=== PATIENT | female | born 1930 | race Caucasian/White ===

== ENCOUNTER 2016-08-10 10:20 | Observation (INO) ==
--- NOTE | 2016-08-10 10:27 | Emergency Department Note ---
Disposition Clinical Impression: Headache, Atrial fibrillation with RVR, Frail elderly, CHF (congestive heart failure), Leukocytosis, Post-operative state Disposition: Admitted As Inpatient Referrals: NO,PCP [Non-Partnered Physician] - Forms: ED Satisfaction Letter General Adult HPI - General Chief complaint: ED Fever Stated complaint: Fever/Headache Time Seen by Provider: 08/10/16 10:26 Source: patient, family Limitations: no limitations - History of Present Illness HPI Narrative: 86-year-old female reports to the emergency department from home, she comes in with her son. There are concerns for a fever up to 101 degrees. The patient is status post cholecystectomy yesterday. She was sent home after surgery. The patient has a known history of atrial fibrillation discontinued her anticoagulation medication for surgery but re-initiated last night. There is no history of head trauma or neck stiffness but the patient reports she did have head and neck pain. There has been no difficulty moving the arms or legs and apparently no seizure-like activity noted unilateral arm or leg weakness or numbness no slurred speech or ifrah confusion. The patient denies any significant abdominal pain there is no history of vomiting diarrhea chest pain or shortness of breath. The patient's son reports the patient's heart is beating rapidly. There is no history of rash or urinary symptoms. No cough coughing up blood or syncope. The patient's complaints include headache fever and fast heart rate. Pain Scale: 5 - Related Data Home Medications Medication Instructions Recorded Confirmed Antiox#10/Om3/Dha/Epa/Lut/Zeax 1 cap PO QAM 04/29/16 08/10/16 [I-Caps with Lutein-[place] 3 Sfg] Digoxin [Lanoxin] 0.125 mg PO DAILY 04/29/16 08/10/16 Docusate [Colace] 200 mg PO BID 04/29/16 08/10/16 Lutein 6 mg PO HS 04/29/16 08/10/16 Metoprolol XL (24 HR) Succ [Toprol 50 mg PO DAILY 04/29/16 08/10/16 Xl] Rivaroxaban [Xarelto] 15 mg PO DAILY 04/29/16 08/10/16 Acetaminophen [Tylenol] 500 mg PO Q6HR PRN 08/09/16 08/10/16 Betamethasone/Propylene Glyc 1 appl TP DAILY PRN 08/09/16 08/10/16 [Betamethasone Dp Aug 0.05% Lot] Cholecalciferol (D-3) [Vitamin D] 1,000 unit PO DAILY 08/09/16 08/10/16 HYDROcodone/Acet 5/325 mg [[place]onas 1 tab PO BID PRN 08/10/16 08/10/16 5-325 mg] Previous Rx's Medication Instructions Recorded OxyCODONE/APAP 10/325 [Percocet 1 each PO Q6HR PRN #36 tablet 08/09/16 10/325 MG] Allergies Allergy/AdvReac Type Severity Reaction Status Date / Time dexamethasone Allergy See Verified 08/10/16 13:43 Comments Procaine Allergy See Verified 08/10/16 13:43 Comments All systems ED: reviewed and negative except as stated. 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 Absent: tenderness, meningismus - Chest Chest inspection: Present: symmetric chest wall rise. Absent: tenderness - Respiratory Respiratory exam: Present: normal lung sounds bilaterally. Absent: respiratory distress - Cardiovascular Cardiovascular exam: Present: tachycardia, irregular rhythm - Abdominal Exam Abdominal exam: Present: soft, Non-Tender, normal bowel sounds. Absent: tenderness, distention, guarding, rebound, rigidity - Extremities Exam Extremities exam: Present: normal inspection, full ROM, normal capillary refill. Absent: tenderness, pedal edema, joint swelling, calf tenderness - Expanded Lower Extremity Exam Lower leg exam: Absent: Homans' sign Neurovascular/Tendon exam: Present: normal capillary refill. Absent: motor deficit, sensory deficit, tendon deficit, extremity cold to touch, pallor - Back Exam Back exam: Present: normal inspection, full ROM. Absent: tenderness, CVA tenderness (R), CVA tenderness (L), vertebral tenderness - Neurological Exam Neurological exam: Present: alert, oriented X3, CN II-XII intact. Absent: motor sensory deficit - Psychiatric Psychiatric exam: Present: normal affect, normal mood - Skin Skin exam: Present: warm, dry, intact, normal color. Absent: rash, cyanosis, diaphoresis, erythema, pallor, mottled Course Vital Signs Temperature 99.0 F 08/10/16 10:21 Pulse Rate 131 08/10/16 10:21 Respiratory Rate 18 08/10/16 10:21 Blood Pressure 127/73 08/10/16 10:21 O2 Sat by Pulse Oximetry 95 08/10/16 10:21 Temperature 99.0 F 08/10/16 10:21 Pulse Rate 95 08/10/16 14:20 Respiratory Rate 18 08/10/16 14:20 Blood Pressure 127/75 08/10/16 14:20 O2 Sat by Pulse Oximetry 95 08/10/16 14:20 Oxygen Delivery Oxygen Delivery Nasal Cannula Medical Decision Making - [facility] Narrative Medical decision making narrative: The patient does not have a significant temperature elevation here, she reports her head pain has resolved. I do not feel the patient requires an emergent lumbar puncture. She displays no neurologic change and is completely alert, there is no evidence of intracranial hemorrhage, I do not suspect meningismus. She does not describe a thunderclap headache and subarachnoid hemorrhage seems less likely. The patient does take anticoagulant medications. The patient may simply have a postop noninfectious fever. Chest x-ray negative. White count slightly elevated, lactate negative. Normal saline given in the ED. The patient seems to have a persistently elevated heart rate. Atrial fibrillation with RVR noted. I discussed the case with the hospitalist on-call who has accepted the patient to their care. Further evaluation and management per the admitting team and specialists if deemed necessary. I reviewed with the hospitalist did not recommended antibacterial therapy at this time, the patient's heart rate has come down to 95 after 1 L of fluid. - Lab Data Lab results reviewed: Yes I reviewed the patient's lab results. Result diagrams: 08/10/16 10:40 08/10/16 10:40 Lab Results 08/10/16 08/10/16 08/10/16 Range/Units 10:40 10:40 10:40 WBC 14.2 H (4.3-11.1) K/mcL RBC 3.94 (3.82-4.97) M/mcL Hgb 11.7 (11.5-15.4) g/dL Hct 34.8 L (35.3-44.9) % MCV 88.3 (83.0-100.0) fL MCH 29.7 (28.0-33.3) pg MCHC 33.6 (31.6-35.5) g/dL RDW 19.3 H (11.5-14.5) % Plt Count 168 (140-400) K/mcL MPV TNP Seg Neutrophils % 56.0 % Lymphocytes % 4.0 % Monocytes % 40.0 % Neutrophils # 8.0 (1.6-8.9) K/mcL Lymphocytes # 0.6 (0.6-4.6) K/mcL Monocytes # 5.7 H (0.0-1.3) K/mcL Platelet Estimate Normal (Normal) Large Platelets Present A (Not Present) Poikilocytosis 1+ A (Not Present) Ovalocytes 2+ A (Not Present) Sodium 134 L (136-145) mEq/L Potassium 4.1 (3.5-4.5) mEq/L Chloride 102 (98-109) mEq/L Carbon Dioxide 25 (19-29) mEq/L BUN 12 (7-20) mg/dL Creatinine 0.77 (0.57-1.11) mg/dL Est GFR ( Amer) > 60 (> 60) Est GFR (Non-Af Amer) > 60 (> 60) BUN/Creatinine Ratio 16 (6-26) Glucose 114 H (70-99) mg/dL Calculated Osmolality 279 L (280-300) Lactic Acid 1.3 (0.5-2.2) mmol/L Calcium 8.8 (8.6-10.8) mg/dL Troponin I (0-0.03) ng/mL C-Reactive Protein 32 H (Less than 5) mg/L B-Natriuretic Peptide (0-100) pg/mL Urine Color (Yellow) Urine Clarity (Clear) Urine pH (5.0-8.0) pH Units Ur Specific [place] (1.010-1.025) Urine Protein (Neg-Trace) mg/dL Urine Glucose (UA) (Normal) mg/dL Urine Ketones (Negative) mg/dL Urine Blood (Negative) Urine Nitrite (Negative) Urine Bilirubin (Negative) Urine Urobilinogen (Normal) mg/dL Ur Leukocyte Esterase (Negative) Ur Culture Indicated? (NO) 08/10/16 08/10/16 08/10/16 Range/Units 10:40 10:40 13:15 WBC (4.3-11.1) K/mcL RBC (3.82-4.97) M/mcL Hgb (11.5-15.4) g/dL Hct (35.3-44.9) % MCV (83.0-100.0) fL MCH (28.0-33.3) pg MCHC (31.6-35.5) g/dL RDW (11.5-14.5) % Plt Count (140-400) K/mcL MPV Seg Neutrophils % % Lymphocytes % % Monocytes % % Neutrophils # (1.6-8.9) K/mcL Lymphocytes # (0.6-4.6) K/mcL Monocytes # (0.0-1.3) K/mcL Platelet Estimate (Normal) Large Platelets (Not Present) Poikilocytosis (Not Present) Ovalocytes (Not Present) Sodium (136-145) mEq/L Potassium (3.5-4.5) mEq/L Chloride (98-109) mEq/L Carbon Dioxide (19-29) mEq/L BUN (7-20) mg/dL Creatinine (0.57-1.11) mg/dL Est GFR ( Amer) (> 60) Est GFR (Non-Af Amer) (> 60) BUN/Creatinine Ratio (6-26) Glucose (70-99) mg/dL Calculated Osmolality (280-300) Lactic Acid (0.5-2.2) mmol/L Calcium (8.6-10.8) mg/dL Troponin I 0.01 (0-0.03) ng/mL C-Reactive Protein (Less than 5) mg/L B-Natriuretic Peptide 434 H (0-100) pg/mL Urine Color Yellow (Yellow) Urine Clarity Clear (Clear) Urine pH 6.5 (5.0-8.0) pH Units Ur Specific [place] 1.009 L (1.010-1.025) Urine Protein Negative (Neg-Trace) mg/dL Urine Glucose (UA) Normal (Normal) mg/dL Urine Ketones Negative (Negative) mg/dL Urine Blood Negative (Negative) Urine Nitrite Negative (Negative) Urine Bilirubin Negative (Negative) Urine Urobilinogen Normal (Normal) mg/dL Ur Leukocyte Esterase Negative (Negative) Ur Culture Indicated? NO (NO) - Radiology Data Radiology results reviewed: Yes I reviewed the patient's radiology results.
[2016-08-10 10:52] LABS: Hematocrit 34.8 % (35.3-44.9); Hemoglobin 11.7 g/dL (11.5-15.4); Mean Corpuscular HGB Conc 33.6 g/dL (31.6-35.5); Mean Corpuscular Hemoglobin 29.7 pg (28.0-33.3); Mean Corpuscular Volume 88.3 fL (83.0-100.0); Platelet Count 168 K/mcL (140-400); Red Blood Count 3.94 M/mcL (3.82-4.97); Red Cell Distribution Width 19.3 % (11.5-14.5)
[2016-08-10 11:04] LABS: BUN/Creatinine Ratio 16 (6-26); Blood Urea Nitrogen 12 mg/dL (7-20); C-Reactive Protein 32 mg/L (Less than 5); Calcium 8.8 mg/dL (8.6-10.8); Carbon Dioxide 25 mEq/L (19-29); Chloride 102 mEq/L (98-109); Glucose 114 mg/dL (70-99); Osmolality,Calculated 279 (280-300); Potassium 4.1 mEq/L (3.5-4.5); Sodium 134 mEq/L (136-145); eGFR For African Americans > 60 (> 60); eGFR For Non-African Americans > 60 (> 60)
[2016-08-10] MEDS ORDERED: 0.9 % Sodium Chloride 1,000 ML IVC ONE (11:04)
[2016-08-10 11:14] LABS: Lymphocytes # 0.6 K/mcL (0.6-4.6); Monocytes # 5.7 K/mcL (0.0-1.3); Ovalocytes 2+ (Not Present); Platelet Estimate Normal (Normal)
[2016-08-10 11:15] LABS: Large Platelets Present (Not Present)
[2016-08-10 11:16] LABS: Poikilocytosis 1+ (Not Present)
[2016-08-10 13:29] LABS: Bilirubin,Urine Negative (Negative); Blood,Urine Negative (Negative); Clarity,Urine Clear (Clear); Color,Urine Yellow (Yellow); Glucose,Urine (UA) Normal (Normal); Ketones,Urine Negative (Negative); Leukocyte Esterase,Urine Negative (Negative); Nitrite,Urine Negative (Negative); PH,Urine 6.5 pH Units (5.0-8.0); Protein,Urine Negative (Neg-Trace); Specific Gravity,Urine 1.009 (1.010-1.025); Urobilinogen,Urine Normal (Normal)
[2016-08-10] MEDS ORDERED: *HR* OxyCODONE/APAP 10/325 TABLET PO PRN (15:36)
[2016-08-10] MEDS ORDERED: FluocinoNIDE 0.05% CRM 15 GM TUBE TP PRN (15:36)
[2016-08-10] MEDS ORDERED: 0.9 % Sodium Chloride 500 ML IVC SCH (15:45)
--- NOTE | 2016-08-10 15:58 | Internal Med History&Physical ---
Date of Encounter: 08/10/16 Time of Encounter: 15:55 Assessment and Plan (1) Postoperative fever Current visit: Yes Status: Acute Fever on day one after laparoscopic cholecystectomy. Atelectasis versus pneumonia. There is no evidence of bronchial breathing on exam nor consolidation on x-ray. she has fever leukocytosis. I will get a contrasted CT scan of the chest to avoid delay of antibiotics in this frail patient. If There is evidence of pneumonia on CT antibiotics will be started. Incentive spirometry. Urinalysis shows no evidence of infection. Abdomen is benign on exam. (2) Atrial fibrillation with rapid ventricular response Current visit: No Status: Resolved Continue the top-level and digoxin. Gentle hydration. Patient does not want any CPR. However with regards to intubation for respiratory purposes she wanted more time to think about it. This has to be entertained later Internal Medicine - H&P: HPI Chief complaint: fever History of present illness: Ms. Jensen is a 86 year old female who had the laparoscopic cholecystectomy yesterday presents to the emergency room today with a main component of fever. Today patient had a temperature of 101 prompting her to present emergency room for further evaluation according to her physician advice. She mentioned that she has been having scant nonproductive cough. She has appropriate abdominal at the sites of laparoscopy but has been eating and tolerating fold well. No nausea or vomiting. She has not had a bowel movement. She has not been using incentive spirometer. She has also been complaining of frontal headache. Unrelated emergency room she was found to be in in atrial fibrillation with rapid ventricular response. she is a chronic AFib. There is no confusion. Past Med Surg Social Fam HX - Past Medical History Medical history: atrial fibrillation, cancer, cardiomyopathy, CHF, hyperlipidemia, valvular heart disease, other Psychiatric history: anxiety - Past Surgical History Surgical History: breast surgery, cataract, hysterectomy - Social History Smoking Status: Former smoker Smokeless Tobacco Status: No Alcohol use: none Drug use: none - Family History Father Hx Family Cardiac Disorders: Yes ([place]) Mother Living Status: Internal Medicine - H&P: Meds Antiox#10/Om3/Dha/Epa/Lut/Zeax [I-Caps with Lutein-[place] 3 Sfg] 1 cap PO QAM [History] Digoxin [Lanoxin] 0.125 mg PO DAILY 04/29/16 [History] Docusate [Colace] 200 mg PO BID 04/29/16 [History] Lutein 6 mg PO HS 04/29/16 [History] Metoprolol XL (24 HR) Succ [Toprol Xl] 50 mg PO DAILY 04/29/16 [History] Rivaroxaban [Xarelto] 15 mg PO DAILY 04/29/16 [History] Acetaminophen [Tylenol] 500 mg PO Q6HR PRN 08/09/16 [History] Betamethasone/Propylene Glyc [Betamethasone Dp Aug 0.05% Lot] 1 appl TP DAILY PRN 08/09/16 [History] Cholecalciferol (D-3) [Vitamin D] 1,000 unit PO DAILY 08/09/16 [History] OxyCODONE/APAP 10/325 [Percocet 10/325 MG] 1 each PO Q6HR PRN #36 tablet [Rx] HYDROcodone/Acet 5/325 mg [[place] 5-325 mg] 1 tab PO BID PRN 08/10/16 [History] Allergies dexamethasone Allergy (Verified 08/10/16 13:43) See Comments unknown Procaine Allergy (Verified 08/10/16 13:43) See Comments All Systems PM: A 10-system review of systems was performed and is negative for pertinent findings except as documented above in the HPI. Review of systems: 10 point SIDDIQUI is negative except for HPI - Constitutional Vitals: Temp Pulse Resp BP Pulse Ox 99.0 F 95 18 132/105 95 08/10/16 10:21 08/10/16 14:20 08/10/16 15:18 08/10/16 15:18 08/10/16 14:20 Exam: Gen.: patient as alerts oriented times 3 NOT IN distress. Cardiac: normal S1 S2 no additional sounds chest: few crackles in the bases however there is no bronchial breathing lower extremity: lax calf muscles Zac[place]:no focal deficit Internal Med - H&P Results - Labs CBC & Chem 7: 08/10/16 10:40 08/10/16 10:40
[2016-08-10] MEDS ORDERED: *HR* Rivaroxaban 15 MG TABLET PO SCH (17:00)
--- NOTE | 2016-08-10 18:19 | Electrocardiograph Report ---
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
[2016-08-11 05:03] LABS: Basophils % 0.1 %; Hemoglobin 10.8 g/dL (11.5-15.4); Immature Granulocytes % 0.9 % (0-4); Red Cell Distribution Width 18.9 % (11.5-14.5)
[2016-08-11 05:05] LABS: Eosinophils # 0.1 K/mcL (0.0-0.6); Eosinophils % 0.8 %; Immature Platelets 13.9 % (1.1-6.1); Lymphocytes # 1.3 K/mcL (0.6-4.6); Lymphocytes % 8.8 %; Mean Corpuscular HGB Conc 32.7 g/dL (31.6-35.5); Mean Corpuscular Hemoglobin 28.9 pg (28.0-33.3); Mean Corpuscular Volume 88.2 fL (83.0-100.0); Monocytes # 6.4 K/mcL (0.0-1.3); Monocytes % 42.9 %; Platelet Count 113 K/mcL (140-400); Red Blood Count 3.74 M/mcL (3.82-4.97); Segmented Neutrophils % 46.5 %
[2016-08-11 05:16] LABS: BUN/Creatinine Ratio 14 (6-26); Blood Urea Nitrogen 9 mg/dL (7-20); C-Reactive Protein 119 mg/L (Less than 5); Calcium 8.5 mg/dL (8.6-10.8); Carbon Dioxide 26 mEq/L (19-29); Chloride 105 mEq/L (98-109); Glucose 115 mg/dL (70-99); Magnesium 1.9 mg/dL (1.6-2.6); Osmolality,Calculated 282 (280-300); Potassium 3.8 mEq/L (3.5-4.5); Sodium 136 mEq/L (136-145); eGFR For African Americans > 60 (> 60); eGFR For Non-African Americans > 60 (> 60)
[2016-08-11 06:10] LABS: Anisocytosis 1+ (Not Present); Ovalocytes 2+ (Not Present); Platelet Estimate Normal (Normal)
[2016-08-11] MEDS ORDERED: Metoprolol XL (24 HR) Succ 50 MG TAB.ER.24H PO SCH (09:00)
[2016-08-11] MEDS ORDERED: *HR* Digoxin 0.125 MG TABLET PO SCH (09:00)
--- NOTE | 2016-08-11 11:48 | Discharge Summary ---
Date of Encounter: 08/11/16 Time of Encounter: 10:15 - Discharge Diagnosis (1) Postoperative fever Priority: Primary Status: Resolved (2) Atrial fibrillation with rapid ventricular response Priority: Secondary Status: Resolved - Discharge Medications Home Medications: Antiox#10/Om3/Dha/Epa/Lut/Zeax [I-Caps with Lutein-[place] 3 Sfg] 1 cap PO QAM [History] Digoxin [Lanoxin] 0.125 mg PO DAILY 04/29/16 [History] Docusate [Colace] 200 mg PO BID 04/29/16 [History] Lutein 6 mg PO HS 04/29/16 [History] Metoprolol XL (24 HR) Succ [Toprol Xl] 50 mg PO DAILY 04/29/16 [History] Rivaroxaban [Xarelto] 15 mg PO DAILY 04/29/16 [History] Acetaminophen [Tylenol] 500 mg PO Q6HR PRN 08/09/16 [History] Betamethasone/Propylene Glyc [Betamethasone Dp Aug 0.05% Lot] 1 appl TP DAILY PRN 08/09/16 [History] Cholecalciferol (D-3) [Vitamin D] 1,000 unit PO DAILY 08/09/16 [History] OxyCODONE/APAP 10/325 [Percocet 10/325 MG] 1 each PO Q6HR PRN #36 tablet [Rx] HYDROcodone/Acet 5/325 mg [[place] 5-325 mg] 1 tab PO BID PRN 08/10/16 [History] Allergies/Adverse Reactions: Allergies dexamethasone Allergy (Verified 08/10/16 13:43) See Comments unknown Procaine Allergy (Verified 08/10/16 13:43) See Comments Procedures/tests Complete & Pending: Procedures Performed prior 72 hours Category Date Time Status CT chest w/o contrast [CT chest wo con] [CT] Routine Cat Scan 08/10/16 15:33 Completed Date of admission: 08/10/16 14:52 Primary care physician: Geri Torres CNP Consults: 08/10/16 15:34 Consult to Occupational Therapy [CONS] Routine Comment: Evaluate, develop and implement POC Consult to Physical Therapy [CONS] Routine Comment: Evaluate, develop and implement POC Discharging clinician: Trudy Epstein Anticipated date of discharge: 08/11/16 - Patient Status Disposition: Home Health Service Condition: Good Functional capacity at discharge: uses cane/walker Overall status at discharge: patient is progressing back to baseline - Discharge Instructions Instructions: Atrial Fibrillation (DC) Follow Up With: Geri Torres CNP [Primary Care Provider] - 08/21/16 9:05 am - Diet and Activity Activity: as per physical therapy Diet: advance to your usual diet Hospital course: Ms. Jensen is a 86 year old female with a history of atrial fibrillation, cardiomyopathy, hyperlipidemia and heart disease was observed in the hospital after she presented with fever following recent laparoscopic cholecystectomy. She had leukocytosis on presentation. However workup for any sources of infection so far been negative. Her urine appears to be clean, her chest x-ray and CT scan of the chest did not show any pneumonia. She is no longer having fever and feels much better and will be discharged home today. She can follow up with her primary care provider for further management. She still has leukocytosis which could be reactive related to her surgery. Patient was also having A. fib with rapid ventricular response but this has since improved and patient is back on her usual rate controlling medications. - Time Spent with Patient Total time spent providing and/or coordinating discharge services: Less than 30 minutes (25 min) - Constitutional Vitals: Temp Pulse Resp BP Pulse Ox 99.2 F 99 18 121/71 98 08/11/16 07:15 08/11/16 07:15 08/11/16 07:15 08/11/16 07:15 08/11/16 07:40 General appearance: Present: cooperative, A&O X 3, no acute distress, answers questions appropriately - Respiratory Respiratory exam: Present: CTAB. Absent: accessory muscle use, rales, rhonchi, wheezes - Cardiovascular Cardiovascular exam: Present: irregular rhythm, +S1, +S2. Absent: diastolic murmur, gallop, rubs, systolic murmur - GI/Abdominal GI/Abdominal exam: Present: normal bowel sounds, soft, no peritoneal signs. Absent: distended, tenderness - Attending Attestation This document has been at least partially created by [employer] recognition technology by Dr. Epstein. Errors in grammar, wording or other phrases may exist. If errors are found after the documentation is signed, they will be addressed individually in the addendum section of this document when appropriate.
[2016-08-11 12:00] VITALS: BP 127/64
--- NOTE | 2016-08-11 12:16 | Physician Discharge Referral ---
Home Health/Hosp Referral Info Transfer to: Home Health Provider in Charge Post Discharge: PCP - Diagnosis (1) Postoperative fever Priority: Primary Status: Resolved (2) Atrial fibrillation with rapid ventricular response Priority: Secondary Status: Resolved - Respiratory Orders Smoking Cessation: Smoking cessation has been advised. For more information, call the [place] Tobacco Quit Line at 5-907-UBAY-NOW. - Diet/Nutrition Diet/Nutrition Orders: Cardiac - Activity Activity Orders: Walker - Services Needed Following services are medically necessary services: Physical Therapy, Occupational Therapy - Transfer Medications Home Medications: Antiox#10/Om3/Dha/Epa/Lut/Zeax [I-Caps with Lutein-[place] 3 Sfg] 1 cap PO QAM [History] Digoxin [Lanoxin] 0.125 mg PO DAILY 04/29/16 [History] Docusate [Colace] 200 mg PO BID 04/29/16 [History] Lutein 6 mg PO HS 04/29/16 [History] Metoprolol XL (24 HR) Succ [Toprol Xl] 50 mg PO DAILY 04/29/16 [History] Rivaroxaban [Xarelto] 15 mg PO DAILY 04/29/16 [History] Acetaminophen [Tylenol] 500 mg PO Q6HR PRN 08/09/16 [History] Betamethasone/Propylene Glyc [Betamethasone Dp Aug 0.05% Lot] 1 appl TP DAILY PRN 08/09/16 [History] Cholecalciferol (D-3) [Vitamin D] 1,000 unit PO DAILY 08/09/16 [History] OxyCODONE/APAP 10/325 [Percocet 10/325 MG] 1 each PO Q6HR PRN #36 tablet [Rx] HYDROcodone/Acet 5/325 mg [[place] 5-325 mg] 1 tab PO BID PRN 08/10/16 [History] Allergies/Adverse Reactions: Allergies dexamethasone Allergy (Verified 08/10/16 13:43) See Comments unknown Procaine Allergy (Verified 08/10/16 13:43) See Comments Certification: Further, I certify that my clinical findings support that this patient is homebound (i.e. absences from home require considerable and taxing effort and are for medical reasons or yarsanism services or infrequently or short duration when for other reasons) because: Homebound Reason: Patient requires assistance of a person or device to safely leave home Attestation: My signature below is to certify that this patient is under my care and that I, or nurse practitioner, or a physician's environmental engineering assistant working with me, has a face-to -face encounter with this patient.
[2016-08-13 07:45] LABS: CK Total (Ck Isoenzymes) 14 U/L (20-180)
[2016-08-13 07:45] LABS: CK Total (Ck Isoenzymes) 16 U/L (20-180)
== END 2016-08-11 13:34 | disposition home health service (06) ==
LOC: 3ANU 10:20 → EMEROO 10:20 → 3ANU 15:25
PROVIDERS: ADMIT Hospitalist; ATTEND Internal Medicine

== ENCOUNTER 2016-12-14 22:33 | Inpatient (IN) ==
[2016-12-14] MEDS ORDERED: 0.9 % Sodium Chloride 500 ML IVC ONE (23:08)
--- NOTE | 2016-12-14 23:19 | Emergency Department Note ---
Disposition Clinical Impression: Atrial fibrillation with RVR Disposition: Admitted As Inpatient Condition: Fair Weakness HPI - General Chief complaint: ED General Medical Stated complaint: "sick" Time Seen by Provider: 12/14/16 22:45 Source: patient Limitations: no limitations Nursing Notes Reviewed: No Vital Signs Reviewed: Yes (tachycardic) - History of Present Illness HPI Narrative: Tara is [id number] female past medical history of A. fib currently on anticoagulants , valvular disease, CHF, and HLP presented to the ER today with diffuse weakness, non-bloody vomiting x 3, and SOB. Patient was out in the yard earlier today then ate dinner around 4:00pm and started vomiting and had chills around 8:00pm. Weakness has been unable to be localized to a region. Patient thinks maybe she ate a bad tomato but significant other also ate same food and is well. Denies fever, dizziness, chest pain, changes in vision. Pain Scale: 5 - Related Data Home Medications Medication Instructions Recorded Confirmed Antiox#10/Om3/Dha/Epa/Lut/Zeax 1 cap PO QAM 04/29/16 08/10/16 [I-Caps with Lutein-[place] 3 Sfg] Digoxin [Lanoxin] 0.125 mg PO DAILY 04/29/16 08/10/16 Docusate [Colace] 200 mg PO BID 04/29/16 08/10/16 Lutein 6 mg PO HS 04/29/16 08/10/16 Metoprolol XL (24 HR) Succ [Toprol 50 mg PO DAILY 04/29/16 08/10/16 Xl] Rivaroxaban [Xarelto] 15 mg PO DAILY 04/29/16 08/10/16 Acetaminophen [Tylenol] 500 mg PO Q6HR PRN 08/09/16 08/10/16 Betamethasone/Propylene Glyc 1 appl TP DAILY PRN 08/09/16 08/10/16 [Betamethasone Dp Aug 0.05% Lot] Cholecalciferol (D-3) [Vitamin D] 1,000 unit PO DAILY 08/09/16 08/10/16 HYDROcodone/Acet 5/325 mg [[place] 1 tab PO BID PRN 08/10/16 08/10/16 5-325 mg] Previous Rx's Medication Instructions Recorded OxyCODONE/APAP 10/325 [Percocet 1 each PO Q6HR PRN #36 tablet 08/09/16 10/325 MG] Allergies Allergy/AdvReac Type Severity Reaction Status Date / Time dexamethasone Allergy See Verified 08/10/16 13:43 Comments Procaine Allergy See Verified 08/10/16 13:43 Comments All systems ED: reviewed and negative except as stated. Review of Systems: As Per HPI Constitutional: Reports: weakness. Denies: fever Cardiovascular: Denies: chest pain Respiratory: Denies: dyspnea Gastrointestinal: Reports: vomiting. Denies: abdominal pain Neurological: Reports: headache, weakness Past Medical History - Past Medical History Medical history: Reports: atrial fibrillation, cancer, cardiomyopathy, CHF, hyperlipidemia, valvular heart disease, other Surgical history: Reports: breast surgery, cataract, hysterectomy Psychiatric history: Reports: anxiety ESCORT BLIND history: Reports: no ESCORT BLIND history - Social History Smoking Status: Former smoker Smokeless Tobacco Status: No Alcohol use: Reports: none Drug use: Reports: none Physical Exam Constitutional: Alert, in no acute distress, well nourished Head: Normocephalic, atraumatic, normal contour and symmetric, no masses, lesions or scars EENT: eyes PERRL, EOMI, mouth dry mucous membranes Heart: irregularly irregular, tachycardia, no murmurs Lungs: Clear to auscultation, no wheezes, rales, or rhonchi Abdomen: Soft, nondistended, nontender, and no masses palpable, bowel sounds present and normal, no guarding or rigidity. Extremities: No clubbing, cyanosis, or edema, Skin: Skin warm and dry, no lesions, no rashes, no jaundice Neurologic: Cranial nerves II through XII intact, no focal deficits, strength within normal limits and equal bilaterally in all extremities Psych: Cooperative with exam, cognitive function intact for age, thought process logical - General Limitations: no limitations General appearance: alert, in no apparent distress Course Course Narrative: Tara is [id number] female past medical history of A. fib currently on anticoagulants , valvular disease, CHF, and HLP presented to the ER today with a couple of hours of diffuse weakness, non-bloody vomiting x 3, and SOB found to be in afib with RVR and a fever of 100.5F with possible pneumonia. CBC, CMP, Troponin, an CXR obtained. Abnormal labs: WBC 15.4, seg Neutrophils 70%, Tbili 2.2. CXR showed "Findings suggest early interstitial edema. Correlate with any clinical evidence of superimposed pneumonia." UA negative. EKG showed afib with RVR rate around 145bpm. NS 500ml bolus given. Lopressor 5mg IV given x2 without significant decrease in rate. 10mg Cardizem bolus given with rate decreased to 110bpm. Cardizem 5mg/hr drip initiated. Vital Signs Temperature 98 F 12/14/16 22:33 Pulse Rate 129 12/14/16 22:33 Respiratory Rate 16 12/14/16 22:33 Blood Pressure 133/81 12/14/16 22:33 O2 Sat by Pulse Oximetry 93 12/14/16 22:33 Temperature 98.2 F 12/15/16 04:17 Pulse Rate 93 12/15/16 04:17 Respiratory Rate 19 12/15/16 04:17 Blood Pressure 118/82 12/15/16 04:17 O2 Sat by Pulse Oximetry 97 12/15/16 04:17 Oxygen Delivery Oxygen Delivery Room Air Weakness - MDM Narrative Medical decision making narrative: Tara is brmek-[id number] female past medical history of A. fib currently on anticoagulants , valvular disease, CHF, and HLP presented to the ER today with a couple of hours of diffuse weakness, non-bloody vomiting x 3, and SOB found to be in afib with RVR and a fever of 100.5F with possible pneumonia. Afib with RVR possibly due to dehydration along with infectious etiology. Infection could be pneumonia or gastroenteritis. Patient on physical exam did have dry mucous membranes and was complaining about her mouth being too dry to talk along with admitting to spending time doing yard work today. Patient has an elevated WBC and a fever suggesting infectious etiology. UA was negative. CXR was unclear if pneumonia was present but could not r/o. Patient also presented vomiting x3 which could suggest gastroenteritis. Pancreatitis was r/o due to normal lipase. - Medical Records Medical records reviewed: Yes I reviewed the patient's medical records. - Lab Data Lab results reviewed: Yes I reviewed the patient's lab results. Result diagrams: 12/14/16 23:03 12/15/16 04:30 Lab Results 12/14/16 12/14/16 12/14/16 Range/Units 23:03 23:03 23:03 WBC 15.4 H (4.3-11.1) K/mcL RBC 4.30 (3.82-4.97) M/mcL Hgb 12.4 (11.5-15.4) g/dL Hct 37.3 (35.3-44.9) % MCV 86.7 (83.0-100.0) fL MCH 28.8 (28.0-33.3) pg MCHC 33.2 (31.6-35.5) g/dL RDW 19.6 H (11.5-14.5) % Plt Count 138 L (140-400) K/mcL MPV TNP Immature Gran % Test Not Performed Seg Neutrophils % 70.0 % Lymphocytes % 4.0 % Monocytes % 24.0 % Eosinophils % 2.0 % Basophils % Test Not Performed Neutrophils # 10.8 H (1.6-8.9) K/mcL Lymphocytes # 0.6 (0.6-4.6) K/mcL Monocytes # 3.7 H (0.0-1.3) K/mcL Eosinophils # 0.3 (0.0-0.6) K/mcL Basophils # Test Not Performed Platelet Estimate Normal (Normal) Large Platelets Present A (Not Present) Poikilocytosis 1+ A (Not Present) Anisocytosis 1+ A (Not Present) Microcytosis Present A (Not Present) Ovalocytes 2+ A (Not Present) Sodium 139 (136-145) mEq/L Potassium 4.3 (3.5-4.5) mEq/L Chloride 106 (98-109) mEq/L Carbon Dioxide 23 (19-29) mEq/L BUN 20 (7-20) mg/dL Creatinine 0.75 (0.57-1.11) mg/dL Est GFR ( Amer) > 60 (> 60) Est GFR (Non-Af Amer) > 60 (> 60) BUN/Creatinine Ratio 27 H (6-26) Glucose 126 H (70-99) mg/dL Calculated Osmolality 292 (280-300) Lactic Acid (0.5-2.2) mmol/L Calcium 9.5 (8.6-10.8) mg/dL Total Bilirubin 2.2 H (0.2-1.2) mg/dL AST 34 (5-34) Units/L ALT 24 (0-55) Units/L Alkaline Phosphatase 74 (38-126) Units/L Troponin I 0.03 (0-0.03) ng/mL Serum Total Protein 7.2 (6.0-8.3) g/dL Albumin 4.4 (3.5-5.0) g/dL Globulin 2.8 (2.4-3.5) g/dL Albumin/Globulin Ratio 1.6 (1.1-2.2) Lipase 11 (8-78) Units/L Urine Color (Yellow) Urine Clarity (Clear) Urine pH (5.0-8.0) pH Units Ur Specific [place] (1.010-1.025) Urine Protein (Neg-Trace) mg/dL Urine Glucose (UA) (Normal) mg/dL Urine Ketones (Negative) mg/dL Urine Blood (Negative) Urine Nitrite (Negative) Urine Bilirubin (Negative) Urine Urobilinogen (Normal) mg/dL Ur Leukocyte Esterase (Negative) Urine Microscopic RBC (0-3) per hpf Urine Microscopic WBC (0-3) per hpf Ur Squamous Epith Cells (None-Few) per lpf Urine Bacteria (None-Few) per hpf Hyaline Casts (None-Few) per lpf Ur Culture Indicated? (NO) Digoxin 0.5 L (0.8-2.0) ng/mL 12/15/16 12/15/16 Range/Units 01:09 02:00 WBC (4.3-11.1) K/mcL RBC (3.82-4.97) M/mcL Hgb (11.5-15.4) g/dL Hct (35.3-44.9) % MCV (83.0-100.0) fL MCH (28.0-33.3) pg MCHC (31.6-35.5) g/dL RDW (11.5-14.5) % Plt Count (140-400) K/mcL MPV Immature Gran % Seg Neutrophils % % Lymphocytes % % Monocytes % % Eosinophils % % Basophils % Neutrophils # (1.6-8.9) K/mcL Lymphocytes # (0.6-4.6) K/mcL Monocytes # (0.0-1.3) K/mcL Eosinophils # (0.0-0.6) K/mcL Basophils # Platelet Estimate (Normal) Large Platelets (Not Present) Poikilocytosis (Not Present) Anisocytosis (Not Present) Microcytosis (Not Present) Ovalocytes (Not Present) Sodium (136-145) mEq/L Potassium (3.5-4.5) mEq/L Chloride (98-109) mEq/L Carbon Dioxide (19-29) mEq/L BUN (7-20) mg/dL Creatinine (0.57-1.11) mg/dL Est GFR ( Amer) (> 60) Est GFR (Non-Af Amer) (> 60) BUN/Creatinine Ratio (6-26) Glucose (70-99) mg/dL Calculated Osmolality (280-300) Lactic Acid 1.4 (0.5-2.2) mmol/L Calcium (8.6-10.8) mg/dL Total Bilirubin (0.2-1.2) mg/dL AST (5-34) Units/L ALT (0-55) Units/L Alkaline Phosphatase (38-126) Units/L Troponin I (0-0.03) ng/mL Serum Total Protein (6.0-8.3) g/dL Albumin (3.5-5.0) g/dL Globulin (2.4-3.5) g/dL Albumin/Globulin Ratio (1.1-2.2) Lipase (8-78) Units/L Urine Color Yellow (Yellow) Urine Clarity Clear (Clear) Urine pH 7.0 (5.0-8.0) pH Units Ur Specific [place] 1.023 (1.010-1.025) Urine Protein Negative (Neg-Trace) mg/dL Urine Glucose (UA) Normal (Normal) mg/dL Urine Ketones Negative (Negative) mg/dL Urine Blood Negative (Negative) Urine Nitrite Negative (Negative) Urine Bilirubin Negative (Negative) Urine Urobilinogen Normal (Normal) mg/dL Ur Leukocyte Esterase Small H (Negative) Urine Microscopic RBC 0-3 (0-3) per hpf Urine Microscopic WBC 3-5 H (0-3) per hpf Ur Squamous Epith Cells Many H (None-Few) per lpf Urine Bacteria None Seen (None-Few) per hpf Hyaline Casts None Seen (None-Few) per lpf Ur Culture Indicated? YES A (NO) Digoxin (0.8-2.0) ng/mL - Radiology Data Radiology results reviewed: Yes I reviewed the patient's radiology results. Chest X-Ray 12/14/16 23:18 IMPRESSION: 1. Findings suggest early interstitial edema. Correlate with any clinical evidence of superimposed pneumonia. D/ / Micah Li MD / Micah Li MD Interpreting Provider: Micah Li MD - EKG Data EKG attestation: Yes I reviewed and interpreted this EKG. EKG results narrative: Atrial fibrillation with RVR. Rate: tachycardia Rhythm: A.Fib Critical Care Time Critical Care Time: Yes Total Critical Care Time: 45 Attestation: Critical care performed: Time is exclusive of separately billable procedures. Time includes: direct patient care, patient reassessment, coordination of patient care, interpretation of data (laboratory data, radiology data, and respiratory data), review of patient's medical records, medical consultation and documentation of patient care. Procedures included in critical care time: Procedures excluded from critical care time: Attestation Statement - Attestation Attestation: I, Fransico Buck MD, personally evaluated this patient and discussed their management with the resident physician. I reviewed the resident's note and agree with the documented findings, medical decision making, and plan of care. 86-year-old female presents to the emergency department with a complaint of acute onset this afternoon of chills and felt like she was freezing. She then became nauseated and vomited a few times. She has not noticed any definite fever. She denies any chest pain or increased shortness of breath. No cough. She denies palpitations. She has a history of atrial fibrillation. On arrival here the patient was found to be in atrial fibrillation with RVR. She also however felt warm and on repeat temperature was noted to have a temp of 100.5. No UTI symptoms. On examination patient is a well-developed thin elderly female in no acute distress. She has alert and oriented 3. There is no cyanosis or diaphoresis. Breath sounds are decreased but equal bilaterally. Heart is irregularly irregular and tachycardic. Abdomen is soft and nontender with normal bowel sounds. EKG shows atrial fibrillation with RVR. Chest x-ray: Findings suggest early interstitial edema. Correlate with any clinical evidence of superimposed pneumonia. Labs reviewed. Patient received IV Lopressor with no improvement in her tachycardia. She then received IV Cardizem and was placed on a Cardizem infusion. The hospitalist, Dr. Oneal, was consulted and accepted admission of the patient.
[2016-12-14 23:30] LABS: Hematocrit 37.3 % (35.3-44.9); Hemoglobin 12.4 g/dL (11.5-15.4); Mean Corpuscular HGB Conc 33.2 g/dL (31.6-35.5); Mean Corpuscular Hemoglobin 28.8 pg (28.0-33.3); Mean Corpuscular Volume 86.7 fL (83.0-100.0); Platelet Count 138 K/mcL (140-400); Red Cell Distribution Width 19.6 % (11.5-14.5)
[2016-12-14 23:35] LABS: Alanine Aminotransferase 24 Units/L (0-55); Albumin 4.4 g/dL (3.5-5.0); Albumin/Globulin Ratio 1.6 (1.1-2.2); Alkaline Phosphatase 74 Units/L (38-126); Aspartate Amino Transferase 34 Units/L (5-34); BUN/Creatinine Ratio 27 (6-26); Bilirubin,Total 2.2 mg/dL (0.2-1.2); Blood Urea Nitrogen 20 mg/dL (7-20); Calcium 9.5 mg/dL (8.6-10.8); Carbon Dioxide 23 mEq/L (19-29); Chloride 106 mEq/L (98-109); Globulin 2.8 g/dL (2.4-3.5); Glucose 126 mg/dL (70-99); Osmolality,Calculated 292 (280-300); Potassium 4.3 mEq/L (3.5-4.5); Sodium 139 mEq/L (136-145); Total Protein 7.2 g/dL (6.0-8.3); eGFR For African Americans > 60 (> 60); eGFR For Non-African Americans > 60 (> 60)
[2016-12-14] MEDS ORDERED: *HR* Metoprolol 5 MG/5 ML VIAL IVP ONE (23:38)
[2016-12-14 23:58] LABS: Lipase 11 Units/L (8-78)
[2016-12-15 00:07] LABS: Digoxin 0.5 ng/mL (0.8-2.0)
[2016-12-15 00:10] LABS: Neutrophils # 10.8 K/mcL (1.6-8.9)
[2016-12-15 00:11] LABS: Eosinophils # 0.3 K/mcL (0.0-0.6); Lymphocytes # 0.6 K/mcL (0.6-4.6); Monocytes # 3.7 K/mcL (0.0-1.3); Platelet Estimate Normal (Normal)
[2016-12-15 00:12] LABS: Anisocytosis 1+ (Not Present); Microcytosis Present (Not Present)
[2016-12-15 00:13] LABS: Large Platelets Present (Not Present); Poikilocytosis 1+ (Not Present)
[2016-12-15 00:14] LABS: Ovalocytes 2+ (Not Present)
[2016-12-15] MEDS ORDERED: *HR* Metoprolol 5 MG/5 ML VIAL IVP ONE (00:30)
[2016-12-15 02:11] LABS: Bilirubin,Urine Negative (Negative); Blood,Urine Negative (Negative); Clarity,Urine Clear (Clear); Color,Urine Yellow (Yellow); Glucose,Urine (UA) Normal (Normal); Ketones,Urine Negative (Negative); Leukocyte Esterase,Urine Small (Negative); Nitrite,Urine Negative (Negative); Protein,Urine Negative (Neg-Trace); Specific Gravity,Urine 1.023 (1.010-1.025); Urobilinogen,Urine Normal (Normal)
[2016-12-15 02:12] LABS: Bacteria,Urine None Seen per hpf (None-Few); Hyaline Casts,Urine None Seen per lpf (None-Few); RBC,Urine 0-3 per hpf (0-3); Squamous Epithelial Cell,Urine Many per lpf (None-Few)
[2016-12-15] MEDS ORDERED: Ondansetron 4 MG/2 ML VIAL IVP PRN (03:34)
[2016-12-15] MEDS ORDERED: Naloxone 0.4 MG/ML INJ IVP PRN (03:34)
--- NOTE | 2016-12-15 03:44 | Internal Med History&Physical ---
Date of Encounter: 12/15/16 Time of Encounter: 03:42 Assessment and Plan (1) Sepsis Current visit: Yes Status: Acute 86-year-old female chief complaint "sick" Reports eating garrido tomato sandwich The first 3 positive nauseous and vomiting plus loose stools Presents tachycardic, irregularly irregular rhythm, leukocytosis, febrile Abdomen soft, nontender, positive bowel sounds CXR: possible pneumonia, however patient does not have clinical signs of pneumonia including hypoxia, productive sputum and lung sounds are clear. Other source of infection: Enteritis, urinary tract infection (urinalysis dirty shows white cell count and leukocyte esterace), she does not have open wounds In July patient had a cholecystectomy. Plan: No surgical abdomen CT abdomen and pelvis with IV oral contrast Flagyl 500 mg every 8 H IV fluids Zofran to control nausea Clear liquid diet Stool studies Qualifiers: Sepsis type: sepsis due to unspecified organism Qualified Code(s): A41.9 - Sepsis, unspecified organism (2) N&V (nausea and vomiting) Current visit: Yes Status: Acute Reports 3 bouts of nausea vomiting Reports loose stools Elevated bilirubin 2.12 July 2016 underwent cholecystectomy Other abdominal surgeries include hysterectomy at age 28. Plan: unclear etiology: possible food poisioning, enteritis most likely infectious source as patient exhibits several sirs criteria Obtain CT abdomen and pelvis Qualifiers: Vomiting type: unspecified Vomiting Intractability: non-intractable Qualified Code(s): R11.2 - Nausea with vomiting, unspecified (3) Afib Current visit: Yes Status: Acute Patient has history of A. fib. She is on metoprolol, digoxin and Xeralto. In the ER patient was found to be in A. fib RVR with a rate of 130s. Initially she was given IV Cardizem 10 mg which included brought her rate down to 110 and thereafter she was started on a Cardizem drip. We will resume her home medications and discontinue Cardizem drip. Patient is likely in A. fib or secondary to sepsis. Blood pressure stable. Qualifiers: Atrial fibrillation type: chronic Qualified Code(s): I48.2 - Chronic atrial fibrillation (4) DVT prophylaxis Current visit: Yes Status: Acute Patient is on several different A. fib. Internal Medicine - H&P: HPI Chief complaint: sick Admitted From: Home Plans for Post Hospital Care: Home History of present illness: Ms. Jensen is a 86 year old female with chief complaint of being "sick". Patient states yesterday afternoon she ate a garrido and tomato sandwich. As the afternoon progressed she began developing chills. Thereafter at around 8 PM yesterday she started having nausea vomiting. She had 3 bouts of vomiting and states she vomited up her previous meal. She also had one bout of loose stools and reports dry mouth. She denies melena, hematochezia, hematemesis. Patient denies headache, change in vision, dizziness or passing out episode, abdominal pain, chest pain, shortness of breath, cough, productive sputum, dysuria, hematuria, palpitations, weight loss, weight gain. Past Med Surg Social Fam HX - Past Medical History Medical history: atrial fibrillation, cancer, cardiomyopathy, CHF, hyperlipidemia, valvular heart disease, other Psychiatric history: anxiety - Past Surgical History Surgical History: breast surgery, cataract, hysterectomy - Social History Smoking Status: Former smoker Smokeless Tobacco Status: No Alcohol use: none Drug use: none - Family History Father Hx Family Cardiac Disorders: Yes (DC) Mother Living Status: Internal Medicine - H&P: Meds Antiox#10/Om3/Dha/Epa/Lut/Zeax [I-Caps with Lutein-[place] 3 Sfg] 1 cap PO QAM [History] Digoxin [Lanoxin] 0.125 mg PO DAILY 04/29/16 [History] Docusate [Colace] 200 mg PO BID 04/29/16 [History] Lutein 6 mg PO HS 04/29/16 [History] Metoprolol XL (24 HR) Succ [Toprol Xl] 50 mg PO DAILY 04/29/16 [History] Rivaroxaban [Xarelto] 15 mg PO DAILY 04/29/16 [History] Acetaminophen [Tylenol] 500 mg PO Q6HR PRN 08/09/16 [History] Betamethasone/Propylene Glyc [Betamethasone Dp Aug 0.05% Lot] 1 appl TP DAILY PRN 08/09/16 [History] Cholecalciferol (D-3) [Vitamin D] 1,000 unit PO DAILY 08/09/16 [History] OxyCODONE/APAP 10/325 [Percocet 10/325 MG] 1 each PO Q6HR PRN #36 tablet [Rx] HYDROcodone/Acet 5/325 mg [[place] 5-325 mg] 1 tab PO BID PRN 08/10/16 [History] Allergies dexamethasone Allergy (Verified 08/10/16 13:43) See Comments unknown Procaine Allergy (Verified 08/10/16 13:43) See Comments All Systems PM: A 10-system review of systems was performed and is negative for pertinent findings except as documented above in the HPI. Review of systems: Constitutional: Denies fever reports chills HEENT: Denies headache, vision changes, neck pain, sore throat,. Reports rhinorrhea Heart: Denies chest pain palpitations Lungs: Denies shortness of breath cough Abdomen: Denies abdominal pain . Reports nausea, vomiting, loose stools Back: Denies back pain Kidney: Denies dysuria, hematuria Extremities: Denies swelling, pain Neuro: Denies numbness, and tingling - Constitutional Vitals: Temp Pulse Resp BP Pulse Ox 100.5 F H 111 16 114/75 92 12/15/16 00:16 12/15/16 01:10 12/15/16 03:29 12/15/16 03:29 12/15/16 01:10 - Other Additional findings: General: Alert and oriented to place time and situation. Without distress HEENT: Head atraumatic, normocephalic, EOMI, PERRLA, absent Lymphadenopathy, dry mucous membranes Heart: Irregularly irregular rhythm with no murmur, tachycardic Lungs: Clear to auscultation bilaterally Abdomen: Soft nontender, nondistended positive bowel sounds Extremities: 1+ pedal edema Neuro: Cranial nerves II through XII intact, sensation equal bilaterally, strength upper and lower extremity 5/5, alert oriented 3 Vascular: Pedal and radialpulses 2 out of 4 Internal Med - H&P Results - Labs CBC & Chem 7: 12/14/16 23:03 12/14/16 23:03
[2016-12-15] MEDS ORDERED: 0.9 % Sodium Chloride 1,000 ML IVC SCH (03:45)
--- NOTE | 2016-12-15 03:48 | Event Note ---
Date of Encounter: 12/15/16 Time of Encounter: 03:44 Patient seen and examined at bedside. Presents with weakness, fever, chills, vomiting, diarrhea. Suspect enteritis. Will get a contrasted CT scan of the abdomen and pelvis to look for other intrabdominal infectons (e.g diverticulitis. She had subtle lower abdominal tenderness on deep palpation). Will start her on Flagyl IV and hydrate. Decide on antibiotics after CT scan of abdomen and pelvis. AFib with RVR from fever and possible sepsis. Inpatient admission.
[2016-12-15 05:16] LABS: Mean Corpuscular Volume 89.1 fL (83.0-100.0)
[2016-12-15 05:17] LABS: BUN/Creatinine Ratio 22 (6-26); Blood Urea Nitrogen 17 mg/dL (7-20); Calcium 8.9 mg/dL (8.6-10.8); Carbon Dioxide 26 mEq/L (19-29); Chloride 105 mEq/L (98-109); Glucose 125 mg/dL (70-99); Magnesium 1.9 mg/dL (1.6-2.6); Osmolality,Calculated 289 (280-300); Potassium 4.3 mEq/L (3.5-4.5); Sodium 138 mEq/L (136-145); eGFR For African Americans > 60 (> 60); eGFR For Non-African Americans > 60 (> 60)
[2016-12-15 05:18] LABS: Hematocrit 35.8 % (35.3-44.9); Hemoglobin 11.3 g/dL (11.5-15.4); Immature Platelets 14.6 % (1.1-6.1); Lymphocytes # 1.5 K/mcL (0.6-4.6); Mean Corpuscular HGB Conc 31.6 g/dL (31.6-35.5); Mean Corpuscular Hemoglobin 28.1 pg (28.0-33.3); Platelet Count 111 K/mcL (140-400); Red Blood Count 4.02 M/mcL (3.82-4.97); Red Cell Distribution Width 19.5 % (11.5-14.5)
[2016-12-15] MEDS: Metoprolol XL (24 HR) Succ 50 MG TAB.ER.24H PO SCH (08:12)
[2016-12-15] MEDS: *HR* Rivaroxaban 15 MG TABLET PO SCH (08:12)
[2016-12-15] MEDS: MetroNIDAZOLE 500 MG/100 ML 500 MG/100 ML BAG IVPB SCH ×3 (08:13→23:25)
[2016-12-15 08:55] LABS: Monocytes # 2.6 K/mcL (0.0-1.3); Neutrophils # 14.3 K/mcL (1.6-8.9)
[2016-12-15 08:56] LABS: Anisocytosis 1+ (Not Present); Large Platelets Present (Not Present); Ovalocytes 1+ (Not Present); Platelet Estimate Slight Decrease (Normal)
[2016-12-15 08:57] LABS: Polychromasia 1+ (Not Present)
[2016-12-15 08:58] LABS: Poikilocytosis 1+ (Not Present)
[2016-12-15] MEDS ORDERED: Levofloxacin 750 MG/150 ML 750 MG/150 ML BAG IVPB SCH (09:00)
[2016-12-15] MEDS ORDERED: *HR* Digoxin 0.125 MG TABLET PO SCH (09:00)
--- NOTE | 2016-12-15 11:15 | Internal Med Progress Note ---
Date of Encounter: 12/16/16 Time of Encounter: 11:12 - Assessment and plan (1) Sepsis Current Visit: Yes Status: Acute Assessment and plan: Patient presented with chills and leukocytosis positive chest x-ray for pneumonia and positive leukocyte esterase. She is on IV Levaquin and Flagyl. Daily CBC. Qualifiers: Sepsis type: sepsis due to unspecified organism Qualified Code(s): A41.9 - Sepsis, unspecified organism (2) PNA (pneumonia) Current Visit: Yes Status: Acute Qualifiers: Qualified Code(s): J18.9 - Pneumonia, unspecified organism (3) UTI (urinary tract infection) Current Visit: Yes Status: Acute Qualifiers: Qualified Code(s): N39.0 - Urinary tract infection, site not specified (4) Atrial fibrillation with rapid ventricular response Current Visit: No Status: Resolved Assessment and plan: Presented with A. fib RVR, started on IV Cardizem in the ER, on telemetry and will be monitored daily. On anticoagulation (5) Mitral regurgitation Current Visit: No Status: Chronic Qualifiers: Qualified Code(s): I34.0 - Nonrheumatic mitral (valve) insufficiency (6) Total bilirubin, elevated Current Visit: No Status: Acute Assessment and plan: Patient had cholecystectomy in the past. Bilirubin is 2 and I suspect if it is chronically high. Rest of the liver function tests are normal. 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 (7) DVT prophylaxis Current Visit: No Status: Acute Assessment and plan: On Xarelto - Subjective Interval history: Ms. Tara Jensen is an 86-year-old female presented with chills nausea and vomiting and diarrhea. She has elevated white count but no fever. Chest x-ray showed atelectasis and infiltrates consistent with pneumonia and UA also showed some leukocytes. Cultures are pending. Admitting team felt she might have antritis however abdominal CT is quite unremarkable. Patient antibiotic coverage will be broadened with IV Levaquin and Cipro. She has A. fib with RVR and was started on IV Cardizem in the ER. She is on long-term anticoagulation with Xarelto. Daily CBC CMP ordered. She will be hydrated cautiously as she might develop CHF. - Constitutional Vitals: Temp Pulse Resp BP Pulse Ox 98.2 F 111 18 125/71 97 12/15/16 08:15 12/15/16 08:15 08/05/17 08:15 12/15/16 08:15 12/15/16 08:15 - Head Head exam: Present: atraumatic, normocephalic - Eye Eye exam: Present: PERRL, conjuntiva pink, sclera anicteric Pupils: Present: PERRL - Neck Neck exam general surgery: Present: supple, trachea midline. Absent: lymphadenopathy - Respiratory Respiratory exam: Present: CTAB. Absent: accessory muscle use, rales, rhonchi, wheezes - Cardiovascular Cardiovascular exam: Present: RRR, +S1, +S2. Absent: diastolic murmur, gallop, rubs, systolic murmur - GI/Abdominal GI/Abdominal exam: Present: normal bowel sounds, soft, no peritoneal signs. Absent: distended, tenderness - Extremities Exam Extremities exam: Present: warm, radial pulses palpable and symetrical. Absent : calf tenderness, cyanotic, pedal edema - Neurological Exam Neurological exam: Present: CN II-XII intact, oriented X3, no focal deficits. Absent: pronater drift, facial droop, speech deficit - Skin Skin exam: Present: dry, intact Internal Medicine: Result - Labs CBC & Chem 7: 12/16/16 04:49 12/16/16 04:49 Labs: Short CBC 12/15/16 Range/Units 04:30 WBC 18.3 H (4.3-11.1) K/mcL Hgb 11.3 L (11.5-15.4) g/dL Hct 35.8 (35.3-44.9) % Plt Count 111 L (140-400) K/mcL Neutrophils # 14.3 H (1.6-8.9) K/mcL BMP 12/15/16 04:30 Sodium 138 Potassium 4.3 Chloride 105 Carbon Dioxide 26 BUN 17 Creatinine 0.77 Glucose 125 H Calcium 8.9 - Impressions Impressions Abdomen/Pelvis CT 12/15/16 09:15 IMPRESSION: No acute intra-abdominal abnormality. Small hiatal hernia. D/ / Vinay Kaminski MD / Vinay Kaminski MD Interpreting Provider: Vinay Kaminski MD Consult Discharge Plan - Plan Referrals: Geri Torres CNP [Primary Care Provider] -
[2016-12-15] MEDS ORDERED: *HR* Digoxin 0.5 MG/2 ML AMPUL IVP STA (11:20)
[2016-12-15] MEDS: *HR* Digoxin 0.25 MG TABLET PO SCH ×2 (11:55→11:58)
[2016-12-15] MEDS ORDERED: Levofloxacin 500 MG/100 ML 500 MG/100 ML BAG IVPB SCH (12:00)
[2016-12-16 05:51] LABS: Basophils % 0.2 %; Monocytes % 37.3 %; Red Blood Count 3.91 M/mcL (3.82-4.97)
[2016-12-16 05:53] LABS: Eosinophils # 0.2 K/mcL (0.0-0.6); Eosinophils % 1.5 %; Hematocrit 34.9 % (35.3-44.9); Hemoglobin 10.9 g/dL (11.5-15.4); Immature Granulocytes % 0.6 % (0-4); Immature Platelets 16.3 % (1.1-6.1); Lymphocytes % 15.7 %; Mean Corpuscular HGB Conc 31.2 g/dL (31.6-35.5); Mean Corpuscular Hemoglobin 27.9 pg (28.0-33.3); Mean Corpuscular Volume 89.3 fL (83.0-100.0); Monocytes # 4.6 K/mcL (0.0-1.3); Neutrophils # 5.5 K/mcL (1.6-8.9); Platelet Count 100 K/mcL (140-400); Red Cell Distribution Width 19.4 % (11.5-14.5); Segmented Neutrophils % 44.7 %
[2016-12-16 06:10] LABS: Alanine Aminotransferase 17 Units/L (0-55); Albumin/Globulin Ratio 1.3 (1.1-2.2); Alkaline Phosphatase 63 Units/L (38-126); Aspartate Amino Transferase 23 Units/L (5-34); BUN/Creatinine Ratio 19 (6-26); Blood Urea Nitrogen 14 mg/dL (7-20); Calcium 8.6 mg/dL (8.6-10.8); Carbon Dioxide 26 mEq/L (19-29); Chloride 107 mEq/L (98-109); Globulin 2.6 g/dL (2.4-3.5); Glucose 97 mg/dL (70-99); Osmolality,Calculated 292 (280-300); Potassium 3.9 mEq/L (3.5-4.5); Sodium 141 mEq/L (136-145); Total Protein 6.1 g/dL (6.0-8.3); eGFR For African Americans > 60 (> 60); eGFR For Non-African Americans > 60 (> 60)
[2016-12-16 06:11] LABS: Albumin 3.5 g/dL (3.5-5.0)
[2016-12-16 06:13] LABS: Ovalocytes 1+ (Not Present); Platelet Estimate Decreased (Normal)
[2016-12-16 06:14] LABS: Anisocytosis 1+ (Not Present); Poikilocytosis 2+ (Not Present); Polychromasia 1+ (Not Present)
[2016-12-16] MEDS: MetroNIDAZOLE 500 MG/100 ML 500 MG/100 ML BAG IVPB SCH ×2 (08:26→16:55)
[2016-12-16] MEDS: *HR* Digoxin 0.25 MG TABLET PO SCH (08:26)
[2016-12-16] MEDS: *HR* Rivaroxaban 15 MG TABLET PO SCH (08:26)
[2016-12-16] MEDS: Metoprolol XL (24 HR) Succ 50 MG TAB.ER.24H PO SCH (08:26)
--- NOTE | 2016-12-16 17:04 | Internal Med Progress Note ---
Date of Encounter: 12/16/16 Time of Encounter: 17:03 - Assessment and plan (1) Sepsis Current Visit: Yes Status: Acute Qualifiers: Sepsis type: sepsis due to unspecified organism Qualified Code(s): A41.9 - Sepsis, unspecified organism (2) PNA (pneumonia) Current Visit: Yes Status: Acute Qualifiers: Qualified Code(s): J18.9 - Pneumonia, unspecified organism (3) UTI (urinary tract infection) Current Visit: Yes Status: Acute Qualifiers: Qualified Code(s): N39.0 - Urinary tract infection, site not specified; R31.9 - Hematuria, unspecified (4) Atrial fibrillation with rapid ventricular response Current Visit: Yes Status: Resolved (5) Mitral regurgitation Current Visit: No Status: Chronic Qualifiers: Qualified Code(s): I34.0 - Nonrheumatic mitral (valve) insufficiency (6) Total bilirubin, elevated Current Visit: Yes Status: Acute (7) DVT prophylaxis Current Visit: No Status: Acute - Subjective Interval history: Ms. Tara Jensen is an 86-year-old female presented with chills nausea and vomiting and diarrhea. She has elevated white count but no fever. Chest x-ray showed atelectasis and infiltrates consistent with pneumonia and UA also showed some leukocytes. Cultures are pending. Admitting team felt she might have antritis however abdominal CT is quite unremarkable. Patient antibiotic coverage will be broadened with IV Levaquin and Cipro. She has A. fib with RVR and was started on IV Cardizem in the ER. She is on long-term anticoagulation with Xarelto. Daily CBC CMP ordered. She will be hydrated cautiously as she might develop CHF. Today looks much better while awake and alert no complaints of shortness of breath. We will continue antibiotics and DC IV fluid. Her white count is coming down continue monitoring. - Constitutional Vitals: Temp Pulse Resp BP Pulse Ox 97.7 F 80 18 132/60 97 12/16/16 15:03 12/16/16 15:03 12/16/16 15:03 12/16/16 15:03 12/16/16 15:03 - Head Head exam: Present: atraumatic, normocephalic - Eye Eye exam: Present: PERRL, conjuntiva pink, sclera anicteric Pupils: Present: PERRL - Neck Neck exam general surgery: Present: supple, trachea midline. Absent: lymphadenopathy - Respiratory Respiratory exam: Present: CTAB. Absent: accessory muscle use, rales, rhonchi, wheezes - Cardiovascular Cardiovascular exam: Present: RRR, +S1, +S2. Absent: diastolic murmur, gallop, rubs, systolic murmur - GI/Abdominal GI/Abdominal exam: Present: normal bowel sounds, soft, no peritoneal signs. Absent: distended, tenderness - Extremities Exam Extremities exam: Present: warm, radial pulses palpable and symetrical. Absent : calf tenderness, cyanotic, pedal edema - Neurological Exam Neurological exam: Present: CN II-XII intact, oriented X3, no focal deficits. Absent: pronater drift, facial droop, speech deficit - Skin Skin exam: Present: dry, intact Internal Medicine: Result - Labs CBC & Chem 7: 12/16/16 04:49 12/16/16 04:49 Labs: Short CBC 12/16/16 Range/Units 04:49 WBC 12.4 H (4.3-11.1) K/mcL Hgb 10.9 L (11.5-15.4) g/dL Hct 34.9 L (35.3-44.9) % Plt Count 100 L (140-400) K/mcL Neutrophils # 5.5 (1.6-8.9) K/mcL BMP 12/16/16 04:49 Sodium 141 Potassium 3.9 Chloride 107 Carbon Dioxide 26 BUN 14 Creatinine 0.74 Glucose 97 Calcium 8.6 Liver Function 12/16/16 Range/Units 04:49 Total Bilirubin 2.0 H (0.2-1.2) mg/dL AST 23 (5-34) Units/L ALT 17 (0-55) Units/L Alkaline Phosphatase 63 (38-126) Units/L Albumin 3.5 D (3.5-5.0) g/dL Consult Discharge Plan - Plan Referrals: Geri Torres CNP [Primary Care Provider] -
[2016-12-17] MEDS ORDERED: levoFLOXacin 750 MG TABLET PO SCH ×2 (00:15→09:00)
[2016-12-17] MEDS: metroNIDAZOLE 500 MG TABLET PO SCH ×2 (00:39→11:19)
[2016-12-17 04:02] LABS: Basophils % 0.2 %; Hemoglobin 10.9 g/dL (11.5-15.4); Immature Granulocytes % 0.7 % (0-4); Red Cell Distribution Width 19.6 % (11.5-14.5)
[2016-12-17 04:04] LABS: Eosinophils # 0.2 K/mcL (0.0-0.6); Eosinophils % 1.6 %; Hematocrit 33.5 % (35.3-44.9); Immature Platelets 14.8 % (1.1-6.1); Lymphocytes # 2.2 K/mcL (0.6-4.6); Lymphocytes % 17.9 %; Mean Corpuscular HGB Conc 32.5 g/dL (31.6-35.5); Mean Corpuscular Hemoglobin 28.8 pg (28.0-33.3); Mean Corpuscular Volume 88.6 fL (83.0-100.0); Monocytes # 4.6 K/mcL (0.0-1.3); Monocytes % 37.6 %; Neutrophils # 5.1 K/mcL (1.6-8.9); Platelet Count 100 K/mcL (140-400); Red Blood Count 3.78 M/mcL (3.82-4.97)
[2016-12-17 04:21] LABS: Alanine Aminotransferase 15 Units/L (0-55); Albumin 3.5 g/dL (3.5-5.0); Albumin/Globulin Ratio 1.4 (1.1-2.2); Alkaline Phosphatase 58 Units/L (38-126); Aspartate Amino Transferase 21 Units/L (5-34); BUN/Creatinine Ratio 20 (6-26); Blood Urea Nitrogen 13 mg/dL (7-20); Calcium 8.5 mg/dL (8.6-10.8); Carbon Dioxide 25 mEq/L (19-29); Chloride 106 mEq/L (98-109); Globulin 2.5 g/dL (2.4-3.5); Glucose 98 mg/dL (70-99); Osmolality,Calculated 288 (280-300); Sodium 139 mEq/L (136-145); eGFR For African Americans > 60 (> 60); eGFR For Non-African Americans > 60 (> 60)
[2016-12-17 05:04] LABS: Platelet Estimate Slight Decrease (Normal)
[2016-12-17 05:05] LABS: Ovalocytes 1+ (Not Present); Poikilocytosis 1+ (Not Present)
[2016-12-17 07:04] VITALS: BP 128/73
--- NOTE | 2016-12-17 09:54 | Discharge Summary ---
Date of Encounter: 12/17/16 Time of Encounter: 09:52 - Discharge Diagnosis (1) Sepsis Priority: Primary Status: Acute Qualifiers: Sepsis type: sepsis due to unspecified organism Qualified Code(s): A41.9 - Sepsis, unspecified organism (2) PNA (pneumonia) Priority: Primary Status: Acute Qualifiers: Qualified Code(s): J18.9 - Pneumonia, unspecified organism (3) UTI (urinary tract infection) Priority: Primary Status: Acute Qualifiers: Qualified Code(s): N39.0 - Urinary tract infection, site not specified; R31.9 - Hematuria, unspecified (4) Atrial fibrillation with rapid ventricular response Priority: Primary Status: Resolved (5) Mitral regurgitation Priority: Secondary Status: Chronic Qualifiers: Qualified Code(s): I34.0 - Nonrheumatic mitral (valve) insufficiency (6) Total bilirubin, elevated Priority: Secondary Status: Acute (7) DVT prophylaxis Priority: Secondary Status: Acute - Discharge Medications Prescriptions: Digoxin [Lanoxin] 0.25 mg PO DAILY #30 tab levoFLOXacin [Levaquin] 750 mg PO Q48H #6 tab metroNIDAZOLE [Flagyl] 500 mg PO Q8H #30 tab Home Medications: Antiox#10/Om3/Dha/Epa/Lut/Zeax [I-Caps with Lutein-[place] 3 Sfg] 1 cap PO QAM [History] Docusate [Colace] 200 mg PO BID 04/29/16 [History] Lutein 6 mg PO HS 04/29/16 [History] Metoprolol XL (24 HR) Succ [Toprol Xl] 100 mg PO DAILY 04/29/16 [History] Rivaroxaban [Xarelto] 15 mg PO DAILY 04/29/16 [History] Acetaminophen [Tylenol] 500 mg PO Q6HR PRN 08/09/16 [History] Cholecalciferol (D-3) [Vitamin D] 1,000 unit PO DAILY 08/09/16 [History] Digoxin [Lanoxin] 0.25 mg PO DAILY #30 tab 12/17/16 [Rx] levoFLOXacin [Levaquin] 750 mg PO Q48H #6 tab 12/17/16 [Rx] metroNIDAZOLE [Flagyl] 500 mg PO Q8H #30 tab 12/17/16 [Rx] Allergies/Adverse Reactions: Allergies dexamethasone Allergy (Verified 08/10/16 13:43) See Comments unknown Procaine Allergy (Verified 08/10/16 13:43) See Comments Procedures/tests Complete & Pending: Procedures Performed prior 72 hours Category Date Time Status CT abd pelvis w iv and oral [CT] Routine Cat Scan 12/15/16 09:15 Completed ECG 12 lead ECG [ECG] Routine Y 12/14/16 23:02 Completed Date of admission: 12/15/16 03:19 Primary care physician: Geri Torres CNP Discharging clinician: Jono Smith Anticipated date of discharge: 12/17/16 - Patient Status Disposition: Home, Self-Care Condition: Fair Overall status at discharge: patient is progressing back to baseline - Discharge Instructions Follow Up With: Geri Torres CNP [Primary Care Provider] - - Diet and Activity Activity: resume usual activities as tolerated Diet: advance to your usual diet Hospital course: Ms. Tara Jensen is an 86-year-old female presented with chills nausea and vomiting and diarrhea. She has elevated white count but no fever. Chest x-ray showed atelectasis and infiltrates consistent with pneumonia and UA also showed some leukocytes. Urine culture shows Proteus Cultures are pending. Admitting team felt she might have antritis however abdominal CT is quite unremarkable. Patient antibiotic coverage includes Levaquin and Flagyl. She has A. fib with RVR and was started on IV Cardizem in the ER but not rate controlled with metoprolol and her digoxin She is on long-term anticoagulation with Xarelto. Today looks much better while awake and alert no complaints of shortness of breath. We will continue antibiotics and DC HOME. - Time Spent with Patient Total time spent providing and/or coordinating discharge services: Greater than 30 minutes - Constitutional Vitals: Temp Pulse Resp BP Pulse Ox 98.5 F 93 16 128/73 96 12/17/16 07:02 12/17/16 07:02 12/17/16 07:02 12/17/16 07:02 12/17/16 07:02 - Head Head exam: Present: atraumatic, normocephalic - Eye Eye exam: Present: PERRL, conjuntiva pink, sclera anicteric Pupils: Present: PERRL - Neck Neck exam general surgery: Present: supple, trachea midline. Absent: lymphadenopathy - Respiratory Respiratory exam: Present: CTAB. Absent: accessory muscle use, rales, rhonchi, wheezes - Cardiovascular Cardiovascular exam: Present: RRR, +S1, +S2. Absent: diastolic murmur, gallop, rubs, systolic murmur - GI/Abdominal GI/Abdominal exam: Present: normal bowel sounds, soft, no peritoneal signs. Absent: distended, tenderness - Extremities Exam Extremities exam: Present: warm, radial pulses palpable and symetrical. Absent : calf tenderness, cyanotic, pedal edema - Neurological Exam Neurological exam: Present: CN II-XII intact, oriented X3, no focal deficits. Absent: pronater drift, facial droop, speech deficit - Skin Skin exam: Present: dry, intact
[2016-12-17] MEDS: *HR* Rivaroxaban 15 MG TABLET PO SCH (11:19)
[2016-12-17] MEDS: *HR* Digoxin 0.25 MG TABLET PO SCH (11:19)
[2016-12-17] MEDS: Metoprolol XL (24 HR) Succ 50 MG TAB.ER.24H PO SCH (11:19)
--- NOTE | 2016-12-17 16:10 | Electrocardiograph Report ---
[place] [facility] Test Date: 2016-12-14 Pat Name: Tara Jensen Department: 104 Room: 2NE17 Gender: F Nephrologist: : [id number] Requested By: Jono Smith Order Number: [id number] Reading MD: Pio Pisano MD Measurements Intervals [place] Rate: 127 P: MI: 0 QRS: 83 QRSD: 94 T: 91 QT: 301 QTc: 376 Interpretive Statements ATRIAL FIBRILLATION WITH RAPID VENTRICULAR RESPONSE MINIMAL VOLTAGE CRITERIA FOR LVH, CONSIDER NORMAL VARIANT ST DEPRESSION, CONSIDER SUBENDOCARDIAL INJURY Electronically Signed On 12-17-2016 16:08:18 EDT by Pio Pisano MD
== END 2016-12-17 12:24 | disposition home or self-care (01) | DRG 871 ==
LOC: 2NENU 22:33 → EMEROO 22:33 → OBSVTOIN 12-15 03:19 → 2NENU 12-15 04:07
PROVIDERS: ADMIT Internal Medicine; ATTEND Internal Medicine

== ENCOUNTER 2018-07-13 09:24 | Inpatient (IN) ==
[2018-07-13] MEDS ORDERED: *HR* FentaNYL (PF) 100 MCG/2 ML VIAL IVP ONE (09:30)
[2018-07-13] MEDS ORDERED: 0.9 % Sodium Chloride 500 ML IVC ONE (09:30)
--- NOTE | 2018-07-13 09:40 | Emergency Department Note ---
Disposition Clinical Impression: Hip fracture, intertrochanteric Qualifiers: Encounter type: initial encounter Fracture type: closed Fracture alignment: displaced Laterality: left Qualified Code(s): S72.142A - Displaced intertrochanteric fracture of left femur, initial encounter for closed fracture Disposition: Still a Patient General Adult HPI - General Chief complaint: ED Fall Stated complaint: fall, L hip pain Time Seen by Provider: 07/13/18 09:28 Nursing Notes Reviewed: Yes Vital Signs Reviewed: Yes - History of Present Illness HPI Narrative: Attestation note I examined this patient and my medical decision-making was reviewed with the Resident Physician/RADIOLOGIC TECHNICIAN/PA. I agree with the documented findings, disposition and treatment plan as described except to the extent set forth below Patient seen with emergency medicine resident Dr. Giovany Quesada, please see copy of his note for details of this patient encounter Briefly 87-year-old female mechanical fall out of bathtub this morning onto her left hip with pain and unable to weight-bear. She is not on blood thinners to that strike her head or neck. She has deformity and shortening of her left lower extremity with 2+ pulses. Patient getting IV fentanyl for pain control screening labs patient getting a left hip film. Strong clinical suspicion of fracture. Disposition pending with admission anticipated Pain Scale: 8 - Related Data Home Medications Medication Instructions Recorded Confirmed Antiox#10/Om3/Dha/Epa/Lut/Zeax 1 cap PO QAM 04/29/16 12/15/16 [I-Caps with Lutein-[place] 3 Sfg] Docusate [Colace] 200 mg PO BID 04/29/16 12/15/16 Lutein 6 mg PO HS 04/29/16 12/15/16 Metoprolol XL (24 HR) Succ [Toprol 100 mg PO DAILY 04/29/16 12/15/16 Xl] Rivaroxaban [Xarelto] 15 mg PO DAILY 04/29/16 12/15/16 Acetaminophen [Tylenol] 500 mg PO Q6HR PRN 08/09/16 12/15/16 Cholecalciferol (D-3) [Vitamin D] 1,000 unit PO DAILY 08/09/16 12/15/16 Previous Rx's Medication Instructions Recorded Digoxin [Lanoxin] 0.25 mg PO DAILY #30 tab 12/17/16 levoFLOXacin [Levaquin] 750 mg PO Q48H #6 tab 12/17/16 metroNIDAZOLE [Flagyl] 500 mg PO Q8H #30 tab 12/17/16 Allergies Allergy/AdvReac Type Severity Reaction Status Date / Time dexamethasone Allergy See Verified 08/10/16 13:43 Comments Procaine Allergy See Verified 08/10/16 13:43 Comments Past Medical History - Past Medical History Medical history: Reports: atrial fibrillation, cancer, cardiomyopathy, CHF, hyperlipidemia, valvular heart disease, other Surgical history: Reports: breast surgery, cataract, hysterectomy Psychiatric history: Reports: anxiety BED TEACHER history: Reports: no BED TEACHER history - Social History Smoking Status: Former smoker Smokeless Tobacco Status: No Alcohol use: Reports: none Drug use: Reports: none Physical Exam - General General appearance: alert Course Vital Signs Temperature 98 F 07/13/18 09:26 Pulse Rate 56 07/13/18 09:26 Respiratory Rate 18 07/13/18 09:26 Blood Pressure 142/95 07/13/18 09:26 O2 Sat by Pulse Oximetry 98 07/13/18 09:26 Temperature 98 F 07/13/18 09:26 Pulse Rate 56 07/13/18 09:26 Respiratory Rate 18 07/13/18 09:26 Blood Pressure 142/95 07/13/18 09:26 O2 Sat by Pulse Oximetry 98 07/13/18 09:26 Oxygen Delivery Oxygen Delivery Room Air
[2018-07-13 09:53] LABS: Eosinophils # 0.2 K/mcL (0.0-0.6); Hematocrit 34.6 % (35.3-44.9); Hemoglobin 11.2 g/dL (11.5-15.4); Immature Platelets 14.7 % (1.1-6.1); Mean Corpuscular HGB Conc 32.4 g/dL (31.6-35.5); Mean Corpuscular Hemoglobin 27.7 pg (28.0-33.3); Mean Corpuscular Volume 85.6 fL (83.0-100.0); Platelet Count 113 K/mcL (140-400); Red Blood Count 4.04 M/mcL (3.82-4.97); Red Cell Distribution Width 22.2 % (11.5-14.5)
[2018-07-13 10:00] LABS: INR 1.4; Prothrombin Time 15.3 Seconds (9.4-12.1)
--- NOTE | 2018-07-13 10:02 | Emergency Department Note ---
Disposition Clinical Impression: Femoral neck fracture Qualifiers: Encounter type: initial encounter Fracture type: closed Laterality: left Qualified Code(s): S72.002A - Fracture of unspecified part of neck of left femur, initial encounter for closed fracture Disposition: Admitted As Inpatient Condition: Good Referrals: NONE,PCP [Primary Care Provider] - Forms: ED Satisfaction Letter Time of Disposition: 11:28 General Adult HPI - General Chief complaint: ED Fall Stated complaint: fall, L hip pain Time Seen by Provider: 07/13/18 09:28 Source: patient, EMS Mode of arrival: EMS Limitations: no limitations Nursing Notes Reviewed: Yes Vital Signs Reviewed: Yes - History of Present Illness HPI Narrative: 87-year-old female presents to the emergency department after mechanical fall. Says she was getting up off the toilet went to twist and fell onto the ground did not hit her head did not lose consciousness complaining of left hip pain. Said she is worried she had dislocated or broke her hip. Otherwise patient has no other complaints at this time. Patient says that she is having 9 out of 10 hip pain all located in the left hip. Rating down her leg. She does have chronic left knee and ankle pain that currently has unknown etiology. Patient otherwise has no other complaints at this time including no fevers, chills, nausea, vomiting, headache, chest pain, shortness of breath, abdominal pain, changes in bowel movement, pain with urination, pain or tingling going down the arms or legs or generalized weakness. Pain Scale: 8 - Related Data Home Medications Medication Instructions Recorded Confirmed Antiox#10/Om3/Dha/Epa/Lut/Zeax 1 cap PO QAM 04/29/16 12/15/16 [I-Caps with Lutein-[place] 3 Sfg] Docusate [Colace] 200 mg PO BID 04/29/16 12/15/16 Lutein 6 mg PO HS 04/29/16 12/15/16 Metoprolol XL (24 HR) Succ [Toprol 100 mg PO DAILY 04/29/16 12/15/16 Xl] Rivaroxaban [Xarelto] 15 mg PO DAILY 04/29/16 12/15/16 Acetaminophen [Tylenol] 500 mg PO Q6HR PRN 08/09/16 12/15/16 Cholecalciferol (D-3) [Vitamin D] 1,000 unit PO DAILY 08/09/16 12/15/16 Previous Rx's Medication Instructions Recorded Digoxin [Lanoxin] 0.25 mg PO DAILY #30 tab 12/17/16 levoFLOXacin [Levaquin] 750 mg PO Q48H #6 tab 12/17/16 metroNIDAZOLE [Flagyl] 500 mg PO Q8H #30 tab 12/17/16 Allergies Allergy/AdvReac Type Severity Reaction Status Date / Time dexamethasone Allergy See Verified 08/10/16 13:43 Comments Procaine Allergy See Verified 08/10/16 13:43 Comments All systems ED: reviewed and negative except as stated. Review of Systems: As Per HPI Past Medical History - Past Medical History Attestation: Yes The following information was validated with the patient. Source: patient Medical history: Reports: atrial fibrillation, cancer, cardiomyopathy, CHF, hyperlipidemia, valvular heart disease, other Surgical history: Reports: breast surgery, cataract, hysterectomy Psychiatric history: Reports: anxiety UM SPECIALIST history: Reports: no UM SPECIALIST history - Social History Smoking Status: Former smoker Smokeless Tobacco Status: No Alcohol use: Reports: none Drug use: Reports: none Physical Exam - General Limitations: no limitations General appearance: alert - Head Head exam: atraumatic, normocephalic, normal inspection - Eye Eye exam: Present: normal appearance, PERRL, EOMI - ENT ENT exam: normal exam, normal oropharynx, mucous membranes moist - Neck Neck exam: Present: normal inspection, full ROM, trachea midline - Chest Chest inspection: Present: normal inspection, symmetric chest wall rise - Respiratory Respiratory exam: Present: normal lung sounds bilaterally - Cardiovascular Cardiovascular exam: Present: regular rate, normal rhythm, normal heart sounds - Abdominal Exam Abdominal exam: Present: soft, Non-Tender, normal bowel sounds. Absent: tenderness, distention, guarding, rebound, rigidity - Extremities Exam Extremities exam: Present: normal inspection, full ROM. Absent: tenderness, pedal edema - Expanded Lower Extremity Exam Hip/Pelvis exam: Present: normal inspection, full ROM, tenderness (Tenderness to the greater trochanter on palpation otherwise stable pelvis palpable pulses in the left pedal as well as left posterior tibial. Normal sensation in the left foot as well. No noticeable trauma or pain while evaluating the right lower limb. Due to patient laying it down is unknown if it is shortened or rotated at this time.) Upper leg exam: Present: normal inspection, full ROM Knee exam: Present: normal inspection, full ROM Lower leg exam: Present: normal inspection, full ROM Ankle exam: Present: normal inspection, full ROM Foot/toe exam: Present: normal inspection, full ROM Neurovascular/Tendon exam: Present: normal capillary refill. Absent: pulse deficit, motor deficit, sensory deficit, tendon deficit - Back Exam Back exam: Present: normal inspection, full ROM. Absent: tenderness, CVA tenderness (R), CVA tenderness (L) - Neurological Exam Neurological exam: Present: alert, oriented X3 - Skin Skin exam: Present: warm, dry, intact, normal color Course Course Narrative: We will get x-ray of the left hip as well as give patient fentanyl for pain control. We will also do preop labs including CBC, BMP, type and screen as well as a troponin. Well-seated EKG and chest x-ray for preop as well per patient most likely will be admitted for further intervention. Vital Signs Temperature 98 F 07/13/18 09:26 Pulse Rate 56 07/13/18 09:26 Respiratory Rate 18 07/13/18 09:26 Blood Pressure 142/95 07/13/18 09:26 O2 Sat by Pulse Oximetry 98 07/13/18 09:26 Temperature 98 F 07/13/18 09:26 Pulse Rate 92 07/13/18 10:40 Respiratory Rate 17 07/13/18 10:40 Blood Pressure 163/92 07/13/18 10:40 O2 Sat by Pulse Oximetry 98 07/13/18 10:40 Oxygen Delivery Oxygen Delivery Room Air Medical Decision Making - MDM Narrative Medical decision making narrative: Patient here with an acute left femoral fracture. Patient does have a left bundle-branch block is difficult to tell if it was in the old one the patient currently has no chest pain. Patient does not meet scarBarbosa criteria for acute [place]. I a spoke with the on-call orthopedist Dr. camp who agreed with admission and consult them for surgery tomorrow. Patient is stable at this ti me. Normal INR otherwise no other acute findings. She did not fall hit her head did not lose consciousness this was a mechanical fall no other no further workup or imaging is needed at this time. Spoke with the hospitalist Dr. Powell who agreed to admit the patient to their service. Patient is admitted in stable condition. Chest X-Ray 03/03/19 09:30 IMPRESSION: No acute process. Stable cardiomegaly D/ / Hu Donahue MD / Hu Donahue MD Interpreting Provider: Hu Donahue MD Hip X-Ray 07/13/18 09:31 IMPRESSION: Subcapital left femoral neck fracture with superior displacement. D/ / Hu Donahue MD / Hu Donahue MD Interpreting Provider: Hu Donahue MD - Medical Records Medical records reviewed: Yes I reviewed the patient's medical records. - Lab Data Lab results reviewed: Yes I reviewed the patient's lab results. Result diagrams: 07/13/18 09:41 07/13/18 09:41 Lab Results 07/13/18 07/13/18 07/13/18 Range/Units 09:41 09:41 09:41 WBC 8.9 (4.3-11.1) K/mcL RBC 4.04 (3.82-4.97) M/mcL Hgb 11.2 L (11.5-15.4) g/dL Hct 34.6 L (35.3-44.9) % MCV 85.6 (83.0-100.0) fL MCH 27.7 L (28.0-33.3) pg MCHC 32.4 (31.6-35.5) g/dL RDW 22.2 H (11.5-14.5) % Plt Count 113 L (140-400) K/mcL Seg Neutrophils % 40.0 % Lymphocytes % 22.0 % Monocytes % 36.0 % Eosinophils % 2.0 % Neutrophils # 3.6 (1.6-8.9) K/mcL Lymphocytes # 2.0 (0.6-4.6) K/mcL Monocytes # 3.2 H (0.0-1.3) K/mcL Eosinophils # 0.2 (0.0-0.6) K/mcL Platelet Estimate Slight Decrease L (Normal) Large Platelets Present A (Not Present) Immature Plt Fraction 14.7 H (1.1-6.1) % Polychromasia 1+ A (Not Present) Poikilocytosis 1+ A (Not Present) Anisocytosis 2+ A (Not Present) Tear Drop Cells 1+ A (Not Present) Ovalocytes 2+ A (Not Present) Acanthocytes (Spur) 1+ A (Not Present) Schistocytes 1+ A (Not Present) PT 15.3 H (9.4-12.1) Seconds INR 1.4 Sodium 140 (136-145) mEq/L Potassium 4.0 (3.5-5.1) mEq/L Chloride 107 (98-107) mEq/L Carbon Dioxide 30 H (23-29) mEq/L BUN 11 (8-23) mg/dL Creatinine 0.61 (0.60-1.20) mg/dL Est GFR ( Amer) > 60 (> 60) Est GFR (Non-Af Amer) > 60 (> 60) BUN/Creatinine Ratio 18 (6-26) Glucose 101 (70-105) mg/dL Calculated Osmolality 290 (280-300) Calcium 9.3 (8.6-10.3) mg/dL Troponin I < 0.03 (< 0.04) ng/mL Blood Type Antibody Screen 07/13/18 Range/Units 09:41 WBC (4.3-11.1) K/mcL RBC (3.82-4.97) M/mcL Hgb (11.5-15.4) g/dL Hct (35.3-44.9) % MCV (83.0-100.0) fL MCH (28.0-33.3) pg MCHC (31.6-35.5) g/dL RDW (11.5-14.5) % Plt Count (140-400) K/mcL Seg Neutrophils % % Lymphocytes % % Monocytes % % Eosinophils % % Neutrophils # (1.6-8.9) K/mcL Lymphocytes # (0.6-4.6) K/mcL Monocytes # (0.0-1.3) K/mcL Eosinophils # (0.0-0.6) K/mcL Platelet Estimate (Normal) Large Platelets (Not Present) Immature Plt Fraction (1.1-6.1) % Polychromasia (Not Present) Poikilocytosis (Not Present) Anisocytosis (Not Present) Tear Drop Cells (Not Present) Ovalocytes (Not Present) Acanthocytes (Spur) (Not Present) Schistocytes (Not Present) PT (9.4-12.1) Seconds INR Sodium (136-145) mEq/L Potassium (3.5-5.1) mEq/L Chloride (98-107) mEq/L Carbon Dioxide (23-29) mEq/L BUN (8-23) mg/dL Creatinine (0.60-1.20) mg/dL Est GFR ( Amer) (> 60) Est GFR (Non-Af Amer) (> 60) BUN/Creatinine Ratio (6-26) Glucose (70-105) mg/dL Calculated Osmolality (280-300) Calcium (8.6-10.3) mg/dL Troponin I (< 0.04) ng/mL Blood Type A POSITIVE Antibody Screen NEGATIVE - Radiology Data Radiology results reviewed: Yes I reviewed the patient's radiology results. - EKG Data EKG #1 EKG attestation: Yes I reviewed and interpreted this EKG. EKG results narrative: EKG shows atrial fibrillation a rate of 100, QRS 148, QTC 505. There is ST elevation in leads V3 through V4 with depression in V5 and V6. Otherwise no signs of ischemia. No signs of hypertrophy, heart strain, there is a left bundle-branch block. Patient does not meet [place] criteria. No WPW/progress/HOCM. Changes in the ST elevations but no changes and ST depressions based on old EKG as well showing atrial fibrillation that was done 12/14/16
[2018-07-13 10:11] LABS: BUN/Creatinine Ratio 18 (6-26); Blood Urea Nitrogen 11 mg/dL (8-23); Calcium 9.3 mg/dL (8.6-10.3); Carbon Dioxide 30 mEq/L (23-29); Chloride 107 mEq/L (98-107); Glucose 101 mg/dL (70-105); Osmolality,Calculated 290 (280-300); Sodium 140 mEq/L (136-145); eGFR For Non-African Americans > 60 (> 60)
[2018-07-13 10:19] LABS: Troponin I < 0.03 ng/mL (< 0.04)
[2018-07-13 10:33] LABS: Schistocytes 1+ (Not Present)
[2018-07-13 10:34] LABS: Anisocytosis 2+ (Not Present); Ovalocytes 2+ (Not Present); Poikilocytosis 1+ (Not Present)
[2018-07-13 10:35] LABS: Large Platelets Present (Not Present); Platelet Estimate Slight Decrease (Normal)
[2018-07-13 10:37] LABS: Monocytes # 3.2 K/mcL (0.0-1.3); Neutrophils # 3.6 K/mcL (1.6-8.9)
[2018-07-13 10:38] LABS: Tear Drop Cells 1+ (Not Present)
[2018-07-13 10:40] LABS: Polychromasia 1+ (Not Present)
--- NOTE | 2018-07-13 10:55 | Orthopedic Consult Note ---
Date of Encounter: 07/13/18 Time of Encounter: 10:55 Assessment and Plan (1) Left displaced femoral neck fracture Current Visit: Yes Status: Acute The diagnosis and treatment options were discussed with patient and her son. She has a displaced fracture of the left femoral neck. To allow for pain control and early ambulation surgical treatment with a left hip acromioplasty was recommended. The risks and benefits of the procedure were fully explained in detail, including but not limited to the risk of infection, neurovascular injury, continued pain or stiffness, failure of surgery, reinjury, or need for additional surgery, DVT, PE, general risks of anesthesia and loss of limb or life. No guarantees were given or implied and all questions were answered. The patient and son understands all the risks and does wish to proceed with written consent. Nothing by mouth at midnight for surgery tomorrow. History of Present Illness HPI: Ms. Jensen is a 87 year old female with PMHx atrial fibrillation, cancer, cardiomyopathy, CHF, hyperlipidemia, valvular heart disease who presented the emergency department with a mechanical fall onto her left hip. She fell while going to the bathroom last night and did not have her walker with her which she typically uses. She had left hip pain and a deformity of the left hip with inability to ambulate and was brought to the emergency department. Denies any other orthopedic complaints. Denies prodromal symptoms prior to the fall, no chest pain or shortness of breath no head injury. Diagnosed with a left hip fracture and orthopedics was in consult. Past Med Surg Social Fam HX - Past Medical History Medical history: atrial fibrillation, cancer, cardiomyopathy, CHF, hyperlipidemia, valvular heart disease, other Additional medical history: decrease vision, only sees peripheral Psychiatric history: anxiety - Past Surgical History Surgical History: breast surgery, cataract, hysterectomy Additional surgical history: eye surgery - Social History Smoking Status: Former smoker Smokeless Tobacco Status: No Alcohol use: none Drug use: none - Family History Father Hx Family Cardiac Disorders: Yes (SD) Mother Living Status: Medications and Allergies Antiox#10/Om3/Dha/Epa/Lut/Zeax [I-Caps with Lutein-[place] 3 Sfg] 1 cap PO QAM 04/29/16 [History] Docusate [Colace] 200 mg PO BID 04/29/16 [History] Lutein 6 mg PO HS 04/29/16 [History] Metoprolol XL (24 HR) Succ [Toprol Xl] 100 mg PO DAILY 04/29/16 [History] Rivaroxaban [Xarelto] 15 mg PO DAILY 04/29/16 [History] Acetaminophen [Tylenol] 500 mg PO Q6HR PRN 08/09/16 [History] Cholecalciferol (D-3) [Vitamin D] 1,000 unit PO DAILY 08/09/16 [History] Digoxin [Lanoxin] 0.25 mg PO DAILY #30 tab 12/17/16 [Rx] levoFLOXacin [Levaquin] 750 mg PO Q48H #6 tab 12/17/16 [Rx] metroNIDAZOLE [Flagyl] 500 mg PO Q8H #30 tab 12/17/16 [Rx] Allergy/AdvReac Type Severity Reaction Status Date / Time dexamethasone Allergy See Verified 08/10/16 13:43 Comments Procaine Allergy See Verified 08/10/16 13:43 Comments All Systems Reviewed: The remainder of the systems were reviewed and are negative except as noted in t he HPI Physical Exam - Constitutional Vitals: Temp Pulse Resp BP Pulse Ox 98 F 92 17 163/92 98 07/13/18 09:26 07/13/18 10:40 07/13/18 10:40 07/13/18 10:40 07/13/18 10:40 Exam: Consult Exam: Constitutional -Vitals reviewed -The patient is well developed and well nourished. -Mood is pleasant. -The patient is well groomed. Psychiatric -The patient is alert and oriented x 3. Respiratory: -Respiratory effort normal Abdomen: -Soft abdomen -Non tender -Non distended: Left upper extremity: -No deformities. The overlying skin is intact. No obvious signs of acute trauma. -No tenderness to palpation throughout. -No significant pain with passive motion of the shoulder, elbow, wrist, and fingers within the limits of the bed. -Able to make an "OK" sign, cross the index and long fingers, and extend the thumb. -Sensation grossly intact to light touch throughout the median, radial, and ulnar distributions. -Radial pulse is present; Fingers have good capillary refill. Right upper extremity: -No deformities. The overlying skin is intact. No obvious signs of acute trauma. -No tenderness to palpation throughout. -No significant pain with passive motion of the shoulder, elbow, wrist, and fingers within the limits of the bed. -Able to make an "OK" sign, cross the index and long fingers, and extend the thumb. -Sensation grossly intact to light touch throughout the median, radial, and ulnar distributions. -Radial pulse is present; Fingers have good capillary refill. Left lower extremity: -Short/ER. Did not range the hip due to known fracture. -No tenderness to palpation of knee, ankle, foot -Able to wiggle toes. -Sensation is grossly intact to light touch. -Toes have good capillary refill. Right lower extremity: -No deformities. The overlying skin is intact. No obvious signs of acute trauma. -No tenderness to palpation throughout. -No pain with passive motion of the hip, knee, ankle, and toes within the limits of the bed. -No pain with axial loading of the thigh. -Able to dorsiflex and plantarflex the ankle and toes. -Sensation is grossly intact to light touch throughout the sural, saphenous, superficial peroneal, and deep peroneal distributions. -Toes have good capillary refill. Results - Labs Result Diagrams: 07/13/18 09:41 07/13/18 09:41 Labs: Abnormal lab results Hgb 11.2 g/dL (11.5-15.4) L 07/13/18 09:41 Hct 34.6 % (35.3-44.9) L 07/13/18 09:41 MCH 27.7 pg (28.0-33.3) L 07/13/18:41 RDW 22.2 % (11.5-14.5) H 07/13/18 09:41 Plt Count 113 K/mcL (140-400) L 07/13/18 09:41 Monocytes # 3.2 K/mcL (0.0-1.3) H 07/13/18 09:41 Platelet Estimate Slight Decrease (Normal) L 07/13/18 09:41 Large Platelets Present (Not Present) A 07/13/18 09:41 Immature Plt Fraction 14.7 % (1.1-6.1) H 07/13/18 09:41 Polychromasia 1+ (Not Present) A 07/13/18:41 Poikilocytosis 1+ (Not Present) A 07/13/18 09:41 Anisocytosis 2+ (Not Present) A 07/13/18 09:41 Tear Drop Cells 1+ (Not Present) A 07/13/18 09:41 Ovalocytes 2+ (Not Present) A 07/13/18 09:41 Acanthocytes (Spur) 1+ (Not Present) A 07/13/18 09:41 Schistocytes 1+ (Not Present) A 07/13/18 09:41 PT 15.3 Seconds (9.4-12.1) H 07/13/18 09:41 Carbon Dioxide 30 mEq/L (23-29) H 07/13/18 09:41 H & H 07/13/18 Range/Units 09:41 Hgb 11.2 L (11.5-15.4) g/dL Hct 34.6 L (35.3-44.9) % All other labs normal. - Diagnostic results Hip x-ray: report reviewed, image reviewed (Displaced left femoral neck fracture ) Consult Discharge Plan - Plan Referrals: NONE,PCP [Primary Care Provider] -
[2018-07-13] MEDS ORDERED: Naloxone 0.4 MG/ML INJ IVP PRN (11:19)
[2018-07-13] MEDS ORDERED: Ondansetron 4 MG/2 ML VIAL IVP PRN (11:19)
--- NOTE | 2018-07-13 12:17 | Internal Med History&Physical ---
Date of Encounter: 07/13/18 Time of Encounter: 11:00 Internal Medicine - H&P: HPI Chief complaint: fall, L hip pain Admitted From: Home History of present illness: Ms. Jensen is a 87 year old female with history of atrial fibrillation, hypertension, congestive heart failure, who presented to the ED after mechanical fall. Patient states she was getting out of the bathtub, trying to turn, and fell onto the floor, hitting the left hip. No LOC/HI. Denies any prodromal symptoms including chest pain, palpitation, or change in vision. No loss of bowel/bladder control. She had immediate onset of L hip pain and was concerned for fracture hence came to the ED for evaluation. No GI/ symptoms. In the ED, she was afebrile and hemodynamically stable. Labwork was unremarkable with hemoglobin and platelet count at her baseline. INR 1.4. Troponin was negative and EKG showed atrial fibrillation with controlled ventricular rate, discordant ST changes, and prolonged QRS complex compared to the one on 12/2016. L hip XR showed subcapital left femoral neck fracture with superior displacement. X-ray was negative for acute cardiopulmonary process. Patient was given IV fentanyl and admitted for further management with orthopedic consultation. Past Med Surg Social Fam HX - Past Medical History Attestation: Yes The following information was validated with the patient. Medical history: atrial fibrillation, cancer, cardiomyopathy, CHF, hyperlipidem ia, valvular heart disease, other Additional medical history: decrease vision, only sees peripheral Psychiatric history: anxiety - Past Surgical History Surgical History: breast surgery, cataract, hysterectomy Additional surgical history: eye surgery - Social History Smoking Status: Former smoker Smokeless Tobacco Status: No Alcohol use: none Drug use: none - Family History Father Hx Family Cardiac Disorders: Yes (ID) Mother Living Status: Internal Medicine - H&P: Meds Docusate [Colace] 200 mg PO ONCE PRN 04/29/16 [History] Lutein 6 mg PO DAILY 04/29/16 [History] Metoprolol XL (24 HR) Succ [Toprol Xl] 50 mg PO DAILY 04/29/16 [History] Rivaroxaban [Xarelto] 15 mg PO DAILY 04/29/16 [History] Acetaminophen [Tylenol] 500 mg PO Q6HR PRN 08/09/16 [History] Cholecalciferol (D-3) [Vitamin D] 1,000 unit PO DAILY 08/09/16 [History] Digoxin [Lanoxin] 0.25 mg PO DAILY #30 tab 12/17/16 [Rx] Allergy/AdvReac Type Severity Reaction Status Date / Time dexamethasone Allergy See Verified 08/10/16 13:43 Comments Procaine Allergy See Verified 08/10/16 13:43 Comments All Systems PM: A 10-system review of systems was performed and is negative for pertinent find ings except as documented above in the HPI. - Constitutional Vitals: Temp Pulse Resp BP Pulse Ox 98 F 92 16 138/94 98 07/13/18 09:26 07/13/18 10:40 07/13/18 12:00 07/13/18 12:00 07/13/18 10:40 Exam: General: Alert and oriented, mild distress due to pain HEENT:EOM, pupils equal, round and reactive. Cardiovascular:Normal S1 & S2, No JVD. Pulse regular. Lungs: clear to auscultation, no wheezes/rales Abdomen:Soft, non-tender, no rigidity. Extremities: L LE shortened and externally rotated. Neurovascularly intact distally Neurological:Normal cognition and motor skills. Non-focal Skin:Normal color, no rash, no lesions. Pulses:Carotid and radial pulses normal +2. Rest of the physical exam is non contributory Internal Med - H&P Results - Labs CBC & Chem 7: 07/13/18 09:41 07/13/18 09:41 Labs: Short CBC 07/13/18 Range/Units 09:41 WBC 8.9 (4.3-11.1) K/mcL Hgb 11.2 L (11.5-15.4) g/dL Hct 34.6 L (35.3-44.9) % Plt Count 113 L (140-400) K/mcL Neutrophils # 3.6 (1.6-8.9) K/mcL BMP 07/13/18 09:41 Sodium 140 Potassium 4.0 Chloride 107 Carbon Dioxide 30 H BUN 11 Creatinine 0.61 Glucose 101 Calcium 9.3 Cardiac Enzymes 07/13/18 Range/Units 09:41 Troponin I < 0.03 (< 0.04) ng/mL - Impressions ITS Impressions Chest X-Ray 07/13/18 09:30 IMPRESSION: No acute process. Stable cardiomegaly D/ / Hu Donahue MD / Hu Donahue MD Interpreting Provider: Hu Donahue MD Hip X-Ray 07/13/18 09:31 IMPRESSION: Subcapital left femoral neck fracture with superior displacement. D/ / Hu Donahue MD / Hu Donahue MD Interpreting Provider: Hu Donahue MD - Assessment and Plan (1) Left displaced femoral neck fracture Current Visit: Yes Status: Acute Assessment and plan: Following a mechanical fall Pain management Orthopedic input appreciated, for op tomorrow. Nothing by mouth after midnight (2) Preoperative cardiovascular examination Current Visit: Yes Status: Acute Assessment and plan: History of A. fib, CHF, and mild valvulopathy EKG showed afib with controlled VR but new prolonged QRS of 148msec No anginal symptoms. Troponin negative Echocardiogram consult cardiology (3) Afib Current Visit: No Status: Chronic Assessment and plan: On metoprolol, digoxin, and Xarelto at home check Dig level, resume bb hold Xarelto for op tomorrow Qualifiers: Atrial fibrillation type: chronic Qualified Code(s): I48.2 - Chronic atrial fibrillation (4) CHF (congestive heart failure) Current Visit: No Status: Chronic Assessment and plan: Not in exacerbation resume bb Qualifiers: Heart failure type: systolic Heart failure chronicity: chronic Qualified Code(s): I50.22 - Chronic systolic (congestive) heart failure (5) DVT prophylaxis Current Visit: No Status: Acute Assessment and plan: SQ heparin for now while Xarelto on hold - Time Spent With Patient Total time spent is greater than 50% in coordination of care (as documented) at patient's floor/unit and/or counseling patient: 25 - 35 minutes
[2018-07-13] MEDS: Metoprolol XL (24 HR) Succ 50 MG TAB.ER.24H PO SCH (13:21)
[2018-07-13] MEDS: *HR* OxyCODONE Immed Rel 5 MG TABLET PO PRN ×2 (13:21→19:45)
[2018-07-13 13:38] LABS: Digoxin 1.1 ng/mL (0.8-2.0)
--- NOTE | 2018-07-13 13:53 | Cardiology Consult Note ---
<Kieran Gipson - Last Filed: 07/13/18 13:48> Date of Encounter: 07/13/18 Time of Encounter: 14:10 Assessment and Plan (1) Pre-operative cardiovascular examination Current Visit: Yes Status: Acute Cardiology consulted for preoperative cardiovascular examination prior to hip replacement. 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 Prior to her fall she was able to complete 4 minutes of activity without any significant cardiac symptoms. Her EKG was reviewed. She appears to have a new left bundle branch block compared to prior EKG in 2017. QTC not reliable with wide QRS (QTC 505). Records reviewed I do not see a history of this. She currently denies any chest pain and troponin is negative. TTE is pending. Further recommendation to follow. (2) LBBB (left bundle branch block) Current Visit: Yes Status: Acute (3) Afib Current Visit: No Status: Chronic H/o atrial fibrillation, appears to be chronic. Continue toprol and digoxin. On xarelto 15 mg daily at home. Qualifiers: Atrial fibrillation type: chronic Qualified Code(s): I48.2 - Chronic atrial fibrillation Discussion w patient/family: The assessment and plan as outlined above was discussed with the patient and/or family members who expressed understanding and agreement. All questions were answered. Thank you for involving us in the care of your patient. Please call with any questions. History of Present Illness Consult date: 07/13/18 Requesting physician: Rony Powell Consult reason: Cardiac clearance Chief complaint: fall History of present illness: Ms. 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 She denies dizziness or syncope. She describes a mechanical fall. Unfortunately fractured her left femur. Cardiology consulted for preoperative cardiovascular examination and abnormal EKG. She follows with [facility]. She does have a history of mild CAD on cardiac catheterization in 2014 with an EF of 35%. On last TTE EF was normal. She denies chest pain or shortness of breath. Denies orthopnea, PND, or edema. Son at bedside states they recently traveled to [place] and did a lot of walking. She denies having chest pain or shortness of breath when walking several 100 yards. She says her she can feel her HR increase with physical activity but resolves with rest. Denies increase in palpitations. Prior cardiac testing: TTE (limited) 04/30/2016: LVEF 50%. Normal RV size and function. Severe left atrial enlargement. Moderate right atrial enlargement. TTE 12/08/14: Afib with RVR, LVEF 30%, severe LAE, mild AR, mild TR, severe MR, RVSP 36. TTE 01/31/15: LVEF 50-55%, normal RV, severe biatrial enlargement, mild-moderate AR, mild MS, trace MR, mild-moderate TR, RVSP 36. LHC 11/02/14: Mild CAD, LVEF 30-35%. Past Med Surg Social Fam HX - Past Medical History Medical history: atrial fibrillation, cancer, cardiomyopathy, CHF, coronary artery disease, hyperlipidemia, valvular heart disease, other Additional medical history: macular degeneration Psychiatric history: anxiety - Past Surgical History Surgical History: breast surgery, cataract, hysterectomy Additional surgical history: eye surgery - Social History Smoking Status: Former smoker Smokeless Tobacco Status: No Alcohol use: none Drug use: none - Family History Father Hx Family Cardiac Disorders: Yes (ND) Mother Living Status: Medications and Allergies Docusate [Colace] 200 mg PO ONCE PRN 04/29/16 [History] Lutein 6 mg PO DAILY 04/29/16 [History] Metoprolol XL (24 HR) Succ [Toprol Xl] 50 mg PO DAILY 04/29/16 [History] Rivaroxaban [Xarelto] 15 mg PO DAILY 04/29/16 [History] Acetaminophen [Tylenol] 500 mg PO Q6HR PRN 08/09/16 [History] Cholecalciferol (D-3) [Vitamin D] 1,000 unit PO DAILY 08/09/16 [History] Digoxin [Lanoxin] 0.25 mg PO DAILY #30 tab 12/17/16 [Rx] Allergy/AdvReac Type Severity Reaction Status Date / Time dexamethasone Allergy See Verified 08/10/16 13:43 Comments Procaine Allergy See Verified 08/10/16 13:43 Comments All Systems Review: The remainder of the systems were reviewed and are negative Physical Examination Vital Signs, Last 4 Hours Temp Pulse Resp BP Pulse Ox 07/13/18 12:54 97.6 F 93 16 156/88 93 07/13/18 12:00 16 138/94 07/13/18 10:40 92 17 163/92 98 General: Conversant, Other (gaurding left hip, frail elderly female) HEENT: Atraumatic, Normocephaly, Mucus Membranes Moist Neck: No JVD, Normal carotid pulses Cardiac: Reg Rate and Rhythm, Normal S1 and S2, No Murmur Lungs: Normal Breath Sounds, No Wheeze, Rales, Rhonchi Neuro: Alert and responsive, No focal deficits noted Abdomen: Soft, Non-Tender Skin: No rashes noted on visualized skin Musculoskeletal: No Chest Wall Tenderness Extremities: No Clubbing, No Cyanosis, No Edema, Normal Pulses Results 07/13/18 09:41 07/13/18 09:41 Lab Results 07/13/18 07/13/18 07/13/18 09:41 09:41 09:41 WBC 8.9 Hgb 11.2 L Hct 34.6 L Plt Count 113 L INR 1.4 Sodium 140 Potassium 4.0 Chloride 107 Carbon Dioxide 30 H BUN 11 Creatinine 0.61 Glucose 101 Calcium 9.3 Troponin I < 0.03 - Imaging and Cardiology Echo: report reviewed - EKG Interpretation EKG results cardiology: personally reviewed Consult Discharge Plan - Plan Referrals: NONE,PCP [Primary Care Provider] - <Kevin Ledezma - Last Filed: 07/13/18 15:06> Date of Encounter: 07/13/18 - Attending Attestation I have personally performed a face to face evaluation on this patient. I have reviewed and agree with the documented findings and care plan as documented by the [employer]INTE[employer]CE INSTRUCTOR. History and Exam by me shows: 87-year-old female with history of nonobstructive CAD, A. fib on Xarelto admitted for hip fracture. Found to have presumably new left bundle branch block on EKG. AAOX3 in NAD at the bedside Hemodynamically stable Cardiopulmonary exam revealed S1, S2, no murmur; clear lungs Rhythm reviewed - atrial fibrillation, left bundle branch block Echo pending Impression/plan: 1)A. fib is rate controlled. Continue Toprol. Hold digoxin. Stop Xarelto and place on IV heparin for anticoagulation. 2)Abnormal EKG with presumably new Left bundle branch block. Troponin is negative 1. We will make further recommendations after echocardiogram is completed 3)Kevin Gee MD FAC Assessment and Plan Discussion w patient/family: The assessment and plan as outlined above was discussed with the patient and/or family members who expressed understanding and agreement. All questions were answered. Thank you for involving us in the care of your patient. Please call with any questions. History of Present Illness History of present illness: Ms. Jensen is a 87 year old female All Systems Review: The remainder of the systems were reviewed and are negative Physical Examination Vital Signs, Last 4 Hours Temp Pulse Resp BP Pulse Ox 07/13/18 12:54 97.6 F 93 16 156/88 93 07/13/18 12:00 16 138/94 Results 07/13/18 09:41 07/13/18 09:41 Lab Results 07/13/18 07/13/18 07/13/18 09:41 09:41 09:41 WBC 8.9 Hgb 11.2 L Hct 34.6 L Plt Count 113 L INR 1.4 Sodium 140 Potassium 4.0 Chloride 107 Carbon Dioxide 30 H BUN 11 Creatinine 0.61 Glucose 101 Calcium 9.3 Troponin I < 0.03
[2018-07-13] MEDS ORDERED: *HR* Heparin 5,000 UNIT/ML VIAL IVP ONE (15:07)
[2018-07-13] MEDS ORDERED: *HR* Heparin 5,000 UNIT/ML VIAL IVP PRN ×2 (15:07)
[2018-07-13] MEDS: traMADol 50 MG TABLET PO PRN ×2 (15:37→22:56)
[2018-07-13 16:14] LABS: Red Cell Distribution Width 22.3 % (11.5-14.5)
[2018-07-13 16:16] LABS: Hematocrit 35.8 % (35.3-44.9); Hemoglobin 11.6 g/dL (11.5-15.4); Immature Platelets 17.6 % (1.1-6.1); Mean Corpuscular HGB Conc 32.4 g/dL (31.6-35.5); Mean Corpuscular Hemoglobin 27.6 pg (28.0-33.3); Mean Corpuscular Volume 85.2 fL (83.0-100.0); Platelet Count 112 K/mcL (140-400)
[2018-07-13 16:22] LABS: Heparin anti-factor XA UFH 0.21 IU/mL (0.30-0.70); INR 1.3
[2018-07-13] MEDS: Acetaminophen 325 MG TABLET PO PRN (16:32)
[2018-07-13] MEDS: Heparin 25,000 UNIT/250 ML D5W 25,000 UNIT/250 ML IV.SOLN IVC SCH (16:35)
[2018-07-13] MEDS ORDERED: *HR* Heparin 5,000 UNIT/ML VIAL SQ SCH (18:00)
[2018-07-14] MEDS: *HR* OxyCODONE Immed Rel 5 MG TABLET PO PRN ×3 (02:03→15:42)
[2018-07-14] MEDS: Acetaminophen 325 MG TABLET PO PRN (05:49)
[2018-07-14 06:01] LABS: Hematocrit 35.5 % (35.3-44.9); Hemoglobin 11.5 g/dL (11.5-15.4); Immature Platelets 16.7 % (1.1-6.1); Mean Corpuscular HGB Conc 32.4 g/dL (31.6-35.5); Mean Corpuscular Hemoglobin 27.4 pg (28.0-33.3); Mean Corpuscular Volume 84.7 fL (83.0-100.0); Platelet Count 111 K/mcL (140-400); Red Blood Count 4.19 M/mcL (3.82-4.97); Red Cell Distribution Width 22.7 % (11.5-14.5)
[2018-07-14 06:20] LABS: BUN/Creatinine Ratio 24 (6-26); Blood Urea Nitrogen 12 mg/dL (8-23); Calcium 8.9 mg/dL (8.6-10.3); Carbon Dioxide 27 mEq/L (23-29); Chloride 105 mEq/L (98-107); Glucose 123 mg/dL (70-105); Magnesium 1.9 mg/dL (1.6-2.6); Osmolality,Calculated 279 (280-300); Potassium 4.2 mEq/L (3.5-5.1); Sodium 134 mEq/L (136-145); eGFR For Non-African Americans > 60 (> 60)
[2018-07-14 06:39] LABS: Anisocytosis 3+ (Not Present); Lymphocytes # 0.5 K/mcL (0.6-4.6); Microcytosis Present (Not Present); Monocytes # 9.7 K/mcL (0.0-1.3); Neutrophils # 14.1 K/mcL (1.6-8.9)
[2018-07-14 06:40] LABS: Platelet Estimate Decreased (Normal); Poikilocytosis 2+ (Not Present)
[2018-07-14] MEDS ORDERED: *HR* LORazepam 2 MG/ML VIAL IVP ONE (08:20)
[2018-07-14] MEDS ORDERED: *HR* Digoxin 0.25 MG TABLET PO SCH (09:00)
[2018-07-14] MEDS: Cholecalciferol (D-3) 1,000 UNIT TABLET PO SCH (09:12)
[2018-07-14] MEDS: Metoprolol XL (24 HR) Succ 50 MG TAB.ER.24H PO SCH (09:12)
--- NOTE | 2018-07-14 09:58 | Event Note ---
Date of Encounter: 07/14/18 Time of Encounter: 10:00 - Cardiology Event Note EF is similar to previous. Per note, 4 minutes of activity prior to injury without cardiac symptoms. Acceptable risk for orthopaedic surgery.
--- NOTE | 2018-07-14 10:19 | Internal Med Progress Note ---
<SylviaPhil - Last Filed: 07/14/18 15:10> Hospitalist Progress Note - Encounter Date of Encounter: 07/14/18 Time of Encounter: 08:45 - Subjective Interval History: Patient presented with a fracture of the left femur after a fall two days ago. Patient has a PMH of A. Fib, breast cancer, cardiomyopathy, CHF, HLD. She states that she was not dizzy or blacked out nor did she lose consciousness after the fall. She denies having a fever or chills. Admits to weight loss dispite trying to eat more. Patient denies numbness or tingling but admits to being tender below the left knee for "quite some time." Patient denies chest pain, palpitations or edema of the extremities. Patient denies cough, wheezing, or SOB. She states that she has to strain to urinate but denies burning or increase frequency. Patient states she has a decrease appetite, denies N/V, but admits to diarrhea and constipation. Today the patient complained of "Blisters" on her right heel, however on examination the skin was intact. - Exam Vitals: Temp Pulse Resp BP Pulse Ox 98.1 F 72 16 104/56 96 07/14/18 07:16 07/14/18 07:16 07/14/18 07:16 07/14/18 07:16 07/14/18 07:16 Exam: GEN: AA&O x3, Not well nourished Cardiac: Irregular Rhythm, normal rate, no murmurs no rubs, diminished left doralis pedis pulse Lungs: CTA b/l, no wheezes, no rhonchi, no rales. GI: Decreased BS, no pain on palpation MSK: Extremities warm and dry b/l , normal turgor, intact sensation b/ I & O 07/13/18 09:24 thru 07/14/18 13:11 Intake Total 1025 Output Total 875 Balance 150 Weight 51.7 kg Intake: IV Fluids 625 0.9 % Sodium Chloride 500 ML @ 500 999 mls/hr IVC .Q31M ONE Rx#: [id number] Heparin 25,000 UNIT/250 ML D5W 125 25,000 unit In 250 ml @ 14 UNIT /KG/HR 8.344 mls/hr IVC .Q24H KARO Rx#:[id number] Oral 400 Output: Urine 100 Estimated Blood Loss 100 Catheter 675 Other: Meal Breakfast Percent of Meal Consumed 0% Blood Glucose* 113 Chest X-ray: Stable cardiomegaly Echo: EF of 45-50%, LV concentric hypertrophy, dialated LA, MR, TR, Pulmonary HTN Hip X-ray: Superior displacement of the fractured femoral neck - Assessment and Plan (1) Left displaced femoral neck fracture Current Visit: Yes Status: Acute Assessment and Plan: Hip x-ray: Superior displacement of a Fractured femoral neck. Orthopedic OP today, NPO today Left femoral fracture secondary to a mechanical fall. (2) Atrial fibrillation with rapid ventricular response Current Visit: No Status: Chronic Assessment and Plan: EKG: A. Fib with BBB. Continue Metoprolol XL 50 mg PO Daily. Heprain p;aced on hold until after the surgery. (3) CHF (congestive heart failure) Current Visit: No Status: Chronic Assessment and Plan: Echocardiogram: EF of 45-50%, Left ventricular concentric hypertrophy, Dilated Left atrium, Mitral regurgitation, tricuspid regurgitation, Pulmonary HTN Does not meet criteria for exacerbation Continue metoprolol XL 50 mg PO Daily (4) Leukocytosis Current Visit: Yes Status: Acute Assessment and Plan: WBC: 24.3, Neutrophils: 14.1, Monocytes: 9.7. Temperature: 97.4 --> 99.8 --> 98.1 Continue to monitor, repeat BMP tomorrow. Source of Leukocytosis unclear. Chest x-ray is clear. Patients fracture site does not display erythema or cellulitis. Patient's urine was yellow and clear, absent of signs of infection. Patient denied fever or chills. She denies any SOB, wheezing, and cough. She denied any dysuria or increase in frequency. - Time Spent with Patient Total time spent is greater than 50% in coordination of care (as documented) at patient's floor/unit and/or counseling patient: Internal Medicine: Result - Labs CBC & Chem 7: 07/14/18 05:38 07/14/18 05:38 Labs: Short CBC 07/13/18 07/13/18 07/14/18 Range/Units 09:41 16:02 05:38 WBC 16.8 H D 24.3 H (4.3-11.1) K/mcL Hgb 11.6 11.5 (11.5-15.4) g/dL Hct 35.8 35.5 (35.3-44.9) % Plt Count 112 L 111 L (140-400) K/mcL Neutrophils # 3.6 14.1 H (1.6-8.9) K/mcL BMP 07/13/18 07/14/18 09:41 05:38 Sodium 140 134 L Potassium 4.0 4.2 Chloride 107 105 Carbon Dioxide 30 H 27 BUN 11 12 Creatinine 0.61 0.49 L Glucose 101 123 H Calcium 9.3 8.9 Cardiac Enzymes 07/13/18 Range/Units 09:41 Troponin I < 0.03 (< 0.04) ng/mL - ABG Interpretation ABG results: PT/INR, D-dimer PT 15.0 Seconds (9.4-12.1) H 07/13/18 16:02 - Impressions Impressions Echocardiogram 07/13/18 11:25 Impressions: LVEF 45-50%. Mild concentric left ventricular hypertrophy. Indeterminate diastolic function. Normal right ventricular structure and function. Severely dilated left atrium. Mild-moderate aortic regurgitation. Moderate mitral regurgitation. There is restricted motion of the posterior mitral valve leaflet. Moderate tricuspid regurgitation. Moderate pulmonary hypertension. Left Ventricular Wall Motion: Rest Echo Findings The apex, apical inferior, mid inferior, basal inferior, apical anterior, mid anterior, basal anterior, apical septal, mid inferior septal, basal inferior septal, apical lateral, mid anterior lateral, basal anterior lateral, mid anterior septal, mid inferior lateral, basal anterior septal and basal inferior lateral rose were hypokinetic. Findings: Study Quality * Technically adequate exam. ECG Findings * Atrial fibrillation with BBB. Left Ventricle * LVEF 45-50%. * Mild concentric left ventricular hypertrophy. * Indeterminate diastolic function. * Mild global left ventricular systolic dysfunction. * Atypical septal motion consistent with bundle branch block. Right Ventricle * Normal right ventricular structure and function. Left Atrium * Severely dilated left atrium. Right Atrium * Moderately dilated right atrium. Interatrial Septum * No evidence of PFO by color Doppler. Aortic Valve * Trileaflet aortic valve. * Mild-moderate aortic regurgitation. * No aortic stenosis. Mitral Valve * Severe mitral annular calcification * Moderate mitral regurgitation. Posterior mitral valve leaflet is a mobile * Mild to moderate mitral stenosis. Transmitral gradient was not well evaluated Tricuspid Valve * Moderate tricuspid regurgitation. * Moderate pulmonary hypertension. * Estimated RVSP is 48 mmHg. * Estimated RA pressure is 5 mmHg. * No tricuspid stenosis. * Normal tricuspid valve structure. Pulmonic Valve * Trace pulmonic regurgitation. Aorta * Normally sized aortic root. Pericardium * The pericardium appears normal. IVC * Normal IVC dimensions and inspiratory collapse. Pulmonary Artery * Normal visualized portions of the main pulmonary artery. Consult Discharge Plan - Plan Referrals: NONE,PCP [Primary Care Provider] - <Rajendra Roe - Last Filed: 07/14/18 19:13> Hospitalist Progress Note - Encounter Date of Encounter: 07/14/18 - Exam Vitals: Temp Pulse Resp BP Pulse Ox 97.5 F L 88 14 120/57 93 07/14/18 14:26 07/14/18 15:40 07/14/18 15:40 07/14/18 15:40 07/14/18 15:40 - Assessment and Plan (1) DVT prophylaxis Current Visit: No Status: Acute (2) Preoperative cardiovascular examination Current Visit: Yes Status: Acute (3) CHF (congestive heart failure) Current Visit: No Status: Chronic (4) Afib Current Visit: No Status: Chronic (5) Left displaced femoral neck fracture Current Visit: Yes Status: Acute - Time Spent with Patient Total time spent is greater than 50% in coordination of care (as documented) at patient's floor/unit and/or counseling patient: Internal Medicine: Result - Labs CBC & Chem 7: 07/14/18 05:38 07/14/18 05:38 Labs: Short CBC 07/14/18 Range/Units 05:38 WBC 24.3 H (4.3-11.1) K/mcL Hgb 11.5 (11.5-15.4) g/dL Hct 35.5 (35.3-44.9) % Plt Count 111 L (140-400) K/mcL Neutrophils # 14.1 H (1.6-8.9) K/mcL BMP 07/14/18 05:38 Sodium 134 L Potassium 4.2 Chloride 105 Carbon Dioxide 27 BUN 12 Creatinine 0.49 L Glucose 123 H Calcium 8.9 Urine 07/14/18 Range/Units 10:17 Urine Color Dark Yellow (Yellow) Urine Clarity Clear (Clear) Urine pH 6.0 (5.0-8.0) pH Units Ur Specific [place] 1.018 (1.010-1.025) Urine Protein 30 H (Neg-Trace) mg/dL Urine Glucose (UA) Normal (Normal) mg/dL - ABG Interpretation ABG results: PT/INR, D-dimer PT 15.0 Seconds (9.4-12.1) H 07/13/18 16:02 - Impressions Impressions Hip X-Ray 07/14/18 13:32 IMPRESSION: Postoperative change relating to left hip arthroplasty. No evidence for acute complication is seen. D/ / 07/14/2018 14:25:24 Jarrell Peng MD / earnold Interpreting Provider: Jarrell Peng MD - Attending Attestation I examined this patient and my medical decision-making was reviewed with the Resident Physician. I agree with the documented findings, disposition and treatment plan as described except to the extent set forth below. No acute issues. Pain controlled. Cardiology eval pending results of echocardiogram. Likely to have surgery today. <Phil Ward - Last Filed: 07/14/18 15:10> (3) CHF (congestive heart failure) Qualifiers: Heart failure type: systolic Heart failure chronicity: chronic Qualified Code(s): I50.22 - Chronic systolic (congestive) heart failure <Rajendra Roe - Last Filed: 07/14/18 19:13> (3) CHF (congestive heart failure) Qualifiers: Heart failure type: systolic Heart failure chronicity: chronic Qualified Code(s): I50.22 - Chronic systolic (congestive) heart failure (4) Afib Qualifiers: Atrial fibrillation type: chronic Qualified Code(s): I48.2 - Chronic atrial fibrillation
--- NOTE | 2018-07-14 10:34 | Anesthesia Evaluation PreOp ---
Date of Encounter: 07/14/18 Time of Encounter: 10:30 - Past History Planned Operation: L-HemiHip Cardiac History: CHF, Hyperlipidemia, Arrhythmia (AFib rate controlled on Di goxin, Metoprolol. 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) Other Medical History: Denies Any Significant HX Anesthesia History: No Prior Anesthetic Complications, Past Anesthesia (Breast surgery, Cataracts, Hysterectomy, Eye surgery, "Uche in Leg"), Problems ("Very Sensitive to Anesthestics - I don't wake up for days") Alcohol Use: none Drug use: none Medications and Allergies Docusate [Colace] 200 mg PO ONCE PRN 04/29/16 [History] Lutein 6 mg PO DAILY 04/29/16 [History] Metoprolol XL (24 HR) Succ [Toprol Xl] 50 mg PO DAILY 04/29/16 [History] Rivaroxaban [Xarelto] 15 mg PO DAILY 04/29/16 [History] Acetaminophen [Tylenol] 500 mg PO Q6HR PRN 08/09/16 [History] Cholecalciferol (D-3) [Vitamin D] 1,000 unit PO DAILY 08/09/16 [History] Digoxin [Lanoxin] 0.25 mg PO DAILY #30 tab 12/17/16 [Rx] Allergy/AdvReac Type Severity Reaction Status Date / Time dexamethasone Allergy See Verified 08/10/16 13:43 Comments Procaine Allergy See Verified 08/10/16 13:43 Comments - Meds/Allergy Pre-op Review Medications Reviewed: Yes Allergies Reviewed: Yes Beta Blockers on Current Med List: Yes (Metoprolol 07/14/2018 @ 0912) Anesthesia Results - Labs 07/14/18 05:38 07/14/18 05:38 Laboratory Results WBC 24.3 K/mcL (4.3-11.1) H 07/14/18 05:38 RBC 4.19 M/mcL (3.82-4.97) 07/14/18 05:38 Hgb 11.5 g/dL (11.5-15.4) 07/14/18 05:38 Hct 35.5 % (35.3-44.9) 07/14/18 05:38 MCV 84.7 fL (83.0-100.0) 07/14/18 05:38 MCH 27.4 pg (28.0-33.3) L 07/14/18 05:38 MCHC 32.4 g/dL (31.6-35.5) 07/14/18 05:38 RDW 22.7 % (11.5-14.5) H 07/14/18 05:38 Plt Count 111 K/mcL (140-400) L 07/14/18 05:38 MPV TNP 07/14/18 05:38 Seg Neutrophils % 58.0 % 07/14/18 05:38 Lymphocytes % 2.0 % 07/14/18 05:38 Monocytes % 40.0 % 07/14/18 05:38 Eosinophils % 2.0 % 07/13/18 09:41 Neutrophils # 14.1 K/mcL (1.6-8.9) H 07/14/18 05:38 Lymphocytes # 0.5 K/mcL (0.6-4.6) L 07/14/18 05:38 Monocytes # 9.7 K/mcL (0.0-1.3) H 07/14/18 05:38 Eosinophils # 0.2 K/mcL (0.0-0.6) 07/13/18 09:41 Platelet Estimate Decreased (Normal) L 07/14/18 05:38 Large Platelets Present (Not Present) A 07/13/18 09:41 Immature Plt Fraction 16.7 % (1.1-6.1) H 07/14/18 05:38 Polychromasia 1+ (Not Present) A 07/13/18 09:41 Poikilocytosis 2+ (Not Present) A 07/14/18 05:38 Anisocytosis 3+ (Not Present) A 07/14/18 05:38 Microcytosis Present (Not Present) A 07/14/18 05:38 Tear Drop Cells 1+ (Not Present) A 07/13/18 09:41 Ovalocytes 2+ (Not Present) A 07/13/18 09:41 Acanthocytes (Spur) 1+ (Not Present) A 07/13/18 09:41 Schistocytes 1+ (Not Present) A 07/13/18 09:41 PT 15.0 Seconds (9.4-12.1) H 07/13/18 16:02 INR 1.3 07/13/18 16:02 Heparin Anti-Xa, Unfract 0.54 IU/mL (0.30-0.70) 07/14/18 05:38 Sodium 134 mEq/L (136-145) L 07/14/18 05:38 Potassium 4.2 mEq/L (3.5-5.1) 07/14/18 05:38 Chloride 105 mEq/L (98-107) 07/14/18 05:38 Carbon Dioxide 27 mEq/L (23-29) 07/14/18 05:38 BUN 12 mg/dL (8-23) 07/14/18 05:38 Creatinine 0.49 mg/dL (0.60-1.20) L 07/14/18 05:38 Est GFR ( Amer) > 60 (> 60) 07/14/18 05:38 Est GFR (Non-Af Amer) > 60 (> 60) 07/14/18 05:38 BUN/Creatinine Ratio 24 (6-26) 07/14/18 05:38 Glucose 123 mg/dL (70-105) H 07/14/18 05:38 Calculated Osmolality 279 (280-300) L 07/14/18 05:38 Lactic Acid 0.9 mmol/L (0.5-2.2) 07/14/18 06:46 Calcium 8.9 mg/dL (8.6-10.3) 07/14/18 05:38 Magnesium 1.9 mg/dL (1.6-2.6) 07/14/18 05:38 Troponin I < 0.03 ng/mL (< 0.04) 07/13/18 09:41 Digoxin 1.1 ng/mL (0.8-2.0) 07/13/18 09:41 Blood Type A POSITIVE 07/13/18 09:41 Antibody Screen NEGATIVE 07/13/18 09:41 Impressions Chest X-Ray 07/13/18 09:30 IMPRESSION: No acute process. Stable cardiomegaly D/ / Hu Donahue MD / Hu Donahue MD Interpreting Provider: Hu Donahue MD Hip X-Ray 07/13/18 09:31 IMPRESSION: Subcapital left femoral neck fracture with superior displacement. D/ / Hu Donahue MD / Hu Donahue MD Interpreting Provider: Hu Donahue MD Echocardiogram 07/13/18 11:25 Impressions: LVEF 45-50%. Mild concentric left ventricular hypertrophy. Indeterminate diastolic function. Normal right ventricular structure and function. Severely dilated left atrium. Mild-moderate aortic regurgitation. Moderate mitral regurgitation. There is restricted motion of the posterior mitral valve leaflet. Moderate tricuspid regurgitation. Moderate pulmonary hypertension. Left Ventricular Wall Motion: Rest Echo Findings The apex, apical inferior, mid inferior, basal inferior, apical anterior, mid anterior, basal anterior, apical septal, mid inferior septal, basal inferior septal, apical lateral, mid anterior lateral, basal anterior lateral, mid anterior septal, mid inferior lateral, basal anterior septal and basal inferior lateral rose were hypokinetic. Findings: Study Quality * Technically adequate exam. ECG Findings * Atrial fibrillation with BBB. Left Ventricle * LVEF 45-50%. * Mild concentric left ventricular hypertrophy. * Indeterminate diastolic function. * Mild global left ventricular systolic dysfunction. * Atypical septal motion consistent with bundle branch block. Right Ventricle * Normal right ventricular structure and function. Left Atrium * Severely dilated left atrium. Right Atrium * Moderately dilated right atrium. Interatrial Septum * No evidence of PFO by color Doppler. Aortic Valve * Trileaflet aortic valve. * Mild-moderate aortic regurgitation. * No aortic stenosis. Mitral Valve * Severe mitral annular calcification * Moderate mitral regurgitation. Posterior mitral valve leaflet is a mobile * Mild to moderate mitral stenosis. Transmitral gradient was not well evaluated Tricuspid Valve * Moderate tricuspid regurgitation. * Moderate pulmonary hypertension. * Estimated RVSP is 48 mmHg. * Estimated RA pressure is 5 mmHg. * No tricuspid stenosis. * Normal tricuspid valve structure. Pulmonic Valve * Trace pulmonic regurgitation. Aorta * Normally sized aortic root. Pericardium * The pericardium appears normal. IVC * Normal IVC dimensions and inspiratory collapse. Pulmonary Artery * Normal visualized portions of the main pulmonary artery. - Imaging EKG: image reviewed Anesthesia Exam Vital Signs Temp Pulse Resp BP Pulse Ox 07/14/18 07:16 98.1 F 72 16 104/56 96 07/14/18 04:18 99.8 F H 93 18 146/77 93 07/13/18 23:18 97.4 F L 89 16 165/81 94 07/13/18 19:53 94 07/13/18 18:58 97.9 F 97 16 130/73 94 07/13/18 15:53 98.9 F 105 16 161/71 91 07/13/18 12:54 97.6 F 93 16 156/88 93 07/13/18 12:00 16 138/94 07/13/18 10:40 92 17 163/92 98 Intake and Output 07/13/18 07/14/18 07/14/18 23:59 07:59 15:59 Intake Total 455 / 455 Output Total 75 / 75 500 / 500 Balance 380 / 380 -449 / -449 Intake: IV Fluids / 55 Heparin 25,000 UNIT/250 ML D5W / 55 25,000 unit In 250 ml @ 14 UNIT /KG/HR 8.344 mls/hr IVC .Q24H K[facility]O Rx#:[id number] Oral 400 / 400 0 / 0 0 / 0 Output: Catheter 75 / 75 500 / 500 Other: Meal Breakfast Percent of Meal Consumed 0% Weight 51.7 kg Blood Glucose* 113 Patient Weight 07/14/18 23:59 Weight 51.7 kg Height: 5'2" Weight: 113# BMI = 21 NPO (# of Hours): MNoc - HEENT Pupil (Motor): Pupils equal, EOMI Mallampati: II Teeth: Normal, Missing (Front upper tooth missing) - RETAIL MANAGEMENT KEYHOLDER LOC: Oriented RETAIL MANAGEMENT KEYHOLDER Motor: Normal RUE, Normal LUE, Normal RLE, Normal LLE, Normal Face RETAIL MANAGEMENT KEYHOLDER Sensory: Normal: RUE, LUE, RLE, LLE, Face - Cardiac Rhythm: Irregular Murmur: None JVD: No - Pulmonary Breath Sounds: bilateral Clear Respiratory Effort: Symmetrical Anesthesia Assess/Plan ASA Score: 3 (AFib, Cardiomyopathy, Chol,) Level of consciousness: Cooperative, Oriented, Tranquil Anesthetic Plan: General, Spinal Monitoring Plan: Standard Monitors Recovery Plan: PACU Anes Supervising Prov Stmt: Pt seen/evaluated, R&B discussed, questions answered and consent obtained. - MD Eli
[2018-07-14 10:45] LABS: Bilirubin,Urine Negative (Negative); Blood,Urine Small (Negative); Clarity,Urine Clear (Clear); Color,Urine Dark Yellow (Yellow); Glucose,Urine (UA) Normal (Normal); Ketones,Urine Negative (Negative); Leukocyte Esterase,Urine Negative (Negative); Nitrite,Urine Negative (Negative); Protein,Urine 30 mg/dL (Neg-Trace); Specific Gravity,Urine 1.018 (1.010-1.025)
[2018-07-14 10:56] LABS: Squamous Epithelial Cell,Urine Few per lpf (None-Few)
[2018-07-14 10:58] LABS: WBC,Urine 0-3 per hpf (0-3)
[2018-07-14 11:00] LABS: Bacteria,Urine Few per hpf (None-Few)
[2018-07-14] MEDS ORDERED: Ethanol\\Acetic Acid\\Na Ace\\Ben 1,000 ML IRRIG.SOLN IR ONE (11:01)
[2018-07-14] MEDS ORDERED: *HR* FentaNYL (PF) 100 MCG/2 ML VIAL ONE (11:37)
[2018-07-14] MEDS ORDERED: *HR* Propofol 200 MG/20 ML VIAL IVP ONE (11:37)
[2018-07-14] MEDS ORDERED: Lidocaine -MPF 2% 2 ML VIAL ONE (11:38)
[2018-07-14] MEDS ORDERED: *HR* Rocuronium Bromide 50 MG/5 ML VIAL ONE (11:38)
[2018-07-14] MEDS ORDERED: *HR* Succinylcholine 200 MG/10 ML VIAL IVP ONE (11:42)
[2018-07-14] MEDS ORDERED: EPHEDrine 50 MG/ML VIAL ONE (11:57)
[2018-07-14] MEDS ORDERED: Ondansetron 4 MG/2 ML VIAL ONE (12:59)
[2018-07-14] MEDS ORDERED: Ketorolac 30 MG/ML VIAL ONE (13:04)
--- NOTE | 2018-07-14 13:48 | Orthopedic Operative Note ---
Date of procedure: 07/14/18 Procedure: Procedure: Left hip hemiarthroplasty Preoperative Diagnosis: Left displaced femoral neck fracture Postoperative Diagnosis: Same Surgeon: Elbert Christy MD Machine Cloth Examiner: None Anesthesia: General anesthetic EBL: 150 cc Complications: None Components used: Biomet Echo lateralized femoral stem, size 13, Endo II 48mm head, -6 neck INDICATIONS: This is a 88 yo F who had a mechanical fall and sustained a left displaced femoral neck fracture. After discussing the procedure at length, and to allow for early mobilization and pain control, the patient and family elected for operative management with a left hip hemiarthroplasty. The risks and benefits of the procedure were fully explained. Those risks include but are not limited to, infection, neurovascular injury, continued pain, stiffness, further injury, need for further surgery, DVT, PE, loss of limb, and loss of life. The patient and her family understood all of these risks and wished to proceed. Informed consent was obtained. No guarantees were stated or implied. OPERATIVE REPORT: The patient was identified in the holding area. The left lower extremity was marked, and the patient was taken to the operating room. The patients head, neck and airway were protected by anesthesia through the case. General anesthetic was administered. The patient was then transferred to the operating table and placed in the lateral position on a peg board. All bony prominences were well padded. The left lower extremity was then prepped and draped in the normal manner. Preoperative antibiotics were given prior to incision. The patient was steriley prepped and draped. A surgical time out protocol was then performed. A posterior approach was made. Incision was made just posterior to the greater trochanter. Sharp dissection was carried through subcutaneous tissue down to the fascia, coagulating any skin bleeders. Fascia meredith and gluteus maryann fascia were then incised. Maryann fibers were digitally dissected and a Charnley retractor was placed. The hip was extended and internally rotated. A Cobra retractor was then placed over the ilium to retract the abductors anteriorly. Electrocautery was then used to release the piriformis and then short external rotators and capsule from the posterior aspect of the hip joint and a full-thickness flap was created. This was tagged for later repair. The release was carried down distally to the level of the lesser trochanter. At this point the hip was dislocated and the femoral neck fracture was exposed. A saw was used to freshen up the femoral neck cut approximately 1 fingerbreadth above the lesser trochanter. The femoral head was removed with a corkscrew. The fractured neck fragments were removed with a ronguer. We then exposed the femur using a femoral elevator, and sequentially remained and broached the femur to appropriate size in accordance with the Biomet system. We seated a size 13 mm broach and did initial trial reductions with standard neck. The extremity was long and so the hip was dislocated and the standard neck was exchanged for a -6 neck and the hip was reduced. We had good soft tissue tensioning and stable range of motion, with good reproduction of leg lengths. The trials were removed and the femoral stem was press fit in place. Trial reductions were repeated with the -6 neck. Satisfied with the hip kinematics, we cleaned and dried the trunion and the final femoral head was impacted and the hip was reduced. We then did our final check of range of motion, stability and leg lengths. We then thoroughly irrigated the wound and closed the hip capsule with #1 ethibond. The piriformis tendon and external rotators were repaired through bone tunnels. Fascia meredith was closed with #1 ethibond and subcutaneous tissues with 2-0 stratafix. Skin was closed with 3-0 stratafix. We then placed sterile dressings the patient was awoken by anesthesia and transferred to PACU in stable condition. Patient tolerated the procedure well. Postop plan: The patient will be transferred back to the floor and will be weight-bearing as tolerated postop with posterior hip precautions. Was there an construction administrative assistant present: No Estimated blood loss (cc): 100
--- NOTE | 2018-07-14 14:11 | Anesthesia Evaluation Post Op ---
Date of Encounter: 07/14/18 Time of Encounter: 14:10 - Vital Signs Vital Signs: Vital Signs/O2 Sat, Most Current Temp Pulse Resp BP Pulse Ox 98.8 F 92 18 113/75 95 07/14/18 13:24 07/14/18 13:44 07/14/18 13:44 07/14/18 13:44 07/14/18 13:44 - Lungs Lungs: Clear Ascult./Percussion - Airway Airway: Non-obstructed - Cardiovascular Regular Rate - Mental Status Mental Status: Alert & Oriented, Answers Appropriately - Pain Pain Scale: 0 Pain Scale used: Numeric (1 - 10) - Nausea Vomiting Nausea Vomiting: Not Present - Hydration Hydration: Tolerates oral liquids - Discharge PostOp Status: Transfer Patient to floor
[2018-07-14] MEDS ORDERED: Ringers Solution, Lactated 1,000 ML IVC SCH (15:00)
[2018-07-14] MEDS ORDERED: *HR* Rivaroxaban 15 MG TABLET PO SCH (17:00)
[2018-07-14] MEDS ORDERED: diazePAM 10 MG/2 ML SYRINGE IVP ONE (20:03)
[2018-07-14 20:59] LABS: ABG Base Excess 0 mEq/L (-2 to 3); ABG HCO3 24 mEq/L (21-27); ABG Oxygen Saturation 100 % (95-98); ABG PCO2 32 mmHg (35-45); ABG PH 7.48 pH Units (7.32-7.45); ABG PO2 161 mmHg (85-104); ABG TCO2 25 mEq/L (20-26)
[2018-07-14 21:32] LABS: Basophils % 0.1 %; Eosinophils # 0.2 K/mcL (0.0-0.6); Eosinophils % 0.6 %; Hematocrit 29.3 % (35.3-44.9); Hemoglobin 9.3 g/dL (11.5-15.4); Immature Granulocytes % 1.1 % (0-4); Lymphocytes # 1.1 K/mcL (0.6-4.6); Lymphocytes % 2.9 %; Mean Corpuscular HGB Conc 31.7 g/dL (31.6-35.5); Mean Corpuscular Hemoglobin 28.5 pg (28.0-33.3); Mean Corpuscular Volume 89.9 fL (83.0-100.0); Monocytes # 17.4 K/mcL (0.0-1.3); Monocytes % 46.4 %; Neutrophils # 18.3 K/mcL (1.6-8.9); Nucleated Red Blood Cells 0.1 /100 WBC (0); Platelet Count 180 K/mcL (140-400); Red Blood Count 3.26 M/mcL (3.82-4.97); Red Cell Distribution Width 21.9 % (11.5-14.5); Segmented Neutrophils % 48.9 %
--- NOTE | 2018-07-14 21:40 | Event Note ---
Date of Encounter: 07/14/18 Time of Encounter: 21:37 Received page from nursing as patient was experiencing shaking and near syncopal symptoms. Reportedly patient takes Valium 10mg daily and had not been taking it for the past 2 days. Concern was for benzodiazepine withdrawal. Ordered valium and obtained vitals which were BP of 150/72, heart rate of 116, temperature 97.7, and saturating 94% on room air. Before patient received Valium her mental status changed and she reportedly became near unresponsive, a rapid response was called. Upon arriving to the bedside, patient was having active shaking like activity of both upper extremities. Her temperature increased to 100.7, she was still tachycardic. EKG showed A. fib with RVR. Concern for benzodiazepine withdrawal versus malignant hyperthermia versus seizure. Obtained stat labs, CT head, and transfered patient to ICU for closer monitoring. Patient received IV Ativan after which her symptoms decreased. She is currently more responsive and does follow simple commands, but mostly nonverbal. 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 Patient's labs revealed an increased leukocytosis to 37.4 with a left shift and a decreased hemoglobin to 9.3. She also had an elevated lactic acid level of 6.2 and a troponin elevation at 0.05. Her temperature remained elevated at 100.6. CT head was unremarkable for any acute pathology. Concern at this time for sepsis as well. Patient received bolus 1 L fluid, started IV vancomycin and Zosyn, obtained chest x-ray and blood cultures. Also on [facility] protocol for suspected benzodiazapine withdrawal. Family also had discussion regarding goals of care, they state that the patient's and family's wishes are that if the patient arrests to not attempt compressions, however short-term intubation will be allowed if medically necessary. Will reflect this in patient's chart and make her DNR-CCA.
[2018-07-14 21:48] LABS: BUN/Creatinine Ratio 25 (6-26); Blood Urea Nitrogen 16 mg/dL (8-23); Calcium 8.3 mg/dL (8.6-10.3); Carbon Dioxide 22 mEq/L (23-29); Chloride 103 mEq/L (98-107); Creatine Kinase 94 Units/L (30-223); Glucose 126 mg/dL (70-105); Osmolality,Calculated 291 (280-300); Potassium 4.4 mEq/L (3.5-5.1); Sodium 139 mEq/L (136-145); eGFR For Non-African Americans > 60 (> 60)
[2018-07-14 21:50] LABS: Troponin I 0.05 ng/mL (< 0.04)
[2018-07-14] MEDS ORDERED: Ringers Solution, Lactated 500 ML IVC ONE (21:52)
[2018-07-14] MEDS ORDERED: *HR* LORazepam 2 MG/ML VIAL IVP PRN ×3 (22:05)
[2018-07-14 22:29] LABS: Alanine Aminotransferase 12 Units/L (7-52); Albumin 3.6 g/dL (3.5-5.7); Albumin/Globulin Ratio 2.1 (1.1-2.2); Alkaline Phosphatase 44 Units/L (34-104); Aspartate Amino Transferase 26 Units/L (13-39); Bilirubin,Direct 0.5 mg/dL (0.0-0.2); Bilirubin,Indirect 2.1 mg/dL (0.0-1.2); Bilirubin,Total 2.6 mg/dL (0.3-1.0); Globulin 1.7 g/dL (2.4-3.5); Total Protein 5.3 g/dL (6.4-8.9)
[2018-07-14] MEDS ORDERED: 0.9 % Sodium Chloride 1,000 ML IVC SCH (22:30)
[2018-07-14] MEDS: Heparin 25,000 UNIT/250 ML D5W 25,000 UNIT/250 ML IV.SOLN IVC SCH (22:42)
[2018-07-14 22:46] LABS: Anisocytosis 2+ (Not Present); Ovalocytes 3+ (Not Present); Poikilocytosis 3+ (Not Present)
[2018-07-14 22:47] LABS: Platelet Estimate Normal (Normal)
[2018-07-14 23:17] LABS: Lipase < 3 Units/L (11-82)
[2018-07-15 00:37] LABS: Bilirubin,Urine Small (Negative); Blood,Urine Moderate (Negative); Clarity,Urine Clear (Clear); Color,Urine Orange (Yellow); Glucose,Urine (UA) Normal (Normal); Ketones,Urine Trace mg/dL (Negative); Leukocyte Esterase,Urine Small (Negative); Nitrite,Urine Negative (Negative); PH,Urine 5.5 pH Units (5.0-8.0); Protein,Urine 30 mg/dL (Neg-Trace); Specific Gravity,Urine 1.029 (1.010-1.025); Urobilinogen,Urine Normal (Normal)
[2018-07-15 00:39] LABS: Squamous Epithelial Cell,Urine Many per lpf (None-Few)
[2018-07-15 00:43] LABS: Basophils % 0.1 %; Eosinophils % 0.1 %
[2018-07-15 00:44] LABS: Hematocrit 24.3 % (35.3-44.9); Hemoglobin 7.9 g/dL (11.5-15.4); Immature Granulocytes % 2.9 % (0-4); Lymphocytes # 0.7 K/mcL (0.6-4.6); Lymphocytes % 1.6 %; Mean Corpuscular HGB Conc 32.5 g/dL (31.6-35.5); Mean Corpuscular Hemoglobin 28.4 pg (28.0-33.3); Mean Corpuscular Volume 87.4 fL (83.0-100.0); Monocytes # 15.7 K/mcL (0.0-1.3); Monocytes % 37.4 %; Neutrophils # 24.3 K/mcL (1.6-8.9); Platelet Count 165 K/mcL (140-400); Red Blood Count 2.78 M/mcL (3.82-4.97); Red Cell Distribution Width 21.9 % (11.5-14.5); Segmented Neutrophils % 57.9 %
[2018-07-15] MEDS ORDERED: Isovue-370 500 ML BOTTLE IVP ONE ×3 (00:53→09:31)
[2018-07-15 00:54] LABS: Hyaline Casts,Urine Many per lpf (None-Few); Mucus,Urine Few (Few); RBC,Urine 50-100 per hpf (0-3); Yeast,Urine Moderate per hpf (None Seen)
[2018-07-15 00:55] LABS: Bacteria,Urine Few per hpf (None-Few)
[2018-07-15 01:03] LABS: BUN/Creatinine Ratio 26 (6-26); Blood Urea Nitrogen 19 mg/dL (8-23); Calcium 7.8 mg/dL (8.6-10.3); Carbon Dioxide 26 mEq/L (23-29); Chloride 106 mEq/L (98-107); Glucose 165 mg/dL (70-105); Lipase < 3 Units/L (11-82); Osmolality,Calculated 292 (280-300); Sodium 138 mEq/L (136-145); eGFR For Non-African Americans > 60 (> 60)
[2018-07-15 01:08] LABS: Troponin I 0.07 ng/mL (< 0.04)
[2018-07-15 01:22] LABS: Anisocytosis 2+ (Not Present); Ovalocytes 2+ (Not Present); Platelet Estimate Decreased (Normal); Poikilocytosis 2+ (Not Present)
[2018-07-15] MEDS ORDERED: 0.9 % Sodium Chloride 250 ML ONE (01:56)
[2018-07-15 02:44] LABS: Hemoglobin 7.4 g/dL (11.5-15.4)
[2018-07-15 02:46] LABS: Hematocrit 23.4 % (35.3-44.9)
[2018-07-15] MEDS: *HR* OxyCODONE Immed Rel 5 MG TABLET PO PRN (03:50)
[2018-07-15] MEDS: Piperacillin/Tazobactam 3.375 GM in 0.9 % Sodium Chloride Mini Bag 100 ML IVPB SCH ×3 (05:09→21:06)
[2018-07-15] MEDS ORDERED: Bisacodyl 10 MG RECTAL SUPPOSITORY RC ONE (07:46)
[2018-07-15] MEDS: Metoprolol XL (24 HR) Succ 50 MG TAB.ER.24H PO SCH ×2 (08:09→09:23)
[2018-07-15] MEDS: Cholecalciferol (D-3) 1,000 UNIT TABLET PO SCH (08:09)
[2018-07-15 08:40] LABS: Basophils % 0.1 %; Hematocrit 23.8 % (35.3-44.9); Hemoglobin 7.5 g/dL (11.5-15.4); Immature Granulocytes % 1.9 % (0-4); Lymphocytes # 1.4 K/mcL (0.6-4.6); Lymphocytes % 3.2 %; Mean Corpuscular HGB Conc 31.5 g/dL (31.6-35.5); Mean Corpuscular Hemoglobin 28.4 pg (28.0-33.3); Mean Corpuscular Volume 90.2 fL (83.0-100.0); Monocytes # 15.4 K/mcL (0.0-1.3); Monocytes % 34.9 %; Red Blood Count 2.64 M/mcL (3.82-4.97); Red Cell Distribution Width 21.6 % (11.5-14.5); Segmented Neutrophils % 59.9 %
[2018-07-15 08:44] LABS: Neutrophils # 26.4 K/mcL (1.6-8.9)
--- NOTE | 2018-07-15 08:58 | Pulmonology Consult Note ---
<Ivan Jorgensen S - Last Filed: 07/15/18 10:31> Date of Encounter: 07/15/18 Time of Encounter: 09:13 Assessment and Plan (1) Sepsis Current Visit: Yes Status: Acute On admission pt met sepsis criteria for WBC of 16.8, HR >90 - currently meets 3/4 SIRS criteria for HR 120, RR 21, and WBC 48 - source of infxn is currently not known UA (+) for ketones, leuk esterase, 5-15 WBC; many epithelial cells likely a contaminated specimen CXR from admission negative for acute cardiopulmonary process; repeat XR chest negative on 07/[address] from 07/14/[address] abdomen/pelvis postsurgical changes seen w surrounding soft tissue swelling and gas 9 cm intramucular hematoma of gluteal/quad femoris mm --> ?active artieral bleed vs perioperative venous ooze soft tissue swelling into the pelvis/left retroperitoneum along piriformis CT chest small b/l pleural effusions, biatrial enlargement negative for PE biliary tree has mild intra/extrahepatic bile dilation, unchanged Plan: - plan to place CVC if pt requires pressors, keep MAP >65 - continue abx: vancomycin day 2 and zosyn day 1 - blood cx pending - heme onc consulted - infectious disease consulted - CT angiogram of the pelvis pending - legionella antigen pending, strep penumo anigen pending - PT/INR pending Qualifiers: Sepsis type: sepsis due to unspecified organism Qualified Code(s): A41.9 - Sepsis, unspecified organism (2) Benzodiazepine withdrawal Current Visit: Yes Status: Suspected Suspected. As per night resident notes, the pt experienced shaking like activity overnight. She takes BZ at home and was apperently not taking them here. BZ withdrawal vs post-operative malignant hyperthermia vs seizure. - symptoms decreased after ativan - overnight she was given vancomycin, zosyn, fluid bolus STAT head CT was negative CXR negative Plan: - blood cx pending - continue CIWA protocol - lorazepam as per protocol Qualifiers: Complication of substance-induced condition: with unspecified complication Qualified Code(s): F13.239 - Sedative, hypnotic or anxiolytic dependence with withdrawal, unspecified (3) Thrombocytopenia Current Visit: Yes Status: Acute Pt presented with plt level of 112 --> 180 ---> 70 - lab error, plt 148 on repeat Plan: - heme onc consulted - PF4 assay pending (4) Breast cancer Current Visit: Yes Status: Acute Pt has hx of breast cancer in the past - CT findings do show an increased left chest wall/breast mass Heme-onc is consulted. Qualifiers: Breast location: unspecified site of breast Estrogen receptor status: unspecified Patient sex: female Laterality: left Qualified Code(s): C50.912 - Malignant neoplasm of unspecified site of left female breast (5) Anemia Current Visit: Yes Status: Acute Pt presented with hemoglobin 11.6, around her baseline of 10-11 - dropped to 9.3 and continued to trend down to 7.9 ---> 7.4 --> 7.5 CT scan of abdomen/pelvis 07/15/18 showed a 9cm intramuscular hematoma involving the gluteal and quadratus femoris mm - active arterial extravascation vs perioperative venous ooze Plan: - continue to monitor for active bleeding - hold anticoagulants - continue to trend hemoglobin - pt to receive 1u PRBC now - CT angiogram of the pelvis pending Qualifiers: Anemia type: unspecified type Qualified Code(s): D64.9 - Anemia, unspecified (6) Elevated troponin Current Visit: Yes Status: Acute Troponin peaked at 0.08 - likely type 2 demand ischeia from sepsis (7) Lactic acidosis Current Visit: Yes Status: Acute Lactate 6.5 improved to 3.1 (8) Constipation Current Visit: No Status: Chronic On docusante. Qualifiers: Constipation type: unspecified constipation type Qualified Code(s): K59.00 - Constipation, unspecified (9) Anxiety Current Visit: No Status: Chronic Takes valium at home. (10) Femoral neck fracture Current Visit: Yes Status: Acute XR on admission showed subcapital left femoral neck fx with superior displacement - POD #1 s/p left hip hemiarthoplasty - tolerated procedure well - PTOT consulted Qualifiers: Encounter type: initial encounter Fracture type: closed Laterality: left Qualified Code(s): S72.002A - Fracture of unspecified part of neck of left femur, initial encounter for closed fracture (11) Leukocytosis Current Visit: Yes Status: Acute Leukotyosis of 48. Source of infxn unknown. See plan as above. Qualifiers: Leukocytosis type: unspecified Qualified Code(s): D72.829 - Elevated white blood cell count, unspecified (12) Afib Current Visit: No Status: Chronic Hx of a fib on toprol XL and xarelto at home. AC currently held due to anemia. Qualifiers: Atrial fibrillation type: chronic Qualified Code(s): I48.2 - Chronic atrial fibrillation (13) CHF (congestive heart failure) Current Visit: No Status: Chronic NOT in acute exacerbation. Pt has systolic heart failure. ECHO showed LVEF 40- 45%, LVH, dilated LA, MR/TR and pHTN Qualifiers: Heart failure type: systolic Heart failure chronicity: chronic Qualified Code(s): I50.22 - Chronic systolic (congestive) heart failure (14) DVT prophylaxis Current Visit: Yes Status: Acute AC currently held due to hemoglobin low. Plan to start SCD after post-op pain resolves. History of Present Illness Consult date: 07/15/18 Requesting physician: Rajendra Roe Reason for consult: other (septik shock) Chief complaint: my left hip hurts History of present illness: Mrs. Jensen is an 88yo female with CHF, A fib on rivaroxaban, breast cancer and anxiety on valium. She was consulted on 07/15/18 for septik shock. She was initially admitted for a mechanical fall and XR showed a left femoral subcapital neck fx with superior displacement. She is currently POD#1 s/p left hip arthroplasty with Dr. Conley. She tolerated the procedure well and returned to the floor. Overnight she became altered and had episodes of shaking vs seizure like activity. Dr Fernández (resident) evaluated her and discovered that she takes valium at home and hasn't gotten it in 3 days. He started her on CIWA protocol and got stat head CT/XR chest which were both negative. This morning the pt condition continued to worsen. Hospitalist team ordered imaging CT abd/pelvis and chest which was negative for acute PE. There was an increase of the left breast mass. A 9mm hematoma of the gluteal/quad femoris was seen. The pt at this time is AOx0. She is unable to tell me where she is or what has been going on. She states over and over that "she needs to poop." ROS unobtainable. Past Med Surg Social Fam HX - Past Medical History Medical history: atrial fibrillation, cancer, cardiomyopathy, CHF, coronary artery disease, hyperlipidemia, valvular heart disease, other Additional medical history: macular degeneration Psychiatric history: anxiety - Past Surgical History Surgical History: breast surgery, cataract, hysterectomy Additional surgical history: eye surgery - Social History Smoking Status: Former smoker Smokeless Tobacco Status: No Alcohol use: none Drug use: none - Family History Father Hx Family Cardiac Disorders: Yes ([place]) Mother Living Status: Medications and Allergies Docusate [Colace] 200 mg PO DAILY PRN 04/29/16 [History] Lutein 6 mg PO DAILY 04/29/16 [History] Metoprolol XL (24 HR) Succ [Toprol Xl] 50 mg PO DAILY 04/29/16 [History] Rivaroxaban [Xarelto] 15 mg PO DAILY 04/29/16 [History] Acetaminophen [Tylenol] 1,000 mg PO BID 08/09/16 [History] Cholecalciferol (D-3) [Vitamin D] 1,000 unit PO DAILY 08/09/16 [History] Digoxin [Lanoxin] 0.25 mg PO DAILY #30 tab 12/17/16 [Rx] diazePAM [Valium] 10 mg PO HS 07/14/18 [History] Allergy/AdvReac Type Severity Reaction Status Date / Time dexamethasone Allergy See Verified 08/10/16 13:43 Comments Procaine Allergy See Verified 08/10/16 13:43 Comments ROS unobtainable: due to mental status All Systems: The remainder of the systems were reviewed and are negative Physical Examination Vital Signs: Vital Signs, Last 4 Hours Temp Pulse Resp BP Pulse Ox 07/15/18 08:49 99.0 F 07/15/18 08:00 120 21 82/69 91 07/15/18 07:00 144 16 82/72 96 07/15/18 06:00 135 19 96/63 97 07/15/18 05:00 127 20 73/54 99 General appearance: agitated, appears uncomfortable Eyes: nonicteric ENT: oropharynx dry Effort: normal Auscultation: bilateral: clear Cardiovascular: other (tacycardia, s1s2) Gastrointestinal: soft, non-tender, non-distended, other (no peritoneal signs) Integumentary: normal Extremities: no edema Musculoskeletal: other (pain to palpation of the left lower extremity by the IT band) unable to assess due to mental status anxious Results - Laboratory Findings CBC and BMP: 07/15/18 09:30 07/15/18 09:30 ABG ABG pH 7.48 pH Units (7.32-7.45) H 07/14/18 20:53 ABG pCO2 32 mmHg (35-45) L 07/14/18 20:53 ABG pO2 161 mmHg (85-104) H 07/14/18 20:53 ABG O2 Saturation 100 % (95-98) H 07/14/18 20:53 PT/INR, D-dimer PT 15.0 Seconds (9.4-12.1) H 07/13/18 16:02 Abnormal lab findings: Abnormal lab results WBC 44.0 K/mcL (4.3-11.1) H* 07/15/18 07:58 RBC 2.64 M/mcL (3.82-4.97) L 07/15/18 07:58 Hgb 7.5 g/dL (11.5-15.4) L 07/15/18 07:58 Hct 23.8 % (35.3-44.9) L 07/15/18 07:58 MCHC 31.5 g/dL (31.6-35.5) L 07/15/18 07:58 RDW 21.6 % (11.5-14.5) H 07/15/18 07:58 Plt Count 70 K/mcL (140-400) L D 07/15/18 07:58 Neutrophils # 24.3 K/mcL (1.6-8.9) H 07/15/18 00:21 Monocytes # 15.7 K/mcL (0.0-1.3) H 07/15/18 00:21 Nucleated RBCs/100 WBC 0.1 /100 WBC (0) H 07/14/18 21:05 Platelet Estimate Decreased (Normal) L 07/15/18 00:21 Large Platelets Present (Not Present) A 07/13/18 09:41 Immature Plt Fraction 16.7 % (1.1-6.1) H 07/14/18 05:38 Polychromasia 1+ (Not Present) A 07/13/18 09:41 Poikilocytosis 2+ (Not Present) A 07/15/18 00:21 Anisocytosis 2+ (Not Present) A 07/15/18 00:21 Microcytosis Present (Not Present) A 07/14/18 05:38 Tear Drop Cells 1+ (Not Present) A 07/13/18 09:41 Ovalocytes 2+ (Not Present) A 07/15/18 00:21 Acanthocytes (Spur) 1+ (Not Present) A 07/14/18 21:05 Schistocytes 1+ (Not Present) A 07/13/18 09:41 PT 15.0 Seconds (9.4-12.1) H 07/13/18 16:02 Heparin Anti-Xa, Unfract 0.04 IU/mL (0.30-0.70) L 07/14/18 14:31 ABG pH 7.48 pH Units (7.32-7.45) H 07/14/18 20:53 ABG pCO2 32 mmHg (35-45) L 07/14/18 20:53 ABG pO2 161 mmHg (85-104) H 07/14/18 20:53 ABG O2 Saturation 100 % (95-98) H 07/14/18 20:53 Glucose 165 mg/dL (70-105) H 07/15/18 00:21 POC Glucose 139 mg/dL (70-99) H 07/14/18 21:37 Lactic Acid 3.1 mmol/L (0.5-2.2) H 07/15/18 02:29 Calcium 7.8 mg/dL (8.6-10.3) L 07/15/18 00:21 Total Bilirubin 2.6 mg/dL (0.3-1.0) H 07/14/18 21:05 Direct Bilirubin 0.5 mg/dL (0.0-0.2) H 07/14/18 21:05 Indirect Bilirubin 2.1 mg/dL (0.0-1.2) H 07/14/18 21:05 Ammonia 82 mcmol/L (16-53) H 07/14/18 21:05 Troponin I 0.08 ng/mL (< 0.04) H* 07/15/18 02:29 Serum Total Protein 5.3 g/dL (6.4-8.9) L 07/14/18 21:05 Globulin 1.7 g/dL (2.4-3.5) L 07/14/18 21:05 Lipase < 3 Units/L (11-82) L 07/15/18 00:21 Urine Color [place] (Yellow) A 07/14/18 22:23 Ur Specific [place] 1.029 (1.010-1.025) H 07/14/18 22:23 Urine Protein 30 mg/dL (Neg-Trace) H 07/14/18 22:23 Urine Ketones Trace mg/dL (Negative) H 07/14/18 22:23 Urine Blood Moderate (Negative) H 07/14/18 22:23 Urine Bilirubin Small (Negative) H 07/14/18 22:23 Ur Leukocyte Esterase Small (Negative) H 07/14/18 22:23 Urine Microscopic RBC 50-100 per hpf (0-3) H 07/14/18 22:23 Urine Microscopic WBC 5-15 per hpf (0-3) H 07/14/18 22:23 Ur Squamous Epith Cells Many per lpf (None-Few) H 07/14/18 22:23 Hyaline Casts Many per lpf (None-Few) H 07/14/18 22:23 Urine Yeast Moderate per hpf (None Seen) H 07/14/18 22:23 Ur Culture Indicated? NO. (NO) A 07/14/18 22:23 - Microbiology Findings Microbiology Findings: Microbiology, Last 48 Hours 07/14/18 22:28 Blood Culture - Preliminary Peripheral Venipuncture Culture is incubating and being continuously monitored for growth. Final report to follow. 07/14/18 22:21 Blood Culture - Preliminary Peripheral Venipuncture Culture is incubating and being continuously monitored for growth. Final report to follow. - Clinical Findings Intake & Output: Intake & Output 07/14/18 07/15/18 07/15/18 23:59 07:59 15:59 Intake Total 350 / 350 Output Total 125 / 125 150 / 150 900 / 900 Balance 225 / 225 -150 / -150 -900 / -900 Weight 54.5 kg Consult Discharge Plan - Plan Referrals: NONE,PCP [Primary Care Provider] - <Adriana Issa - Last Filed: 07/15/18 16:49> Date of Encounter: 07/15/18 All Systems: The remainder of the systems were reviewed and are negative Physical Examination Vital Signs: Vital Signs, Last 4 Hours Temp Pulse Resp BP Pulse Ox 07/15/18 16:39 99.6 F 07/15/18 16:00 121 16 123/65 98 07/15/18 15:28 130 07/15/18 15:00 110 18 115/71 97 07/15/18 14:00 106 16 113/83 100 07/15/18 13:00 120 18 105/83 98 Results - Laboratory Findings CBC and BMP: 07/15/18 13:36 07/15/18 09:30 ABG ABG pH 7.48 pH Units (7.32-7.45) H 07/14/18 20:53 ABG pCO2 32 mmHg (35-45) L 07/14/18 20:53 ABG pO2 161 mmHg (85-104) H 07/14/18 20:53 ABG O2 Saturation 100 % (95-98) H 07/14/18 20:53 PT/INR, D-dimer PT 26.4 Seconds (9.4-12.1) H 07/15/18 16:06 Abnormal lab findings: Abnormal lab results WBC 44.0 K/mcL (4.3-11.1) H* 07/15/18 07:58 RBC 2.64 M/mcL (3.82-4.97) L 07/15/18 07:58 Hgb 10.0 g/dL (11.5-15.4) L D 07/15/18 13:36 Hct 31.5 % (35.3-44.9) L 07/15/18 13:36 MCHC 31.5 g/dL (31.6-35.5) L 07/15/18 07:58 RDW 21.6 % (11.5-14.5) H 07/15/18 07:58 Neutrophils # 26.4 K/mcL (1.6-8.9) H 07/15/18 07:58 Monocytes # 15.4 K/mcL (0.0-1.3) H 07/15/18 07:58 Nucleated RBCs/100 WBC 0.1 /100 WBC (0) H 07/14/18 21:05 Large Platelets Present (Not Present) A 07/13/18 09:41 Immature Plt Fraction 16.7 % (1.1-6.1) H 07/14/18 05:38 Polychromasia 1+ (Not Present) A 07/15/18 07:58 Poikilocytosis 2+ (Not Present) A 07/15/18 00:21 Anisocytosis 1+ (Not Present) A 07/15/18 07:58 Microcytosis Present (Not Present) A 07/14/18 05:38 Tear Drop Cells 1+ (Not Present) A 07/13/18 09:41 Ovalocytes 2+ (Not Present) A 07/15/18 07:58 Acanthocytes (Spur) 1+ (Not Present) A 07/14/18 21:05 Schistocytes 1+ (Not Present) A 07/13/18 09:41 PT 26.4 Seconds (9.4-12.1) H 07/15/18 16:06 Heparin Anti-Xa, Unfract 0.04 IU/mL (0.30-0.70) L 07/14/18 14:31 ABG pH 7.48 pH Units (7.32-7.45) H 07/14/18 20:53 ABG pCO2 32 mmHg (35-45) L 07/14/18 20:53 ABG pO2 161 mmHg (85-104) H 07/14/18 20:53 ABG O2 Saturation 100 % (95-98) H 07/14/18 20:53 BUN 25 mg/dL (8-23) H 07/15/18 09:30 Est GFR (Non-Af Amer) 59 (> 60) L 07/15/18 09:30 BUN/Creatinine Ratio 28 (6-26) H 07/15/18 09:30 Glucose 179 mg/dL (70-105) H 07/15/18 09:30 POC Glucose 139 mg/dL (70-99) H 07/14/18 21:37 Lactic Acid 3.1 mmol/L (0.5-2.2) H 07/15/18 02:29 Calcium 7.2 mg/dL (8.6-10.3) L 07/15/18 09:30 Iron 15 mcg/dL (50-170) L 07/15/18 16:06 % Saturation 7 % (15-50) L 07/15/18 16:06 Transferrin 163 mg/dL (203-362) L 07/15/18 16:06 Total Bilirubin 1.7 mg/dL (0.3-1.0) H 07/15/18 09:30 Direct Bilirubin 0.5 mg/dL (0.0-0.2) H 07/14/18 21:05 Indirect Bilirubin 2.1 mg/dL (0.0-1.2) H 07/14/18 21:05 Alkaline Phosphatase 30 Units/L (34-104) L 07/15/18 09:30 Ammonia 82 mcmol/L (16-53) H 07/14/18 21:05 Troponin I 0.08 ng/mL (< 0.04) H* 07/15/18 02:29 Serum Total Protein 4.1 g/dL (6.4-8.9) L 07/15/18 09:30 Albumin 2.7 g/dL (3.5-5.7) L 07/15/18 09:30 Globulin 1.4 g/dL (2.4-3.5) L 07/15/18 09:30 Lipase < 3 Units/L (11-82) L 07/15/18 00:21 Urine Color [place] (Yellow) A 07/14/18 22:23 Ur Specific [place] 1.029 (1.010-1.025) H 07/14/18 22:23 Urine Protein 30 mg/dL (Neg-Trace) H 07/14/18 22:23 Urine Ketones Trace mg/dL (Negative) H 07/14/18 22:23 Urine Blood Moderate (Negative) H 07/14/18 22:23 Urine Bilirubin Small (Negative) H 07/14/18 22:23 Ur Leukocyte Esterase Small (Negative) H 07/14/18 22:23 Urine Microscopic RBC 50-100 per hpf (0-3) H 07/14/18 22:23 Urine Microscopic WBC 5-15 per hpf (0-3) H 07/14/18 22:23 Ur Squamous Epith Cells Many per lpf (None-Few) H 07/14/18 22:23 Hyaline Casts Many per lpf (None-Few) H 07/14/18 22:23 Urine Yeast Moderate per hpf (None Seen) H 07/14/18 22:23 Ur Culture Indicated? NO. (NO) A 07/14/18 22:23 - Microbiology Findings Microbiology Findings: Microbiology, Last 48 Hours 07/15/18 09:29 Legionella Antigen - Final Urine,Clean Catch Streptococcus pneumoniae Antigen (M - Final 07/14/18 22:28 Blood Culture - Preliminary Peripheral Venipuncture Culture is incubating and being continuously monitored for growth. Final report to follow. 07/14/18 22:21 Blood Culture - Preliminary Peripheral Venipuncture Culture is incubating and being continuously monitored for growth. Final report to follow. - Clinical Findings Intake & Output: Intake & Output 07/15/18 07/15/18 07/15/18 07:59 15:59 23:59 Intake Total 1400 / 1400 Output Total 150 / 150 1050 / 1050 175 / 175 Balance -150 / -150 350 / 350 -175 / -175 Weight 54.5 kg - Attending Attestation I examined this patient and my medical decision-making was reviewed with the Resident Physician. I agree with the documented findings, disposition and treatment plan as described except to the extent set forth below. Patient seen and examined. Labs, radiology, chart personally reviewed. Agree with resident's history and physical, assessment, plan with following comments: VOICE INTERCEPT TECHNICIAN: Patient follows commands, Pulmonary: Acceptable oxygenation and ventilation Cardiovascular: stable GI: Nutrition per dietary and GI prophylaxis per routine Heme: DVT prophylaxis per routine. Discussed with hematology and appreciate the input. ID: Continue antibiotics and plan to de-escalation. Discussed with infectious disease and follow the recommendations. Renal; urine out put and renal funtion reviewed Endorcine: blood glucose is monitored Lines: all lines checked and no evidence of infections Skin: skin care to prevent pressure ulcers per nursing routine care Discussed with the family at the bedside.
[2018-07-15 09:37] LABS: Platelet Count 148 K/mcL (140-400)
--- NOTE | 2018-07-15 09:46 | Internal Med Progress Note ---
Hospitalist Progress Note - Encounter Date of Encounter: 07/15/18 - Subjective Interval History: Patient, POD 1 was sent to the ICU for monitoring. The patient experienced shaking, AMS, an increase in blood pressure and became tachycardic. This is believed to be due to benzo withdraw. The symptoms resolved with the administration of Ativan. In the ICU the patient was altered from her pre- surgical baseline. The patient was able to follow commands and comprehend information momentarily. Patient denied fever, chills. Shed denied chest pain and palpitations. She admitted to being constipated and complained that her "bowels were burning". Patient admits to having a decrease in appetite. She denies any dizziness or paresthesias. Concerning today, was her elevated WBC, drop in hemoglobin, and her unstable vital signs. - Exam Vitals: Temp Pulse Resp BP Pulse Ox 99.0 F 120 21 82/69 91 07/15/18 08:49 07/15/18 08:00 07/15/18 08:00 07/15/18 08:00 07/15/18 08:00 Exam: GEN: AA&O x1, Cardiac: Abnormal rate and rhythm, no murmurs, no rubs, LE pulses diminished b/l Lungs: CTA b/l, no wheezes, no rhonchi MSK: Left foot cool to touch I & O 07/13/18 09:24 thru 07/15/18 09:39 Intake Total 1475 Output Total 2050 Balance -575 Weight 54.5 kg Intake: IV Fluids 1075 0.9 % Sodium Chloride 500 ML @ 500 999 mls/hr IVC .Q31M ONE Rx#: [id number] Heparin 25,000 UNIT/250 ML D5W 125 25,000 unit In 250 ml @ 14 UNIT /KG/HR 8.344 mls/hr IVC .Q24H [facility] Rx#:[id number] Ancef 2,000 MG In 0.9 % Sodium 100 Chloride 100 ML @ 200 mls/hr IVP Q8H [facility] Rx#:[id number] Zosyn 3.375 GM In 0.9 % Sodium 100 Chloride (Mini-Bag +) 100 ML @ 25 mls/hr IVPB Q8H [facility] Rx#: [id number] Vancocin 1,000 MG In 0.9 % 250 Sodium Chloride 250 ML @ 167 mls/hr IVPB ONCE ONE Rx#: [id number] Oral 400 Blood Product 0 Rbcs Leuko Poor As-1 Unit 0 [id number] Output: Urine 100 Estimated Blood Loss 100 Catheter 1850 Urethral (Pereira) 125 Other: Meal Breakfast Percent of Meal Consumed 0% Blood Glucose* [address]: Soft tissue swelling and gas production in the left hip that extends into the pelvis and left retroperitonem. 9 cm intramuscular hematoma in the gluteal and quadratous femoris musculature. Chest CT: No acute abnormalities Head CT: No acute abnormalities - Assessment and Plan (1) Leukocytosis Current Visit: Yes Status: Acute Assessment and Plan: WBC: 44.0, Neutrophils: 26.4, Temperature: 100.6 --> 101.8 --> 99.4 --> 97.6 Continue to monitor, repeat BMP Q4HRs SIRS Criteria meet: Temp 100.6, HR: 135, RR: 20, WBC: 44. Sepsis can not be confirmed as there isnt a site of infection. Source of Leukocytosis unclear. Abdominal CT: Expected Postsurgical changes of the surrounding soft tissues of the Left hip, changes include swelling and gas. DIffuse subcutaneous emphysema of the soft tissues, infection not likely but can not be ruled out. Chest x-ray is clear. Patients fracture site does not display erythema or cellulitis. Patient's urine was yellow and clear, absent of signs of infection. Patient denied fever or chills. She denies any SOB, wheezing, and cough. She denied any dysuria or increase in frequency. (2) SIRS (systemic inflammatory response syndrome) Current Visit: Yes Status: Acute Assessment and Plan: Temperature: 99.4, Pulse: 135, RR: 19, WBC: 44. Patient's etiology for her increase in WBC is unclear. Abdominal CT showed Expected Postsurgical changes gas of the surrounding soft tissues of the Left hip, changes include swelling and gas. Diffuse subcutaneous emphysema of the soft tissues, infection deemed unlikely but can not be ruled out. Patient was placed on vancomycin and zosyn. Consult Infectious disease. (3) Left displaced femoral neck fracture Current Visit: Yes Status: Acute Assessment and Plan: Hip x-ray: Superior displacement of a Fractured femoral neck. POD 1 of Left hip hemiarthroplasty. Estimated blood loss: 100 cc. Started on Oxycodone Hcl 5 mg SL Q6HR PRN for pain control. Left femoral fracture secondary to a mechanical fall. (4) Atrial fibrillation with rapid ventricular response Current Visit: No Status: Chronic Assessment and Plan: EKG: A. Fib with BBB. Continue Metoprolol XL 50 mg PO Daily. (5) CHF (congestive heart failure) Current Visit: Yes Status: Chronic Assessment and Plan: Echocardiogram: LVEF of 45-50%, Left ventricular concentric hypertrophy, Dilated Left atrium, Moderate Mitral regurgitation, moderate tricuspid regurgitation, moderate Pulmonary HTN Does not meet criteria for exacerbation Continue metoprolol XL 50 mg PO Daily (6) Anemia Current Visit: Yes Status: Acute Assessment and Plan: Hgb: dropped to 6.1 now at 10.[address]: Intramuscular hematoma located in gluteal musculature. Pelvic CTA: No active arterial hemorrhage Patient received 1 unit of RBC Imaging failed to explain the cause of Anemia to this degree. - Time Spent with Patient Total time spent is greater than 50% in coordination of care (as documented) at patient's floor/unit and/or counseling patient: Internal Medicine: Result - Labs CBC & Chem 7: 07/15/18 13:36 07/15/18 09:30 Labs: Short CBC 07/14/18 07/15/18 07/15/18 Range/Units 21:05 00:21 02:31 WBC 37.4 H* D 42.0 H* (4.3-11.1) K/mcL Hgb 9.3 L D 7.9 L 7.4 L (11.5-15.4) g/dL Hct 29.3 L 24.3 L 23.4 L (35.3-44.9) % Plt Count 180 D 165 (140-400) K/mcL Neutrophils # 18.3 H 24.3 H (1.6-8.9) K/mcL 07/15/18 Range/Units 07:58 WBC 44.0 H* (4.3-11.1) K/mcL Hgb 7.5 L (11.5-15.4) g/dL Hct 23.8 L (35.3-44.9) % Plt Count 70 L D (140-400) K/mcL Neutrophils # (1.6-8.9) K/mcL BMP 07/14/18 07/15/18 21:05 00:21 Sodium 139 138 Potassium 4.4 4.0 Chloride 103 106 Carbon Dioxide 22 L 26 BUN 16 19 Creatinine 0.65 0.74 Glucose 126 H 165 H Calcium 8.3 L 7.8 L Cardiac Enzymes 07/14/18 07/15/18 07/15/18 Range/Units 21:05 00:21 02:29 Troponin I 0.05 H* 0.07 H* 0.08 H* (< 0.04) ng/mL Liver Function 07/14/18 Range/Units 21:05 Total Bilirubin 2.6 H (0.3-1.0) mg/dL Direct Bilirubin 0.5 H (0.0-0.2) mg/dL AST 26 (13-39) Units/L ALT 12 (7-52) Units/L Alkaline Phosphatase 44 (34-104) Units/L Albumin 3.6 (3.5-5.7) g/dL Urine 07/14/18 07/14/18 Range/Units 10:17 22:23 Urine Color Dark Yellow [place] A (Yellow) Urine Clarity Clear Clear (Clear) Urine pH 6.0 5.5 (5.0-8.0) pH Units Ur Specific [place] 1.018 1.029 H (1.010-1.025) Urine Protein 30 H 30 H (Neg-Trace) mg/dL Urine Glucose (UA) Normal Normal (Normal) mg/dL - ABG Interpretation ABG results: ABG ABG pH 7.48 pH Units (7.32-7.45) H 07/14/18 20:53 ABG pCO2 32 mmHg (35-45) L 07/14/18 20:53 ABG pO2 161 mmHg (85-104) H 07/14/18 20:53 ABG O2 Saturation 100 % (95-98) H 07/14/18 20:53 PT/INR, D-dimer PT 15.0 Seconds (9.4-12.1) H 07/13/18 16:02 - Impressions Impressions Hip X-Ray 07/14/18 13:32 IMPRESSION: Postoperative change relating to left hip arthroplasty. No evidence for acute complication is seen. D/ / 07/14/2018 14:25:24 Jarrell Peng MD / earnold Interpreting Provider: Jarrell Peng MD Head CT 07/14/18 21:00 IMPRESSION: No acute intracranial abnormality. D/ / Hu Donahue MD / Hu Donahue MD Interpreting Provider: Hu Donahue MD Chest X-Ray 07/14/18 21:56 IMPRESSION: No acute abnormality identified. D/ / Micah Li MD / Micah Li MD Interpreting Provider: Micah Li MD Abdomen/Pelvis CT 07/15/18 00:53 IMPRESSION: ABDOMEN/PELVIS Postsurgical changes of left hip arthroplasty with surrounding soft tissue swelling and gas as well as a 9 cm intramuscular hematoma involving the gluteal and quadratus femoris musculature. Soft tissue swelling, gas and probably some hematoma extends into the pelvis and left retroperitoneum along the piriformis. Diffuse subcutaneous emphysema in the deep soft tissues is presumably postoperative as opposed to infection although cannot entirely exclude the latter. Colonic diverticulosis without evidence of diverticulitis. CHEST Small bilateral pleural effusions with mild interstitial and alveolar edema, presumably cardiogenic given cardiomegaly with biatrial enlargement. No saddle or central pulmonary embolism. Interval increase in size of left chest wall/breast mass. Correlate with physical exam and any prior mammography. Otherwise recommend clinical follow-up and mammographic evaluation as deemed clinically appropriate. Heavy mitral valvular calcifications may be seen with mitral valve stenosis. Correlate with auscultation. Critical results were called by Dr. Samir Pitts to Dr. Steiner on 07/15/2018 at 02:10. RECOMMENDATIONS: CT angiogram of the pelvis may be of value if there is ongoing concern for active arterial extravasation although my suspicion is that this is just perioperative venous ooze. D/ / Samir Pitts / Samir Pitts Interpreting Provider: Samir Pitts Chest CT 03/05/19 00:55 IMPRESSION: ABDOMEN/PELVIS Postsurgical changes of left hip arthroplasty with surrounding soft tissue swelling and gas as well as a 9 cm intramuscular hematoma involving the gluteal and quadratus femoris musculature. Soft tissue swelling, gas and probably some hematoma extends into the pelvis and left retroperitoneum along the piriformis. Diffuse subcutaneous emphysema in the deep soft tissues is presumably postoperative as opposed to infection although cannot entirely exclude the latter. Colonic diverticulosis without evidence of diverticulitis. CHEST Small bilateral pleural effusions with mild interstitial and alveolar edema, presumably cardiogenic given cardiomegaly with biatrial enlargement. No saddle or central pulmonary embolism. Interval increase in size of left chest wall/breast mass. Correlate with physical exam and any prior mammography. Otherwise recommend clinical follow-up and mammographic evaluation as deemed clinically appropriate. Heavy mitral valvular calcifications may be seen with mitral valve stenosis. Correlate with auscultation. Critical results were called by Dr. Samir Pitts to Dr. Steiner on 07/15/2018 at 02:10. RECOMMENDATIONS: CT angiogram of the pelvis may be of value if there is ongoing concern for active arterial extravasation although my suspicion is that this is just perioperative venous ooze. D/ / Samir Pitts / Samir Pitts Interpreting Provider: Samir Pitts Consult Discharge Plan - Plan Referrals: NONE,PCP [Primary Care Provider] - (1) Leukocytosis Qualifiers: Leukocytosis type: unspecified Qualified Code(s): D72.829 - Elevated white blood cell count, unspecified (5) CHF (congestive heart failure) Qualifiers: Heart failure type: systolic Heart failure chronicity: chronic Qualified Code(s): I50.22 - Chronic systolic (congestive) heart failure (6) Anemia Qualifiers: Anemia type: unspecified type Qualified Code(s): D64.9 - Anemia, unspecified
[2018-07-15 09:54] LABS: Hematocrit 19.1 % (35.3-44.9); Hemoglobin 6.1 g/dL (11.5-15.4)
[2018-07-15 10:04] LABS: BUN/Creatinine Ratio 28 (6-26); Blood Urea Nitrogen 25 mg/dL (8-23); Carbon Dioxide 24 mEq/L (23-29); Chloride 105 mEq/L (98-107); Sodium 136 mEq/L (136-145)
[2018-07-15 10:05] LABS: Alanine Aminotransferase 8 Units/L (7-52); Albumin 2.7 g/dL (3.5-5.7); Albumin/Globulin Ratio 1.9 (1.1-2.2); Alkaline Phosphatase 30 Units/L (34-104); Aspartate Amino Transferase 16 Units/L (13-39); Bilirubin,Total 1.7 mg/dL (0.3-1.0); Calcium 7.2 mg/dL (8.6-10.3); Globulin 1.4 g/dL (2.4-3.5); Glucose 179 mg/dL (70-105); INR 3.2; Osmolality,Calculated 291 (280-300); Prothrombin Time 35.8 Seconds (9.4-12.1); Total Protein 4.1 g/dL (6.4-8.9); eGFR For Non-African Americans 59 (> 60)
[2018-07-15 10:07] LABS: Ovalocytes 2+ (Not Present); Polychromasia 1+ (Not Present)
[2018-07-15 10:08] LABS: Anisocytosis 1+ (Not Present); Platelet Estimate Normal (Normal)
[2018-07-15] MEDS: OXYCODONE Oral CONC 10 MG/0.5 ML ORAL.SYG SL PRN ×2 (10:47→17:29)
--- NOTE | 2018-07-15 11:31 | Internal Med Progress Note ---
<Favian Rob - Last Filed: 07/15/18 13:39> Hospitalist Progress Note - Encounter Date of Encounter: 07/15/18 Time of Encounter: 07:00 - Subjective Interval History: Overnight patient was experiencing shaking and near syncopal symptoms. She was thought to be having withdrawal from benzodiazepine and was given IV Valium 5 mg. She was then moved to the ICU because she became unresponsive and had active shaking in both her upper extremities. She was seen to have a temperature of 100.7. Patient had repeat labs done overnight and showed a leukocytosis 37.4 and a hemoglobin of 9.3 and a lactic acid of 6.2. Patient CT head overnight was negative for acute pathology. CT chest showed multiple bilateral pleural effusions, cardiomegaly, negative for PE, left chest wall/breast mass. CT abdomen and pelvis showed postsurgical changes with the left hip arthroplasty with surrounding tissue edema and gas and a 9 cm int ramuscular hematoma. Overnight patient's hemoglobin continued to trend down and upon seeing the patient the morning 1 unit packed red blood cells was ordered to be transfused. Patient was alert and oriented to self, place. She reported she needed to have a bowel movement. She denied any chest pain or abdominal pain. Due to her increased white count, lactic acid with tachycardia as well as anemia with a hemoglobin of 7.5. Repeat CBC was sent. Repeat CBC showed a hemoglobin of 6.1. Patient also underwent stat abdomen pelvis angioma to rule out worsening hematoma. Furthermore oncology was consulted for the elevation of white blood cell count and unclear etiology. - Exam Vitals: Temp Pulse Resp BP Pulse Ox 98.4 F 118 16 98/72 94 07/15/18 11:14 07/15/18 11:21 07/15/18 11:14 07/15/18 11:14 07/15/18 11:14 Exam: General: Moderate distress, anxious, yelling, pulling at Pereira and IV lines HEENT: Head atraumatic, normocephalic, EOMI, PERRL, absent ear discharge or trauma, Moist Mucous Membranes, uvula midline Neck: nontender to palpation, absent lymphadenopathy, Cardiovascualr: Irregularly irregular, tachycardic, absent gallops or rubs, absent pedal edema, radial pulses 2 out of 4. Left chest wall mass Lungs: Clear to auscultation bilaterally, not in respiratory distress Abdomen: Soft nontender, nondistended positive bowel sounds, absent hepatomegaly Rectal: Patient had stool in the rectal vault without any gross blood. Skin: warm and dry, absent rash, absent open wounds and nodules MSK: absent clubbing, cyanosis, joints without swelling Neuro: Alert to self, place. Cranial nerve exam within normal limits. Psych: very anxious, agitated - Assessment and Plan (1) Leukocytosis Current Visit: Yes Status: Acute Assessment and Plan: Patient has an incredible increase in her white blood cell count since admission on 07/13/18. Today white blood cell count is 44. Unclear etiology of her white blood cell count. Currently unable to locate infectious source. Consulted oncology for evaluation of any oncological causes of leukocytosis. Patient had a CBC sent this morning with showed a platelet count of 70. Due to the low platelet count PF4 IgG was sent. However laboratory called back and stated that when her blood was responding her repeated platelet count was 140. There is concern for hit however this has been ruled out. (2) SIRS (systemic inflammatory response syndrome) Current Visit: Yes Status: Acute Assessment and Plan: Patient was febrile, tachycardic, tachypnea leukocytosis Unclear etiology of patient's SIRS criteria. She continues to have a WBC of [address] abdomen pelvis, chest, head which did not show any signs of infection She is on broad-spectrum antibiotics vancomycin, Zosyn Due to her meeting SIRS criteria, having hypotension in the morning with the lowest blood pressure in the 70s systolic critical care was consulted for further management. (3) Benzodiazepine withdrawal Current Visit: Yes Status: Suspected Assessment and Plan: Overnight patient was treated for suspected benzodiazepine withdrawal as she was hypertensive, and has shaking Spells. She was started and given Valium 5 mg IV and started on Ciwa protocol. (4) CHF (congestive heart failure) Current Visit: Yes Status: Chronic Assessment and Plan: Patient has a history of congestive heart failure Her echocardiogram shows LVEF of 45-50% with indeterminant diastolic function, severely data left atrium, mild to moderate aortic regurgitation, moderate mitral regurgitation, moderate tricuspid regurgitation and moderate pulmonary hypertension Currently she is not an exacerbation Furthermore patient is not on any diuretics (5) Chronic atrial fibrillation Current Visit: Yes Status: Acute Assessment and Plan: Currently patient is in atrial fibrillation and is tachycardic. Her heart rate is between 125 and 140 She is on metoprolol 50 mg by mouth daily as well as IV Lopressor as needed for tachycardia Most likely her tachycardia secondary to acute blood loss anemia postoperatively and possible infection Due to her blood pressure being in the systolic 90s we will hold any aggressive measures to correct this tachycardia. (6) Elevated troponin Current Visit: Yes Status: Acute Assessment and Plan: Patient had troponin attended overnight Troponin was 0.05, 0.07, 0.08. Echocardiogram stated above Patient denies chest pain She was also tachycardic, atrial fibrillation This is likely secondary to demand ischemia from underlying possible infectious pathology Continue monitor via telemetry. (7) Encephalopathy acute Current Visit: Yes Status: Acute Assessment and Plan: Patient has acute metabolic encephalopathy likely secondary to possible infectious etiology as well as postoperative encephalopathy She is alert and oriented to self and place. CT head was negative. (8) Femoral neck fracture Current Visit: Yes Status: Acute Assessment and Plan: Patient is status post left hip hemiarthroplasty. Left hip incision is soaked with blood There is no signs of erythema around incision. There is no crepitus around incision. Continue monitor the site for infection. (9) Intramuscular hematoma Current Visit: Yes Status: Acute Assessment and Plan: Patient CT abdomen and pelvis showed a 9 cm intramuscular hematoma She had a repeat CT abdomen pelvis CTA this morning which showed no active arterial extravasation in the soft tissue of the left hemipelvis. Patient's hemoglobin did decrease from 11 on admission to 6.1 today. She did receive 1 unit of packed red blood cells Repeat CBC after transfusion. (10) Lactic acidosis Current Visit: Yes Status: Acute Assessment and Plan: Patient's lactic acidosis was 6.2 overnight and trended down to 3.1. Unclear etiology of lactic acidosis She did receive IV fluids overnight and currently her blood pressure is on 90- 100 systolics. Repeat lactic acid. DVT Prophylaxis: EPC D - Time Spent with Patient Total time spent is greater than 50% in coordination of care (as documented) at patient's floor/unit and/or counseling patient: Internal Medicine: Result - Labs CBC & Chem 7: 07/15/18 09:30 07/15/18 09:30 Labs: Short CBC 07/14/18 07/15/18 07/15/18 Range/Units 21:05 00:21 02:31 WBC 37.4 H* D 42.0 H* (4.3-11.1) K/mcL Hgb 9.3 L D 7.9 L 7.4 L (11.5-15.4) g/dL Hct 29.3 L 24.3 L 23.4 L (35.3-44.9) % Plt Count 180 D 165 (140-400) K/mcL Neutrophils # 18.3 H 24.3 H (1.6-8.9) K/mcL 07/15/18 07/15/18 Range/Units 07:58 09:30 WBC 44.0 H* (4.3-11.1) K/mcL Hgb 7.5 L 6.1 L (11.5-15.4) g/dL Hct 23.8 L 19.1 L (35.3-44.9) % Plt Count 148 (140-400) K/mcL Neutrophils # 26.4 H (1.6-8.9) K/mcL BMP 07/14/18 07/15/18 07/15/18 21:05 00:21 09:30 Sodium 139 138 136 Potassium 4.4 4.0 4.0 Chloride 103 106 105 Carbon Dioxide 22 L 26 24 BUN 16 19 25 H Creatinine 0.65 0.74 0.90 Glucose 126 H 165 H 179 H Calcium 8.3 L 7.8 L 7.2 L Cardiac Enzymes 07/14/18 07/15/18 07/15/18 Range/Units 21:05 00:21 02:29 Troponin I 0.05 H* 0.07 H* 0.08 H* (< 0.04) ng/mL Liver Function 07/14/18 07/15/18 Range/Units 21:05 09:30 Total Bilirubin 2.6 H 1.7 H (0.3-1.0) mg/dL Direct Bilirubin 0.5 H (0.0-0.2) mg/dL AST 26 16 (13-39) Units/L ALT 12 8 (7-52) Units/L Alkaline Phosphatase 44 30 L (34-104) Units/L Albumin 3.6 2.7 L (3.5-5.7) g/dL Urine 07/14/18 Range/Units 22:23 Urine Color [place] A (Yellow) Urine Clarity Clear (Clear) Urine pH 5.5 (5.0-8.0) pH Units Ur Specific Irving 1.029 H (1.010-1.025) Urine Protein 30 H (Neg-Trace) mg/dL Urine Glucose (UA) Normal (Normal) mg/dL - ABG Interpretation ABG results: ABG ABG pH 7.48 pH Units (7.32-7.45) H 07/14/18 20:53 ABG pCO2 32 mmHg (35-45) L 07/14/18 20:53 ABG pO2 161 mmHg (85-104) H 07/14/18 20:53 ABG O2 Saturation 100 % (95-98) H 07/14/18 20:53 PT/INR, D-dimer PT 35.8 Seconds (9.4-12.1) H D 07/15/18 09:30 - Impressions Impressions Hip X-Ray 07/14/18 13:32 IMPRESSION: Postoperative change relating to left hip arthroplasty. No evidence for acute complication is seen. D/ / 07/14/2018 14:25:24 Jarrell Peng MD / [facility] Interpreting Provider: Jarrell ePng MD Head CT 07/14/18 21:00 IMPRESSION: No acute intracranial abnormality. D/ / Hu Donahue MD / Hu Donahue MD Interpreting Provider: Hu Donahue MD Chest X-Ray 07/14/18 21:56 IMPRESSION: No acute abnormality identified. D/ / Micah Li MD / Micah Li MD Interpreting Provider: Micah Li MD Chest CTA 07/15/18 00:00 IMPRESSION: No active arterial extravasation is identified in the soft tissues of the left hemipelvis or surrounding the left hip joint status post recent surgery in the area of recently discovered soft tissue hematoma and postsurgical change. Diffuse atherosclerotic disease is identified without thoracic or abdominal aortic aneurysm or stenosis. 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 There is also suspected bilateral renal artery stenosis measuring 50% to 70% proximally as well, though somewhat difficult to see given the degree of calcification. No pulmonary emboli are identified. The left chest wall/breast mass is again identified as demonstrated on CT imaging earlier today. Heavy mitral valve and annular calcification which can be seen in the setting of mitral valve stenosis. Biatrial enlargement. Small bilateral pleural effusions and cardiomegaly with interlobular septal thickening likely related to mild cardiogenic pulmonary edema. Again identified is biatrial enlargement. Tracheal secretions are noted dependently in the midthoracic trachea. D/ / 07/15/2018 10:51:04 Rajinder Carson MD / [facility] Interpreting Provider: Rajinder Carson MD Abdomen/Pelvis CT 07/15/18 00:53 IMPRESSION: ABDOMEN/PELVIS Postsurgical changes of left hip arthroplasty with surrounding soft tissue swelling and gas as well as a 9 cm intramuscular hematoma involving the gluteal and quadratus femoris musculature. Soft tissue swelling, gas and probably some hematoma extends into the pelvis and left retroperitoneum along the piriformis. Diffuse subcutaneous emphysema in the deep soft tissues is presumably postoperative as opposed to infection although cannot entirely exclude the latter. Colonic diverticulosis without evidence of diverticulitis. CHEST Small bilateral pleural effusions with mild interstitial and alveolar edema, presumably cardiogenic given cardiomegaly with biatrial enlargement. No saddle or central pulmonary embolism. Interval increase in size of left chest wall/breast mass. Correlate with physical exam and any prior mammography. Otherwise recommend clinical follow-up and mammographic evaluation as deemed clinically appropriate. Heavy mitral valvular calcifications may be seen with mitral valve stenosis. Correlate with auscultation. Critical results were called by Dr. Samir Pitts to Dr. Steiner on 07/15/2018 at 02:10. RECOMMENDATIONS: CT angiogram of the pelvis may be of value if there is ongoing concern for active arterial extravasation although my suspicion is that this is just perioperative venous ooze. D/ / Samir Pitts / Samir Pitts Interpreting Provider: Samir Pitts Chest CT 07/15/18 00:55 IMPRESSION: ABDOMEN/PELVIS Postsurgical changes of left hip arthroplasty with surrounding soft tissue swelling and gas as well as a 9 cm intramuscular hematoma involving the gluteal and quadratus femoris musculature. Soft tissue swelling, gas and probably some hematoma extends into the pelvis and left retroperitoneum along the piriformis. Diffuse subcutaneous emphysema in the deep soft tissues is presumably postoperative as opposed to infection although cannot entirely exclude the latter. Colonic diverticulosis without evidence of diverticulitis. CHEST Small bilateral pleural effusions with mild interstitial and alveolar edema, presumably cardiogenic given cardiomegaly with biatrial enlargement. No saddle or central pulmonary embolism. Interval increase in size of left chest wall/breast mass. Correlate with physical exam and any prior mammography. Otherwise recommend clinical follow-up and mammographic evaluation as deemed clinically appropriate. Heavy mitral valvular calcifications may be seen with mitral valve stenosis. Correlate with auscultation. Critical results were called by Dr. Samir Pitts to Dr. Steiner on 07/15/2018 at 02:10. RECOMMENDATIONS: CT angiogram of the pelvis may be of value if there is ongoing concern for active arterial extravasation although my suspicion is that this is just perioperative venous ooze. D/ / Samir Pitts / Samir Pitts Interpreting Provider: Samir Pitts Abdomen/Pelvis CTA 07/15/18 07:24 IMPRESSION: No active arterial extravasation is identified in the soft tissues of the left hemipelvis or surrounding the left hip joint status post recent surgery in the area of recently discovered soft tissue hematoma and postsurgical change. Diffuse atherosclerotic disease is identified without thoracic or abdominal aortic aneurysm or stenosis. 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 There is also suspected bilateral renal artery stenosis measuring 50% to 70% proximally as well, though somewhat difficult to see given the degree of calcification. No pulmonary emboli are identified. The left chest wall/breast mass is again identified as demonstrated on CT imaging earlier today. Heavy mitral valve and annular calcification which can be seen in the setting of mitral valve stenosis. Biatrial enlargement. Small bilateral pleural effusions and cardiomegaly with interlobular septal thickening likely related to mild cardiogenic pulmonary edema. Again identified is biatrial enlargement. Tracheal secretions are noted dependently in the midthoracic trachea. D/ / 07/15/2018 10:51:04 Rajinder Carson MD / [facility] Interpreting Provider: Rajinder Carson MD Consult Discharge Plan - Plan Referrals: NONE,PCP [Primary Care Provider] - <Rajendra Roe - Last Filed: 07/16/18 14:09> Hospitalist Progress Note - Encounter Date of Encounter: 07/16/18 - Exam Vitals: Temp Pulse Resp BP Pulse Ox 99.9 F H 113 16 87/44 98 07/16/18 11:00 07/16/18 13:54 07/16/18 13:54 07/16/18 13:54 07/16/18 13:54 - Assessment and Plan (1) DVT prophylaxis Current Visit: No Status: Acute (2) Preoperative cardiovascular examination Current Visit: Yes Status: Acute (3) CHF (congestive heart failure) Current Visit: Yes Status: Chronic (4) Afib Current Visit: No Status: Chronic (5) Left displaced femoral neck fracture Current Visit: Yes Status: Acute - Time Spent with Patient Total time spent is greater than 50% in coordination of care (as documented) at patient's floor/unit and/or counseling patient: Internal Medicine: Result - Labs CBC & Chem 7: 07/16/18 03:26 07/16/18 03:26 Labs: Short CBC 07/16/18 Range/Units 03:26 WBC 52.9 H* (4.3-11.1) K/mcL Hgb 7.9 L D (11.5-15.4) g/dL Hct 24.8 L (35.3-44.9) % Plt Count 127 L (140-400) K/mcL Neutrophils # 24.6 H (1.6-8.9) K/mcL BMP 07/16/18 03:26 Sodium 141 Potassium 4.0 Chloride 107 Carbon Dioxide 22 L BUN 30 H Creatinine 0.89 Glucose 116 H Calcium 7.8 L - ABG Interpretation ABG results: ABG ABG pH 7.48 pH Units (7.32-7.45) H 07/14/18 20:53 ABG pCO2 32 mmHg (35-45) L 07/14/18 20:53 ABG pO2 161 mmHg (85-104) H 07/14/18 20:53 ABG O2 Saturation 100 % (95-98) H 07/14/18 20:53 PT/INR, D-dimer PT 22.5 Seconds (9.4-12.1) H 07/16/18 03:26 - Impressions Impressions Chest CTA 07/15/18 00:00 IMPRESSION: No active arterial extravasation is identified in the soft tissues of the left hemipelvis or surrounding the left hip joint status post recent surgery in the area of recently discovered soft tissue hematoma and postsurgical change. Diffuse atherosclerotic disease is identified without thoracic or abdominal aortic aneurysm or stenosis. 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 There is also suspected bilateral renal artery stenosis measuring 50% to 70% proximally as well, though somewhat difficult to see given the degree of calcification. No pulmonary emboli are identified. The left chest wall/breast mass is again identified as demonstrated on CT imaging earlier today. Heavy mitral valve and annular calcification which can be seen in the setting of mitral valve stenosis. Biatrial enlargement. Small bilateral pleural effusions and cardiomegaly with interlobular septal thickening likely related to mild cardiogenic pulmonary edema. Again identified is biatrial enlargement. Tracheal secretions are noted dependently in the midthoracic trachea. D/ / 07/15/2018 10:51:04 Rajinder Carson MD / [facility] Interpreting Provider: Rajinder Carson MD Abdomen/Pelvis CTA 07/15/18 07:24 IMPRESSION: No active arterial extravasation is identified in the soft tissues of the left hemipelvis or surrounding the left hip joint status post recent surgery in the area of recently discovered soft tissue hematoma and postsurgical change. Diffuse atherosclerotic disease is identified without thoracic or abdominal aortic aneurysm or stenosis. 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 There is also suspected bilateral renal artery stenosis measuring 50% to 70% proximally as well, though somewhat difficult to see given the degree of calcification. No pulmonary emboli are identified. The left chest wall/breast mass is again identified as demonstrated on CT imaging earlier today. Heavy mitral valve and annular calcification which can be seen in the setting of mitral valve stenosis. Biatrial enlargement. Small bilateral pleural effusions and cardiomegaly with interlobular septal thickening likely related to mild cardiogenic pulmonary edema. Again identified is biatrial enlargement. Tracheal secretions are noted dependently in the midthoracic trachea. D/ / 07/15/2018 10:51:04 Rajinder Carson MD / [facility] Interpreting Provider: Rajinder Carson MD - Attending Attestation I examined this patient and my medical decision-making was reviewed with the Resident Physician. I agree with the documented findings, disposition and treatment plan as described except to the extent set forth below. <Favian Rob - Last Filed: 07/15/18 13:39> (1) Leukocytosis Qualifiers: Leukocytosis type: unspecified Qualified Code(s): D72.829 - Elevated white blood cell count, unspecified (3) Benzodiazepine withdrawal Qualifiers: Complication of substance-induced condition: with unspecified complication Qualified Code(s): F13.239 - Sedative, hypnotic or anxiolytic dependence with withdrawal, unspecified (4) CHF (congestive heart failure) Qualifiers: Heart failure type: systolic Heart failure chronicity: chronic Qualified C ode(s): I50.22 - Chronic systolic (congestive) heart failure (8) Femoral neck fracture Qualifiers: Encounter type: initial encounter Fracture type: closed Laterality: left Qualified Code(s): S72.002A - Fracture of unspecified part of neck of left femur, initial encounter for closed fracture <Rajendra Roe - Last Filed: 07/16/18 14:09> (3) CHF (congestive heart failure) Qualifiers: Heart failure type: systolic Heart failure chronicity: chronic Qualified Code(s): I50.22 - Chronic systolic (congestive) heart failure (4) Afib Qualifiers: Atrial fibrillation type: chronic Qualified Code(s): I48.2 - Chronic atrial fibrillation
--- NOTE | 2018-07-15 12:02 | Infectious Disease Consult ---
Date of Encounter: 07/15/18 Time of Encounter: 12:51 Assessment and Plan (1) SIRS (systemic inflammatory response syndrome) Status: Acute Assessment and plan: The patient had four SIRS criteria plus hypotension post-op. No infectious source identified. Consider non-infectious etiologies: fat embolism vs. left hip hematoma vs. anesthesia reaction vs. other. CT chest negative for PNA. CT abdomen and pelvis negative for acute infectious abnormality. CT head negative. Urinalysis was negative. Peripheral smear negative. Blood cultures drawn 07/14/18 are pending x 2 sets. Recommendation: Await blood cultures. Check urine for lipids. Check procalcitonin. Trend lactic acid. Anemia management per the primary team. Consider GI to evaluate for elevated bilirubin and elevated INR. Consider IR to evaluate for drainage of hematoma. Hem/Onc consulted for left breast mass and monocytosis. Await recommendations. Surgical site/hematoma management per the ortho team. Continue Vancomycin IV. Pharmacy to dose. Goal trough ~15. Continue Zosyn 3.375 grams IV Q8H. Duration of treatment depends on the clinical picture. Monitor renal function and for drug toxicity and dose-adjust antibiotics. (2) Leukocytosis Status: Acute Assessment and plan: WBC elevated with monocytosis. Etiology unclear. Consider non-infectious sources : malignancy vs. other. Hem/Onc consulted and following. Await recommendations. Qualifiers: Leukocytosis type: unspecified Qualified Code(s): D72.829 - Elevated white blood cell count, unspecified (3) Encephalopathy acute Status: Acute Assessment and plan: Etiology unclear: fat embolism vs. anesthesia reaction vs. other. CT head negative. Appears improved. Continue to monitor closely. (4) Benzodiazepine withdrawal Status: Suspected Assessment and plan: Was off valium x 3 days. CIWA per the primary team. Qualifiers: Complication of substance-induced condition: with unspecified complication Qualified Code(s): F13.239 - Sedative, hypnotic or anxiolytic dependence with withdrawal, unspecified (5) Intramuscular hematoma Status: Acute Assessment and plan: CT abdomen and pelvis shows a 9cm intra-muscular hematoma in the left hip, retroperitoneum, and pelvis. CTA negative for arterial extravasation. Likely secondary to recent surgery and hypercoagulable state (INR 1.3 on admission, 3.2 post-op) and heparin. Consider IR to evaluate for drainage. Management per the ortho team. (6) Left displaced femoral neck fracture Status: Acute (7) Thrombocytopenia Status: Acute Assessment and plan: Noted initially on admission. Resolved. (8) Elevated troponin Status: Acute (9) Lactic acidosis Status: Acute Assessment and plan: Etiology unclear. Improved. Continue to trend. (10) Constipation Status: Chronic Assessment and plan: Bowel regimen per the primary team. Qualifiers: Constipation type: unspecified constipation type Qualified Code(s): K59.00 - Constipation, unspecified (11) Anemia Status: Acute Assessment and plan: Hgb down to 6.1 this morning. Transfused 1 unit PRBC, but would likely benefit from additional transfusions given the patient's hypotension and tachycardia. Management per the primary team. Qualifiers: Anemia type: unspecified type Qualified Code(s): D64.9 - Anemia, unspecified (12) LBBB (left bundle branch block) Status: Acute (13) CHF (congestive heart failure) Status: Chronic Qualifiers: Heart failure type: systolic Heart failure chronicity: chronic Qualified Code(s): I50.22 - Chronic systolic (congestive) heart failure (14) Afib Status: Chronic Qualifiers: Atrial fibrillation type: chronic Qualified Code(s): I48.2 - Chronic atrial fibrillation Infectious Disease HPI - Data of Consult Patient: new to practice Consult date: 07/15/18 Requesting Physician: Rajendra Roe MD Primary Care Provider: PCP NONE - Consult Narrative Reason for consult: Severe sepsis History of present illness: Ms. Jensen is a 88 year old female with a past medical history of A. fib, left breast cancer 20 years ago status post radiation, cardiomyopathy, CHF, hype rlipidemia. The patient was admitted to the hospital 07/13/18 for left hip fracture. We are consulted 07/15/18 for further workup and treatment recommendations for severe sepsis. Briefly, the patient's 88-year-old female with past medical history as stated above. This is the information is obtained from the medical record and the patient's family is at the bedside. Apparently, the patient was attempting to get on the toilet on the day of admission and she fell sustaining a left hip fracture. Upon arrival to the ER, she was afebrile and hemodynamically stable. White blood cell count was normal, but she was noted to have 36% monocytes. Renal function and troponin were negative. Chest x-ray was negative. Left hip x-ray showed a subcapital left femoral neck fracture with superior displacement. Orthopedics was consulted and she was admitted to the hospital for further evaluation and treatment. Since admission, the patient was evaluated by orthostatic and to the operating room 07/14/18 and underwent a left hip hemiarthroplasty. Postoperatively, the patient became unresponsive and had shaking/tremors bilateral upper extremities. She became febrile and tachycardic and there was concern for possible malignant hypertension. She had a CT of the head that was negative. Chest x-ray was negative. Urinalysis was negative. Blood cultures were obtained 2 sets are pending. Her lactic acid went up to 6.2 and her white blood cell count of 37,000 again with monocytosis. Today, she has had a MAXIMUM TEMPERATURE of 101.8. She has been tachycardic and hypotensive with tachypnea. She had a CT of the chest, abdomen, and pelvis that showed postsurgical changes of the left hip arthroplasty with surrounding soft tissue swelling and gas as well as a 9 cm intramuscular hematoma involving the gluteal and quadratus lumborum Sukhdev musculature. Soft tissue swelling, gas, and probably some hematoma extends into the pelvis and left retroperitoneum along the piriformis. Diffuse subcutaneous emphysema in the deep soft tissues is presumably postoperative as opposed to infection although cannot entirely exclude the latter. She had small bilateral pleural effusions with mild interstitial and alveolar edema, presumably cardiogenic given cardiomegaly with biatrial enlargement and no saddle or central pulmonary embolism was noted. There is interval increase in size of left chest wall/breast mass. A CT angiogram of the pelvis was recommended by radiology which showed no active arterial extravasation identified in the soft tissues of the left hemipelvis or surrounding the left hip joint status post recent surgery and area of recently discovered soft tissue hematoma post surgica l change. She was started empirically on IV vancomycin and Zosyn and was transferred to the intensive care unit for further evaluation. During my exam today, the patient tells me she was in her usual state of health up until surgery. Her son tells me that she did have a comparable reaction to anesthesia when she had her hysterectomy when she was 29 years old that involved tremors and altered mental status. She denies any previous fevers, chills, or rigors. She currently denies any headache or neck pain. She denies any chest pain, shortness of breath, or cough. She denies any nausea or vomiting. She states her appetite is okay but she does not really feel hungry at this time. She states she feels like she needs to have a bowel movement. She states she usually has a bowel movement daily and has not had one since being hospitalized. She currently has a Pereira catheter that remains patent, but denies any previous urinary complaints. She complains of pain in the left hip at the surgery site. She denies any oral thrush or any skin rashes. 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 She denies any tobacco, alcohol, or illicit drug use. She denies recent travel outside the [facility]. She denies any pet or animal exposures. She denies any chronic infectious diseases. CC: Rajendra Roe MD Past Med Surg Social Fam HX - Past Medical History Attestation: Yes The following information was validated with the patient. Source: patient, old records reviewed, obtained from family, nursing notes reviewed Medical history: atrial fibrillation, cancer (Breast cancer 20 years ago status post radiation), cardiomyopathy, CHF, coronary artery disease, hyperlipidemia, valvular heart disease, other Additional medical history: macular degeneration Psychiatric history: anxiety - Past Surgical History Surgical History: breast surgery, cataract, hysterectomy Additional surgical history: eye surgery - Social History Smoking Status: Former smoker Smokeless Tobacco Status: No Alcohol use: none Drug use: none Occupational status: retired Current living situation: Home, With Family Activity Level: Independent ambulation Recent Out of Country Travel Within the Last 8 Weeks: No Exposure or Possible Exposure to Illness During Travel: No - Family History Father Hx Family Cardiac Disorders: Yes ([place]) Mother Living Status: Infectious Disease-CN:Meds RX: Docusate [Colace] 200 mg PO DAILY PRN 04/29/16 [History] RX: Lutein 6 mg PO DAILY 04/29/16 [History] RX: Metoprolol XL (24 HR) Succ [Toprol Xl] 50 mg PO DAILY 04/29/16 [History] RX: Rivaroxaban [Xarelto] 15 mg PO DAILY 04/29/16 [History] RX: Acetaminophen [Tylenol] 1,000 mg PO BID 08/09/16 [History] RX: Cholecalciferol (D-3) [Vitamin D] 1,000 unit PO DAILY 08/09/16 [History] RX: Digoxin [Lanoxin] 0.25 mg PO DAILY #30 tab 12/17/16 [Rx] RX: diazePAM [Valium] 10 mg PO HS 07/14/18 [History] Allergy/AdvReac Type Severity Reaction Status Date / Time dexamethasone Allergy See Verified 08/10/16 13:43 Comments Procaine Allergy See Verified 08/10/16 13:43 Comments All systems: reviewed and no additional remarkable complaints except as stated Exam - Constitutional Vitals: Temp Pulse Resp BP Pulse Ox 98.4 F 118 16 98/72 94 07/15/18 11:14 07/15/18 11:21 07/15/18 11:14 07/15/18 11:14 07/15/18 11:14 General appearance: cooperative, no acute distress, thin - Head Head exam: Present: atraumatic, normal inspection, normocephalic - Eye Eye exam: Present: EOMI, normal appearance, PERRL Pupils: Present: normal accommodation - ENT ENT exam: Present: mucous membranes dry - Neck Neck exam: Present: normal inspection. Absent: meningismus - Respiratory Respiratory exam: Present: CTAB. Absent: rales, respiratory distress, rhonchi, wheezes - Cardiovascular Cardiovascular exam: Present: irregular rhythm, tachycardia - GI/Abdominal GI/Abdominal exam: Present: normal bowel sounds, soft, tenderness (Right lower quadrant). Absent: distended Additional comments: Pereira catheter noted to be draining clear yellow urine. - Extremities Exam Extremities exam: Present: tenderness (Mild, left hip). Absent: normal inspection (Left hip honeycomb dressing saturated with bloody drainage. No surrounding erythema or warmth noted.), pedal edema - Neurological Exam Neurological exam: Present: alert, no focal deficits, strengths equal and symetr throughout. Absent: oriented X3 (Oriented to person and place only. She is aware of the situation surrounding her admission to the hospital.), facial droop, speech deficit - Psychiatric Psychiatric exam: Present: normal affect, normal mood - Skin Skin exam: Present: dry, intact, pallor, warm Infectious Disease CN: Results - Labs CBC & Chem 7: 07/16/18 03:26 07/16/18 03:26 Cultures: Cultures 07/14/18 22:28 Blood Culture - Preliminary Peripheral Venipuncture Culture is incubating and being continuously monitored for growth. Final report to follow. 07/14/18 22:21 Blood Culture - Preliminary Peripheral Venipuncture Culture is incubating and being continuously monito red for growth. Final report to follow. Serology: Serology 07/14/18 07/14/18 Range/Units 22:23 10:17 Urine Color [place] A Dark Yellow (Yellow) Urine Clarity Clear Clear (Clear) Urine pH 5.5 6.0 (5.0-8.0) pH Units Ur Specific [place] 1.029 H 1.018 (1.010-1.025) Urine Protein 30 H 30 H (Neg-Trace) mg/dL Urine Glucose (UA) Normal Normal (Normal) mg/dL Urine Ketones Trace H Negative (Negative) mg/dL Urine Blood Moderate H Small H (Negative) Urine Nitrite Negative Negative (Negative) Urine Bilirubin Small H Negative (Negative) Urine Urobilinogen Normal 2.0 H (Normal) mg/dL Ur Leukocyte Esterase Small H Negative (Negative) Urine Microscopic RBC 50-100 H 5-15 H (0-3) per hpf Urine Microscopic WBC 5-15 H 0-3 (0-3) per hpf Ur Squamous Epith Cells Many H Few (None-Few) per lpf Urine Bacteria Few Few (None-Few) per hpf Hyaline Casts Many H (None-Few) per lpf Urine Mucus Few (Few) Urine Yeast Moderate H (None Seen) per hpf Ur Culture Indicated? NO. A Cancelled Consult Discharge Plan - Plan Referrals: NONE,PCP [Primary Care Provider] - - Attending Attestation I have personally performed a face to face evaluation on this patient. I have reviewed and agree with the care plan. History and Exam by me shows: This is an addendum to original report dictated by Melina Gutiérrez CNP. Please refer to Melina's note for full detail. Patient is an 88-year-old woman who had a fall and fracture femoral neck on the left status post surgical intervention. Post surgery patient went into hypoxia, hypotension, altered mental status and did much worse clinically. We were asked to evaluate the patient make further recommendations. Assessment and plan: 1.sepsis severe 2.leukocytosis 3.left hip fracture status post fall 4.leukocytosis with monocytosis 5.leukemoid reaction Recommendations: Not sure what caused the patient acute change in mentation, hypoxia, hypotension and lactic acidosis. We will attempt to see if there is a focus of infection we can identify CML on my differential Fact embolism?? Await blood cultures. Check urine for lipids. Check procalcitonin. Trend lactic acid. Anemia management per the primary team. Consider GI to evaluate for elevated bilirubin and elevated INR. Consider IR to evaluate for drainage of hematoma. Hem/Onc consulted for left breast mass and monocytosis. Await recommendations. Surgical site/hematoma management per the ortho team. Continue Vancomycin IV. Pharmacy to dose. Goal trough ~15. Continue Zosyn 3.375 grams IV Q8H. Duration of treatment depends on the clinical picture. Monitor renal function and for drug toxicity and dose-adjust antibiotics.
[2018-07-15] MEDS: *HR* Metoprolol 5 MG/5 ML VIAL IVP PRN ×2 (13:15→23:40)
[2018-07-15 13:53] LABS: Hematocrit 31.5 % (35.3-44.9)
--- NOTE | 2018-07-15 14:46 | Oncology Inp Consult Note ---
<Mary Cruz L - Last Filed: 07/15/18 16:58> Date of Encounter: 07/15/18 Time of Encounter: 14:00 Assessment and Plan (1) Anemia Status: Acute Assessment and plan: Mild chronic anemia noted with acute decrease, romel hgb 6.1 today improved to 10 s/p 1 unit PRBC Acute blood loss in setting of post op period with presence of hematoma, vs. sepsis vs. other Plan: Check B12, folate, Iron profile, Ferritin, LDH No s/s bleeding, hematoma as noted above, may consider IR to drain, appreciate further recs per ortho Qualifiers: Anemia type: unspecified type Qualified Code(s): D64.9 - Anemia, unspecified (2) Breast cancer Status: Acute Assessment and plan: Patient reports history of left breast cancer ~20 years ago s/p lumpectomy and radiation She has not had mammogram in several years CT of chest noted left chest wall/breast mass previously noted on imaging on 08/10/2016---describes a lobular lesion of the left breast measuring approximately 5.1 x 3.4 cm in axial plane and 9.4 cm in long axis. Previously this measured 4.0 x 2.5 cm in axial plane and 8.9 cm in long axis as measured in similar fashion Plan: Patient declines breast exam at this time Discuss mammogram with targeted ultrasound as outpatient once clinical condition improves, will continue to monitor hospital course Qualifiers: Breast location: unspecified site of breast Estrogen receptor status: unspecified Patient sex: female Laterality: left Qualified Code(s): C50.912 - Malignant neoplasm of unspecified site of left female breast (3) Leukocytosis Status: Acute Assessment and plan: Chronic leukocytosis with areas of normalization, dating back to April 2016 Acute increase above baseline in postoperative setting, SIRS, ID involved for infectious workup Chronic monocytosis with neutrophilia dating back to 2014, acutely increasing in post operative/sepsis setting No immature forms noted on peripheral smear Spleen noted normal on CT imaging Plan: Suspect underlying infectious/sepsis process contributing to acute leukemoid reaction above baseline 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 other, consider repeating and GI consultation if needed Qualifiers: Leukocytosis type: unspecified Qualified Code(s): D72.829 - Elevated white blood cell count, unspecified - Data of Consult Patient: new to practice Consult date: 07/15/18 Requesting Physician: Rajendra Roe MD Primary Care Provider: PCP NONE - Consult Narrative Reason for consult: Leukocytosis History of present illness: Ms. Jensen is a 88 year old female with a past medical history of A. fib, left breast cancer 20 years ago status post lumpectomy and radiation, cardiomyopathy, CHF, hyperlipidemia. The patient was admitted to the hospital 07/13/18 after sustaining a mechanical fall and presented with a displaced fracture of the left femoral neck. She was admitted with orthopedic consultation. She underwent left hip hemiarthroplasty on 07/14/2018, that evening around 2100 she had an episode necessitating a rapid response where she developed upper extremity tremors, fever 100.1 and tachycardia. There was concern for potential benzodiazepene withdrawal vs. malignant hyperthermia vs. seizure. She had a CT of the head that was negative. Chest x-ray was negative. Urinalysis was negative. Blood cultures were obtained 2 sets are pending. Her lactic acid went up to 6.2. She was transferred to ICU for further monitoring. Today, patient remains tachycardic and hypotensive. She had a CT of the chest, abdomen, and pelvis that showed postsurgical changes of the left hip arthroplasty with surrounding soft tissue swelling and gas as well as a 9 cm intramuscular hematoma. Also noted an interval increase in size of left chest wall/breast mass previously noted on imaging on 08/10/2016. During my exam today, patient does not participate in much conversation, mainly answers questions with yes/no. Most of information was gathered from chart review as well as patients son and who were present at bedside. Patients son states she has been in overall good performance status for her age up until admission. He recently took her on a trip to [place] and she ambulated around shops with his assistance. She is able to perform most of her ADL's independently, she has a walker/cane at home but does not use it on regular basis. She has had issues with imbalance and macular degeneration with decreased vision due to this. She denies any tobacco, alcohol, or illicit drug use. She reports unintentional weight loss over long period of time over about 1.5 years. Deneis fevers, chills or night sweats prior to admission. She has a history of breast cancer as mentioned above, treated in [facility] she has not followed up in years and decided to not pursue mammogram over the past several years. Past Med Surg Social Fam HX - Past Medical History Medical history: atrial fibrillation, cancer (Breast cancer 20 years ago status post radiation), cardiomyopathy, CHF, coronary artery disease, hyperlipidemia, valvular heart disease, other Additional medical history: macular degeneration Psychiatric history: anxiety - Past Surgical History Surgical History: breast surgery, cataract, hysterectomy Additional surgical history: eye surgery - Social History Smoking Status: Former smoker Smokeless Tobacco Status: No Alcohol use: none Drug use: none - Family History Father Hx Family Cardiac Disorders: Yes (NH) Mother Living Status: Medications and Allergies RX: Docusate [Colace] 200 mg PO DAILY PRN 04/29/16 [History] RX: Lutein 6 mg PO DAILY 04/29/16 [History] RX: Metoprolol XL (24 HR) Succ [Toprol Xl] 50 mg PO DAILY 04/29/16 [History] RX: Rivaroxaban [Xarelto] 15 mg PO DAILY 04/29/16 [History] RX: Acetaminophen [Tylenol] 1,000 mg PO BID 08/09/16 [History] RX: Cholecalciferol (D-3) [Vitamin D] 1,000 unit PO DAILY 08/09/16 [History] RX: Digoxin [Lanoxin] 0.25 mg PO DAILY #30 tab 12/17/16 [Rx] RX: diazePAM [Valium] 10 mg PO HS 07/14/18 [History] Allergy/AdvReac Type Severity Reaction Status Date / Time dexamethasone Allergy See Verified 08/10/16 13:43 Comments Procaine Allergy See Verified 08/10/16 13:43 Comments Constitutional: Present: as per HPI, anorexia, chills, fatigue, fever(s), weakness, weight loss. Absent: night sweats Additional comments: fall prior to admission Eyes: Present: as per HPI Nose, mouth and throat: Present: abnormal hearing. Absent: dysphagia, odynophagia Additional comments: patient denies any breast pain, she has not palpated any breast mass personally but does not appear to do SBE Cardiovascular: Present: rapid heart rate. Absent: chest pain, palpitations Respiratory: Present: dyspnea on exertion Gastrointestinal: Absent: abdominal pain, change in bowel habits, hematochezia, melena, nausea, vomiting Genitourinary: Present: as per HPI Musculoskeletal: Present: muscle weakness Integumentary: Absent: rash, wounds Neurological: Present: as per HPI. Absent: focal weakness, frequent falls Psychiatric: Present: as per HPI Hematologic/Lymphatic: Present: as per HPI Oncology - Exam - Constitutional General appearance: no acute distress, thin, no febrile Exam: non-conversant at time of exam - ENT ENT exam: Present: mucous membranes dry - Respiratory Respiratory exam: Present: decreased breath sounds, CTAB. Absent: respiratory distress - Cardiovascular Cardiovascular exam: Present: RRR, tachycardia - GI/Abdominal GI/Abdominal exam: Present: normal bowel sounds, soft. Absent: tenderness - Extremities Exam Extremities exam: Absent: calf tenderness Additional comments: honey comb dressing to left hip saturated with red blood, RN in during my assessment to change dressing, staple noted with no active bleeding to incision, hip abduction pillow in place - Neurological Exam Neurological exam: Present: alert Additional comments: oriented to person and place - Psychiatric Psychiatric exam: Present: agitated, flat affect - Skin Skin exam: Present: dry, intact, pallor, warm Additional comments: mild jaundice - Additional findings Additional findings: Declined breast exam at time of early afternoon rounding Consult Discharge Plan - Plan Referrals: NONE,PCP [Primary Care Provider] - Inpatient Charges Provider: Dr. Lizeth Ford <Reynaldo Ford - Last Filed: 07/15/18 20:31> Date of Encounter: 07/15/18 - Data of Consult Requesting Physician: Rajendra Roe MD Primary Care Provider: PCP NONE - Attending Attestation I have seen and examined Ms. Jensen and agree with Ms. Cruz's assessment. She is s/p fall with left fracture s/p left KASSY. Course has been complicated postoperative hematoma and associated anemia. She developed severe rigors, fever, tachycardia and confusion concerning for sepsis. She has been placed on antibiotics and ID has evaluated. Cultures negative. We have been consulted for neutrophil/monocyte predominant leukocytosis Leukocyte count normal at admission, although she has had a mild chronic monocytosis. 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 In the setting of infection/inflammation, they will have an exaggerated response as seen here, c/w leukemoid reaction. No specific intervention or treatment outside of supportive measures indicated. Breast lesion identified on imaging. We will consider evaluation once her clinical course is stable. We will repeat DIC labs this evening and again in the AM. Inpatient Charges Provider: Dr. Lizeth Ford Consult - Inpatient Medicare Only: [id number]
--- NOTE | 2018-07-15 15:09 | Orthopedics Progress Note ---
Date of Encounter: 07/15/18 Time of Encounter: 15:08 - Assessment and Plan (1) Left displaced femoral neck fracture Current Visit: Yes Status: Acute Subjective Interval history: POD#1 s/p Left hip hemiarthroplasty. Transferred to ICU last night due to altered mental status, hypotension, SIRS with elevated WBC. CT scan was done of the pelvis which showed hematoma, subsequent CT angio was negative for arterial bleed. Exam shows patient A&Ox0 Dressing with mild saturation and underlying ecchymosis Spontaneously moving lower extremity Expected postop changes seen on imaging Continue current management per ICU Posterior hip precautions Will follow Objective Vital signs: Vital Signs Temp Pulse Resp BP Pulse Ox 07/15/18 14:00 106 16 113/83 100 07/15/18 13:00 120 18 105/83 98 07/15/18 12:38 97.6 F 07/15/18 12:00 114 17 106/71 97 07/15/18 11:21 118 07/15/18 11:14 98.4 F 125 16 98/72 94 07/15/18 11:00 107 16 98/72 96 07/15/18 10:00 124 20 110/96 94 07/15/18 09:57 98.1 F 123 16 110/96 96 07/15/18 09:42 99 F 120 20 114/95 100 07/15/18 08:49 99.0 F 07/15/18 08:00 120 21 82/69 91 07/15/18 07:00 144 16 82/72 96 07/15/18 06:00 135 19 96/63 97 07/15/18 05:00 127 20 73/54 99 07/15/18 04:03 99.4 F 07/15/18 04:00 125 22 93/59 98 07/15/18 03:00 118 20 89/62 98 07/15/18 02:00 128 18 111/80 95 07/15/18 01:00 120 20 103/59 95 07/15/18 00:37 101.8 F H 07/15/18 00:00 118 18 102/77 95 07/14/18 23:00 100.6 F H 127 20 142/48 92 07/14/18 21:02 100.7 F H 124 179/128 100 07/14/18 20:11 97.7 F 116 18 150/72 94 07/14/18 19:11 97.6 F 122 20 155/73 99 07/14/18 15:40 88 14 120/57 93 07/14/18 15:10 86 12 110/54 94 Intake and Output 07/14/18 07/15/18 07/15/18 23:59 07:59 15:59 Intake Total 350 / 350 1400 / 1400 Output Total 125 / 125 150 / 150 1050 / 1050 Balance 225 / 225 -150 / -150 350 / 350 Intake: IV Fluids 350 / 350 1100 / 1100 0.9 % Sodium Chloride 1,000 ML 1000 / 1000 @ 100 mls/hr IVC .Q10H [facility] Rx#: [id number] Ancef 2,000 MG In 0.9 % Sodium 100 / 100 Chloride 100 ML @ 200 mls/hr IVP Q8H [facility] Rx#:[id number] Zosyn 3.375 GM In 0.9 % Sodium 100 / 100 Chloride (Mini-Bag +) 100 ML @ 25 mls/hr IVPB Q8H [facility] Rx#: [id number] Vancocin 1,000 MG In 0.9 % 250 / 250 Sodium Chloride 250 ML @ 167 mls/hr IVPB ONCE ONE Rx#: [id number] Oral 0 / 0 Blood Product 300 / 300 Rbcs Leuko Poor As-1 Unit 300 / 300 [id number] Output: Catheter 125 / 125 150 / 150 1050 / 1050 Urethral (Pereira) 125 / 125 Other: Weight 54.5 kg Blood Glucose* 124 Patient Weight 07/15/18 23:59 Weight 54.5 kg - Labs CBC & BMP: 07/15/18 13:36 07/15/18 09:30 Labs: Abnormal lab results WBC 44.0 K/mcL (4.3-11.1) H* 07/15/18 07:58 RBC 2.64 M/mcL (3.82-4.97) L 07/15/18 07:58 Hgb 10.0 g/dL (11.5-15.4) L D 07/15/18 13:36 Hct 31.5 % (35.3-44.9) L 07/15/18 13:36 MCHC 31.5 g/dL (31.6-35.5) L 07/15/18 07:58 RDW 21.6 % (11.5-14.5) H 07/15/18 07:58 Neutrophils # 26.4 K/mcL (1.6-8.9) H 07/15/18 07:58 Monocytes # 15.4 K/mcL (0.0-1.3) H 07/15/18 07:58 Nucleated RBCs/100 WBC 0.1 /100 WBC (0) H 07/14/18 21:05 Large Platelets Present (Not Present) A 07/13/18 09:41 Immature Plt Fraction 16.7 % (1.1-6.1) H 07/14/18 05:38 Polychromasia 1+ (Not Present) A 07/15/18 07:58 Poikilocytosis 2+ (Not Present) A 07/15/18 00:21 Anisocytosis 1+ (Not Present) A 07/15/18 07:58 Microcytosis Present (Not Present) A 07/14/18 05:38 Tear Drop Cells 1+ (Not Present) A 07/13/18 09:41 Ovalocytes 2+ (Not Present) A 07/15/18 07:58 Acanthocytes (Spur) 1+ (Not Present) A 07/14/18 21:05 Schistocytes 1+ (Not Present) A 07/13/18 09:41 PT 35.8 Seconds (9.4-12.1) H D 07/15/18 09:30 Heparin Anti-Xa, Unfract 0.04 IU/mL (0.30-0.70) L 07/14/18 14:31 ABG pH 7.48 pH Units (7.32-7.45) H 07/14/18 20:53 ABG pCO2 32 mmHg (35-45) L 07/14/18 20:53 ABG pO2 161 mmHg (85-104) H 07/14/18 20:53 ABG O2 Saturation 100 % (95-98) H 07/14/18 20:53 BUN 25 mg/dL (8-23) H 07/15/18 09:30 Est GFR (Non-Af Amer) 59 (> 60) L 07/15/18 09:30 BUN/Creatinine Ratio 28 (6-26) H 07/15/18 09:30 Glucose 179 mg/dL (70-105) H 07/15/18 09:30 POC Glucose 139 mg/dL (70-99) H 07/14/18 21:37 Lactic Acid 3.1 mmol/L (0.5-2.2) H 07/15/18 02:29 Calcium 7.2 mg/dL (8.6-10.3) L 07/15/18 09:30 Total Bilirubin 1.7 mg/dL (0.3-1.0) H 07/15/18 09:30 Direct Bilirubin 0.5 mg/dL (0.0-0.2) H 07/14/18 21:05 Indirect Bilirubin 2.1 mg/dL (0.0-1.2) H 07/14/18 21:05 Alkaline Phosphatase 30 Units/L (34-104) L 07/15/18 09:30 Ammonia 82 mcmol/L (16-53) H 07/14/18 21:05 Troponin I 0.08 ng/mL (< 0.04) H* 07/15/18 02:29 Serum Total Protein 4.1 g/dL (6.4-8.9) L 07/15/18 09:30 Albumin 2.7 g/dL (3.5-5.7) L 07/15/18 09:30 Globulin 1.4 g/dL (2.4-3.5) L 07/15/18 09:30 Lipase < 3 Units/L (11-82) L 07/15/18 00:21 Urine Color [place] (Yellow) A 07/14/18 22:23 Ur Specific [place] 1.029 (1.010-1.025) H 07/14/18 22:23 Urine Protein 30 mg/dL (Neg-Trace) H 07/14/18 22:23 Urine Ketones Trace mg/dL (Negative) H 07/14/18 22:23 Urine Blood Moderate (Negative) H 07/14/18 22:23 Urine Bilirubin Small (Negative) H 07/14/18 22:23 Ur Leukocyte Esterase Small (Negative) H 07/14/18 22:23 Urine Microscopic RBC 50-100 per hpf (0-3) H 07/14/18 22:23 Urine Microscopic WBC 5-15 per hpf (0-3) H 07/14/18 22:23 Ur Squamous Epith Cells Many per lpf (None-Few) H 07/14/18 22:23 Hyaline Casts Many per lpf (None-Few) H 07/14/18 22:23 Urine Yeast Moderate per hpf (None Seen) H 07/14/18 22:23 Ur Culture Indicated? NO. (NO) A 07/14/18 22:23 Consult Discharge Plan - Plan Referrals: NONE,PCP [Primary Care Provider] -
[2018-07-15 16:39] LABS: INR 2.3; Prothrombin Time 26.4 Seconds (9.4-12.1)
[2018-07-15 16:41] LABS: Activated Partial Thrombo Time 31.8 Seconds (26.0-36.0)
[2018-07-15 16:48] LABS: % Iron Saturation 7 % (15-50); Iron 15 mcg/dL (50-170); Transferrin 163 mg/dL (203-362)
[2018-07-15 17:06] LABS: Ferritin 284 ng/mL (10-120)
[2018-07-15 17:12] LABS: Folate 12.5 ng/mL (3.0-16.0)
[2018-07-15 19:05] LABS: INR 2.4
[2018-07-15] MEDS: traMADol 50 MG TABLET PO PRN (21:06)
[2018-07-16] MEDS ORDERED: 0.9 % Sodium Chloride 1,000 ML IVC ONE ×2 (00:48→10:40)
[2018-07-16] MEDS: OXYCODONE Oral CONC 10 MG/0.5 ML ORAL.SYG SL PRN (02:15)
[2018-07-16 04:58] LABS: Basophils # 0.1 K/mcL (0.0-0.2); Basophils % 0.1 %; Eosinophils # 0.1 K/mcL (0.0-0.6); Eosinophils % 0.1 %; Hematocrit 24.8 % (35.3-44.9); Immature Granulocytes % 2.6 % (0-4); Lymphocytes % 7.6 %; Mean Corpuscular HGB Conc 31.9 g/dL (31.6-35.5); Mean Corpuscular Volume 91.2 fL (83.0-100.0); Monocytes # 22.8 K/mcL (0.0-1.3); Monocytes % 43.1 %; Neutrophils # 24.6 K/mcL (1.6-8.9); Platelet Count 127 K/mcL (140-400); Red Blood Count 2.72 M/mcL (3.82-4.97); Red Cell Distribution Width 20.8 % (11.5-14.5); Segmented Neutrophils % 46.5 %
[2018-07-16 05:07] LABS: BUN/Creatinine Ratio 34 (6-26); Blood Urea Nitrogen 30 mg/dL (8-23); Calcium 7.8 mg/dL (8.6-10.3); Carbon Dioxide 22 mEq/L (23-29); Chloride 107 mEq/L (98-107); Glucose 116 mg/dL (70-105); Osmolality,Calculated 299 (280-300); Sodium 141 mEq/L (136-145); Vancomycin,Trough 4 mcg/mL (5-10); eGFR For Non-African Americans 60 (> 60)
[2018-07-16 05:11] LABS: Prothrombin Time 22.5 Seconds (9.4-12.1)
[2018-07-16 05:17] LABS: Hemoglobin 7.9 g/dL (11.5-15.4)
[2018-07-16] MEDS ORDERED: *HR* Metoprolol 5 MG/5 ML VIAL IVP SCH ×2 (06:00→10:40)
[2018-07-16 06:13] LABS: Anisocytosis 2+ (Not Present); Platelet Estimate Decreased (Normal)
[2018-07-16 06:14] LABS: Ovalocytes 2+ (Not Present)
[2018-07-16 06:15] LABS: Poikilocytosis 2+ (Not Present)
[2018-07-16] MEDS: Piperacillin/Tazobactam 3.375 GM in 0.9 % Sodium Chloride Mini Bag 100 ML IVPB SCH ×3 (06:43→21:06)
--- NOTE | 2018-07-16 07:10 | Pulmonology Progress Note ---
<JameelIvan S - Last Filed: 07/16/18 10:41> Date of Encounter: 07/16/18 Time of Encounter: 07:13 Assessment and Plan (1) Sepsis Current Visit: Yes Status: Acute On admission pt met sepsis criteria for WBC of 16.8, HR >90 - currently meets 2/4 SIRS criteria for HR 140, WBC 52.9 - source of infxn is currently not known - may not be due to infxn, maybe underlying CLL/CML UA (+) for ketones, leuk esterase, 5-15 WBC; many epithelial cells likely a contaminated specimen CXR from admission negative for acute cardiopulmonary process; repeat XR chest negative on 07/[address] from 07/14/[address] abdomen/pelvis postsurgical changes seen w surrounding soft tissue swelling and gas 9 cm intramucular hematoma of gluteal/quad femoris mm --> ?active artieral bleed vs perioperative venous ooze soft tissue swelling into the pelvis/left retroperitoneum along piriformis CT chest small b/l pleural effusions, biatrial enlargement negative for PE biliary tree has mild intra/extrahepatic bile dilation, unchanged Plan: - plan to place CVC if pt requires pressors, keep MAP >65 - continue abx: vancomycin day 3 and zosyn day 2 - blood cx pending - heme onc consulted, feel this may be underlying CML/CLL plan for outpatient mamgram with targeted ultrasound - infectious disease consulted Qualifiers: Sepsis type: sepsis due to unspecified organism Qualified Code(s): A41.9 - Sepsis, unspecified organism (2) Dysphagia Current Visit: Yes Status: Acute Pt having trouble swallowing and poor PO intake. Speech consulted. Qualifiers: Dysphagia type: unspecified Qualified Code(s): R13.10 - Dysphagia, unspecified (3) Benzodiazepine withdrawal Current Visit: Yes Status: Suspected Suspected. As per night resident notes, the pt experienced shaking like activity on 07/15/18. She takes BZ at home and was apperently not taking them here. BZ withdrawal vs post-operative malignant hyperthermia vs seizure. - symptoms decreased after ativan - overnight she was given vancomycin, zosyn, fluid bolus STAT head CT was negative CXR negative Plan: - d/c CIWA protocol - resume home valium Qualifiers: Complication of substance-induced condition: with unspecified complication Qualified Code(s): F13.239 - Sedative, hypnotic or anxiolytic dependence with withdrawal, unspecified (4) Breast cancer Current Visit: Yes Status: Acute Pt has hx of breast cancer in the past - CT findings do show an increased left chest wall/breast mass Heme-onc is consulted. Pt declined breast exam yesterday. Heme onc to Qualifiers: Breast location: unspecified site of breast Estrogen receptor status: unspecified Patient sex: female Laterality: left Qualified Code(s): C50.912 - Malignant neoplasm of unspecified site of left female breast (5) Anemia Current Visit: Yes Status: Acute Pt presented with hemoglobin 11.6, around her baseline of 10-11 - dropped to 9.3 and continued to trend down to 7.9 ---> 7.4 --> 7.5 ---> 7.[address] scan of abdomen/pelvis 07/15/18 showed a 9cm intramuscular hematoma involving the gluteal and quadratus femoris mm - active arterial extravascation vs perioperative venous ooze CT angiogram negative for acute extravascation Plan: - continue to monitor for active bleeding - hold anticoagulants, SCD in place - monitor H&H Qualifiers: Anemia type: unspecified type Qualified Code(s): D64.9 - Anemia, unspecified (6) Elevated troponin Current Visit: Yes Status: Acute Troponin peaked at 0.08 - likely type 2 demand ischeia from sepsis (7) Lactic acidosis Current Visit: Yes Status: Acute Lactate 6.5 improved to 3.1 (8) Constipation Current Visit: No Status: Chronic On docusante. Qualifiers: Constipation type: unspecified constipation type Qualified Code(s): K59.00 - Constipation, unspecified (9) Anxiety Current Visit: No Status: Chronic Resume home valium. (10) Femoral neck fracture Current Visit: Yes Status: Acute XR on admission showed subcapital left femoral neck fx with superior displacement - POD #2 s/p left hip hemiarthoplasty - tolerated procedure well - PTOT consulted Qualifiers: Encounter type: initial encounter Fracture type: closed Laterality: left Qualified Code(s): S72.002A - Fracture of unspecified part of neck of left femu r, initial encounter for closed fracture (11) Leukocytosis Current Visit: Yes Status: Acute Leukotyosis of 52.9. Source of infxn unknown. See plan as above. Qualifiers: Leukocytosis type: unspecified Qualified Code(s): D72.829 - Elevated white blood cell count, unspecified (12) Afib Current Visit: No Status: Chronic Hx of a fib on toprol XL and xarelto at home. AC currently held due to anemia. Qualifiers: Atrial fibrillation type: chronic Qualified Code(s): I48.2 - Chronic atrial fibrillation (13) CHF (congestive heart failure) Current Visit: Yes Status: Chronic NOT in acute exacerbation. Pt has systolic heart failure. ECHO showed LVEF 40- 45%, LVH, dilated LA, MR/TR and pHTN Qualifiers: Heart failure type: systolic Heart failure chronicity: chronic Qualified Code(s): I50.22 - Chronic systolic (congestive) heart failure (14) DVT prophylaxis Current Visit: Yes Status: Acute scd (15) Hematoma Current Visit: Yes Status: Acute CT abdomen and pelvis shows a 9cm intra-muscular hematoma in the left hip, retroperitoneum, and pelvis. CTA negative for arterial extravasation. Orthopedics did say that this is a normal postoperative change. Subjective Principal diagnosis: femoral fx, sepsis of unknown origin Interval history: Pt is seen at bedside. She is easily arousable. Family is at bedside. Pt is in no acute distress. No acute overnight events. Objective PUL Vital signs: Last Vital Signs Temp 97.7 F 07/16/18 04:35 Pulse 140 07/16/18 06:00 Resp 16 07/16/18 06:00 BP 149/80 07/16/18 06:00 Pulse Ox 93 07/16/18 06:00 General appearance: no acute distress, asleep Eyes: nonicteric ENT: oropharynx dry Auscultation: bilateral: diminished breath sounds Cardiovascular: other (tacycardia, s1s2) Gastrointestinal: soft, non-tender, non-distended Integumentary: normal Extremities: edema Musculoskeletal: other (pain to palpation of the left hp) unable to assess due to mental status other (unable to assess due to mental status) Results - Laboratory Findings CBC and BMP: 07/16/18 03:26 07/16/18 03:26 ABG ABG pH 7.48 pH Units (7.32-7.45) H 07/14/18 20:53 ABG pCO2 32 mmHg (35-45) L 07/14/18 20:53 ABG pO2 161 mmHg (85-104) H 07/14/18 20:53 ABG O2 Saturation 100 % (95-98) H 07/14/18 20:53 PT/INR, D-dimer PT 22.5 Seconds (9.4-12.1) H 07/16/18 03:26 Abnormal lab findings: Abnormal lab results WBC 52.9 K/mcL (4.3-11.1) H* 07/16/18 03:26 RBC 2.72 M/mcL (3.82-4.97) L 07/16/18 03:26 Hgb 7.9 g/dL (11.5-15.4) L D 07/16/18 03:26 Hct 24.8 % (35.3-44.9) L 07/16/18 03:26 RDW 20.8 % (11.5-14.5) H 07/16/18 03:26 Plt Count 127 K/mcL (140-400) L 07/16/18 03:26 Neutrophils # 24.6 K/mcL (1.6-8.9) H 07/16/18 03:26 Monocytes # 22.8 K/mcL (0.0-1.3) H 07/16/18 03:26 Nucleated RBCs/100 WBC 0.1 /100 WBC (0) H 07/14/18 21:05 Platelet Estimate Decreased (Normal) L 07/16/18 03:26 Large Platelets Present (Not Present) A 07/13/18 09:41 Immature Plt Fraction 16.7 % (1.1-6.1) H 07/14/18 05:38 Polychromasia 1+ (Not Present) A 07/15/18 07:58 Poikilocytosis 2+ (Not Present) A 07/16/18 03:26 Anisocytosis 2+ (Not Present) A 07/16/18 03:26 Microcytosis Present (Not Present) A 07/14/18 05:38 Tear Drop Cells 1+ (Not Present) A 07/13/18 09:41 Ovalocytes 2+ (Not Present) A 07/16/18 03:26 Acanthocytes (Spur) 1+ (Not Present) A 07/14/18 21:05 Schistocytes 1+ (Not Present) A 07/13/18 09:41 PT 22.5 Seconds (9.4-12.1) H 07/16/18 03:26 Fibrinogen 511 mg/dL (169-393) H 07/16/18 03:26 Heparin Anti-Xa, Unfract 0.04 IU/mL (0.30-0.70) L 07/14/18 14:31 ABG pH 7.48 pH Units (7.32-7.45) H 07/14/18 20:53 ABG pCO2 32 mmHg (35-45) L 07/14/18 20:53 ABG pO2 161 mmHg (85-104) H 07/14/18 20:53 ABG O2 Saturation 100 % (95-98) H 07/14/18 20:53 Carbon Dioxide 22 mEq/L (23-29) L 07/16/18 03:26 BUN 30 mg/dL (8-23) H 07/16/18 03:26 BUN/Creatinine Ratio 34 (6-26) H 07/16/18 03:26 Glucose 116 mg/dL (70-105) H 07/16/18 03:26 POC Glucose 139 mg/dL (70-99) H 07/14/18 21:37 Lactic Acid 3.1 mmol/L (0.5-2.2) H 07/15/18 02:29 Calcium 7.8 mg/dL (8.6-10.3) L 07/16/18 03:26 Iron 15 mcg/dL (50-170) L 07/15/18 16:06 % Saturation 7 % (15-50) L 07/15/18 16:06 Transferrin 163 mg/dL (203-362) L 07/15/18 16:06 Ferritin 284 ng/mL (10-120) H 07/15/18 16:06 Total Bilirubin 1.7 mg/dL (0.3-1.0) H 07/15/18 09:30 Direct Bilirubin 0.5 mg/dL (0.0-0.2) H 07/14/18 21:05 Indirect Bilirubin 2.1 mg/dL (0.0-1.2) H 07/14/18 21:05 Alkaline Phosphatase 30 Units/L (34-104) L 07/15/18 09:30 Ammonia 82 mcmol/L (16-53) H 07/14/18 21:05 Troponin I 0.08 ng/mL (< 0.04) H* 07/15/18 02:29 Serum Total Protein 4.1 g/dL (6.4-8.9) L 07/15/18 09:30 Albumin 2.7 g/dL (3.5-5.7) L 07/15/18 09:30 Globulin 1.4 g/dL (2.4-3.5) L 07/15/18 09:30 Lipase < 3 Units/L (11-82) L 07/15/18 00:21 Vitamin B12 241 pg/mL (250-1100) L 07/15/18 16:06 Urine Color Snyder (Yellow) A 07/14/18 22:23 Ur Specific [place] 1.029 (1.010-1.025) H 07/14/18 22:23 Urine Protein 30 mg/dL (Neg-Trace) H 07/14/18 22:23 Urine Ketones Trace mg/dL (Negative) H 07/14/18 22:23 Urine Blood Moderate (Negative) H 07/14/18 22:23 Urine Bilirubin Small (Negative) H 07/14/18 22:23 Ur Leukocyte Esterase Small (Negative) H 07/14/18 22:23 Urine Microscopic RBC 50-100 per hpf (0-3) H 07/14/18 22:23 Urine Microscopic WBC 5-15 per hpf (0-3) H 07/14/18 22:23 Ur Squamous Epith Cells Many per lpf (None-Few) H 07/14/18 22:23 Hyaline Casts Many per lpf (None-Few) H 07/14/18 22:23 Urine Yeast Moderate per hpf (None Seen) H 07/14/18 22:23 Ur Culture Indicated? NO. (NO) A 07/14/18 22:23 Vancomycin Trough 4 mcg/mL (5-10) L 07/16/18 03:26 - Microbiology Findings Microbiology Findings: Microbiology, Last 48 Hours 07/15/18 09:29 Legionella Antigen - Final Urine,Clean Catch Streptococcus pneumoniae Antigen (M - Final 07/14/18 22:28 Blood Culture - Preliminary Peripheral Venipuncture Culture is incubating and being continuously monitored for growth. Final report to follow. 07/14/18 22:21 Blood Culture - Preliminary Peripheral Venipuncture Culture is incubating and being continuously monitored for growth. Final report to follow. - Clinical Findings Intake & Output: Intake & Output 07/15/18 07/15/18 07/16/18 15:59 23:59 07:59 Intake Total 1400 / 1400 100 / 100 1100 / 1100 Output Total 1050 / 1050 225 / 225 125 / 125 Balance 350 / 350 -125 / -125 975 / 975 Weight 60.2 kg Consult Discharge Plan - Plan Referrals: NONE,PCP [Primary Care Provider] - <Adriana Issa - Last Filed: 07/16/18 15:37> Date of Encounter: 07/16/18 Objective PUL Vital signs: Last Vital Signs Temp 98.2 F 07/16/18 07:25 Pulse 131 07/16/18 09:00 Resp 16 07/16/18 09:00 BP 90/70 07/16/18 09:00 Pulse Ox 95 07/16/18 09:00 Results - Laboratory Findings CBC and BMP: 07/16/18 03:26 07/16/18 03:26 ABG ABG pH 7.48 pH Units (7.32-7.45) H 07/14/18 20:53 ABG pCO2 32 mmHg (35-45) L 07/14/18 20:53 ABG pO2 161 mmHg (85-104) H 07/14/18 20:53 ABG O2 Saturation 100 % (95-98) H 07/14/18 20:53 PT/INR, D-dimer PT 22.5 Seconds (9.4-12.1) H 07/16/18 03:26 Abnormal lab findings: Abnormal lab results WBC 52.9 K/mcL (4.3-11.1) H* 07/16/18 03:26 RBC 2.72 M/mcL (3.82-4.97) L 07/16/18 03:26 Hgb 7.9 g/dL (11.5-15.4) L D 07/16/18 03:26 Hct 24.8 % (35.3-44.9) L 07/16/18 03:26 RDW 20.8 % (11.5-14.5) H 07/16/18 03:26 Plt Count 127 K/mcL (140-400) L 07/16/18 03:26 Neutrophils # 24.6 K/mcL (1.6-8.9) H 07/16/18 03:26 Monocytes # 22.8 K/mcL (0.0-1.3) H 07/16/18 03:26 Nucleated RBCs/100 WBC 0.1 /100 WBC (0) H 07/14/18 21:05 Platelet Estimate Decreased (Normal) L 07/16/18 03:26 Large Platelets Present (Not Present) A 07/13/18 09:41 Immature Plt Fraction 16.7 % (1.1-6.1) H 07/14/18 05:38 Polychromasia 1+ (Not Present) A 07/15/18 07:58 Poikilocytosis 2+ (Not Present) A 07/16/18 03:26 Anisocytosis 2+ (Not Present) A 07/16/18 03:26 Microcytosis Present (Not Present) A 07/14/18 05:38 Tear Drop Cells 1+ (Not Present) A 07/13/18 09:41 Ovalocytes 2+ (Not Present) A 07/16/18 03:26 Acanthocytes (Spur) 1+ (Not Present) A 07/14/18 21:05 Schistocytes 1+ (Not Present) A 07/13/18 09:41 PT 22.5 Seconds (9.4-12.1) H 07/16/18 03:26 Fibrinogen 511 mg/dL (169-393) H 07/16/18 03:26 Heparin Anti-Xa, Unfract 0.04 IU/mL (0.30-0.70) L 07/14/18 14:31 ABG pH 7.48 pH Units (7.32-7.45) H 07/14/18 20:53 ABG pCO2 32 mmHg (35-45) L 07/14/18 20:53 ABG pO2 161 mmHg (85-104) H 07/14/18 20:53 ABG O2 Saturation 100 % (95-98) H 07/14/18 20:53 Carbon Dioxide 22 mEq/L (23-29) L 07/16/18 03:26 BUN 30 mg/dL (8-23) H 07/16/18 03:26 BUN/Creatinine Ratio 34 (6-26) H 07/16/18 03:26 Glucose 116 mg/dL (70-105) H 07/16/18 03:26 POC Glucose 139 mg/dL (70-99) H 07/14/18 21:37 Lactic Acid 3.1 mmol/L (0.5-2.2) H 07/15/18 02:29 Calcium 7.8 mg/dL (8.6-10.3) L 07/16/18 03:26 Iron 15 mcg/dL (50-170) L 07/15/18 16:06 % Saturation 7 % (15-50) L 07/15/18 16:06 Transferrin 163 mg/dL (203-362) L 07/15/18 16:06 Ferritin 284 ng/mL (10-120) H 07/15/18 16:06 Total Bilirubin 1.7 mg/dL (0.3-1.0) H 07/15/18 09:30 Direct Bilirubin 0.5 mg/dL (0.0-0.2) H 07/14/18 21:05 Indirect Bilirubin 2.1 mg/dL (0.0-1.2) H 07/14/18 21:05 Alkaline Phosphatase 30 Units/L (34-104) L 07/15/18 09:30 Ammonia 82 mcmol/L (16-53) H 07/14/18 21:05 Troponin I 0.08 ng/mL (< 0.04) H* 07/15/18 02:29 Serum Total Protein 4.1 g/dL (6.4-8.9) L 07/15/18 09:30 Albumin 2.7 g/dL (3.5-5.7) L 07/15/18 09:30 Globulin 1.4 g/dL (2.4-3.5) L 07/15/18 09:30 Lipase < 3 Units/L (11-82) L 07/15/18 00:21 Vitamin B12 241 pg/mL (250-1100) L 07/15/18 16:06 Urine Color Snyder (Yellow) A 07/14/18 22:23 Ur Specific [place] 1.029 (1.010-1.025) H 07/14/18 22:23 Urine Protein 30 mg/dL (Neg-Trace) H 07/14/18 22:23 Urine Ketones Trace mg/dL (Negative) H 07/14/18 22:23 Urine Blood Moderate (Negative) H 07/14/18 22:23 Urine Bilirubin Small (Negative) H 07/14/18 22:23 Ur Leukocyte Esterase Small (Negative) H 07/14/18 22:23 Urine Microscopic RBC 50-100 per hpf (0-3) H 07/14/18 22:23 Urine Microscopic WBC 5-15 per hpf (0-3) H 07/14/18 22:23 Ur Squamous Epith Cells Many per lpf (None-Few) H 07/14/18 22:23 Hyaline Casts Many per lpf (None-Few) H 07/14/18 22:23 Urine Yeast Moderate per hpf (None Seen) H 07/14/18 22:23 Ur Culture Indicated? NO. (NO) A 07/14/18 22:23 Vancomycin Trough 4 mcg/mL (5-10) L 07/16/18 03:26 - Microbiology Findings Microbiology Findings: Microbiology, Last 48 Hours 07/15/18 09:29 Legionella Antigen - Final Urine,Clean Catch Streptococcus pneumoniae Antigen (M - Final 07/14/18 22:28 Blood Culture - Preliminary Peripheral Venipuncture Culture is incubating and being continuously monitored for growth. Final report to follow. 07/14/18 22:21 Blood Culture - Preliminary Peripheral Venipuncture Culture is incubating and being continuously monitored for growth. Final report to follow. - Clinical Findings Intake & Output: Intake & Output 07/15/18 07/16/18 07/16/18 23:59 07:59 15:59 Intake Total 100 / 100 1100 / 1100 Output Total 225 / 225 200 / 200 Balance -125 / -125 900 / 900 Weight 60.2 kg - Attending Attestation I examined this patient and my medical decision-making was reviewed with the Resident Physician. I agree with the documented findings, disposition and treatment plan as described except to the extent set forth below. Patient seen and examined. Labs, radiology, chart personally reviewed. 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 Pulmonary: Acceptable oxygenation and ventilation. Continue incentive spirometry Cardiovascular: Resume home medication he possible GI: Nutrition per dietary and GI prophylaxis per routine. Speech evaluation. Aspiration precaution Heme: DVT prophylaxis per routine. Hematology follow-up ID: Continue antibiotics and plan to de-escalation. ID follow up Renal; urine out put and renal funtion reviewed Endorcine: blood glucose is monitored Lines: all lines checked and no evidence of infections Skin: skin care to prevent pressure ulcers per nursing routine care Patient will need physical therapy as soon as possible.
[2018-07-16] MEDS: Cholecalciferol (D-3) 1,000 UNIT TABLET PO SCH (09:00)
[2018-07-16] MEDS: Metoprolol XL (24 HR) Succ 50 MG TAB.ER.24H PO SCH (09:00)
[2018-07-16] MEDS ORDERED: *HR* Metoprolol 5 MG/5 ML VIAL IVP PRN (11:10)
--- NOTE | 2018-07-16 11:20 | Infectious Disease Progress No ---
Date of Encounter: 07/16/18 Time of Encounter: 10:45 - Assessment and Plan (1) SIRS (systemic inflammatory response syndrome) Current Visit: Yes Status: Acute The patient had four SIRS criteria plus hypotension post-op. No infectious source identified. Consider non-infectious etiologies: fat embolism vs. left hip hematoma vs. anesthesia reaction vs. malignany vs. other. CT chest negative for PNA. CT abdomen and pelvis negative for acute infectious abnormality. CT head negative. Urinalysis was negative. Peripheral smear negative. Blood cultures drawn 07/14/18 are NGTD x 2 sets. Recommendation: Await blood cultures. Check urine for lipids. --> pending Check procalcitonin. --> pending Trend lactic acid. Anemia management per the primary team. Consider GI to evaluate for elevated bilirubin and elevated INR. Consider IR to evaluate for drainage of hematoma. Left breast mass and monocytosis workup per the Hem/Onc team. Surgical site/hematoma management per the ortho team. Continue Vancomycin IV. Pharmacy to dose. Goal trough ~15. Continue Zosyn 3.375 grams IV Q8H. Duration of treatment depends on the clinical picture. Monitor renal function and for drug toxicity and dose-adjust antibiotics. (2) Leukocytosis Current Visit: Yes Status: Acute WBC elevated with monocytosis. Leukemoid reaction with WBC >50,000 with monocytosis. Etiology unclear. Consider non-infectious sources : malignancy vs. other. Hem/Onc consulted and following. Appreciate recommendations. Qualifiers: Leukocytosis type: unspecified Qualified Code(s): D72.829 - Elevated white blood cell count, unspecified (3) Encephalopathy acute Current Visit: Yes Status: Acute Etiology unclear: fat embolism vs. anesthesia reaction vs. other. CT head negative. Appears improved. Continue to monitor closely. (4) Benzodiazepine withdrawal Current Visit: Yes Status: Resolved Was off valium x 3 days. Home dose of valium re-started by the primary team. Qualifiers: Complication of substance-induced condition: with unspecified complication Qualified Code(s): F13.239 - Sedative, hypnotic or anxiolytic dependence with withdrawal, unspecified (5) Intramuscular hematoma Current Visit: Yes Status: Acute CT abdomen and pelvis shows a 9cm intra-muscular hematoma in the left hip, retroperitoneum, and pelvis. CTA negative for arterial extravasation. Likely secondary to recent surgery and hypercoagulable state (INR 1.3 on admission, 3.2 post-op) and heparin. Consider IR to evaluate for drainage. Management per the ortho team. (6) Left displaced femoral neck fracture Current Visit: Yes Status: Acute Status post left hip hemiarthroplasty 07/14/[address] Christy. (7) Thrombocytopenia Current Visit: Yes Status: Acute Noted initially on admission. Resolved. (8) Elevated troponin Current Visit: Yes Status: Acute (9) Lactic acidosis Current Visit: Yes Status: Acute Etiology unclear. Improved. Continue to trend. (10) Constipation Current Visit: No Status: Resolved Bowel regimen per the primary team. Qualifiers: Constipation type: unspecified constipation type Qualified Code(s): K59.00 - Constipation, unspecified (11) Anemia Current Visit: Yes Status: Acute Hgb improved to 7.9. Management per the primary team. Qualifiers: Anemia type: unspecified type Qualified Code(s): D64.9 - Anemia, unspecified (12) LBBB (left bundle branch block) Current Visit: Yes Status: Acute (13) CHF (congestive heart failure) Current Visit: No Status: Chronic Qualifiers: Heart failure type: systolic Heart failure chronicity: chronic Qualified Code(s): I50.22 - Chronic systolic (congestive) heart failure (14) Afib Current Visit: No Status: Chronic Qualifiers: Atrial fibrillation type: chronic Qualified Code(s): I48.2 - Chronic atrial fibrillation - Subjective Interval history: Patient seen and examined. No acute events noted overnight. Patient appears more drowsy and lethargic this morning. She does awaken to verbal and tactile stimuli, but falls back to sleep quickly. It is difficult to get her review of systems information from the patient this morning. Currently, she denies any pain or shortness of breath. Denies nausea or vomiting. Appears to have had a bowel movement yesterday per nursing documentation. Infect Dis PN-Objective Data - Labs CBC & Chem 7: 07/17/18 08:56 07/17/18 05:20 Labs: Laboratory Results - last 24 hr 07/15/18 07/15/18 07/15/18 13:36 16:06 16:06 WBC RBC Hgb 10.0 L D Hct 31.5 L MCV MCH MCHC RDW Plt Count MPV Immature Gran % Seg Neutrophils % Lymphocytes % Monocytes % Eosinophils % Basophils % Neutrophils # Lymphocytes # Monocytes # Eosinophils # Basophils # Platelet Estimate Poikilocytosis Anisocytosis Ovalocytes PT 26.4 H INR 2.3 APTT 31.8 Fibrinogen 524 H Sodium Potassium Chloride Carbon Dioxide BUN Creatinine Est GFR ( Amer) Est GFR (Non-Af Amer) BUN/Creatinine Ratio Glucose Calculated Osmolality Calcium Iron % Saturation Transferrin Ferritin Lactate Dehydrogenase 264 Vitamin B12 Folate Vancomycin Trough 07/15/18 07/15/18 07/15/18 16:06 16:06 18:46 WBC RBC Hgb Hct MCV MCH MCHC RDW Plt Count MPV Immature Gran % Seg Neutrophils % Lymphocytes % Monocytes % Eosinophils % Basophils % Neutrophils # Lymphocytes # Monocytes # Eosinophils # Basophils # Platelet Estimate Poikilocytosis Anisocytosis Ovalocytes PT 27.0 H INR 2.4 APTT Fibrinogen 487 H Sodium Potassium Chloride Carbon Dioxide BUN Creatinine Est GFR ( Amer) Est GFR (Non-Af Amer) BUN/Creatinine Ratio Glucose Calculated Osmolality Calcium Iron 15 L % Saturation 7 L Transferrin 163 L Ferritin 284 H Lactate Dehydrogenase Vitamin B12 241 L Folate 12.5 Vancomycin Trough 07/16/18 07/16/18 07/16/18 03:26 03:26 03:26 WBC 52.9 H* RBC 2.72 L Hgb 7.9 L D Hct 24.8 L MCV 91.2 MCH 29.0 MCHC 31.9 RDW 20.8 H Plt Count 127 L MPV TNP Immature Gran % 2.6 Seg Neutrophils % 46.5 Lymphocytes % 7.6 Monocytes % 43.1 Eosinophils % 0.1 Basophils % 0.1 Neutrophils # 24.6 H Lymphocytes # 4.0 Monocytes # 22.8 H Eosinophils # 0.1 Basophils # 0.1 Platelet Estimate Decreased L Poikilocytosis 2+ A Anisocytosis 2+ A Ovalocytes 2+ A PT 22.5 H INR 2.0 APTT Fibrinogen 511 H Sodium 141 Potassium 4.0 Chloride 107 Carbon Dioxide 22 L BUN 30 H Creatinine 0.89 Est GFR ( Amer) > 60 Est GFR (Non-Af Amer) 60 BUN/Creatinine Ratio 34 H Glucose 116 H Calculated Osmolality 299 Calcium 7.8 L Iron % Saturation Transferrin Ferritin Lactate Dehydrogenase Vitamin B12 Folate Vancomycin Trough 4 L Cultures: Cultures 07/15/18 09:29 Legionella Antigen - Final Urine,Clean Catch Streptococcus pneumoniae Antigen (M - Final 07/14/18 22:28 Blood Culture - Preliminary Peripheral Venipuncture Culture is incubating and being continuously monitored for growth. Final report to follow. 07/14/18 22:21 Blood Culture - Preliminary Peripheral Venipuncture Culture is incubating and being continuously monitored for growth. Final report to follow. Serology 07/14/18 07/14/18 Range/Units 22:23 10:17 Urine Color [place] A Dark Yellow (Yellow) Urine Clarity Clear Clear (Clear) Urine pH 5.5 6.0 (5.0-8.0) pH Units Ur Specific [place] 1.029 H 1.018 (1.010-1.025) Urine Protein 30 H 30 H (Neg-Trace) mg/dL Urine Glucose (UA) Normal Normal (Normal) mg/dL Urine Ketones Trace H Negative (Negative) mg/dL Urine Blood Moderate H Small H (Negative) Urine Nitrite Negative Negative (Negative) Urine Bilirubin Small H Negative (Negative) Urine Urobilinogen Normal 2.0 H (Normal) mg/dL Ur Leukocyte Esterase Small H Negative (Negative) Urine Microscopic RBC 50-100 H 5-15 H (0-3) per hpf Urine Microscopic WBC 5-15 H 0-3 (0-3) per hpf Ur Squamous Epith Cells Many H Few (None-Few) per lpf Urine Bacteria Few Few (None-Few) per hpf Hyaline Casts Many H (None-Few) per lpf Urine Mucus Few (Few) Urine Yeast Moderate H (None Seen) per hpf Ur Culture Indicated? NO. A Cancelled - Impressions Impressions Chest CTA 07/15/18 00:00 IMPRESSION: No active arterial extravasation is identified in the soft tissues of the left hemipelvis or surrounding the left hip joint status post recent surgery in the area of recently discovered soft tissue hematoma and postsurgical change. Diffuse atherosclerotic disease is identified without thoracic or abdominal aortic aneurysm or stenosis. 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 There is also suspected bilateral renal artery stenosis measuring 50% to 70% proximally as well, though somewhat difficult to see given the degree of calcification. No pulmonary emboli are identified. The left chest wall/breast mass is again identified as demonstrated on CT imaging earlier today. Heavy mitral valve and annular calcification which can be seen in the setting of mitral valve stenosis. Biatrial enlargement. Small bilateral pleural effusions and cardiomegaly with interlobular septal thickening likely related to mild cardiogenic pulmonary edema. Again identified is biatrial enlargement. Tracheal secretions are noted dependently in the midthoracic trachea. D/ / 07/15/2018 10:51:04 Rajinder Carson MD / morgan Interpreting Provider: Rajinder Carson MD Abdomen/Pelvis CTA 07/15/18 07:24 IMPRESSION: No active arterial extravasation is identified in the soft tissues of the left hemipelvis or surrounding the left hip joint status post recent surgery in the area of recently discovered soft tissue hematoma and postsurgical change. Diffuse atherosclerotic disease is identified without thoracic or abdominal aortic aneurysm or stenosis. 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 There is also suspected bilateral renal artery stenosis measuring 50% to 70% proximally as well, though somewhat difficult to see given the degree of calcification. No pulmonary emboli are identified. The left chest wall/breast mass is again identified as demonstrated on CT imaging earlier today. Heavy mitral valve and annular calcification which can be seen in the setting of mitral valve stenosis. Biatrial enlargement. Small bilateral pleural effusions and cardiomegaly with interlobular septal thickening likely related to mild cardiogenic pulmonary edema. Again identified is biatrial enlargement. Tracheal secretions are noted dependently in the midthoracic trachea. D/ / 07/15/2018 10:51:04 Rajinder Carson MD / morgan Interpreting Provider: Rajinder Carson MD Exam - Constitutional Vitals: Temp Pulse Resp BP Pulse Ox 98.2 F 128 16 81/56 95 07/16/18 07:25 07/16/18 10:00 07/16/18 10:00 07/16/18 10:00 07/16/18 10:00 General appearance: average body habitus, cooperative, no acute distress - Head Head exam: Present: atraumatic, normal inspection, normocephalic - Eye Eye exam: Present: EOMI, normal appearance, PERRL Pupils: Present: normal accommodation - ENT ENT exam: Present: mucous membranes moist Additional comments: Poor dentition noted. - Neck Neck exam: Present: normal inspection - Respiratory Respiratory exam: Present: CTAB. Absent: rales, respiratory distress, rhonchi, wheezes - Cardiovascular Cardiovascular exam: Present: irregular rhythm, tachycardia - GI/Abdominal GI/Abdominal exam: Present: normal bowel sounds, soft. Absent: distended, tenderness Additional comments: Pereira catheter noted to be draining dark clear yellow urine. - Extremities Exam Extremities exam: Present: joint swelling (Mild, left hip), tenderness (Miles, left hip). Absent: normal inspection (Left hip honeycomb dressing moderately saturated with sanguinous drainage. Mild ecchymosis noted surrounding the dressing. No warmth or erythema appreciated.), pedal edema - Neurological Exam Neurological exam: Present: altered (Drowsy, lethargic. Does awaken to verbal and tactile stimuli, but falls back to sleep quickly. Follows most commands. Oriented to person and place only.), no focal deficits (Moves all extremities 4 on command.). Absent: oriented X3 - Psychiatric Psychiatric exam: Present: normal affect, normal mood - Skin Skin exam: Present: dry, intact, normal color, warm Consult Discharge Plan - Plan Referrals: NONE,PCP [Primary Care Provider] - - Attending Attestation I examined this patient and my medical decision-making was reviewed with the Resident Physician. I agree with the documented findings, disposition and treatment plan as described except to the extent set forth below. Assessment and plan: 1.sepsis severe 2.leukocytosis 3.left hip fracture status post fall 4.leukocytosis with monocytosis 5.leukemoid reaction Recommendations: Not sure what caused the patient acute change in mentation, hypoxia, hypotension and lactic acidosis. We will attempt to see if there is a focus of infection we can identify CML on my differential Fact embolism?? d/w heme/onc d/w icu team d/w ortho will monitor closely
[2018-07-16] MEDS: *HR* Digoxin 0.25 MG TABLET PO SCH (11:59)
--- NOTE | 2018-07-16 14:27 | Oncology Inp Progress Note ---
<Mary Cruz L - Last Filed: 07/16/18 18:24> Date of Encounter: 07/16/18 Time of Encounter: 13:30 (1) Anemia Current Visit: Yes Status: Acute Assessment and plan: Mild chronic anemia noted with acute decrease, romel hgb 6.1 today improved to 10 s/p 1 unit PRBC Acute blood loss in setting of post op period with presence of hematoma, vs. sepsis vs. other LDH normal Folate replete Plan: B12 and Iron deficiency noted- start B12 and venofer x1 No s/s bleeding, hematoma as noted above, appreciate further recs per ortho Qualifiers: Anemia type: unspecified type Qualified Code(s): D64.9 - Anemia, unspecified (2) Breast cancer Current Visit: Yes Status: Acute Assessment and plan: Patient reports history of left breast cancer ~20 years ago s/p lumpectomy and radiation She has not had mammogram in several years CT of chest noted left chest wall/breast mass previously noted on imaging on 08/10/2016---describes a lobular lesion of the left breast measuring approximately 5.1 x 3.4 cm in axial plane and 9.4 cm in long axis. Previously this measured 4.0 x 2.5 cm in axial plane and 8.9 cm in long axis as measured in similar fashion Plan: Patient declines breast exam at this time Discuss mammogram with targeted ultrasound as outpatient once clinical condition improves, will continue to monitor hospital course Qualifiers: Breast location: unspecified site of breast Estrogen receptor status: unspecified Patient sex: female Laterality: left Qualified Code(s): C50.912 - Malignant neoplasm of unspecified site of left female breast (3) Leukocytosis Current Visit: Yes Status: Acute Assessment and plan: Chronic leukocytosis with areas of normalization, dating back to April 2016 Acute increase above baseline in postoperative setting, SIRS, ID involved for infectious workup Chronic monocytosis with neutrophilia dating back to 2014, acutely increasing in post operative/sepsis setting No immature forms noted on peripheral smear Spleen noted normal on CT imaging Plan: Suspect underlying infectious/sepsis process contributing to acute leukemoid reaction above baseline 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 other, repeat in AM Qualifiers: Leukocytosis type: unspecified Qualified Code(s): D72.829 - Elevated white blood cell count, unspecified (4) DVT prophylaxis Current Visit: No Status: Acute Assessment and plan: Continue SCD's Given presence of hematoma with anemia and prolonged PT/INR, risk for bleeding outweighs risk for clotting Will continue to monitor labs and patients response before starting prophylaxis Oncology: Subj Interval history: Ms. Jensen is quite drowsy today. She does not parcipate in conversation. When asked, she denies pain. ICU staff feel as though this may be from the effect of ambien/benzodizepines. Her is at bedside. - Constitutional General appearance: no acute distress, no febrile Exam: drowsy, unable to participate in conversation - Head Head exam: Present: atraumatic - ENT ENT exam: Present: mucous membranes moist, normal oropharynx - Respiratory Respiratory exam: Present: decreased breath sounds, CTAB. Absent: respiratory distress - Cardiovascular Cardiovascular exam: Present: irregular rhythm Additional comments: tachycardia at times - GI/Abdominal GI/Abdominal exam: Present: normal bowel sounds, soft. Absent: tenderness - Extremities Exam Extremities exam: Absent: calf tenderness Additional comments: abduction pillow in place - Neurological Exam Neurological exam: Present: altered Additional comments: does not follow commands to assess orientation or strength, mental status appears to wax and wane, she has awoken for family at times to take a sup if drink/bite of applesauce - Psychiatric Additional comments: unable to assess - Skin Additional comments: dressing left hip dry and intact Oncology: Obj Data - Labs CBC & Chem 7: 07/16/18 03:26 07/16/18 03:26 Consult Discharge Plan - Plan Referrals: NONE,PCP [Primary Care Provider] - Inpatient Charges Provider: Dr. Lizeth Ford <Reynaldo Ford - Last Filed: 07/16/18 20:09> Date of Encounter: 07/16/18 Oncology: Obj Data - Labs CBC & Chem 7: 07/16/18 03:26 07/16/18 03:26 Inpatient Charges Provider: Dr. Lizeth Ford Follow up - Inpatient: [id number] - Attending Attestation I examined this patient and my medical decision-making was reviewed with the Advanced Practice Nurse. I agree with the documented findings, disposition and treatment plan as described except to the extent set forth below. Ms. Jensen clinically is improving. Her tachycardia has improved. She remains afebrile. She is somnolent this evening. CBC reveals stability in her hemoglobin. White blood cell count is increased although appears to be plateauing. Discussed her situation with family at bedside. I expect over the next few days her condition to improve. Etiology of her presumed sepsis remains elusive. Continue supportive measures. We will continue to follow blood counts. IV iron today for iron deficiency. No new recommendations.
[2018-07-16] MEDS ORDERED: diazePAM 10 MG/2 ML SYRINGE IVP SCH (18:00)
--- NOTE | 2018-07-16 19:49 | Electrocardiograph Report ---
[address] [place], [place] [address] Test Date: 2018-07-13 Pat Name: Tara Jensen Department: EXAM8 Room: [facility] Gender: F Esl Instructor: : [id number] Requested By: Phillip Chavez Order Number: [id number] Reading MD: Sonia Kuhn Measurements Intervals [place] Rate: 100 P: GA: QRS: 257 QRSD: 148 T: 86 QT: 391 QTc: 505 Interpretive Statements Atrial fibrillation Nonspecific IVCD with LAD Anterior infarct, age indeterminate Electronically Signed On 07-16-2018 19:47:20 EST by Sonia Kuhn
[2018-07-16] MEDS ORDERED: Iron Sucrose Complex 400 MG in 0.9 % Sodium Chloride 250 ML IVPB ONE (20:00)
[2018-07-16] MEDS: diazePAM 10 MG TABLET PO SCH (20:20)
[2018-07-17] MEDS: Piperacillin/Tazobactam 3.375 GM in 0.9 % Sodium Chloride Mini Bag 100 ML IVPB SCH ×3 (05:04→21:57)
[2018-07-17 05:40] LABS: Basophils % 0.1 %; Mean Corpuscular HGB Conc 31.8 g/dL (31.6-35.5); Segmented Neutrophils % 56.1 %
[2018-07-17 05:41] LABS: Eosinophils % 0.1 %; Immature Granulocytes % 1.6 % (0-4); Lymphocytes # 1.1 K/mcL (0.6-4.6); Lymphocytes % 3.5 %; Mean Corpuscular Hemoglobin 29.2 pg (28.0-33.3); Mean Corpuscular Volume 91.7 fL (83.0-100.0); Monocytes % 38.6 %; Neutrophils # 17.5 K/mcL (1.6-8.9); Red Cell Distribution Width 20.7 % (11.5-14.5)
[2018-07-17 05:45] LABS: Prothrombin Time 22.2 Seconds (9.4-12.1)
[2018-07-17 05:48] LABS: Activated Partial Thrombo Time 36.6 Seconds (26.0-36.0)
[2018-07-17 05:56] LABS: Bilirubin,Direct 0.4 mg/dL (0.0-0.2); Bilirubin,Indirect 1.3 mg/dL (0.0-1.2); Bilirubin,Total 1.7 mg/dL (0.3-1.0)
[2018-07-17 05:57] LABS: BUN/Creatinine Ratio 53 (6-26); Blood Urea Nitrogen 40 mg/dL (8-23); Calcium 7.8 mg/dL (8.6-10.3); Carbon Dioxide 25 mEq/L (23-29); Chloride 112 mEq/L (98-107); Glucose 134 mg/dL (70-105); Osmolality,Calculated 304 (280-300); Potassium 4.1 mEq/L (3.5-5.1); Sodium 141 mEq/L (136-145); Vancomycin,Random 7 mcg/mL; eGFR For Non-African Americans > 60 (> 60)
--- NOTE | 2018-07-17 06:16 | Pulmonology Progress Note ---
<Ivan Jorgensen S - Last Filed: 07/17/18 08:01> Date of Encounter: 07/17/18 Time of Encounter: 08:01 Assessment and Plan (1) Sepsis Current Visit: Yes Status: Acute On admission pt met sepsis criteria for WBC of 16.8, HR >90 - currently meets 2/4 SIRS criteria for HR 112, WBC 31.1 - source of infxn is currently not known - may not be due to infxn, maybe underlying CLL/CML UA (+) for ketones, leuk esterase, 5-15 WBC; many epithelial cells likely a contaminated specimen CXR from admission negative for acute cardiopulmonary process; repeat XR chest negative on 07/[address] from 07/14/[address] abdomen/pelvis postsurgical changes seen w surrounding soft tissue swelling and gas 9 cm intramucular hematoma of gluteal/quad femoris mm --> ?active artieral bleed vs perioperative venous ooze soft tissue swelling into the pelvis/left retroperitoneum along piriformis CT chest small b/l pleural effusions, biatrial enlargement negative for PE biliary tree has mild intra/extrahepatic bile dilation, unchanged Plan: - continue abx: vancomycin day 4 and zosyn day 3 - blood cx pending - heme onc consulted, feel this may be underlying CML/CLL plan for outpatient mamgram with targeted ultrasound - infectious disease consulted - plan to transfer out of ICU today Qualifiers: Sepsis type: sepsis due to unspecified organism Qualified Code(s): A41.9 - Sepsis, unspecified organism (2) Dysphagia Current Visit: Yes Status: Acute Pt having trouble swallowing at times and poor PO intake. Speech consulted, recommends thickened liquids and nectar. Pt tolerating diet. Qualifiers: Dysphagia type: unspecified Qualified Code(s): R13.10 - Dysphagia, uns pecified (3) Benzodiazepine withdrawal Current Visit: Yes Status: Resolved Suspected. As per night resident notes, the pt experienced shaking like activity on 07/15/18. She takes BZ at home and was apperently not taking them here. BZ withdrawal vs post-operative malignant hyperthermia vs seizure. - symptoms decreased after ativan - overnight she was given vancomycin, zosyn, fluid bolus STAT head CT was negative CXR negative Plan: - d/c CIWA protocol - resume home valium Qualifiers: Complication of substance-induced condition: with unspecified complication Qualified Code(s): F13.239 - Sedative, hypnotic or anxiolytic dependence with withdrawal, unspecified (4) Breast cancer Current Visit: Yes Status: Acute Pt has hx of breast cancer in the past - CT findings do show an increased left chest wall/breast mass Heme-onc is consulted. Pt declined breast exam yesterday. Heme onc to plan outpt targeted ultrasound. Qualifiers: Breast location: unspecified site of breast Estrogen receptor status: unspecified Patient sex: female Laterality: left Qualified Code(s): C50.912 - Malignant neoplasm of unspecified site of left female breast (5) Anemia Current Visit: Yes Status: Acute Pt presented with hemoglobin 11.6, around her baseline of 10-11 - dropped to 9.3 and continued to trend down to 7.9 ---> 7.4 --> 7.5 ---> 7.9 - hemoglobin 7.[address] scan of abdomen/pelvis 07/15/18 showed a 9cm intramuscular hematoma involving the gluteal and quadratus femoris mm - active arterial extravascation vs perioperative venous ooze CT angiogram negative for acute extravascation Plan: - continue to monitor for active bleeding - hold anticoagulants, SCD in place - monitor H&H, pending for 0800 Qualifiers: Anemia type: unspecified type Qualified Code(s): D64.9 - Anemia, unspecified (6) Elevated troponin Current Visit: Yes Status: Acute Troponin peaked at 0.08 - likely type 2 demand ischeia from sepsis (7) Lactic acidosis Current Visit: Yes Status: Acute Lactate 6.5 improved to 3.1 (8) Constipation Current Visit: No Status: Chronic On docusante. Qualifiers: Constipation type: unspecified constipation type Qualified Code(s): K59.00 - Constipation, unspecified (9) Anxiety Current Visit: No Status: Chronic Resume home valium. (10) Femoral neck fracture Current Visit: Yes Status: Acute XR on admission showed subcapital left femoral neck fx with superior displacement - POD #3 s/p left hip hemiarthoplasty - tolerated procedure well - PTOT consulted Qualifiers: Encounter type: initial encounter Fracture type: closed Laterality: left Qualified Code(s): S72.002A - Fracture of unspecified part of neck of left femur, initial encounter for closed fracture (11) Leukocytosis Current Visit: Yes Status: Acute Leukotyosis of 31.1. Source of infxn unknown. See plan as above. Qualifiers: Leukocytosis type: unspecified Qualified Code(s): D72.829 - Elevated white blood cell count, unspecified (12) Afib Current Visit: No Status: Chronic Hx of a fib on toprol XL and xarelto at home. AC currently held due to anemia. Qualifiers: Atrial fibrillation type: chronic Qualified Code(s): I48.2 - Chronic atrial fibrillation (13) CHF (congestive heart failure) Current Visit: No Status: Chronic NOT in acute exacerbation. Pt has systolic heart failure. ECHO showed LVEF 40- 45%, LVH, dilated LA, MR/TR and pHTN Qualifiers: Heart failure type: systolic Heart failure chronicity: chronic Qualified Code(s): I50.22 - Chronic systolic (congestive) heart failure (14) DVT prophylaxis Current Visit: Yes Status: Acute scd (15) Hematoma Current Visit: Yes Status: Acute CT abdomen and pelvis shows a 9cm intra-muscular hematoma in the left hip, retroperitoneum, and pelvis. CTA negative for arterial extravasation. Orthopedics did say that this is a normal postoperative change. Subjective Principal diagnosis: femoral fx, sepsis of unknown origin Interval history: Pt is seen at bedside. She is easily arousable but quite confused. Pt is in no acute distress. No acute overnight events. Objective PUL Vital signs: Last Vital Signs Temp 98.2 F 07/17/18 03:00 Pulse 111 07/17/18 06:01 Resp 20 07/17/18 06:01 BP 100/59 07/17/18 06:01 Pulse Ox 99 07/17/18 06:01 General appearance: no acute distress Eyes: nonicteric ENT: oropharynx dry Effort: normal Auscultation: bilateral: diminished breath sounds Cardiovascular: other (tacycardia) Gastrointestinal: soft, non-tender, non-distended Integumentary: normal Extremities: no edema Musculoskeletal: joint tenderness unable to assess due to mental status anxious Results - Laboratory Findings CBC and BMP: 07/17/18 05:20 07/17/18 05:20 ABG ABG pH 7.48 pH Units (7.32-7.45) H 07/14/18 20:53 ABG pCO2 32 mmHg (35-45) L 07/14/18 20:53 ABG pO2 161 mmHg (85-104) H 07/14/18 20:53 ABG O2 Saturation 100 % (95-98) H 07/14/18 20:53 PT/INR, D-dimer PT 22.2 Seconds (9.4-12.1) H 07/17/18 05:20 Abnormal lab findings: Abnormal lab results WBC 52.9 K/mcL (4.3-11.1) H* 07/16/18 03:26 RBC 2.72 M/mcL (3.82-4.97) L 07/16/18 03:26 Hgb 7.9 g/dL (11.5-15.4) L D 07/16/18 03:26 Hct 24.8 % (35.3-44.9) L 07/16/18 03:26 RDW 20.8 % (11.5-14.5) H 07/16/18 03:26 Plt Count 127 K/mcL (140-400) L 07/16/18 03:26 Neutrophils # 24.6 K/mcL (1.6-8.9) H 07/16/18 03:26 Monocytes # 22.8 K/mcL (0.0-1.3) H 07/16/18 03:26 Nucleated RBCs/100 WBC 0.1 /100 WBC (0) H 07/14/18 21:05 Platelet Estimate Decreased (Normal) L 07/16/18 03:26 Large Platelets Present (Not Present) A 07/13/18 09:41 Immature Plt Fraction 16.7 % (1.1-6.1) H 07/14/18 05:38 Polychromasia 1+ (Not Present) A 07/15/18 07:58 Poikilocytosis 2+ (Not Present) A 07/16/18 03:26 Anisocytosis 2+ (Not Present) A 07/16/18 03:26 Microcytosis Present (Not Present) A 07/14/18 05:38 Tear Drop Cells 1+ (Not Present) A 07/13/18 09:41 Ovalocytes 2+ (Not Present) A 07/16/18 03:26 Acanthocytes (Spur) 1+ (Not Present) A 07/14/18 21:05 Schistocytes 1+ (Not Present) A 07/13/18 09:41 PT 22.2 Seconds (9.4-12.1) H 07/17/18 05:20 APTT 36.6 Seconds (26.0-36.0) H 07/17/18 05:20 Fibrinogen 511 mg/dL (169-393) H 07/16/18 03:26 Heparin Anti-Xa, Unfract 0.04 IU/mL (0.30-0.70) L 07/14/18 14:31 ABG pH 7.48 pH Units (7.32-7.45) H 07/14/18 20:53 ABG pCO2 32 mmHg (35-45) L 07/14/18 20:53 ABG pO2 161 mmHg (85-104) H 07/14/18 20:53 ABG O2 Saturation 100 % (95-98) H 07/14/18 20:53 Chloride 112 mEq/L (98-107) H 07/17/18 05:20 BUN 40 mg/dL (8-23) H 07/17/18 05:20 BUN/Creatinine Ratio 53 (6-26) H 07/17/18 05:20 Glucose 134 mg/dL (70-105) H 07/17/18 05:20 POC Glucose 139 mg/dL (70-99) H 07/14/18 21:37 Calculated Osmolality 304 (280-300) H 07/17/18 05:20 Lactic Acid 3.1 mmol/L (0.5-2.2) H 07/15/18 02:29 Calcium 7.8 mg/dL (8.6-10.3) L 07/17/18 05:20 Iron 15 mcg/dL (50-170) L 07/15/18 16:06 % Saturation 7 % (15-50) L 07/15/18 16:06 Transferrin 163 mg/dL (203-362) L 07/15/18 16:06 Ferritin 284 ng/mL (10-120) H 07/15/18 16:06 Total Bilirubin 1.7 mg/dL (0.3-1.0) H 07/17/18 05:20 Direct Bilirubin 0.4 mg/dL (0.0-0.2) H 07/17/18 05:20 Indirect Bilirubin 1.3 mg/dL (0.0-1.2) H 07/17/18 05:20 Alkaline Phosphatase 30 Units/L (34-104) L 07/15/18 09:30 Troponin I 0.08 ng/mL (< 0.04) H* 07/15/18 02:29 Serum Total Protein 4.1 g/dL (6.4-8.9) L 07/15/18 09:30 Albumin 2.7 g/dL (3.5-5.7) L 07/15/18 09:30 Globulin 1.4 g/dL (2.4-3.5) L 07/15/18 09:30 Lipase < 3 Units/L (11-82) L 07/15/18 00:21 Vitamin B12 241 pg/mL (250-1100) L 07/15/18 16:06 Urine Color [place] (Yellow) A 07/14/18 22:23 Ur Specific [place] 1.029 (1.010-1.025) H 07/14/18 22:23 Urine Protein 30 mg/dL (Neg-Trace) H 07/14/18 22:23 Urine Ketones Trace mg/dL (Negative) H 07/14/18 22:23 Urine Blood Moderate (Negative) H 07/14/18 22:23 Urine Bilirubin Small (Negative) H 07/14/18 22:23 Ur Leukocyte Esterase Small (Negative) H 07/14/18 22:23 Urine Microscopic RBC 50-100 per hpf (0-3) H 07/14/18 22:23 Urine Microscopic WBC 5-15 per hpf (0-3) H 07/14/18 22:23 Ur Squamous Epith Cells Many per lpf (None-Few) H 07/14/18 22:23 Hyaline Casts Many per lpf (None-Few) H 07/14/18 22:23 Urine Yeast Moderate per hpf (None Seen) H 07/14/18 22:23 Ur Culture Indicated? NO. (NO) A 07/14/18 22:23 Vancomycin Trough 4 mcg/mL (5-10) L 07/16/18 03:26 - Microbiology Findings Microbiology Findings: Microbiology, Last 48 Hours 07/15/18 09:29 Legionella Antigen - Final Urine,Clean Catch Streptococcus pneumoniae Antigen (M - Final - Clinical Findings Intake & Output: Intake & Output 07/16/18 07/16/18 07/17/18 15:59 23:59 07:59 Intake Total 120 / 120 420 / 420 100 / 100 Output Total 120 / 120 250 / 250 200 / 200 Balance 0 / 0 170 / 170 -100 / -100 Weight 60.4 kg Consult Discharge Plan - Plan Referrals: NONE,PCP [Primary Care Provider] - <Adriana Issa - Last Filed: 07/20/18 08:31> Date of Encounter: 07/20/18 Objective PUL Vital signs: Last Vital Signs Temp 98.3 F 07/17/18 07:40 Pulse 100 07/17/18 09:00 Resp 16 07/17/18 09:00 BP 88/64 07/17/18 09:00 Pulse Ox 98 07/17/18 09:00 Results - Laboratory Findings CBC and BMP: 07/20/18 05:28 07/20/18 05:28 ABG ABG pH 7.48 pH Units (7.32-7.45) H 07/14/18 20:53 ABG pCO2 32 mmHg (35-45) L 07/14/18 20:53 ABG pO2 161 mmHg (85-104) H 07/14/18 20:53 ABG O2 Saturation 100 % (95-98) H 07/14/18 20:53 PT/INR, D-dimer PT 22.2 Seconds (9.4-12.1) H 07/17/18 05:20 Abnormal lab findings: Abnormal lab results WBC 31.1 K/mcL (4.3-11.1) H* 07/17/18 05:20 RBC 2.40 M/mcL (3.82-4.97) L 07/17/18 05:20 Hgb 7.1 g/dL (11.5-15.4) L 07/17/18 08:56 Hct 21.4 % (35.3-44.9) L 07/17/18 08:56 RDW 20.7 % (11.5-14.5) H 07/17/18 05:20 Plt Count 75 K/mcL (140-400) L 07/17/18 05:20 Neutrophils # 17.5 K/mcL (1.6-8.9) H 07/17/18 05:20 Monocytes # 12.0 K/mcL (0.0-1.3) H 07/17/18 05:20 Nucleated RBCs/100 WBC 0.1 /100 WBC (0) H 07/14/18 21:05 Platelet Estimate Slight Decrease (Normal) L 07/17/18 05:20 Large Platelets Present (Not Present) A 07/13/18 09:41 Immature Plt Fraction 16.7 % (1.1-6.1) H 07/14/18 05:38 Polychromasia 1+ (Not Present) A 07/15/18 07:58 Poikilocytosis 1+ (Not Present) A 07/17/18 05:20 Anisocytosis 2+ (Not Present) A 07/17/18 05:20 Microcytosis Present (Not Present) A 07/17/18 05:20 Tear Drop Cells 1+ (Not Present) A 07/13/18 09:41 Ovalocytes 3+ (Not Present) A 07/17/18 05:20 Acanthocytes (Spur) 1+ (Not Present) A 07/14/18 21:05 Schistocytes 1+ (Not Present) A 07/13/18 09:41 PT 22.2 Seconds (9.4-12.1) H 07/17/18 05:20 APTT 36.6 Seconds (26.0-36.0) H 07/17/18 05:20 Fibrinogen 511 mg/dL (169-393) H 07/16/18 03:26 Heparin Anti-Xa, Unfract 0.04 IU/mL (0.30-0.70) L 07/14/18 14:31 ABG pH 7.48 pH Units (7.32-7.45) H 07/14/18 20:53 ABG pCO2 32 mmHg (35-45) L 07/14/18 20:53 ABG pO2 161 mmHg (85-104) H 07/14/18 20:53 ABG O2 Saturation 100 % (95-98) H 07/14/18 20:53 Chloride 112 mEq/L (98-107) H 07/17/18 05:20 BUN 40 mg/dL (8-23) H 07/17/18 05:20 BUN/Creatinine Ratio 53 (6-26) H 07/17/18 05:20 Glucose 134 mg/dL (70-105) H 07/17/18 05:20 POC Glucose 139 mg/dL (70-99) H 07/14/18 21:37 Calculated Osmolality 304 (280-300) H 07/17/18 05:20 Lactic Acid 3.1 mmol/L (0.5-2.2) H 07/15/18 02:29 Calcium 7.8 mg/dL (8.6-10.3) L 07/17/18 05:20 Iron 15 mcg/dL (50-170) L 07/15/18 16:06 % Saturation 7 % (15-50) L 07/15/18 16:06 Transferrin 163 mg/dL (203-362) L 07/15/18 16:06 Ferritin 284 ng/mL (10-120) H 07/15/18 16:06 Total Bilirubin 1.7 mg/dL (0.3-1.0) H 07/17/18 05:20 Direct Bilirubin 0.4 mg/dL (0.0-0.2) H 07/17/18 05:20 Indirect Bilirubin 1.3 mg/dL (0.0-1.2) H 07/17/18 05:20 Alkaline Phosphatase 30 Units/L (34-104) L 07/15/18 09:30 Troponin I 0.08 ng/mL (< 0.04) H* 07/15/18 02:29 Serum Total Protein 4.1 g/dL (6.4-8.9) L 07/15/18 09:30 Albumin 2.7 g/dL (3.5-5.7) L 07/15/18 09:30 Globulin 1.4 g/dL (2.4-3.5) L 07/15/18 09:30 Lipase < 3 Units/L (11-82) L 07/15/18 00:21 Vitamin B12 241 pg/mL (250-1100) L 07/15/18 16:06 Urine Color [place] (Yellow) A 07/14/18 22:23 Ur Specific [place] 1.029 (1.010-1.025) H 07/14/18 22:23 Urine Protein 30 mg/dL (Neg-Trace) H 07/14/18 22:23 Urine Ketones Trace mg/dL (Negative) H 07/14/18 22:23 Urine Blood Moderate (Negative) H 07/14/18 22:23 Urine Bilirubin Small (Negative) H 07/14/18 22:23 Ur Leukocyte Esterase Small (Negative) H 07/14/18 22:23 Urine Microscopic RBC 50-100 per hpf (0-3) H 07/14/18 22:23 Urine Microscopic WBC 5-15 per hpf (0-3) H 07/14/18 22:23 Ur Squamous Epith Cells Many per lpf (None-Few) H 07/14/18 22:23 Hyaline Casts Many per lpf (None-Few) H 07/14/18 22:23 Urine Yeast Moderate per hpf (None Seen) H 07/14/18 22:23 Ur Culture Indicated? NO. (NO) A 07/14/18 22:23 Vancomycin Trough 4 mcg/mL (5-10) L 07/16/18 03:26 - Microbiology Findings Microbiology Findings: Microbiology, Last 48 Hours 07/15/18 09:29 Legionella Antigen - Final Urine,Clean Catch Streptococcus pneumoniae Antigen (M - Final - Clinical Findings Intake & Output: Intake & Output 07/16/18 07/17/18 07/17/18 23:59 07:59 15:59 Intake Total 420 / 420 100 / 100 140 / 140 Output Total 250 / 250 300 / 300 100 / 100 Balance 170 / 170 -200 / -200 40 / 40 Weight 60.4 kg - Attending Attestation I examined this patient and my medical decision-making was reviewed with the Resident Physician. I agree with the documented findings, disposition and treatment plan as described except to the extent set forth below. Patient seen and examined. Labs, radiology, chart personally reviewed. Agree with resident's history and physical, assessment, plan with following comments: FINANCIAL SOLUTIONS ADVISOR: Patient follows commands, Pulmonary: Acceptable oxygenation and ventilation Cardiovascular: A.fib and treat for rate control. Risk of bleeding is contraindication for full anticaogulation GI: Nutrition per dietary and GI prophylaxis per routine Heme: DVT prophylaxis per routine and hematology evaluating patient and prognosis is poor and monitor H&H and transfusion as needed ID: Continue antibiotics and plan to de-escalation. Antibiotics defer to ID team Renal; urine out put and renal funtion reviewed Endorcine: blood glucose is monitored Lines: all lines checked and no evidence of infections Skin: skin care to prevent pressure ulcers per nursing routine care Family at bedside and they're updated Transfer to the floor
[2018-07-17 06:21] LABS: Platelet Count 75 K/mcL (140-400)
[2018-07-17 06:23] LABS: Anisocytosis 2+ (Not Present)
[2018-07-17 06:24] LABS: Ovalocytes 3+ (Not Present); Poikilocytosis 1+ (Not Present)
[2018-07-17 06:25] LABS: Microcytosis Present (Not Present); Platelet Estimate Slight Decrease (Normal)
[2018-07-17] MEDS: Metoprolol XL (24 HR) Succ 50 MG TAB.ER.24H PO SCH (07:33)
[2018-07-17] MEDS: Cholecalciferol (D-3) 1,000 UNIT TABLET PO SCH (07:33)
[2018-07-17] MEDS: *HR* Digoxin 0.25 MG TABLET PO SCH (07:33)
[2018-07-17] MEDS: OXYCODONE Oral CONC 10 MG/0.5 ML ORAL.SYG SL PRN (07:34)
[2018-07-17] MEDS ORDERED: Cyanocobalamin (B-12) 1,000 MCG/ML VIAL SQ SCH (09:00)
[2018-07-17 09:11] LABS: Hematocrit 21.4 % (35.3-44.9); Hemoglobin 7.1 g/dL (11.5-15.4)
--- NOTE | 2018-07-17 10:27 | Infectious Disease Progress No ---
Date of Encounter: 07/17/18 Time of Encounter: 09:30 - Assessment and Plan (1) SIRS (systemic inflammatory response syndrome) Current Visit: Yes Status: Acute The patient had four SIRS criteria plus hypotension post-op. No infectious source identified. Consider non-infectious etiologies: fat embolism vs. left hip hematoma vs. anesthesia reaction vs. malignany vs. other. Continues to have leukocytosis, but trending down. Tachycardia has resolved. Blood pressure is stable. CT chest negative for PNA. CT abdomen and pelvis negative for acute infectious abnormality. CT head negative. Urinalysis was negative. Peripheral smear negative. Blood cultures drawn 07/14/18 are NGTD x 2 sets. Recommendation: Await blood cultures. Check urine for lipids. --> pending. Specimen was not collected. Discussed with nursing. Check procalcitonin. --> pending Trend lactic acid. Anemia management per the primary team. Consider GI to evaluate for elevated bilirubin and elevated INR. Left breast mass and monocytosis workup per the Hem/Onc team. Surgical site/hematoma management per the ortho team. Continue Vancomycin IV. Pharmacy to dose. Goal trough ~15. Continue Zosyn 3.375 grams IV Q8H. Duration of treatment depends on the clinical picture. Monitor renal function and for drug toxicity and dose-adjust antibiotics. (2) Leukocytosis Current Visit: Yes Status: Acute WBC elevated with monocytosis. Leukemoid reaction with WBC >50,000 with monocytosis. Improved today. Etiology unclear. Consider non-infectious sources : malignancy vs. other. Hem/Onc consulted and following. Appreciate recommendations. Qualifiers: Leukocytosis type: unspecified Qualified Code(s): D72.829 - Elevated white blood cell count, unspecified (3) Encephalopathy acute Current Visit: Yes Status: Acute Etiology unclear: fat embolism vs. anesthesia reaction vs. other. CT head negative. Appears improved. Continue to monitor closely. (4) Benzodiazepine withdrawal Current Visit: Yes Status: Resolved Was off valium x 3 days. Home dose of valium re-started by the primary team. Qualifiers: Complication of substance-induced condition: with unspecified complication Qualified Code(s): F13.239 - Sedative, hypnotic or anxiolytic dependence with withdrawal, unspecified (5) Intramuscular hematoma Current Visit: Yes Status: Acute CT abdomen and pelvis shows a 9cm intra-muscular hematoma in the left hip, retroperitoneum, and pelvis. CTA negative for arterial extravasation. Likely secondary to recent surgery and hypercoagulable state (INR 1.3 on admission, 3.2 post-op) and heparin. Consider IR to evaluate for drainage, but will defer to the orthopedics team. Management per the ortho team. (6) Left displaced femoral neck fracture Current Visit: Yes Status: Acute Status post left hip hemiarthroplasty 07/14/[address] Christy. (7) Thrombocytopenia Current Visit: Yes Status: Acute Noted initially on admission. Platelets down to 75 today. Etiology: Unclear. Further workup and management per the heme/onc team. (8) Elevated troponin Current Visit: Yes Status: Acute (9) Lactic acidosis Current Visit: Yes Status: Acute Etiology unclear. Improved. Continue to trend. (10) Constipation Current Visit: No Status: Resolved Bowel regimen per the primary team. Qualifiers: Constipation type: unspecified constipation type Qualified Code(s): K59.00 - Constipation, unspecified (11) Anemia Current Visit: Yes Status: Acute Hgb improved to 7. Management per the primary team. Qualifiers: Anemia type: unspecified type Qualified Code(s): D64.9 - Anemia, unspecifi ed (12) LBBB (left bundle branch block) Current Visit: Yes Status: Acute (13) CHF (congestive heart failure) Current Visit: No Status: Chronic Qualifiers: Heart failure type: systolic Heart failure chronicity: chronic Qualified Code(s): I50.22 - Chronic systolic (congestive) heart failure (14) Afib Current Visit: No Status: Chronic Rate controlled at this time. Qualifiers: Atrial fibrillation type: chronic Qualified Code(s): I48.2 - Chronic atrial fibrillation - Subjective Interval history: Patient seen and examined. No acute events noted overnight. Patient appears more awake this morning, but very delayed in answering questions. She does awaken to verbal and tactile stimuli. It is difficult to get her review of systems information from the patient this morning. Currently, she denies any pain or shortness of breath. Denies nausea or vomiting. Appears to have had a bowel movement yesterday per nursing documentation. Infect Dis PN-Objective Data - Labs CBC & Chem 7: 07/18/18 05:34 07/18/18 05:34 Labs: Laboratory Results - last 24 hr 07/14/18 07/17/18 07/17/18 20:44 05:20 05:20 WBC RBC Hgb Hct MCV MCH MCHC RDW Plt Count MPV Immature Gran % Seg Neutrophils % Lymphocytes % Monocytes % Eosinophils % Basophils % Neutrophils # Lymphocytes # Monocytes # Eosinophils # Basophils # Platelet Estimate Poikilocytosis Anisocytosis Microcytosis Ovalocytes PT 22.2 H INR 2.0 APTT 36.6 H Sodium Potassium Chloride Carbon Dioxide BUN Creatinine Est GFR ( Amer) Est GFR (Non-Af Amer) BUN/Creatinine Ratio Glucose POC Glucose 124 H Calculated Osmolality Calcium Total Bilirubin Direct Bilirubin Indirect Bilirubin Ammonia 51 Random Vancomycin 07/17/18 07/17/18 07/17/18 05:20 05:20 05:20 WBC 31.1 H* RBC 2.40 L Hgb 7.0 L Hct 22.0 L MCV 91.7 MCH 29.2 MCHC 31.8 RDW 20.7 H Plt Count 75 L MPV TNP Immature Gran % 1.6 Seg Neutrophils % 56.1 Lymphocytes % 3.5 Monocytes % 38.6 Eosinophils % 0.1 Basophils % 0.1 Neutrophils # 17.5 H Lymphocytes # 1.1 Monocytes # 12.0 H Eosinophils # 0.0 Basophils # 0.0 Platelet Estimate Slight Decrease L Poikilocytosis 1+ A Anisocytosis 2+ A Microcytosis Present A Ovalocytes 3+ A PT INR APTT Sodium 141 Potassium 4.1 Chloride 112 H Carbon Dioxide 25 BUN 40 H Creatinine 0.75 Est GFR ( Amer) > 60 Est GFR (Non-Af Amer) > 60 BUN/Creatinine Ratio 53 H Glucose 134 H POC Glucose Calculated Osmolality 304 H Calcium 7.8 L Total Bilirubin 1.7 H Direct Bilirubin 0.4 H Indirect Bilirubin 1.3 H Ammonia Random Vancomycin 7 07/17/18 08:56 WBC RBC Hgb 7.1 L Hct 21.4 L MCV MCH MCHC RDW Plt Count MPV Immature Gran % Seg Neutrophils % Lymphocytes % Monocytes % Eosinophils % Basophils % Neutrophils # Lymphocytes # Monocytes # Eosinophils # Basophils # Platelet Estimate Poikilocytosis Anisocytosis Microcytosis Ovalocytes PT INR APTT Sodium Potassium Chloride Carbon Dioxide BUN Creatinine Est GFR ( Amer) Est GFR (Non-Af Amer) BUN/Creatinine Ratio Glucose POC Glucose Calculated Osmolality Calcium Total Bilirubin Direct Bilirubin Indirect Bilirubin Ammonia Random Vancomycin Cultures: Cultures 07/15/18 09:29 Legionella Antigen - Final Urine,Clean Catch Streptococcus pneumoniae Antigen (M - Final 07/14/18 22:28 Blood Culture - Preliminary Peripheral Venipuncture Culture is incubating and being continuously monitored for growth. Final report to follow. 07/14/18 22:21 Blood Culture - Preliminary Peripheral Venipuncture Culture is incubating and being continuously monitored for growth. Final report to follow. Serology 07/14/18 07/14/18 Range/Units 22:23 10:17 Urine Color [place] A Dark Yellow (Yellow) Urine Clarity Clear Clear (Clear) Urine pH 5.5 6.0 (5.0-8.0) pH Units Ur Specific [place] 1.029 H 1.018 (1.010-1.025) Urine Protein 30 H 30 H (Neg-Trace) mg/dL Urine Glucose (UA) Normal Normal (Normal) mg/dL Urine Ketones Trace H Negative (Negative) mg/dL Urine Blood Moderate H Small H (Negative) Urine Nitrite Negative Negative (Negative) Urine Bilirubin Small H Negative (Negative) Urine Urobilinogen Normal 2.0 H (Normal) mg/dL Ur Leukocyte Esterase Small H Negative (Negative) Urine Microscopic RBC 50-100 H 5-15 H (0-3) per hpf Urine Microscopic WBC 5-15 H 0-3 (0-3) per hpf Ur Squamous Epith Cells Many H Few (None-Few) per lpf Urine Bacteria Few Few (None-Few) per hpf Hyaline Casts Many H (None-Few) per lpf Urine Mucus Few (Few) Urine Yeast Moderate H (None Seen) per hpf Ur Culture Indicated? NO. A Cancelled Exam - Constitutional Vitals: Temp Pulse Resp BP Pulse Ox 98.3 F 100 16 88/64 98 07/17/18 07:40 07/17/18 09:00 07/17/18 09:00 07/17/18 09:00 07/17/18 09:00 General appearance: average body habitus, cooperative, no acute distress - Head Head exam: Present: atraumatic, normal inspection, normocephalic - Eye Eye exam: Present: normal appearance, PERRL Pupils: Present: normal accommodation - ENT ENT exam: Present: mucous membranes dry - Neck Neck exam: Present: normal inspection - Respiratory Respiratory exam: Present: CTAB. Absent: rales, respiratory distress, rhonchi, wheezes - Cardiovascular Cardiovascular exam: Present: +S1, +S2. Absent: irregular rhythm, tachycardia - GI/Abdominal GI/Abdominal exam: Present: normal bowel sounds, soft. Absent: distended, tenderness Additional comments: Pereira catheter noted to be draining clear yellow urine. - Extremities Exam Extremities exam: Present: tenderness (Mild, left hip). Absent: normal inspection (Left hip surgical site with honeycomb dressing with moderate amount of sanguinous drainage. Mild ecchymosis noted surrounding the site. No erythema or warmth.), pedal edema - Neurological Exam Neurological exam: Present: altered (Responsive, but somewhat lethargic.), no focal deficits (Moves all extremities 4 on command). Absent: oriented X3 (Oriented to person and place.) - Psychiatric Psychiatric exam: Present: normal affect, normal mood - Skin Skin exam: Present: dry, intact, pallor, warm Consult Discharge Plan - Plan Referrals: NONE,PCP [Primary Care Provider] - - Attending Attestation I have personally performed a face to face evaluation on this patient. I have reviewed and agree with the care plan. History and Exam by me shows: Assessment and plan: 1.sepsis severe 2.leukocytosis 3.left hip fracture status post fall 4.leukocytosis with monocytosis 5.leukemoid reaction Recommendations: Not sure what caused the patient acute change in mentation, hypoxia, hypotension and lactic acidosis. We will attempt to see if there is a focus of infection we can identify CML on my differential Fat embolism?? d/w heme/onc d/w icu team d/w ortho will monitor closely
--- NOTE | 2018-07-17 14:38 | Orthopedics Progress Note ---
Date of Encounter: 07/17/18 Time of Encounter: 08:00 - Assessment and Plan (1) Left displaced femoral neck fracture Current Visit: Yes Status: Acute Subjective Principal diagnosis: femoral fx, sepsis of unknown origin Interval history: POD#3 s/p Left hip hemiarthroplasty. No new ortho issues. Plan for transfer out of ICU today. Patient drowsy, responds to questions Dressing with minimal saturation or ecchymosis Spontaneously moving lower extremity Expected postop changes seen on imaging Continue current management per ICU with heme/onc and ID recs Posterior hip precautions PT/OT F/u in 2 weeks with ortho Objective Vital signs: Vital Signs Temp Pulse Resp BP Pulse Ox 07/17/18 13:00 103 16 87/68 98 07/17/18 12:00 114 16 100/76 100 07/17/18 11:01 104 16 91/73 100 07/17/18 11:00 100 07/17/18 10:59 98.0 F 07/17/18 10:00 112 16 117/58 98 07/17/18 09:00 100 16 88/64 98 07/17/18 08:00 90 14 90/69 98 07/17/18 07:40 98.3 F 07/17/18 07:00 112 16 111/73 98 07/17/18 06:01 111 20 100/59 99 07/17/18 05:00 110 20 112/55 98 07/17/18 04:00 114 17 110/75 100 07/17/18 03:00 98.2 F 119 15 115/69 100 07/17/18 02:25 111 07/17/18 02:13 123 15 93/81 95 07/17/18 01:00 115 15 116/76 97 07/17/18 00:09 113 16 100/55 97 07/16/18 23:00 100.4 F H 105 17 126/53 100 07/16/18 22:00 104 14 101/83 98 07/16/18 21:00 106 16 100/66 98 07/16/18 20:00 116 16 112/69 96 07/16/18 19:56 99.9 F H 07/16/18 19:00 99 14 88/50 97 07/16/18 18:00 107 14 97/63 98 07/16/18 17:00 110 14 106/55 98 07/16/18 16:00 108 14 100/58 98 07/16/18 15:21 97 07/16/18 15:00 99 F 99 14 89/61 98 Intake and Output 07/16/18 07/17/18 07/17/18 23:59 07:59 15:59 Intake Total 420 / 420 100 / 100 240 / 240 Output Total 250 / 250 300 / 300 200 / 200 Balance 170 / 170 -200 / -200 40 / 40 Intake: IV Fluids 370 / 370 100 / 100 100 / 100 Venofer 400 MG In 0.9 % Sodium 270 / 270 Chloride 250 ML @ 120 mls/hr IVPB ONCE ONE Rx#:[id number] Zosyn 3.375 GM In 0.9 % Sodium 100 / 100 100 / 100 100 / 100 Chloride (Mini-Bag +) 100 ML @ 25 mls/hr IVPB Q8H [facility] Rx#: [id number] Oral 50 / 50 140 / 140 Output: Urine 150 / 150 Catheter 100 / 100 300 / 300 200 / 200 Other: Meal Breakfast Percent of Meal Consumed 40% Stool Size Small Stool Consistency soft Weight 60.4 kg - Labs CBC & BMP: 07/17/18 08:56 07/17/18 05:20 Labs: Abnormal lab results WBC 31.1 K/mcL (4.3-11.1) H* 07/17/18 05:20 RBC 2.40 M/mcL (3.82-4.97) L 07/17/18 05:20 Hgb 7.1 g/dL (11.5-15.4) L 07/17/18 08:56 Hct 21.4 % (35.3-44.9) L 07/17/18 08:56 RDW 20.7 % (11.5-14.5) H 07/17/18 05:20 Plt Count 75 K/mcL (140-400) L 07/17/18 05:20 Neutrophils # 17.5 K/mcL (1.6-8.9) H 07/17/18 05:20 Monocytes # 12.0 K/mcL (0.0-1.3) H 07/17/18 05:20 Nucleated RBCs/100 WBC 0.1 /100 WBC (0) H 07/14/18 21:05 Platelet Estimate Slight Decrease (Normal) L 07/17/18 05:20 Large Platelets Present (Not Present) A 07/13/18 09:41 Immature Plt Fraction 16.7 % (1.1-6.1) H 07/14/18 05:38 Polychromasia 1+ (Not Present) A 07/15/18 07:58 Poikilocytosis 1+ (Not Present) A 07/17/18 05:20 Anisocytosis 2+ (Not Present) A 07/17/18 05:20 Microcytosis Present (Not Present) A 07/17/18 05:20 Tear Drop Cells 1+ (Not Present) A 07/13/18 09:41 Ovalocytes 3+ (Not Present) A 07/17/18 05:20 Acanthocytes (Spur) 1+ (Not Present) A 07/14/18 21:05 Schistocytes 1+ (Not Present) A 07/13/18 09:41 PT 22.2 Seconds (9.4-12.1) H 07/17/18 05:20 APTT 36.6 Seconds (26.0-36.0) H 07/17/18 05:20 Fibrinogen 511 mg/dL (169-393) H 07/16/18 03:26 Heparin Anti-Xa, Unfract 0.04 IU/mL (0.30-0.70) L 07/14/18 14:31 ABG pH 7.48 pH Units (7.32-7.45) H 07/14/18 20:53 ABG pCO2 32 mmHg (35-45) L 07/14/18 20:53 ABG pO2 161 mmHg (85-104) H 07/14/18 20:53 ABG O2 Saturation 100 % (95-98) H 07/14/18 20:53 Chloride 112 mEq/L (98-107) H 07/17/18 05:20 BUN 40 mg/dL (8-23) H 07/17/18 05:20 BUN/Creatinine Ratio 53 (6-26) H 07/17/18 05:20 Glucose 134 mg/dL (70-105) H 07/17/18 05:20 POC Glucose 139 mg/dL (70-99) H 07/14/18 21:37 Calculated Osmolality 304 (280-300) H 07/17/18 05:20 Lactic Acid 3.1 mmol/L (0.5-2.2) H 07/15/18 02:29 Calcium 7.8 mg/dL (8.6-10.3) L 07/17/18 05:20 Iron 15 mcg/dL (50-170) L 07/15/18 16:06 % Saturation 7 % (15-50) L 07/15/18 16:06 Transferrin 163 mg/dL (203-362) L 07/15/18 16:06 Ferritin 284 ng/mL (10-120) H 07/15/18 16:06 Total Bilirubin 1.7 mg/dL (0.3-1.0) H 07/17/18 05:20 Direct Bilirubin 0.4 mg/dL (0.0-0.2) H 07/17/18 05:20 Indirect Bilirubin 1.3 mg/dL (0.0-1.2) H 07/17/18 05:20 Alkaline Phosphatase 30 Units/L (34-104) L 07/15/18 09:30 Troponin I 0.08 ng/mL (< 0.04) H* 07/15/18 02:29 Serum Total Protein 4.1 g/dL (6.4-8.9) L 07/15/18 09:30 Albumin 2.7 g/dL (3.5-5.7) L 07/15/18 09:30 Globulin 1.4 g/dL (2.4-3.5) L 07/15/18 09:30 Lipase < 3 Units/L (11-82) L 07/15/18 00:21 Vitamin B12 241 pg/mL (250-1100) L 07/15/18 16:06 Urine Color [place] (Yellow) A 07/14/18 22:23 Ur Specific [place] 1.029 (1.010-1.025) H 07/14/18 22:23 Urine Protein 30 mg/dL (Neg-Trace) H 07/14/18 22:23 Urine Ketones Trace mg/dL (Negative) H 07/14/18 22:23 Urine Blood Moderate (Negative) H 07/14/18 22:23 Urine Bilirubin Small (Negative) H 07/14/18 22:23 Ur Leukocyte Esterase Small (Negative) H 07/14/18 22:23 Urine Microscopic RBC 50-100 per hpf (0-3) H 07/14/18 22:23 Urine Microscopic WBC 5-15 per hpf (0-3) H 07/14/18 22:23 Ur Squamous Epith Cells Many per lpf (None-Few) H 07/14/18 22:23 Hyaline Casts Many per lpf (None-Few) H 07/14/18 22:23 Urine Yeast Moderate per hpf (None Seen) H 07/14/18 22:23 Ur Culture Indicated? NO. (NO) A 07/14/18 22:23 Vancomycin Trough 4 mcg/mL (5-10) L 07/16/18 03:26 Consult Discharge Plan - Plan Referrals: NONE,PCP [Primary Care Provider] -
--- NOTE | 2018-07-17 18:15 | Oncology Inp Progress Note ---
<Mary Cruz L - Last Filed: 07/17/18 18:12> Date of Encounter: 07/17/18 Time of Encounter: 15:00 (1) Anemia Current Visit: Yes Status: Acute Assessment and plan: Mild chronic anemia noted with acute decrease, romel hgb 6.1 today improved to 10 s/p 1 unit PRBC Acute blood loss in setting of post op period with presence of hematoma, vs. sepsis vs. other LDH normal Folate replete S/P B12 and venofer Plan: No s/s bleeding, hematoma as noted above Transfuse hgb <7 Qualifiers: Anemia type: unspecified type Qualified Code(s): D64.9 - Anemia, unspecified (2) Breast cancer Current Visit: Yes Status: Acute Assessment and plan: Patient reports history of left breast cancer ~20 years ago s/p lumpectomy and radiation She has not had mammogram in several years CT of chest noted left chest wall/breast mass previously noted on imaging on 08/10/2016---describes a lobular lesion of the left breast measuring approximately 5.1 x 3.4 cm in axial plane and 9.4 cm in long axis. Previously this measured 4.0 x 2.5 cm in axial plane and 8.9 cm in long axis as measured in similar f ashion Plan: Patient declines breast exam at this time Discuss mammogram with targeted ultrasound as outpatient once clinical condition improves, will continue to monitor hospital course Qualifiers: Breast location: unspecified site of breast Estrogen receptor status: unspecified Patient sex: female Laterality: left Qualified Code(s): C50.912 - Malignant neoplasm of unspecified site of left female breast (3) Leukocytosis Current Visit: Yes Status: Acute Assessment and plan: Chronic leukocytosis with areas of normalization, dating back to April 2016 Acute increase above baseline in postoperative setting, SIRS, ID involved for infectious workup Chronic monocytosis with neutrophilia dating back to 2014, acutely increasing in post operative/sepsis setting No immature forms noted on peripheral smear Spleen noted normal on CT imaging Plan: Suspect underlying infectious/sepsis process contributing to acute leukemoid reaction above baseline although source has not been identified Her WBC count is improving, thrombocytopenia worsening in setting of sepsis 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 other, repeat shows improvement Qualifiers: Leukocytosis type: unspecified Qualified Code(s): D72.829 - Elevated white blood cell count, unspecified (4) DVT prophylaxis Current Visit: No Status: Acute Assessment and plan: Continue SCD's Given presence of hematoma with anemia and prolonged PT/INR, risk for bleeding outweighs risk for clotting Will continue to monitor labs and patients response before starting prophylaxis Oncology: Subj Interval history: Ms. Jensen is gradually improving. She is more alert today. She is planned to step down from ICU. Pain as expected to left hip. No active bleeding noted to dressing. - Constitutional General appearance: cooperative, no acute distress, no febrile - Head Head exam: Present: atraumatic - ENT ENT exam: Present: mucous membranes moist, normal oropharynx - Respiratory Respiratory exam: Present: CTAB. Absent: respiratory distress - Cardiovascular Cardiovascular exam: Present: irregular rhythm, tachycardia - GI/Abdominal GI/Abdominal exam: Present: normal bowel sounds, soft. Absent: tenderness - Additional comments: brunson cath, clear dark yellow urine - Extremities Exam Extremities exam: Absent: calf tenderness Additional comments: left hip dressing dry and intact, abductor pillow in place - Neurological Exam Neurological exam: Present: alert, no focal deficits, strengths equal and symetr throughout Additional comments: oriented to person. - Psychiatric Psychiatric exam: Present: normal affect, normal mood - Skin Skin exam: Present: dry, pallor, warm Oncology: Obj Data - Labs CBC & Chem 7: 07/17/18 08:56 07/17/18 05:20 Consult Discharge Plan - Plan Referrals: NONE,PCP [Primary Care Provider] - Inpatient Charges Provider: Dr. Lizeth Ford <Reynaldo Ford - Last Filed: 07/17/18 20:25> Date of Encounter: 07/17/18 Oncology: Obj Data - Labs CBC & Chem 7: 07/17/18 08:56 07/17/18 05:20 Inpatient Charges Provider: Dr. Lizeth Ford Follow up - Inpatient: [id number] - Attending Attestation I examined this patient and my medical decision-making was reviewed with the Advanced Practice Nurse. I agree with the documented findings, disposition and treatment plan as described except to the extent set forth below. She is clinically improving. Awake and conversant. Tachycardic on exam. Oxygenating well. WBC decreasing. Thrombocytopenia expected as part of evolution of current syndrome. No need for transfusion. No change in therapy. Will follow.
[2018-07-17] MEDS: diazePAM 10 MG TABLET PO SCH (21:57)
[2018-07-17] MEDS ORDERED: Ondansetron 4 MG/2 ML VIAL IVP PRN (22:16)
[2018-07-17] MEDS ORDERED: Naloxone 0.4 MG/ML INJ IVP PRN (22:16)
[2018-07-18] MEDS: Acetaminophen 325 MG TABLET PO PRN ×2 (00:28→22:40)
[2018-07-18] MEDS: *HR* Metoprolol 5 MG/5 ML VIAL IVP PRN (01:14)
[2018-07-18] MEDS: Piperacillin/Tazobactam 3.375 GM in 0.9 % Sodium Chloride Mini Bag 100 ML IVPB SCH ×3 (06:07→21:51)
[2018-07-18 06:17] LABS: Hematocrit 20.1 % (35.3-44.9); Hemoglobin 6.3 g/dL (11.5-15.4); Mean Corpuscular HGB Conc 31.3 g/dL (31.6-35.5); Mean Corpuscular Hemoglobin 28.9 pg (28.0-33.3); Mean Corpuscular Volume 92.2 fL (83.0-100.0); Nucleated Red Blood Cells 0.1 /100 WBC (0); Red Blood Count 2.18 M/mcL (3.82-4.97); Red Cell Distribution Width 20.9 % (11.5-14.5)
[2018-07-18 06:27] LABS: BUN/Creatinine Ratio 65 (6-26); Blood Urea Nitrogen 31 mg/dL (8-23); Calcium 7.8 mg/dL (8.6-10.3); Carbon Dioxide 26 mEq/L (23-29); Chloride 109 mEq/L (98-107); Glucose 113 mg/dL (70-105); Osmolality,Calculated 297 (280-300); Potassium 3.9 mEq/L (3.5-5.1); Sodium 140 mEq/L (136-145); eGFR For Non-African Americans > 60 (> 60)
[2018-07-18 06:35] LABS: Platelet Count 83 K/mcL (140-400)
[2018-07-18 07:12] LABS: Anisocytosis 2+ (Not Present); Eosinophils # 0.9 K/mcL (0.0-0.6); Lymphocytes # 0.4 K/mcL (0.6-4.6); Monocytes # 4.7 K/mcL (0.0-1.3); Neutrophils # 15.3 K/mcL (1.6-8.9); Ovalocytes 3+ (Not Present); Poikilocytosis 2+ (Not Present)
[2018-07-18] MEDS ORDERED: Isovue-370 500 ML BOTTLE IVP ONE (07:48)
[2018-07-18] MEDS ORDERED: 0.9 % Sodium Chloride 250 ML ONE (09:27)
[2018-07-18] MEDS: Cholecalciferol (D-3) 1,000 UNIT TABLET PO SCH (09:29)
[2018-07-18] MEDS: *HR* Digoxin 0.25 MG TABLET PO SCH (09:30)
[2018-07-18] MEDS: Metoprolol XL (24 HR) Succ 50 MG TAB.ER.24H PO SCH (09:30)
--- NOTE | 2018-07-18 10:21 | Infectious Disease Progress No ---
Date of Encounter: 07/18/18 Time of Encounter: 09:20 - Assessment and Plan (1) SIRS (systemic inflammatory response syndrome) Current Visit: Yes Status: Acute The patient had four SIRS criteria plus hypotension post-op. No infectious source identified. Consider non-infectious etiologies: fat embolism vs. left hip hematoma vs. anesthesia reaction vs. malignany vs. other. CT chest negative for PNA. CT abdomen and pelvis negative for acute infectious abnormality. CT head negative. Urinalysis was negative. Peripheral smear negative. Blood cultures drawn 07/14/18 are NGTD x 2 sets. Repeat CTA of the abdomen and pelvis nonrevealing for infectious etiology. Pro-calcitonin was elevated at 4.70. Recommendation: Await blood cultures. Check urine for lipids. --> pending Check RIP. Anemia management per the primary team. Consider GI to evaluate for elevated bilirubin and elevated INR. Left breast mass and monocytosis workup per the Hem/Onc team. Surgical site/hematoma management per the ortho team. Continue Vancomycin IV. Pharmacy to dose. Goal trough ~15. (day 5) Continue Zosyn 3.375 grams IV Q8H. (day 5) Duration of treatment depends on the clinical picture. Monitor renal function and for drug toxicity and dose-adjust antibiotics. (2) Leukocytosis Current Visit: Yes Status: Acute WBC elevated with monocytosis. Leukemoid reaction with WBC >50,000 with monocytosis. Etiology unclear. Consider non-infectious sources : malignancy vs. other. Improved, but monocytosis persists. Hem/Onc consulted and following. Appreciate recommendations. Qualifiers: Qualified Code(s): D72.829 - Elevated white blood cell count, unspecified (3) Encephalopathy acute Current Visit: Yes Status: Acute Etiology unclear: fat embolism vs. anesthesia reaction vs. other. CT head negative. Appears improved. Continue to monitor closely. (4) Benzodiazepine withdrawal Current Visit: Yes Status: Resolved Was off valium x 3 days. Home dose of valium re-started by the primary team. Qualifiers: Qualified Code(s): F13.239 - Sedative, hypnotic or anxiolytic dependence with withdrawal, unspecified (5) Intramuscular hematoma Current Visit: Yes Status: Acute CT abdomen and pelvis shows a 9cm intra-muscular hematoma in the left hip, retroperitoneum, and pelvis. CTA negative for arterial extravasation. Likely secondary to recent surgery and hypercoagulable state (INR 1.3 on admission, 3.2 post-op) and heparin. Repeat CTA 07/18/18 shows postsurgical changes status post recent left hip total hip arthroplasty with periarticular, intramuscular, and soft tissue edema as well as a new foci of soft tissue air significantly decreased since recent prior examination suggesting resolving postsurgical changes. Subtle foci of arterial enhancement in the left gluteal musculature posterior to the left hip unchanged since prior examination, suggesting postsurgical changes with resolution. No evidence of focal collection. Small subcutaneous hematoma in the area of the incision for the left total hip arthroplasty decreasing in size since prior examination. No evidence of aortic dissection or aneurysm. No active extravasation of contrast in the abdomen or pelvis. No evidence of retroperitoneal hematoma. Management per the ortho team. (6) Left displaced femoral neck fracture Current Visit: Yes Status: Acute Status post left hip hemiarthroplasty 07/14/[address] Christy. (7) Thrombocytopenia Current Visit: Yes Status: Acute Noted initially on admission, resolved, but then noted to have recurrence over the past couple of days. Hm/Onc consulted and following. (8) Elevated troponin Current Visit: Yes Status: Acute (9) Lactic acidosis Current Visit: Yes Status: Acute Etiology unclear. Improved. Continue to trend. (10) Constipation Current Visit: No Status: Resolved No obstruction or fecal impaction noted on CT abdomen/pelvis. Bowel regimen per the primary team. Qualifiers: Qualified Code(s): K59.00 - Constipation, unspecified (11) Anemia Current Visit: Yes Status: Acute Hgb back down to 6.3. Workup and management per the primary and hem/onc teams. Qualifiers: Qualified Code(s): D64.9 - Anemia, unspecified (12) LBBB (left bundle branch block) Current Visit: Yes Status: Acute (13) CHF (congestive heart failure) Current Visit: No Status: Chronic Qualifiers: Qualified Code(s): I50.22 - Chronic systolic (congestive) heart failure (14) Afib Current Visit: No Status: Chronic Rate controlled at this time. Qualifiers: Qualified Code(s): I48.2 - Chronic atrial fibrillation - Subjective Interval history: Patient seen and examined with son at the bedside. No acute events noted overnight. Patient appears more awake this morning. The patient states overall she feels okay, but wants to be at home. She denies any fevers or chills or rigors. She denies chest pain, shortness of breath, or cough. She denies nausea, vomiting, diarrhea. She states she does feel constipated. She states she is hungry and ready for breakfast. She complains of diffuse pain when "going over the bumps." Denies any back or joint pain. Denies any oral thrush or skin lesions. Infect Dis PN-Objective Data - Labs CBC & Chem 7: 07/18/18 05:34 07/18/18 05:34 Labs: Laboratory Results - last 24 hr 07/15/18 07/15/18 07/18/18 09:30 15:39 05:34 WBC 21.3 H RBC 2.18 L Hgb 6.3 L Hct 20.1 L MCV 92.2 MCH 28.9 MCHC 31.3 L RDW 20.9 H Plt Count 83 L MPV TNP Seg Neutrophils % 72.0 Lymphocytes % 2.0 Monocytes % 22.0 Eosinophils % 4.0 Neutrophils # 15.3 H Lymphocytes # 0.4 L Monocytes # 4.7 H Eosinophils # 0.9 H Nucleated RBCs/100 WBC 0.1 H Immature Plt Fraction 19.0 H Poikilocytosis 2+ A Anisocytosis 2+ A Ovalocytes 3+ A Sodium Potassium Chloride Carbon Dioxide BUN Creatinine Est GFR ( Amer) Est GFR (Non-Af Amer) BUN/Creatinine Ratio Glucose Calculated Osmolality Calcium Procalcitonin 4.70 H Heparin-PF4 IgG Ab 0.049 Blood Type Antibody Screen Crossmatch 07/18/18 07/18/18 05:34 07:54 WBC RBC Hgb Hct MCV MCH MCHC RDW Plt Count MPV Seg Neutrophils % Lymphocytes % Monocytes % Eosinophils % Neutrophils # Lymphocytes # Monocytes # Eosinophils # Nucleated RBCs/100 WBC Immature Plt Fraction Poikilocytosis Anisocytosis Ovalocytes Sodium 140 Potassium 3.9 Chloride 109 H Carbon Dioxide 26 BUN 31 H Creatinine 0.48 L Est GFR ( Amer) > 60 Est GFR (Non-Af Amer) > 60 BUN/Creatinine Ratio 65 H Glucose 113 H Calculated Osmolality 297 Calcium 7.8 L Procalcitonin Heparin-PF4 IgG Ab Blood Type A POSITIVE Antibody Screen NEGATIVE Crossmatch See Detail Cultures: Cultures 07/15/18 09:29 Legionella Antigen - Final Urine,Clean Catch Streptococcus pneumoniae Antigen (M - Final 07/14/18 22:28 Blood Culture - Preliminary Peripheral Venipuncture Culture is incubating and being continuously monitored for growth. Final report to follow. 07/14/18 22:21 Blood Culture - Preliminary Peripheral Venipuncture Culture is incubating and being continuously monitored for growth. Final report to follow. Serology 07/14/18 07/14/18 Range/Units 22:23 10:17 Urine Color [place] A Dark Yellow (Yellow) Urine Clarity Clear Clear (Clear) Urine pH 5.5 6.0 (5.0-8.0) pH Units Ur Specific [place] 1.029 H 1.018 (1.010-1.025) Urine Protein 30 H 30 H (Neg-Trace) mg/dL Urine Glucose (UA) Normal Normal (Normal) mg/dL Urine Ketones Trace H Negative (Negative) mg/dL Urine Blood Moderate H Small H (Negative) Urine Nitrite Negative Negative (Negative) Urine Bilirubin Small H Negative (Negative) Urine Urobilinogen Normal 2.0 H (Normal) mg/dL Ur Leukocyte Esterase Small H Negative (Negative) Urine Microscopic RBC 50-100 H 5-15 H (0-3) per hpf Urine Microscopic WBC 5-15 H 0-3 (0-3) per hpf Ur Squamous Epith Cells Many H Few (None-Few) per lpf Urine Bacteria Few Few (None-Few) per hpf Hyaline Casts Many H (None-Few) per lpf Urine Mucus Few (Few) Urine Yeast Moderate H (None Seen) per hpf Ur Culture Indicated? NO. A Cancelled - Impressions Impressions Abdomen/Pelvis CTA 07/18/18 07:48 IMPRESSION: Postsurgical changes status post recent left total hip arthroplasty with periarticular, intramuscular and soft tissue edema as well as a few foci of soft tissue air significantly decreased since recent prior examination suggesting resolving postsurgical changes. Subtle foci of arterial enhancement in the left gluteal musculature posterior to the left hip unchanged since prior examination suggesting postsurgical changes with resolution. No evidence of focal collection. Small subcutaneous hematoma in the area of the incision for the left total hip arthroplasty decreasing in size since prior examination. No evidence of aortic dissection or aneurysm. No active extravasation of contrast in the abdomen or pelvis. No evidence of retroperitoneal hematoma. Small bilateral pleural effusions and cardiomegaly with mild interstitial pulmonary edema suggesting mild CHF. Diverticulosis without evidence of acute diverticulitis. Atherosclerotic disease of the abdominal aorta with atherosclerotic plaque at the origin of the celiac artery and bilateral renal arteries. Findings suggest at least 50% stenosis. D/ / 07/18/2018 09:26:59 Beto Jeffrey MD / morgan Interpreting Provider: Beto Jeffrey MD Exam - Constitutional Vitals: Temp Pulse Resp BP Pulse Ox 97.8 F 99 16 108/57 97 07/18/18 09:59 07/18/18 09:59 07/18/18 09:59 07/18/18 09:59 07/18/18 09:59 General appearance: average body habitus, cooperative, no acute distress - Head Head exam: Present: atraumatic, normal inspection, normocephalic - Eye Eye exam: Present: EOMI, normal appearance, PERRL Pupils: Present: normal accommodation - ENT ENT exam: Present: normal exam - Neck Neck exam: Present: normal inspection - Respiratory Respiratory exam: Present: CTAB. Absent: rales, respiratory distress, rhonchi, wheezes - Cardiovascular Cardiovascular exam: Present: irregular rhythm. Absent: tachycardia - GI/Abdominal GI/Abdominal exam: Present: normal bowel sounds, soft, tenderness (RLQ, LLQ). Absent: distended Additional comments: Pereira catheter noted to be draining clear yellow urine. - Extremities Exam Extremities exam: Present: tenderness (left lateral hip). Absent: normal inspection (Left lateral hip surgical incision with honeycomb dressing intact moderately saturated with bloody drainage with some serous drainage noted as well. Tenderness noted with palpation. No surrounding erythema or warmth noted.), pedal edema - Neurological Exam Neurological exam: Present: alert, no focal deficits (HEART x 4 on exam.). Absent: oriented X3 (Oriented to person and place. She does not know the year, but does know who the president is.) - Psychiatric Psychiatric exam: Present: normal affect, normal mood - Skin Skin exam: Present: dry, intact, normal color, warm Consult Discharge Plan - Plan Referrals: NONE,PCP [Primary Care Provider] - - Attending Attestation I have personally performed a face to face evaluation on this patient. I have reviewed and agree with the care plan. History and Exam by me shows: Assessment and plan: 1.sepsis severe 2.leukocytosis 3.left hip fracture status post fall 4.leukocytosis with monocytosis 5.leukemoid reaction Recommendations: Not sure what caused the patient acute change in mentation, hypoxia, hypotension and lactic acidosis. We will attempt to see if there is a focus of infection we can identify CML on my differential Fat embolism?? d/w heme/onc d/w icu team d/w ortho will monitor closely
--- NOTE | 2018-07-18 13:28 | Oncology Inp Progress Note ---
<Mary Sumner L - Last Filed: 07/18/18 13:22> Date of Encounter: 07/18/18 Time of Encounter: 11:00 (1) Anemia Current Visit: Yes Status: Acute Assessment and plan: Mild chronic anemia noted with acute decrease in post op setting Acute blood loss in setting of post op period with presence of hematoma, vs. sepsis vs. other LDH normal Folate replete S/P B12 and venofer IV x1 Plan: No s/s bleeding, hematoma as noted above Transfuse hgb <7---hgb decreased to 6.3 today, s/p 1 unit PRBC today Repeat CTA abdomen/pelvis reveals: Postsurgical changes status post recent left total hip arthroplasty. Hematoma decreasing in size. No evidence of bleeding in abdomen. Qualifiers: Anemia type: unspecified type Qualified Code(s): D64.9 - Anemia, unspecified (2) Breast cancer Current Visit: Yes Status: Acute Assessment and plan: Patient reports history of left breast cancer ~20 years ago s/p lumpectomy and radiation She has not had mammogram in several years CT of chest noted left chest wall/breast mass previously noted on imaging on 08/10/2016---describes a lobular lesion of the left breast measuring approximately 5.1 x 3.4 cm in axial plane and 9.4 cm in long axis. Previously this measured 4.0 x 2.5 cm in axial plane and 8.9 cm in long axis as measured in similar fashi on Plan: Discuss mammogram with targeted ultrasound as outpatient once clinical condition improves, will continue to monitor hospital course Qualifiers: Breast location: unspecified site of breast Estrogen receptor status: unspecified Patient sex: female Laterality: left Qualified Code(s): C50.912 - Malignant neoplasm of unspecified site of left female breast (3) Leukocytosis Current Visit: Yes Status: Acute Assessment and plan: Chronic leukocytosis with areas of normalization, dating back to April 2016 Acute increase above baseline in postoperative setting, SIRS, ID involved for infectious workup Chronic monocytosis with neutrophilia dating back to 2014, acutely increasing in post operative/sepsis setting No immature forms noted on peripheral smear Spleen noted normal on CT imaging Plan: Suspect underlying infectious/sepsis process contributing to acute leukemoid reaction above baseline, although source has not been identified, Pro-calcitonin was elevated at 4.70, continues on empiric Vanc/Zosyn Her WBC count is improving and monocyte count is almost back to baseline, thrombocytopenia appears to have plateaued in setting of sepsis as expected 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, dependant upon her course of recovery we will plan to continue to follow as outpatient and may further evaluate once her acute issues resolve Qualifiers: Leukocytosis type: unspecified Qualified Code(s): D72.829 - Elevated white blood cell count, unspecified (4) DVT prophylaxis Current Visit: No Status: Acute Assessment and plan: Xarelto on hold since admission- Atrial Fibrillation Continue SCD's Given presence of hematoma with woresning anemia today and prolonged PT/INR, risk for bleeding outweighs risk for clotting Will continue to monitor labs and patients response before restarting AC Oncology: Subj Interval history: Ms. Jensen is resting in bed. Her is at bedside. She has stepped down from ICU. She is alert and conversant this morning. She has eaten a good bit of breakfast. She is reporting pain to her lower back from laying in bed, she feels as though she cannot get comfortable in bed. - Constitutional General appearance: cooperative, no acute distress, thin, no febrile - Head Head exam: Present: atraumatic - ENT ENT exam: Present: mucous membranes moist, normal oropharynx - Respiratory Respiratory exam: Present: decreased breath sounds, CTAB. Absent: respiratory distress - Cardiovascular Cardiovascular exam: Present: irregular rhythm - GI/Abdominal GI/Abdominal exam: Present: normal bowel sounds, soft. Absent: tenderness - Extremities Exam Extremities exam: Absent: calf tenderness Additional comments: abductor pillow in place - Neurological Exam Neurological exam: Present: alert, oriented X3, no focal deficits, strengths equal and symetr throughout - Psychiatric Psychiatric exam: Present: normal affect, normal mood - Skin Skin exam: Present: dry, pallor, warm Additional comments: honey comb dressing dry and intact to left hip Oncology: Obj Data - Labs CBC & Chem 7: 07/18/18 05:34 07/18/18 05:34 Consult Discharge Plan - Plan Referrals: NONE,PCP [Primary Care Provider] - Inpatient Charges Provider: Dr. Lizeth Del Rio <La Nena Del Rio - Last Filed: 07/18/18 17:16> Date of Encounter: 07/18/18 Oncology: Subj Interval history: Anemia-recent surgery, min blood stain on dressing during exam, Hgb stable to be followed after transfusion, venofer. Underlying MPD not ruled out. I examined this patient and my medical decision-making was reviewed with the Advanced Practice Nurse. Mary Sumner I agree with the documented findings, disposition and treatment plan as described except to the extent set forth below. Oncology: Obj Data - Labs CBC & Chem 7: 07/18/18 14:38 07/18/18 05:34 Inpatient Charges Provider: Dr. Lizeth Del Rio Follow up - Inpatient: [id number]
[2018-07-18] MEDS: traMADol 50 MG TABLET PO PRN (13:35)
--- NOTE | 2018-07-18 14:17 | Internal Med Progress Note ---
Hospitalist Progress Note - Encounter Date of Encounter: 07/18/18 Time of Encounter: 14:15 - Subjective Interval History: I have seen and evaluated the patient at bedside. patient reports pain in her lower back. denies chest pain, nausea or vomiting - Exam Vitals: Temp Pulse Resp BP Pulse Ox 97 F L 91 14 115/55 100 07/18/18 11:37 07/18/18 11:37 07/18/18 11:37 07/18/18 11:37 07/18/18 11:37 Exam: Vitals: Reviewed General: Alert and oriented x3. In mild distress due to back pain Cardiovascular:Irregularly, irregular, normal S1 & S2, no rubs, murmurs or altamirano ps. Lungs: CTA b/l, no wheezes or crackles. Abdomen: Soft, non-tender, no rigidity. Extremities: 1+ edema in the lower extr b/l Neurological: Normal cognition Rest of the physical exam is non contributory - Assessment and Plan (1) CHF (congestive heart failure) Current Visit: No Status: Chronic Assessment and Plan: last stimated e.f of 45-50%. fluids restriction to 1.5 litters a day will add furosemide 20mg/PO daily daily weight, strict intake and output. on a bb (2) Afib Current Visit: No Status: Chronic Assessment and Plan: rate controlled on metoprolol 50mg/PO daily. on digoxin. oral anticoagulant held due to recent hematoma. s/p fall (3) Left displaced femoral neck fracture Current Visit: Yes Status: Acute Assessment and Plan: s/p Left hip hemiarthroplasty plan of care per ortho pain control with tramadol 50mg/PO Q6HR PRN and oxycodone 5mg SL Q6HR PRN daily PT/OT (4) Anemia Current Visit: Yes Status: Chronic Assessment and Plan: H&H dropped. transfused 1 unit of PRBCs occult blood test ordered CTA abd/pelvis ordered repeat cbc one hour post transfusion (5) Breast cancer Current Visit: Yes Status: Chronic Assessment and Plan: Hem&Onc recommendations appreciated (6) Leukocytosis Current Visit: Yes Status: Acute Assessment and Plan: possible infectious vs leukemoid reaction. patient on broad spectrum IV antibiotics will discuss with ID about tapering off antibiotics blood cultures no growth >48 hours. DVT Prophylaxis: intermittent pneumatic compression no chemical dvt prophylaxis due to recent hematoma - Summary of Assessment and Plan Summary of Assessment and Plan: patient to remain in the hospital due to leukocytosis possible sepsis. anemia requiring blood transfusion - Time Spent with Patient Total time spent is greater than 50% in coordination of care (as documented) at patient's floor/unit and/or counseling patient: Greater than 35 minutes (45) Plan of Care Discussed with: patient (her family at bedside and the nurse) Internal Medicine: Result - Labs CBC & Chem 7: 07/18/18 05:34 07/18/18 05:34 Labs: Short CBC 07/18/18 Range/Units 05:34 WBC 21.3 H (4.3-11.1) K/mcL Hgb 6.3 L (11.5-15.4) g/dL Hct 20.1 L (35.3-44.9) % Plt Count 83 L (140-400) K/mcL Neutrophils # 15.3 H (1.6-8.9) K/mcL BMP 07/18/18 05:34 Sodium 140 Potassium 3.9 Chloride 109 H Carbon Dioxide 26 BUN 31 H Creatinine 0.48 L Glucose 113 H Calcium 7.8 L - ABG Interpretation ABG results: ABG ABG pH 7.48 pH Units (7.32-7.45) H 07/14/18 20:53 ABG pCO2 32 mmHg (35-45) L 07/14/18 20:53 ABG pO2 161 mmHg (85-104) H 07/14/18 20:53 ABG O2 Saturation 100 % (95-98) H 07/14/18 20:53 PT/INR, D-dimer PT 22.2 Seconds (9.4-12.1) H 07/17/18 05:20 - Impressions Impressions Abdomen/Pelvis CTA 07/18/18 07:48 IMPRESSION: Postsurgical changes status post recent left total hip arthroplasty with periarticular, intramuscular and soft tissue edema as well as a few foci of soft tissue air significantly decreased since recent prior examination suggesting resolving postsurgical changes. Subtle foci of arterial enhancement in the left gluteal musculature posterior to the left hip unchanged since prior examination suggesting postsurgical changes with resolution. No evidence of focal collection. Small subcutaneous hematoma in the area of the incision for the left total hip arthroplasty decreasing in size since prior examination. No evidence of aortic dissection or aneurysm. No active extravasation of contrast in the abdomen or pelvis. No evidence of retroperitoneal hematoma. Small bilateral pleural effusions and cardiomegaly with mild interstitial pulmonary edema suggesting mild CHF. Diverticulosis without evidence of acute diverticulitis. Atherosclerotic disease of the abdominal aorta with atherosclerotic plaque at the origin of the celiac artery and bilateral renal arteries. Findings suggest at least 50% stenosis. D/ / 07/18/2018 09:26:59 Beto Jeffrey MD / morgan Interpreting Provider: Beto Jeffrey MD Consult Discharge Plan - Plan Referrals: NONE,PCP [Primary Care Provider] - (1) CHF (congestive heart failure) Qualifiers: Heart failure type: systolic Heart failure chronicity: chronic Qualified Code(s): I50.22 - Chronic systolic (congestive) heart failure (2) Afib Qualifiers: Atrial fibrillation type: chronic Qualified Code(s): I48.2 - Chronic atrial fibrillation (4) Anemia Qualifiers: Anemia type: unspecified type Qualified Code(s): D64.9 - Anemia, unspecified (5) Breast cancer Qualifiers: Breast location: unspecified site of breast Estrogen receptor status: unspecified Patient sex: female Laterality: left Qualified Code(s): C50.912 - Malignant neoplasm of unspecified site of left female breast (6) Leukocytosis Qualifiers: Leukocytosis type: unspecified Qualified Code(s): D72.829 - Elevated white blood cell count, unspecified
[2018-07-18 15:03] LABS: Mean Corpuscular HGB Conc 33.3 g/dL (31.6-35.5); Red Cell Distribution Width 18.9 % (11.5-14.5)
[2018-07-18 15:05] LABS: Hematocrit 22.8 % (35.3-44.9); Hemoglobin 7.6 g/dL (11.5-15.4); Immature Platelets 18.1 % (1.1-6.1); Mean Corpuscular Hemoglobin 29.8 pg (28.0-33.3); Mean Corpuscular Volume 89.4 fL (83.0-100.0); Nucleated Red Blood Cells 0.2 /100 WBC (0); Red Blood Count 2.55 M/mcL (3.82-4.97)
[2018-07-18 15:09] LABS: Platelet Count 84 K/mcL (140-400)
[2018-07-18 15:57] LABS: Eosinophils # 0.4 K/mcL (0.0-0.6); Lymphocytes # 1.1 K/mcL (0.6-4.6); Monocytes # 4.2 K/mcL (0.0-1.3); Neutrophils # 13.3 K/mcL (1.6-8.9)
[2018-07-18 15:58] LABS: Platelet Estimate Slight Decrease (Normal)
[2018-07-18 16:00] LABS: Anisocytosis 2+ (Not Present)
[2018-07-18 16:01] LABS: Ovalocytes 2+ (Not Present); Spherocytes 1+ (Not Present)
[2018-07-18 16:59] LABS: Adenovirus Not Detected (Not Detect); Bordetella Pertussis Not Detected (Not Detect); Chlamydophila pneumoniae Not Detected (Not Detect); Coronavirus 229E Not Detected (Not Detect); Coronavirus HKU1 Not Detected (Not Detect); Coronavirus NL63 Not Detected (Not Detect); Coronavirus OC43 Not Detected (Not Detect); Human Metapneumovirus Not Detected (Not Detect); Human Rhinovirus/Enterovirus Not Detected (Not Detect); Influenza A Subtype 2009 H1 Not Detected (Not Detect); Influenza A Untypeable Not Detected (Not Detect); Influenza B Not Detected (Not Detect); Mycoplasma pneumoniae Not Detected (Not Detect); Parainfluenza Virus 1 Not Detected (Not Detect); Parainfluenza Virus 2 Not Detected (Not Detect); Parainfluenza Virus 3 Not Detected (Not Detect); Parainfluenza Virus 4 Not Detected (Not Detect); Respiratory Syncytial Virus Not Detected (Not Detect)
[2018-07-18] MEDS: diazePAM 10 MG TABLET PO SCH (19:41)
[2018-07-19] MEDS: Piperacillin/Tazobactam 3.375 GM in 0.9 % Sodium Chloride Mini Bag 100 ML IVPB SCH ×3 (05:20→22:13)
[2018-07-19 06:39] LABS: Eosinophils % 0.9 %; Hemoglobin 7.3 g/dL (11.5-15.4); Lymphocytes % 7.3 %
[2018-07-19 06:40] LABS: Basophils % 0.1 %; Eosinophils # 0.2 K/mcL (0.0-0.6); Hematocrit 22.5 % (35.3-44.9); Immature Granulocytes % 1.7 % (0-4); Immature Platelets 13.8 % (1.1-6.1); Lymphocytes # 1.4 K/mcL (0.6-4.6); Mean Corpuscular HGB Conc 32.4 g/dL (31.6-35.5); Mean Corpuscular Volume 89.3 fL (83.0-100.0); Monocytes # 9.1 K/mcL (0.0-1.3); Monocytes % 49.2 %; Red Blood Count 2.52 M/mcL (3.82-4.97); Red Cell Distribution Width 19.7 % (11.5-14.5); Segmented Neutrophils % 40.8 %
[2018-07-19 06:48] LABS: Neutrophils # 7.6 K/mcL (1.6-8.9); Platelet Count 92 K/mcL (140-400)
[2018-07-19 06:54] LABS: Anisocytosis 2+ (Not Present); Microcytosis Present (Not Present); Ovalocytes 2+ (Not Present); Poikilocytosis 2+ (Not Present); Schistocytes 1+ (Not Present)
[2018-07-19 06:55] LABS: Platelet Estimate Decreased (Normal); Polychromasia 1+ (Not Present)
[2018-07-19 06:59] LABS: BUN/Creatinine Ratio 49 (6-26); Blood Urea Nitrogen 19 mg/dL (8-23); Calcium 7.9 mg/dL (8.6-10.3); Carbon Dioxide 29 mEq/L (23-29); Chloride 108 mEq/L (98-107); Glucose 107 mg/dL (70-105); Magnesium 1.8 mg/dL (1.6-2.6); Osmolality,Calculated 291 (280-300); Phosphorous 1.7 mg/dL (2.7-4.5); Potassium 3.9 mEq/L (3.5-5.1); Sodium 139 mEq/L (136-145); eGFR For Non-African Americans > 60 (> 60)
[2018-07-19] MEDS: Cholecalciferol (D-3) 1,000 UNIT TABLET PO SCH (08:30)
[2018-07-19] MEDS: Metoprolol XL (24 HR) Succ 50 MG TAB.ER.24H PO SCH (08:30)
[2018-07-19] MEDS: *HR* Digoxin 0.25 MG TABLET PO SCH (08:30)
[2018-07-19] MEDS: Furosemide 20 MG TABLET PO SCH (08:30)
[2018-07-19] MEDS: traMADol 50 MG TABLET PO PRN (13:09)
--- NOTE | 2018-07-19 14:40 | Internal Med Progress Note ---
Hospitalist Progress Note - Encounter Date of Encounter: 07/19/18 Time of Encounter: 14:37 - Subjective Interval History: I have seen and evaluated the patient at bedside. patient seen after she took pain medication, resting comfortably in bed. denied pain. - Exam Vitals: Temp Pulse Resp BP Pulse Ox 97.5 F L 101 14 125/58 98 07/19/18 11:12 07/19/18 11:12 07/19/18 11:12 07/19/18 11:12 07/19/18 11:12 Exam: Vitals: Reviewed General: Alert and oriented x3. In no distress Cardiovascular: Irregularly, irregular, normal S1 & S2, no rubs, murmurs or gallops. Lungs: CTA b/l, no wheezes or crackles. Abdomen: Soft, non-tender, no rigidity. Extremities: No edema in the lower extr b/l Neurological: Normal cognition Rest of the physical exam is non contributory - Assessment and Plan (1) CHF (congestive heart failure) Current Visit: No Status: Chronic Assessment and Plan: patient is euvolemic. on furosemide 20mg/PO daily. on metoprolol 50mg/PO daily. fluids restriction to 1.5 litters a day. daily weight, plus strict intake and output (2) Afib Current Visit: No Status: Chronic Assessment and Plan: Rate controlled on metoprolol. Not on anticoagulation due to high risk of falls. (3) Left displaced femoral neck fracture Current Visit: Yes Status: Acute Assessment and Plan: Plan of care as per orthopedic team. Continue daily PT/OT. (4) Anemia Current Visit: Yes Status: Chronic Assessment and Plan: slightly decreased on H&H. patient transfused 1 unit of PRBCs yesterday. FOBT ordered, pending report will consult GI for anemia work NPO at midnight on Saturday abd/pelvis cta: old hematoma resolving. (5) Breast cancer Current Visit: Yes Status: Chronic Assessment and Plan: plan of care as per hem&Onc (6) Leukocytosis Current Visit: Yes Status: Acute Assessment and Plan: monocyte predominant. discontinue vancomycin. blood culture no growth for >48 hours continue piperacillin/tazobactam 3.375mg/IV Q8HRs ID recommendations appreciated (7) Hypophosphatemia Current Visit: Yes Status: Acute Assessment and Plan: electrolyte being replaced DVT Prophylaxis: mechanical dvt prophylaxis no chemical dvt prophylaxis due to recent hematoma - Summary of Assessment and Plan Summary of Assessment and Plan: patient to remain in the hospital being treated for a possible infection on broad spectrum antibiotics - Time Spent with Patient Total time spent is greater than 50% in coordination of care (as documented) at patient's floor/unit and/or counseling patient: Greater than 35 minutes (40) Plan of Care Discussed with: family (and the nurse) Internal Medicine: Result - Labs CBC & Chem 7: 07/19/18 06:22 07/19/18 06:22 Labs: Short CBC 07/18/18 07/19/18 Range/Units 14:38 06:22 WBC 19.0 H 18.5 H (4.3-11.1) K/mcL Hgb 7.6 L 7.3 L (11.5-15.4) g/dL Hct 22.8 L 22.5 L (35.3-44.9) % Plt Count 84 L 92 L (140-400) K/mcL Neutrophils # 13.3 H 7.6 (1.6-8.9) K/mcL BMP 07/19/18 06:22 Sodium 139 Potassium 3.9 Chloride 108 H Carbon Dioxide 29 BUN 19 Creatinine 0.39 L Glucose 107 H Calcium 7.9 L - ABG Interpretation ABG results: ABG ABG pH 7.48 pH Units (7.32-7.45) H 07/14/18 20:53 ABG pCO2 32 mmHg (35-45) L 07/14/18 20:53 ABG pO2 161 mmHg (85-104) H 07/14/18 20:53 ABG O2 Saturation 100 % (95-98) H 07/14/18 20:53 PT/INR, D-dimer PT 22.2 Seconds (9.4-12.1) H 07/17/18 05:20 Consult Discharge Plan - Plan Referrals: NONE,PCP [Primary Care Provider] - _ (1) CHF (congestive heart failure) Qualifiers: Heart failure type: systolic Heart failure chronicity: chronic Qualified Code(s): I50.22 - Chronic systolic (congestive) heart failure (2) Afib Qualifiers: Atrial fibrillation type: chronic Qualified Code(s): I48.2 - Chronic atrial fibrillation (4) Anemia Qualifiers: Anemia type: unspecified type Qualified Code(s): D64.9 - Anemia, unspecified (5) Breast cancer Qualifiers: Breast location: unspecified site of breast Estrogen receptor status: unspecified Patient sex: female Laterality: left Qualified Code(s): C50.912 - Malignant neoplasm of unspecified site of left female breast (6) Leukocytosis Qualifiers: Leukocytosis type: unspecified Qualified Code(s): D72.829 - Elevated white blood cell count, unspecified
[2018-07-19] MEDS: Acetaminophen 325 MG TABLET PO PRN (16:43)
[2018-07-19] MEDS: diazePAM 10 MG TABLET PO SCH (20:13)
[2018-07-20] MEDS: traMADol 50 MG TABLET PO PRN (01:42)
[2018-07-20] MEDS: Piperacillin/Tazobactam 3.375 GM in 0.9 % Sodium Chloride Mini Bag 100 ML IVPB SCH ×2 (05:10→14:16)
[2018-07-20] MEDS: *HR* Metoprolol 5 MG/5 ML VIAL IVP PRN (05:12)
[2018-07-20 06:37] LABS: Mean Corpuscular Volume 90.3 fL (83.0-100.0); Segmented Neutrophils % 39.2 %
[2018-07-20 06:39] LABS: Basophils # 0.1 K/mcL (0.0-0.2); Basophils % 0.2 %; Eosinophils # 0.2 K/mcL (0.0-0.6); Eosinophils % 0.8 %; Hematocrit 25.1 % (35.3-44.9); Hemoglobin 8.1 g/dL (11.5-15.4); Lymphocytes # 1.2 K/mcL (0.6-4.6); Lymphocytes % 4.5 %; Mean Corpuscular HGB Conc 32.3 g/dL (31.6-35.5); Mean Corpuscular Hemoglobin 29.1 pg (28.0-33.3); Monocytes # 14.2 K/mcL (0.0-1.3); Monocytes % 53.3 %; Neutrophils # 10.4 K/mcL (1.6-8.9); Nucleated Red Blood Cells 0.2 /100 WBC (0); Platelet Count 194 K/mcL (140-400); Red Blood Count 2.78 M/mcL (3.82-4.97)
[2018-07-20 07:00] LABS: BUN/Creatinine Ratio 41 (6-26); Blood Urea Nitrogen 15 mg/dL (8-23); Calcium 8.2 mg/dL (8.6-10.3); Carbon Dioxide 30 mEq/L (23-29); Chloride 105 mEq/L (98-107); Glucose 116 mg/dL (70-105); Magnesium 1.6 mg/dL (1.6-2.6); Osmolality,Calculated 292 (280-300); Phosphorous 2.2 mg/dL (2.7-4.5); Potassium 4.1 mEq/L (3.5-5.1); Sodium 140 mEq/L (136-145); eGFR For Non-African Americans > 60 (> 60)
[2018-07-20] MEDS: *HR* Digoxin 0.25 MG TABLET PO SCH (09:37)
[2018-07-20] MEDS: Cholecalciferol (D-3) 1,000 UNIT TABLET PO SCH (09:37)
[2018-07-20] MEDS: Metoprolol XL (24 HR) Succ 50 MG TAB.ER.24H PO SCH (09:37)
[2018-07-20] MEDS: Furosemide 20 MG TABLET PO SCH (09:38)
[2018-07-20 11:50] LABS: Bilirubin,Urine Negative (Negative); Blood,Urine Negative (Negative); Clarity,Urine Clear (Clear); Color,Urine Yellow (Yellow); Glucose,Urine (UA) Normal (Normal); Ketones,Urine Negative (Negative); Leukocyte Esterase,Urine Negative (Negative); Nitrite,Urine Negative (Negative); Protein,Urine Negative (Neg-Trace); Specific Gravity,Urine 1.015 (1.010-1.025); Urobilinogen,Urine Normal (Normal)
[2018-07-20 14:16] LABS: C-Reactive Protein 55 mg/L (Less than 10)
--- NOTE | 2018-07-20 14:36 | Internal Med Progress Note ---
Hospitalist Progress Note - Encounter Date of Encounter: 07/20/18 Time of Encounter: 14:34 - Subjective Interval History: I have seen and evaluated the patient at bedside. Patient in discomfort due to urinary retention earlier today. denies chest pain, nausea or vomiting - Exam Vitals: Temp Pulse Resp BP Pulse Ox 98.2 F 116 22 119/67 97 07/20/18 10:53 07/20/18 10:53 07/20/18 10:53 07/20/18 10:53 07/20/18 10:53 Exam: Vitals: Reviewed General: Alert and oriented x3. In mild distress due to lower abdomen discomfort Cardiovascular: Irregularly, irregular, normal S1 & S2, no rubs, murmurs or gallops. Lungs: CTA b/l, no wheezes or crackles. Abdomen: Soft, no rigidity, mild tenderness in the supra-pubic area Extremities: 1+ edema in the lower ext b/l Neurological: Normal cognition Rest of the physical exam is non contributory - Assessment and Plan (1) CHF (congestive heart failure) Current Visit: No Status: Chronic (2) Afib Current Visit: No Status: Chronic (3) Left displaced femoral neck fracture Current Visit: Yes Status: Acute (4) Anemia Current Visit: Yes Status: Chronic (5) Breast cancer Current Visit: Yes Status: Chronic (6) Leukocytosis Current Visit: Yes Status: Acute (7) Hypophosphatemia Current Visit: Yes Status: Acute - Summary of Assessment and Plan Summary of Assessment and Plan: Assessment and Plan 1. Leukocytosis unclear source of infection, neutrophil and monocyte predominant 2. CHF 3. Anemia 4. Left displaced femoral fracture S/P left hip hemiarthroplasty. 5. A.Fib 6. History of breast cancer 7. Hypophosphatemia 8. VTE prophylaxis Plan patient on broad spectrum IV antibiotics. on vancomycin per pharmacy protocol Discontinue piperacillin/tazobactam, patient spike a fever of 101.1 last night will start patient on Cefepime 2gm/IV Q8HRs ID recommendations appreciated ESR and CRP ordered will repeat x-ray of the left hip will continue monitoring H&H and will transfuse patient per protocol increase furosemide to 40mg/PO daily electrolytes replaced on metoprolol and digoxin for rate control Not on anticoagulation due to recent hematoma post op. intermittent pneumatic compressions for DVT prophylaxis Disposition: unclear. patient with persistent leukocytosis. unclear source of infection. - Time Spent with Patient Total time spent is greater than 50% in coordination of care (as documented) at patient's floor/unit and/or counseling patient: Greater than 35 minutes (40) Plan of Care Discussed with: patient (and her at bedside) Internal Medicine: Result - Labs CBC & Chem 7: 07/20/18 05:28 07/20/18 05:28 Labs: Short CBC 07/20/18 Range/Units 05:28 WBC 26.6 H (4.3-11.1) K/mcL Hgb 8.1 L (11.5-15.4) g/dL Hct 25.1 L (35.3-44.9) % Plt Count 194 D (140-400) K/mcL Neutrophils # 10.4 H (1.6-8.9) K/mcL BMP 07/20/18 05:28 Sodium 140 Potassium 4.1 Chloride 105 Carbon Dioxide 30 H BUN 15 Creatinine 0.37 L Glucose 116 H Calcium 8.2 L Urine 07/20/18 Range/Units 11:30 Urine Color Yellow (Yellow) Urine Clarity Clear (Clear) Urine pH 6.0 (5.0-8.0) pH Units Ur Specific [place] 1.015 (1.010-1.025) Urine Protein Negative (Neg-Trace) mg/dL Urine Glucose (UA) Normal (Normal) mg/dL - ABG Interpretation ABG results: ABG ABG pH 7.48 pH Units (7.32-7.45) H 07/14/18 20:53 ABG pCO2 32 mmHg (35-45) L 07/14/18 20:53 ABG pO2 161 mmHg (85-104) H 07/14/18 20:53 ABG O2 Saturation 100 % (95-98) H 07/14/18 20:53 PT/INR, D-dimer PT 22.2 Seconds (9.4-12.1) H 07/17/18 05:20 - Impressions Impressions Abdomen/Pelvis CTA 07/18/18 07:48 IMPRESSION: Postsurgical changes status post recent left total hip arthroplasty with periarticular, intramuscular and soft tissue edema as well as a few foci of soft tissue air significantly decreased since recent prior examination suggesting resolving postsurgical changes. Subtle foci of arterial enhancement in the left gluteal musculature posterior to the left hip unchanged since prior examination suggesting postsurgical changes with resolution. No evidence of focal collection. Small subcutaneous hematoma in the area of the incision for the left total hip arthroplasty decreasing in size since prior examination. No evidence of aortic dissection or aneurysm. No active extravasation of contrast in the abdomen or pelvis. No evidence of retroperitoneal hematoma. Small bilateral pleural effusions and cardiomegaly with mild interstitial pulmonary edema suggesting mild CHF. Diverticulosis without evidence of acute diverticulitis. Atherosclerotic disease of the abdominal aorta with atherosclerotic plaque at the origin of the celiac artery and bilateral renal arteries. Findings suggest at least 50% stenosis. D/ / 07/18/2018 09:26:59 Beto Jeffrey MD / morgan Interpreting Provider: Beto Jeffrey MD Consult Discharge Plan - Plan Referrals: NONE,PCP [Primary Care Provider] - (1) CHF (congestive heart failure) Qualifiers: Heart failure type: systolic Heart failure chronicity: chronic Qualified Code(s): I50.22 - Chronic systolic (congestive) heart failure (2) Afib Qualifiers: Atrial fibrillation type: chronic Qualified Code(s): I48.2 - Chronic atrial fibrillation (4) Anemia Qualifiers: Anemia type: unspecified type Qualified Code(s): D64.9 - Anemia, unspecified (5) Breast cancer Qualifiers: Breast location: unspecified site of breast Estrogen receptor status: unspecified Patient sex: female Laterality: left Qualified Code(s): C50.912 - Malignant neoplasm of unspecified site of left female breast (6) Leukocytosis Qualifiers: Leukocytosis type: unspecified Qualified Code(s): D72.829 - Elevated white blood cell count, unspecified
[2018-07-20] MEDS: Cefepime HCl 2,000 MG in Water for inj. (sterile) 20 ML 20 ML IVP SCH ×2 (16:44→23:50)
[2018-07-20] MEDS: diazePAM 10 MG TABLET PO SCH (22:55)
[2018-07-21 08:07] LABS: Basophils % 0.2 %; Eosinophils % 0.9 %; Mean Corpuscular HGB Conc 32.1 g/dL (31.6-35.5); Mean Corpuscular Hemoglobin 28.9 pg (28.0-33.3)
[2018-07-21 08:08] LABS: Basophils # 0.1 K/mcL (0.0-0.2); Eosinophils # 0.2 K/mcL (0.0-0.6); Hemoglobin 7.7 g/dL (11.5-15.4); Immature Granulocytes % 2.2 % (0-4); Lymphocytes # 1.4 K/mcL (0.6-4.6); Lymphocytes % 5.7 %; Mean Corpuscular Volume 90.2 fL (83.0-100.0); Monocytes # 13.3 K/mcL (0.0-1.3); Monocytes % 52.9 %; Neutrophils # 9.6 K/mcL (1.6-8.9); Platelet Count 209 K/mcL (140-400); Red Blood Count 2.66 M/mcL (3.82-4.97); Red Cell Distribution Width 20.1 % (11.5-14.5); Segmented Neutrophils % 38.1 %
[2018-07-21 08:27] LABS: BUN/Creatinine Ratio 36 (6-26); Blood Urea Nitrogen 13 mg/dL (8-23); Calcium 8.2 mg/dL (8.6-10.3); Carbon Dioxide 30 mEq/L (23-29); Chloride 103 mEq/L (98-107); Glucose 113 mg/dL (70-105); Magnesium 1.7 mg/dL (1.6-2.6); Osmolality,Calculated 285 (280-300); Potassium 4.2 mEq/L (3.5-5.1); Sodium 137 mEq/L (136-145); eGFR For Non-African Americans > 60 (> 60)
[2018-07-21] MEDS: Cefepime HCl 2,000 MG in Water for inj. (sterile) 20 ML 20 ML IVP SCH (09:49)
[2018-07-21] MEDS: Cholecalciferol (D-3) 1,000 UNIT TABLET PO SCH (09:53)
[2018-07-21] MEDS: Furosemide 20 MG TABLET PO SCH (09:53)
[2018-07-21] MEDS: Metoprolol XL (24 HR) Succ 50 MG TAB.ER.24H PO SCH (09:53)
[2018-07-21] MEDS: *HR* Digoxin 0.25 MG TABLET PO SCH (09:54)
--- NOTE | 2018-07-21 12:36 | Gastroenterology Consult Note ---
<Hu Ramirez - Last Filed: 07/21/18 12:33> Date of Encounter: 07/21/18 Time of Encounter: 09:45 - Assessment and plan (1) Anemia Current Visit: Yes Status: Chronic Assessment and plan: Hgb on admission was 11.2 and Hgb 7.7 today. Continue to monitor CBC and transfuse PRBC as needed. Iron 15, B12 241, and folate 12.5 on 07/15/2018. Plan for EGD and colonoscopy tomorrow. Patient's son does not want to consent to the procedure until he talks with Infectious Disease first. If patient and son are agreeable to EGD and colonoscopy: Clear liquid diet today, no red or purple. NPO at midnight. If unable tolerate NuLytely please use MiraLAX prep. If not clear by 6 AM, give 2 tap water enemas. Qualifiers: Anemia type: unspecified type Qualified Code(s): D64.9 - Anemia, unspecified - Time Spent With Patient Total time spent is greater than 50% in coordination of care (as documented) at patient's floor/unit and/or counseling patient: GI History of Present Illness - Data of Consult Patient: new to practice Consult date: 07/21/18 Requesting Physician: Vega Villa MD - Consult Narrative Reason for consult: Anemia w/u History of present illness: Ms. Jensen is a 88 year old female with PMHx of Afib, HTN, CHF, cardiomyopathy who presented to the ED after falling getting out of the bathtub. Left hip Xray showed left femoral neck fracture. Left hip hemiarthroplasty was completed on 07/14/18 that evening around 2100 she had an episode necessitating a rapid response where she developed upper extremity tremors, fever 100.1 and tachycardia. There was concern for potential benzodiazepene withdrawal vs. malignant hyperthermia vs. seizure. She had a CT of the head that was negative. Chest x-ray was negative. The patient had four SIRS criteria plus hypotension post-op. No infectious source identified. WBC elevated with unknown etiology. Infectious Disease and Heme/Onc following. We were consulted to evaluate her anemia. Hgb on admission was 11.2 and Hgb 7.7 today. Procedures: Colonoscopy 09/20/2005 Dr. Murphy: Hyperplastic polyp with melanosis coli. NSAIDs: None Anticoagulation: Xarelto Past Med Surg Social Fam HX - Past Medical History Medical history: atrial fibrillation, cancer (Breast cancer 20 years ago status post radiation), cardiomyopathy, CHF, coronary artery disease, hyperlipidemia, valvular heart disease, other Additional medical history: macular degeneration Psychiatric history: anxiety - Past Surgical History Surgical History: breast surgery, cataract, hysterectomy Additional surgical history: eye surgery - Social History Smoking Status: Former smoker Smokeless Tobacco Status: No Alcohol use: none Drug use: none - Family History Father Hx Family Cardiac Disorders: Yes ([place]) Mother Living Status: - Gastrointestinal Gastrointestinal: Present: as per HPI - Constitutional Constitutional: as per HPI - EENT Eyes: as per HPI Ears: Present: as per HPI Nose, mouth and throat: Present: as per HPI - Cardiovascular Cardiovascular ROS: Present: as per HPI - Respiratory Respiratory IM: Present: as per HPI - Genitourinary Genitourinary: Absent: change in color, Urinary frequency - Neurological ROS Neurological GI: Present: as per HPI - Hematologic/Lymphatic Hematologic/Lymphatic pediatric: Present: as per HPI - Musculoskeletal Musculoskeletal ROS GI: Present: as per HPI - Integumentary Integumentary GI: Present: as per HPI - Psychiatric ROS Psychiatric GI: Present: as per HPI - Endocrine Endocrine IM: Present: as per HPI - Constitutional Vitals: Temp Pulse Resp BP Pulse Ox 98.5 F 112 19 133/79 96 07/21/18 10:26 07/21/18 10:26 07/21/18 10:26 07/21/18 10:26 07/21/18 10:26 General appearance: Present: cooperative, A&O X 3, no acute distress, answers questions appropriately - Head Head exam: Present: atraumatic, normocephalic - Eye Eye exam: Present: normal appearance, sclera anicteric - ENT ENT exam: Present: mucous membranes moist - Neck Neck exam general surgery: Present: normal inspection, trachea midline - Respiratory Respiratory exam: Present: decreased breath sounds, CTAB. Absent: rales, rhonchi - Cardiovascular Cardiovascular exam: Present: RRR, +S1, +S2 - GI/Abdominal GI/Abdominal exam: Present: normal bowel sounds, soft, tenderness (mild suprapubic), no peritoneal signs. Absent: distended, firm, guarding - Rectal Rectal exam: Present: deferred - Extremities Exam Extremities exam: Present: warm - Neurological Exam Neurological exam: Present: no focal deficits - Psychiatric Psychiatric exam: Present: normal affect, normal mood - Skin Skin exam: Present: dry, intact, normal color, warm Results - Labs CBC & Chem 7: 07/21/18 07:52 07/21/18 07:52 Labs: Last Result ESR 12 mm/hr (0-15) 07/20/18 05:28 Calcium 8.2 mg/dL (8.6-10.3) L 07/21/18 07:52 Iron 15 mcg/dL (50-170) L 07/15/18 16:06 % Saturation 7 % (15-50) L 07/15/18 16:06 Transferrin 163 mg/dL (203-362) L 07/15/18 16:06 Ferritin 284 ng/mL (10-120) H 07/15/18 16:06 Troponin I 0.08 ng/mL (< 0.04) H* 07/15/18 02:29 C-Reactive Protein 55 mg/L (Less than 10) H 07/20/18 05:28 Vitamin B12 241 pg/mL (250-1100) L 07/15/18 16:06 Folate 12.5 ng/mL (3.0-16.0) 07/15/18 16:06 Entire Visit Hgb 7.7 g/dL (11.5-15.4) L 07/21/18 07:52 Hct 24.0 % (35.3-44.9) L 07/21/18 07:52 PT 22.2 Seconds (9.4-12.1) H 07/17/18 05:20 Ferritin 284 ng/mL (10-120) H 07/15/18 16:06 Total Bilirubin 1.7 mg/dL (0.3-1.0) H 07/17/18 05:20 AST 16 Units/L (13-39) 07/15/18 09:30 ALT 8 Units/L (7-52) 07/15/18 09:30 Ammonia 51 mcmol/L (16-53) 07/17/18 05:20 Lipase < 3 Units/L (11-82) L 07/15/18 00:21 Folate 12.5 ng/mL (3.0-16.0) 07/15/18 16:06 - ABG ABG results: ABG ABG pH 7.48 pH Units (7.32-7.45) H 07/14/18 20:53 ABG pCO2 32 mmHg (35-45) L 07/14/18 20:53 ABG pO2 161 mmHg (85-104) H 07/14/18 20:53 ABG O2 Saturation 100 % (95-98) H 07/14/18 20:53 PT/INR, D-dimer PT 22.2 Seconds (9.4-12.1) H 07/17/18 05:20 - Impressions Impressions Hip X-Ray 07/20/18 13:46 IMPRESSION: Sequelae of left hip arthroplasty without adverse features evident. D/ / Remy Boyce MD / Remy Boyce MD Interpreting Provider: Remy Boyce MD Consult Discharge Plan - Plan Referrals: NONE,PCP [Primary Care Provider] - <Cece Heard - Last Filed: 07/21/18 18:09> Date of Encounter: 07/21/18 Time of Encounter: 17:00 - Time Spent With Patient Total time spent is greater than 50% in coordination of care (as documented) at patient's floor/unit and/or counseling patient: GI History of Present Illness - Data of Consult Requesting Physician: Vega Villa MD - Consult Narrative History of present illness: Ms. Jensen is a 88 year old female - Constitutional Vitals: Temp Pulse Resp BP Pulse Ox 99.1 F 97 17 122/58 96 07/21/18 15:26 07/21/18 15:26 07/21/18 15:26 07/21/18 15:26 07/21/18 15:26 Results - Labs CBC & Chem 7: 07/21/18 07:52 07/21/18 07:52 Labs: Last Result ESR 12 mm/hr (0-15) 07/20/18 05:28 Calcium 8.2 mg/dL (8.6-10.3) L 07/21/18 07:52 Iron 15 mcg/dL (50-170) L 07/15/18 16:06 % Saturation 7 % (15-50) L 07/15/18 16:06 Transferrin 163 mg/dL (203-362) L 07/15/18 16:06 Ferritin 284 ng/mL (10-120) H 07/15/18 16:06 Troponin I 0.08 ng/mL (< 0.04) H* 07/15/18 02:29 C-Reactive Protein 55 mg/L (Less than 10) H 07/20/18 05:28 Vitamin B12 241 pg/mL (250-1100) L 07/15/18 16:06 Folate 12.5 ng/mL (3.0-16.0) 07/15/18 16:06 Entire Visit Hgb 7.7 g/dL (11.5-15.4) L 07/21/18 07:52 Hct 24.0 % (35.3-44.9) L 07/21/18 07:52 PT 22.2 Seconds (9.4-12.1) H 07/17/18 05:20 Ferritin 284 ng/mL (10-120) H 07/15/18 16:06 Total Bilirubin 1.7 mg/dL (0.3-1.0) H 07/17/18 05:20 AST 16 Units/L (13-39) 07/15/18 09:30 ALT 8 Units/L (7-52) 07/15/18 09:30 Ammonia 51 mcmol/L (16-53) 07/17/18 05:20 Lipase < 3 Units/L (11-82) L 07/15/18 00:21 Folate 12.5 ng/mL (3.0-16.0) 07/15/18 16:06 - ABG ABG results: ABG ABG pH 7.48 pH Units (7.32-7.45) H 07/14/18 20:53 ABG pCO2 32 mmHg (35-45) L 07/14/18 20:53 ABG pO2 161 mmHg (85-104) H 07/14/18 20:53 ABG O2 Saturation 100 % (95-98) H 07/14/18 20:53 PT/INR, D-dimer PT 22.2 Seconds (9.4-12.1) H 07/17/18 05:20 - Impressions Impressions Abdomen/Pelvis CT 07/21/18 14:30 IMPRESSION: Bilateral pleural effusions with multifocal airspace disease. This may be atelectasis from the effusions however pneumonia or atypical edema would be difficult to exclude Stable lobular soft tissue density in the left chest wall/breast tissue. Small pericardial effusion. Right renal cyst Stable asymmetry of the adrenal glands. Post cholecystectomy. Diverticulosis in the sigmoid colon. Wall thickening in the sigmoid colon and rectum would be difficult to exclude. Correlate clinically and/or direct visualization Multifocal perirectal fat and presacral fat stranding is again noted. There is no new fluid collection. Stable low-density lesion in the left adnexa. Multifocal subcutaneous fat edema is noted, greatest in the pelvis. This may represent third-spacing of fluid. Intermediate lobular density in the subcutaneous tissues lateral to the left hip and proximal femur. This may represent sequela of prior surgery and seroma or old hematoma. Multiple calcified densities again noted in the soft tissues just posterolateral to the left acetabulum. There is no definitive associated soft tissue mass. D/ / Antonio Peraza / Antonio Peraza Interpreting Provider: Antonio Peraza Chest CT 07/21/18 14:30 IMPRESSION: Bilateral pleural effusions with multifocal airspace disease. This may be atelectasis from the effusions however pneumonia or atypical edema would be difficult to exclude Stable lobular soft tissue density in the left chest wall/breast tissue. Small pericardial effusion. Right renal cyst Stable asymmetry of the adrenal glands. Post cholecystectomy. Diverticulosis in the sigmoid colon. Wall thickening in the sigmoid colon and rectum would be difficult to exclude. Correlate clinically and/or direct visualization Multifocal perirectal fat and presacral fat stranding is again noted. There is no new fluid collection. Stable low-density lesion in the left adnexa. Multifocal subcutaneous fat edema is noted, greatest in the pelvis. This may represent third-spacing of fluid. Intermediate lobular density in the subcutaneous tissues lateral to the left hip and proximal femur. This may represent sequela of prior surgery and seroma or old hematoma. Multiple calcified densities again noted in the soft tissues just posterolateral to the left acetabulum. There is no definitive associated soft tissue mass. D/ / Antonio Peraza / Antonio Peraza Interpreting Provider: Antonio Peraza Shoulder CT 07/21/18 14:30 IMPRESSION: 1. No acute osseous abnormality. No glenohumeral joint effusion identified. 2. Partially visualized soft tissue mass in the left anterolateral chest wall without significant change from 07/15/2018. 3. Moderate left pleural effusion. D/ / Titus Mccann MD / Titus Mccann MD Interpreting Provider: Titus Mccann MD - Attending Attestation I have personally performed a face to face evaluation on this patient. I have reviewed and agree with the care plan. History and Exam by me shows: Pt seen. patient denies any abdominal symptoms she is constipated. On examination abdomen is soft. Assessment: Patient with the normocytic anemia did had thrombocytopenia which has resolved. No overt GI bleeding. Recommendation: EGD colonoscopy to rule out GI causes for her anemia
--- NOTE | 2018-07-21 14:34 | Internal Med Progress Note ---
Hospitalist Progress Note - Encounter Date of Encounter: 07/21/18 Time of Encounter: 14:32 - Subjective Interval History: I have seen and evaluated the patient at bedside. Patient reports abdominal discomfort due to constipation. denies chest pain, nausea or vomiting. denies chest pain - Exam Vitals: Temp Pulse Resp BP Pulse Ox 98.5 F 112 19 133/79 96 07/21/18 10:26 07/21/18 10:26 07/21/18 10:26 07/21/18 10:26 07/21/18 10:26 Exam: Vitals: Reviewed General: Alert and oriented x3. In mild distress due to abdominal discomfort Cardiovascular: tachycardic, Irregularly, irregular, normal S1 & S2, no rubs, murmurs or gallops. Lungs: CTA b/l, no wheezes or crackles. Abdomen: Soft, no rigidity, mild tenderness in the supra-pubic area Extremities: 1+ edema in the lower ext b/l Neurological: Normal cognition Rest of the physical exam is non contributory - Assessment and Plan (1) CHF (congestive heart failure) Current Visit: No Status: Chronic (2) Afib Current Visit: No Status: Chronic (3) Left displaced femoral neck fracture Current Visit: Yes Status: Acute (4) Anemia Current Visit: Yes Status: Chronic (5) Breast cancer Current Visit: Yes Status: Chronic (6) Leukocytosis Current Visit: Yes Status: Acute (7) Hypophosphatemia Current Visit: Yes Status: Acute - Summary of Assessment and Plan Summary of Assessment and Plan: Assessment and Plan: 1. Leukocytosis unclear source of infection 2. CHF 3. Anemia 4. Left displaced femoral fracture S/P left hip hemiarthroplasty. 5. A.Fib 6. History of breast cancer 7. Hypophosphatemia 8. VTE prophylaxis 9. Constipation 10. Hypophosphatemia Plan on metoprolol and digoxin for rate control. HR ranging in the low 100s likely due to pain. Not on anticoagulation due to recent hematoma post op. On furosemide to 40mg/PO daily strict intake and output fluids restriction to 1.5 litters a day patient WBC trending up. on vancomycin per pharmacy protocol started on Cefepime 2gm/IV Q8HRs 07/21 Discussed with ID about ordering multiple CT scans for sepsis work-up CT chest, abd/pelvis ordered for sepsis work up CT of the left shoulder ordered Hem&Onc recommendations appreciated continue monitoring H&H and will transfuse patient per protocol ferrous sulfate 325mg/PO daily added Patient scheduled for EGD and colonoscopy tomorrow constipated. on miraax. started on docusat/senna 2tabs BID scheduled clear liquid diet NPO at midnight started on Pantoprazole 40mg/IV daily Phosphorous replaced intermittent pneumatic compressions for DVT prophylaxis Disposition: unclear. - Time Spent with Patient Total time spent is greater than 50% in coordination of care (as documented) at patient's floor/unit and/or counseling patient: Greater than 35 minutes (40) Plan of Care Discussed with: patient (her son at bedside and the nurse) Internal Medicine: Result - Labs CBC & Chem 7: 07/21/18 07:52 07/21/18 07:52 Labs: Short CBC 07/21/18 Range/Units 07:52 WBC 25.1 H (4.3-11.1) K/mcL Hgb 7.7 L (11.5-15.4) g/dL Hct 24.0 L (35.3-44.9) % Plt Count 209 (140-400) K/mcL Neutrophils # 9.6 H (1.6-8.9) K/mcL BMP 07/21/18 07:52 Sodium 137 Potassium 4.2 Chloride 103 Carbon Dioxide 30 H BUN 13 Creatinine 0.36 L Glucose 113 H Calcium 8.2 L - ABG Interpretation ABG results: ABG ABG pH 7.48 pH Units (7.32-7.45) H 07/14/18 20:53 ABG pCO2 32 mmHg (35-45) L 07/14/18 20:53 ABG pO2 161 mmHg (85-104) H 07/14/18 20:53 ABG O2 Saturation 100 % (95-98) H 07/14/18 20:53 PT/INR, D-dimer PT 22.2 Seconds (9.4-12.1) H 07/17/18 05:20 - Impressions Impressions Hip X-Ray 07/20/18 13:46 IMPRESSION: Sequelae of left hip arthroplasty without adverse features evident. D/ / Remy Boyce MD / Remy Boyce MD Interpreting Provider: Remy Boyce MD Consult Discharge Plan - Plan Referrals: NONE,PCP [Primary Care Provider] - (1) CHF (congestive heart failure) Qualifiers: Heart failure type: systolic Heart failure chronicity: chronic Qualified Code(s): I50.22 - Chronic systolic (congestive) heart failure (2) Afib Qualifiers: Atrial fibrillation type: chronic Qualified Code(s): I48.2 - Chronic atrial fibrillation (4) Anemia Qualifiers: Anemia type: unspecified type Qualified Code(s): D64.9 - Anemia, unspecified (5) Breast cancer Qualifiers: Breast location: unspecified site of breast Estrogen receptor status: unspecified Patient sex: female Laterality: left Qualified Code(s): C50.912 - Malignant neoplasm of unspecified site of left female breast (6) Leukocytosis Qualifiers: Leukocytosis type: unspecified Qualified Code(s): D72.829 - Elevated white blood cell count, unspecified
--- NOTE | 2018-07-21 16:19 | Infectious Disease Progress No ---
Date of Encounter: 07/21/18 Time of Encounter: 16:17 - Assessment and Plan (1) SIRS (systemic inflammatory response syndrome) Current Visit: Yes Status: Acute The patient had four SIRS criteria plus hypotension post-op. No infectious source identified. Consider non-infectious etiologies: fat embolism vs. left hip hematoma vs. anesthesia reaction vs. malignany vs. other. CT chest negative for PNA. CT abdomen and pelvis negative for acute infectious abnormality. CT head negative. Urinalysis was negative. Peripheral smear negative. Blood cultures drawn 07/14/18 are NGTD x 2 sets. Repeat CTA of the abdomen and pelvis nonrevealing for infectious etiology. Pro-calcitonin was elevated at 4.70. Recommendation: Not sure what is causing the fever. Also workup has been negative. I had long discussion with the hospitalist team and the family. We will qiu scan her again including the shoulders to make sure the patient has no symptoms arthritis that she has shoulder pain. Nursing staff tell me she is aspirating. Even though the oral pathology team stated that she is okay to eat. Benign abdominal exam. Continue broad-spectrum antibiotics. I might consider stopping the cefepime and starting Zosyn. I also discussed the case with hematology/oncology team. They do not think her leukemoid reaction is due to AML I still think it probably is an infectious source that is up called and we can find it. (2) Leukocytosis Current Visit: Yes Status: Acute WBC elevated with monocytosis. Leukemoid reaction with WBC >50,000 with monocytosis. Etiology unclear. Consider non-infectious sources : malignancy vs. other. Improved, but monocytosis persists. Hem/Onc consulted and following. Appreciate recommendations. Qualifiers: Leukocytosis type: unspecified Qualified Code(s): D72.829 - Elevated white blood cell count, unspecified (3) Encephalopathy acute Current Visit: Yes Status: Acute Etiology unclear: fat embolism vs. anesthesia reaction vs. other. CT head negative. Appears improved. Continue to monitor closely. (4) Benzodiazepine withdrawal Current Visit: Yes Status: Resolved Was off valium x 3 days. Home dose of valium re-started by the primary team. Qualifiers: Complication of substance-induced condition: with unspecified complication Qualified Code(s): F13.239 - Sedative, hypnotic or anxiolytic dependence with withdrawal, unspecified (5) Intramuscular hematoma Current Visit: Yes Status: Acute CT abdomen and pelvis shows a 9cm intra-muscular hematoma in the left hip, retroperitoneum, and pelvis. CTA negative for arterial extravasation. Likely secondary to recent surgery and hypercoagulable state (INR 1.3 on admission, 3.2 post-op) and heparin. Repeat CTA 07/18/18 shows postsurgical changes status post recent left hip total hip arthroplasty with periarticular, intramuscular, and soft tissue edema as well as a new foci of soft tissue air significantly decreased since recent prior examination suggesting resolving postsurgical changes. Subtle foci of arterial enhancement in the left gluteal musculature posterior to the left hip unchanged since prior examination, suggesting postsurgical changes with resolution. No evidence of focal collection. Small subcutaneous hematoma in the area of the incision for the left total hip arthroplasty decreasing in size since prior examination. No evidence of aortic dissection or aneurysm. No active extravasation of contrast in the abdomen or pelvis. No evidence of retroperitoneal hematoma. Management per the ortho team. (6) Left displaced femoral neck fracture Current Visit: Yes Status: Acute Status post left hip hemiarthroplasty 07/14/[address] Christy. (7) Thrombocytopenia Current Visit: Yes Status: Acute Noted initially on admission, resolved, but then noted to have recurrence over the past couple of days. Hm/Onc consulted and following. (8) Elevated troponin Current Visit: Yes Status: Acute (9) Lactic acidosis Current Visit: Yes Status: Acute Etiology unclear. Improved. Continue to trend. (10) Constipation Current Visit: No Status: Resolved No obstruction or fecal impaction noted on CT abdomen/pelvis. Bowel regimen per the primary team. Qualifiers: Constipation type: unspecified constipation type Qualified Code(s): K59.00 - Constipation, unspecified (11) Anemia Current Visit: Yes Status: Chronic Hgb back down to 6.3. Workup and management per the primary and hem/onc teams. Qualifiers: Anemia type: unspecified type Qualified Code(s): D64.9 - Anemia, unspecified (12) LBBB (left bundle branch block) Current Visit: Yes Status: Acute (13) CHF (congestive heart failure) Current Visit: No Status: Chronic Qualifiers: Heart failure type: systolic Heart failure chronicity: chronic Qualified Code(s): I50.22 - Chronic systolic (congestive) heart failure (14) Afib Current Visit: No Status: Chronic Rate controlled at this time. Qualifiers: Atrial fibrillation type: chronic Qualified Code(s): I48.2 - Chronic atrial fibrillation - Subjective Interval history: Patient seen and examined with son at the bedside. No acute events noted over night. No change clinically. Son at bedside and she wants to discuss with us. I saw the patient and the presence of Dr. Moore and the nursing staff. Patient continues to be tachycardic. Last fever was yesterday. WBC improved initially. Vancomycin was stopped and then the patient had another fever and WBC went back up. Infect Dis PN-Objective Data - Labs CBC & Chem 7: 07/21/18 07:52 07/21/18 07:52 Labs: Laboratory Results - last 24 hr 07/21/18 07/21/18 07:52 07:52 WBC 25.1 H RBC 2.66 L Hgb 7.7 L Hct 24.0 L MCV 90.2 MCH 28.9 MCHC 32.1 RDW 20.1 H Plt Count 209 Immature Gran % 2.2 Seg Neutrophils % 38.1 Lymphocytes % 5.7 Monocytes % 52.9 Eosinophils % 0.9 Basophils % 0.2 Neutrophils # 9.6 H Lymphocytes # 1.4 Monocytes # 13.3 H Eosinophils # 0.2 Basophils # 0.1 Sodium 137 Potassium 4.2 Chloride 103 Carbon Dioxide 30 H BUN 13 Creatinine 0.36 L Est GFR ( Amer) > 60 Est GFR (Non-Af Amer) > 60 BUN/Creatinine Ratio 36 H Glucose 113 H Calculated Osmolality 285 Calcium 8.2 L Phosphorus 2.0 L Magnesium 1.7 Cultures: Cultures 07/14/18 22:28 Blood Culture - Final Peripheral Venipuncture No growth. Final report. 07/14/18 22:21 Blood Culture - Final Peripheral Venipuncture No growth. Final report. 07/15/18 09:29 Legionella Antigen - Final Urine,Clean Catch Streptococcus pneumoniae Antigen (M - Final Serology 07/20/18 07/18/18 07/14/18 Range/Units 11:30 15:53 22:23 Urine Color Yellow [place] A (Yellow) Urine Clarity Clear Clear (Clear) Urine pH 6.0 5.5 (5.0-8.0) pH Units Ur Specific [place] 1.015 1.029 H (1.010-1.025) Urine Protein Negative 30 H (Neg-Trace) mg/dL Urine Glucose (UA) Normal Normal (Normal) mg/dL Urine Ketones Negative Trace H (Negative) mg/dL Urine Blood Negative Moderate H (Negative) Urine Nitrite Negative Negative (Negative) Urine Bilirubin Negative Small H (Negative) Urine Urobilinogen Normal Normal (Normal) mg/dL Ur Leukocyte Esterase Negative Small H (Negative) Urine Microscopic RBC 50-100 H (0-3) per hpf Urine Microscopic WBC 5-15 H (0-3) per hpf Ur Squamous Epith Cells Many H (None-Few) per lpf Urine Bacteria Few (None-Few) per hpf Hyaline Casts Many H (None-Few) per lpf Urine Mucus Few (Few) Urine Yeast Moderate H (None Seen) per hpf Ur Culture Indicated? NO NO. A Chlamy pneumoniae PCR Not Detected (Not Detect) Adenovirus (PCR) Not Detected (Not Detect) B. pertussis DNA (PCR) Not Detected (Not Detect) B.parapertussis DNA PCR Not Detected (Not Detect) Coronavirus OC43 (PCR) Not Detected (Not Detect) Coronavirus HKU1 (PCR) Not Detected (Not Detect) Coronavirus 229E (PCR) Not Detected (Not Detect) Coronavirus NL63 (PCR) Not Detected (Not Detect) Human Metapneumovir PCR Not Detected (Not Detect) Influenza A (H1) PCR Not Detected (Not Detect) Influ A (H1N1/09) PCR Not Detected (Not Detect) Influenza A (H3) PCR Not Detected (Not Detect) Influenza A Untype (PCR) Not Detected (Not Detect) Influenza Type B (PCR) Not Detected (Not Detect) M.pneumoniae DNA (PCR) Not Detected (Not Detect) Parainfluenza 1 (PCR) Not Detected (Not Detect) Parainfluenza 2 (PCR) Not Detected (Not Detect) Parainfluenza 3 (PCR) Not Detected (Not Detect) Parainfluenza 4 (PCR) Not Detected (Not Detect) RSV (PCR) Not Detected (Not Detect) Entero/Rhino (PCR) Not Detected (Not Detect) 07/14/18 Range/Units 10:17 Urine Color Dark Yellow (Yellow) Urine Clarity Clear (Clear) Urine pH 6.0 (5.0-8.0) pH Units Ur Specific [place] 1.018 (1.010-1.025) Urine Protein 30 H (Neg-Trace) mg/dL Urine Glucose (UA) Normal (Normal) mg/dL Urine Ketones Negative (Negative) mg/dL Urine Blood Small H (Negative) Urine Nitrite Negative (Negative) Urine Bilirubin Negative (Negative) Urine Urobilinogen 2.0 H (Normal) mg/dL Ur Leukocyte Esterase Negative (Negative) Urine Microscopic RBC 5-15 H (0-3) per hpf Urine Microscopic WBC 0-3 (0-3) per hpf Ur Squamous Epith Cells Few (None-Few) per lpf Urine Bacteria Few (None-Few) per hpf Hyaline Casts (None-Few) per lpf Urine Mucus (Few) Urine Yeast (None Seen) per hpf Ur Culture Indicated? Cancelled Chlamy pneumoniae PCR (Not Detect) Adenovirus (PCR) (Not Detect) B. pertussis DNA (PCR) (Not Detect) B.parapertussis DNA PCR (Not Detect) Coronavirus OC43 (PCR) (Not Detect) Coronavirus HKU1 (PCR) (Not Detect) Coronavirus 229E (PCR) (Not Detect) Coronavirus NL63 (PCR) (Not Detect) Human Metapneumovir PCR (Not Detect) Influenza A (H1) PCR (Not Detect) Influ A (H1N1/09) PCR (Not Detect) Influenza A (H3) PCR (Not Detect) Influenza A Untype (PCR) (Not Detect) Influenza Type B (PCR) (Not Detect) M.pneumoniae DNA (PCR) (Not Detect) Parainfluenza 1 (PCR) (Not Detect) Parainfluenza 2 (PCR) (Not Detect) Parainfluenza 3 (PCR) (Not Detect) Parainfluenza 4 (PCR) (Not Detect) RSV (PCR) (Not Detect) Entero/Rhino (PCR) (Not Detect) - Impressions Impressions Shoulder CT 07/21/18 14:30 IMPRESSION: 1. No acute osseous abnormality. No glenohumeral joint effusion identified. 2. Partially visualized soft tissue mass in the left anterolateral chest wall without significant change from 07/15/2018. 3. Moderate left pleural effusion. D/ / Titus Mccann MD / Titus Mccann MD Interpreting Provider: Titus Mccann MD Exam - Constitutional Vitals: Temp Pulse Resp BP Pulse Ox 99.1 F 97 17 122/58 96 07/21/18 15:26 07/21/18 15:26 07/21/18 15:26 07/21/18 15:26 07/21/18 15:26 General appearance: no acute distress, no febrile - Head Head exam: Present: atraumatic, normocephalic - Respiratory Respiratory exam: Present: CTAB. Absent: wheezes - Cardiovascular Cardiovascular exam: Present: irregular rhythm, +S1, +S2 - GI/Abdominal GI/Abdominal exam: Present: soft. Absent: tenderness - Extremities Exam Extremities exam: Absent: joint swelling, pedal edema Consult Discharge Plan - Plan Referrals: NONE,PCP [Primary Care Provider] -
[2018-07-21] MEDS: Sennosides/Docusate Sodium TABLET PO SCH ×2 (16:40→20:09)
[2018-07-21] MEDS: Pantoprazole 40 MG VIAL IVP SCH (16:41)
[2018-07-21] MEDS: Piperacillin/Tazobactam 3.375 GM in 0.9 % Sodium Chloride Mini Bag 100 ML IVPB SCH (20:14)
--- NOTE | 2018-07-21 20:23 | Anesthesia Evaluation PreOp ---
Date of Encounter: 07/21/18 Time of Encounter: 20:21 - Past History Planned Operation: EGD/Colon Cardiac History: CHF, Arrhythmia (rate controlled on Digoxin, Metoprolol. An ticoagulated on Xarelto.), Other (Cardiomyopathy, Valvualar Dz) Pulmonary History: Former smoker [employer] History: Other (Anxiety/Depression. 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) Anesthesia History: Past Anesthesia (Breast surgery, Cataracts, Hysterectomy, Eye surgery, "Uche in Leg"), Problems ("Very sensitive to Anesthesia - I don't wake up for days") Alcohol Use: none Drug use: none Medications and Allergies Docusate [Colace] 200 mg PO DAILY PRN 04/29/16 [History] Lutein 6 mg PO DAILY 04/29/16 [History] Metoprolol XL (24 HR) Succ [Toprol Xl] 50 mg PO DAILY 04/29/16 [History] Rivaroxaban [Xarelto] 15 mg PO DAILY 04/29/16 [History] Acetaminophen [Tylenol] 1,000 mg PO BID 08/09/16 [History] Cholecalciferol (D-3) [Vitamin D] 1,000 unit PO DAILY 08/09/16 [History] Digoxin [Lanoxin] 0.25 mg PO DAILY #30 tab 12/17/16 [Rx] diazePAM [Valium] 10 mg PO HS 07/14/18 [History] Allergy/AdvReac Type Severity Reaction Status Date / Time dexamethasone Allergy See Verified 08/10/16 13:43 Comments milk Allergy Congested Verified 07/16/18 12:40 Procaine Allergy See Verified 08/10/16 13:43 Comments - Meds/Allergy Pre-op Review Medications Reviewed: Yes Allergies Reviewed: Yes Beta Blockers on Current Med List: Yes (Metoprolol ) If Beta Blockers taken, Date/Time (Last Dose taken): 07/21/2018 @ 0953 Anesthesia Results - Labs 07/21/18 07:52 07/21/18 07:52 Laboratory Results Impressions Echocardiogram 07/13/18 11:25 Impressions: LVEF 45-50%. Mild concentric left ventricular hypertrophy. Indeterminate diastolic function. Normal right ventricular structure and function. Severely dilated left atrium. Mild-moderate aortic regurgitation. Moderate mitral regurgitation. There is restricted motion of the posterior mitral valve leaflet. Moderate tricuspid regurgitation. Moderate pulmonary hypertension. Left Ventricular Wall Motion: Rest Echo Findings The apex, apical inferior, mid inferior, basal inferior, apical anterior, mid anterior, basal anterior, apical septal, mid inferior septal, basal inferior septal, apical lateral, mid anterior lateral, basal anterior lateral, mid anterior septal, mid inferior lateral, basal anterior septal and basal inferior lateral rose were hypokinetic. Findings: Study Quality * Technically adequate exam. ECG Findings * Atrial fibrillation with BBB. Left Ventricle * LVEF 45-50%. * Mild concentric left ventricular hypertrophy. * Indeterminate diastolic function. * Mild global left ventricular systolic dysfunction. * Atypical septal motion consistent with bundle branch block. Right Ventricle * Normal right ventricular structure and function. Left Atrium * Severely dilated left atrium. Right Atrium * Moderately dilated right atrium. Interatrial Septum * No evidence of PFO by color Doppler. Aortic Valve * Trileaflet aortic valve. * Mild-moderate aortic regurgitation. * No aortic stenosis. Mitral Valve * Severe mitral annular calcification * Moderate mitral regurgitation. Posterior mitral valve leaflet is a mobile * Mild to moderate mitral stenosis. Transmitral gradient was not well evaluated Tricuspid Valve * Moderate tricuspid regurgitation. * Moderate pulmonary hypertension. * Estimated RVSP is 48 mmHg. * Estimated RA pressure is 5 mmHg. * No tricuspid stenosis. * Normal tricuspid valve structure. Pulmonic Valve * Trace pulmonic regurgitation. Aorta * Normally sized aortic root. Pericardium * The pericardium appears normal. IVC * Normal IVC dimensions and inspiratory collapse. Pulmonary Artery * Normal visualized portions of the main pulmonary artery. Abdomen/Pelvis CTA 07/18/18 07:48 IMPRESSION: Postsurgical changes status post recent left total hip arthroplasty with periarticular, intramuscular and soft tissue edema as well as a few foci of soft tissue air significantly decreased since recent prior examination suggesting resolving postsurgical changes. Subtle foci of arterial enhancement in the left gluteal musculature posterior to the left hip unchanged since prior examination suggesting postsurgical changes with resolution. No evidence of focal collection. Small subcutaneous hematoma in the area of the incision for the left total hip arthroplasty decreasing in size since prior examination. No evidence of aortic dissection or aneurysm. No active extravasation of contrast in the abdomen or pelvis. No evidence of retroperitoneal hematoma. Small bilateral pleural effusions and cardiomegaly with mild interstitial pulmonary edema suggesting mild CHF. Diverticulosis without evidence of acute diverticulitis. Atherosclerotic disease of the abdominal aorta with atherosclerotic plaque at the origin of the celiac artery and bilateral renal arteries. Findings suggest at least 50% stenosis. D/ / 07/18/2018 09:26:59 Beto Jeffrey MD / morgan Interpreting Provider: Beto Jeffrey MD Shoulder CT 07/21/18 14:30 IMPRESSION: 1. No acute osseous abnormality. No glenohumeral joint effusion identified. 2. Partially visualized soft tissue mass in the left anterolateral chest wall without significant change from 07/15/2018. 3. Moderate left pleural effusion. D/ / Titus Mccann MD / Titus Mccann MD Interpreting Provider: Titus Mccann MD - Imaging EKG: report reviewed (100bpm - Atrial fibrillation Nonspecific IVCD with LAD Anterior infarct, age indeterminate Electronically Signed On 07-16-2018 19:47:20 EST by Sonia Kuhn) Anesthesia Exam Vital Signs Temp Pulse Resp BP Pulse Ox 07/21/18 15:26 99.1 F 97 17 122/58 96 07/21/18 10:26 98.5 F 112 19 133/79 96 07/21/18 06:52 97.7 F 115 19 129/62 96 07/21/18 03:52 97.4 F L 108 17 120/91 97 Intake and Output 07/21/18 07/21/18 07/21/18 07:59 15:59 23:59 Intake Total 480 / 480 270 / 270 Output Total 400 / 400 1450 / 1450 Balance 80 / 80 -1180 / -1180 Intake: IV Fluids 270 / 270 Maxipime 2,000 MG In Water for inj. (sterile) 20 ML @ 300 mls/ hr IVP Q8HR [facility] Rx#:[id number] Vancocin 1,000 MG In 0.9 % 250 / 250 Sodium Chloride 250 ML @ 166. 667 mls/hr IVPB Q12H [facility] Rx#: [id number] Oral 480 / 480 Output: Urine 400 / 400 1450 / 1450 Other: Stool Size Smear Stool Consistency soft Stool Characteristics Pasty Stool Color Brown Blood Tinged # Bowel Movements 1 Weight 70 kg Patient Weight 07/21/18 23:59 Weight 70 kg Height: 5'2" Weight: 154# BMI = 28.2 NPO (# of Hours): MNOc Pain Scale Used: Numeric (1 - 10) - HEENT Pupil (Motor): Pupils equal, EOMI Mallampati: II Teeth: Normal, Missing (Front upper tooth missing) Oral Opening: Greater than 3 - Cardiac Rhythm: Irregular Murmur: None Anesthesia Assess/Plan Anesthetic Plan: MAC Monitoring Plan: Standard Monitors Recovery Plan: Other
[2018-07-21] MEDS: diazePAM 10 MG TABLET PO SCH (20:38)
[2018-07-22] MEDS: Piperacillin/Tazobactam 3.375 GM in 0.9 % Sodium Chloride Mini Bag 100 ML IVPB SCH ×2 (03:41→18:09)
[2018-07-22 08:25] LABS: Basophils % 0.2 %; Eosinophils % 0.9 %
[2018-07-22 08:26] LABS: Basophils # 0.1 K/mcL (0.0-0.2); Eosinophils # 0.3 K/mcL (0.0-0.6); Hematocrit 27.4 % (35.3-44.9); Hemoglobin 8.8 g/dL (11.5-15.4); Immature Granulocytes % 2.4 % (0-4); Lymphocytes # 1.2 K/mcL (0.6-4.6); Lymphocytes % 4.4 %; Mean Corpuscular HGB Conc 32.1 g/dL (31.6-35.5); Mean Corpuscular Hemoglobin 29.3 pg (28.0-33.3); Mean Corpuscular Volume 91.3 fL (83.0-100.0); Monocytes # 15.1 K/mcL (0.0-1.3); Neutrophils # 10.2 K/mcL (1.6-8.9); Platelet Count 232 K/mcL (140-400); Red Cell Distribution Width 20.3 % (11.5-14.5); Segmented Neutrophils % 37.1 %
[2018-07-22 08:46] LABS: BUN/Creatinine Ratio 33 (6-26); Blood Urea Nitrogen 13 mg/dL (8-23); Calcium 8.4 mg/dL (8.6-10.3); Carbon Dioxide 29 mEq/L (23-29); Chloride 101 mEq/L (98-107); Glucose 113 mg/dL (70-105); Magnesium 1.7 mg/dL (1.6-2.6); Osmolality,Calculated 285 (280-300); Phosphorous 1.9 mg/dL (2.7-4.5); Sodium 137 mEq/L (136-145); eGFR For Non-African Americans > 60 (> 60)
[2018-07-22 08:52] LABS: Large Platelets Present (Not Present); Platelet Estimate Normal (Normal)
[2018-07-22] MEDS: *HR* Digoxin 0.25 MG TABLET PO SCH (10:05)
[2018-07-22] MEDS: Pantoprazole 40 MG VIAL IVP SCH ×2 (10:05→18:08)
[2018-07-22] MEDS: Sennosides/Docusate Sodium TABLET PO SCH ×2 (10:06→20:27)
[2018-07-22] MEDS: Cholecalciferol (D-3) 1,000 UNIT TABLET PO SCH (10:06)
[2018-07-22] MEDS: Furosemide 20 MG TABLET PO SCH (10:06)
[2018-07-22] MEDS: Metoprolol XL (24 HR) Succ 50 MG TAB.ER.24H PO SCH (10:06)
[2018-07-22] MEDS: traMADol 50 MG TABLET PO PRN (11:11)
--- NOTE | 2018-07-22 13:47 | Infectious Disease Progress No ---
Date of Encounter: 07/22/18 Time of Encounter: 10:30 - Assessment and Plan (1) SIRS (systemic inflammatory response syndrome) Current Visit: Yes Status: Acute The patient had four SIRS criteria plus hypotension post-op. No infectious source identified. Consider non-infectious etiologies: fat embolism vs. left hip hematoma vs. anesthesia reaction vs. malignany vs. other. CT chest negative for PNA. CT abdomen and pelvis negative for acute infectious abnormality. CT head negative. Urinalysis was negative. Peripheral smear negative. Blood cultures drawn 07/14/18 are negative x 2 sets. Repeat CTA of the abdomen and pelvis nonrevealing for infectious etiology. Pro-calcitonin was elevated at 4.70. Repeat CT of the chest/abdomen/pelvis 07/21/18 showed bilateral multifocal airspace disease which may be from atelectasis from the effusions however pneumonia or atypical edema would be difficult to exclude. There is diverticulosis in the sigmoid colon, wall thickening of the sigmoid colon and rectum is difficult to exclude. There were no new fluid collections. Not sure if the CT chest findings are PNA or not. Per nursing, concern for aspiration, but previous [employer]CH[employer]ICIAN evaluation recommended NTL and mechanically altered textrues. Recommendations: Not sure what is causing the fever and leukocytosis. All workup has been negative and she continues to have leukocytosis and fever despite broad-spectrum antibiotics. Repeat blood cultures x 2. Await lipid testing on the urine. Check amylase, lipase, and LFTs. Repeat peripheral smear. Continue Vancomycin IV. Pharmacy to dose. Goal trough ~15. Continue zosyn 3.375 grams IV Q8H. Duration of treatment depends on the clinical picture. Monitor renal function and for drug toxicity and dose-adjust antibiotics. (2) Leukocytosis Current Visit: Yes Status: Acute WBC elevated with monocytosis. Leukemoid reaction with WBC >50,000 with monocytosis. Etiology unclear. Consider non-infectious sources : malignancy vs. other. Leukocytosis and monocytosis persists. Hem/Onc consulted. Qualifiers: Leukocytosis type: unspecified Qualified Code(s): D72.829 - Elevated white blood cell count, unspecified (3) Encephalopathy acute Current Visit: Yes Status: Resolved Etiology unclear: fat embolism vs. anesthesia reaction vs. other. CT head negative. Appears improved. Continue to monitor closely. (4) Benzodiazepine withdrawal Current Visit: Yes Status: Resolved Was off valium x 3 days. Home dose of valium re-started by the primary team. Qualifiers: Complication of substance-induced condition: with unspecified complication Qualified Code(s): F13.239 - Sedative, hypnotic or anxiolytic dependence with withdrawal, unspecified (5) Intramuscular hematoma Current Visit: Yes Status: Acute CT abdomen and pelvis shows a 9cm intra-muscular hematoma in the left hip, retroperitoneum, and pelvis. CTA negative for arterial extravasation. Likely secondary to recent surgery and hypercoagulable state (INR 1.3 on admission, 3.2 post-op) and heparin. Repeat CTA 07/18/18 shows postsurgical changes status post recent left hip total hip arthroplasty with periarticular, intramuscular, and soft tissue edema as well as a new foci of soft tissue air significantly decreased since recent prior examination suggesting resolving postsurgical changes. Subtle foci of arterial enhancement in the left gluteal musculature posterior to the left hip unchanged since prior examination, suggesting postsurgical changes with resolution. No e vidence of focal collection. Small subcutaneous hematoma in the area of the incision for the left total hip arthroplasty decreasing in size since prior examination. No evidence of aortic dissection or aneurysm. No active extravasation of contrast in the abdomen or pelvis. No evidence of retroper itoneal hematoma. Repeat CT of the abdomen and pelvis 07/21/18 shows intermediate lobular density in the subcutaneous tissue lateral to the left hip and proximal femur which could be sequelae from prior surgery and seroma or old hematoma. Multiple calcified densities again noted in the soft tissues just posterolateral to the left acetabulum with no definitive associated soft tissue mass. Management per the ortho team. (6) Left displaced femoral neck fracture Current Visit: Yes Status: Acute Status post left hip hemiarthroplasty 07/14/[address] Christy. (7) Thrombocytopenia Current Visit: Yes Status: Acute Resolved. Hem/Onc consulted (8) Elevated troponin Current Visit: Yes Status: Acute (9) Lactic acidosis Current Visit: Yes Status: Acute Etiology unclear. Improved. Continue to trend. (10) Constipation Current Visit: No Status: Resolved No obstruction or fecal impaction noted on CT abdomen/pelvis. Bowel regimen per the primary team. Qualifiers: Constipation type: unspecified constipation type Qualified Code(s): K59.00 - Constipation, unspecified (11) Anemia Current Visit: Yes Status: Chronic Hgb improved after PRBC. GI consulted. Planning C-scope later today if patient can complete bowel prep. Workup and management per the primary and hem/onc teams. Qualifiers: Anemia type: unspecified type Qualified Code(s): D64.9 - Anemia, unspecified (12) LBBB (left bundle branch block) Current Visit: Yes Status: Acute (13) CHF (congestive heart failure) Current Visit: No Status: Chronic Qualifiers: Heart failure type: systolic Heart failure chronicity: chronic Qualified Code(s): I50.22 - Chronic systolic (congestive) heart failure (14) Afib Current Visit: No Status: Chronic Rate controlled at this time. Qualifiers: Atrial fibrillation type: chronic Qualified Code(s): I48.2 - Chronic atrial fibrillation - Subjective Interval history: Patient seen and examined with son and electronic gluing machine operator at the bedside. No acute events noted overnight. Patient appears more awake this morning. The patient states overall she feels okay. She denies any fevers or chills or rigors. She denies chest pain, shortness of breath, or cough. She denies nausea, vomiting, diarrhea. She reports pain in her bottom from getting enemas and in her left hip with turning. She states she is not hungry and she is currently NPO for testing later today. Denies any back or joint pain. Denies any oral thrush or skin lesions. Infect Dis PN-Objective Data - Labs CBC & Chem 7: 07/23/18 06:37 07/23/18 06:37 Labs: Laboratory Results - last 24 hr 07/21/18 07/22/18 07/22/18 19:17 07:52 07:52 WBC 27.5 H RBC 3.00 L Hgb 8.8 L Hct 27.4 L MCV 91.3 MCH 29.3 MCHC 32.1 RDW 20.3 H Plt Count 232 MPV TNP Immature Gran % 2.4 Seg Neutrophils % 37.1 Lymphocytes % 4.4 Monocytes % 55.0 Eosinophils % 0.9 Basophils % 0.2 Neutrophils # 10.2 H Lymphocytes # 1.2 Monocytes # 15.1 H Eosinophils # 0.3 Basophils # 0.1 Platelet Estimate Normal Large Platelets Present A Sodium 137 Potassium 4.0 Chloride 101 Carbon Dioxide 29 BUN 13 Creatinine 0.40 L Est GFR ( Amer) > 60 Est GFR (Non-Af Amer) > 60 BUN/Creatinine Ratio 33 H Glucose 113 H Calculated Osmolality 285 Calcium 8.4 L Phosphorus 1.9 L Magnesium 1.7 Vancomycin Trough 11 H Cultures: Cultures 07/14/18 22:28 Blood Culture - Final Peripheral Venipuncture No growth. Final report. 07/14/18 22:21 Blood Culture - Final Peripheral Venipuncture No growth. Final report. 07/15/18 09:29 Legionella Antigen - Final Urine,Clean Catch Streptococcus pneumoniae Antigen (M - Final Serology 07/20/18 07/18/18 07/14/18 Range/Units 11:30 15:53 22:23 Urine Color Yellow [place] A (Yellow) Urine Clarity Clear Clear (Clear) Urine pH 6.0 5.5 (5.0-8.0) pH Units Ur Specific [place] 1.015 1.029 H (1.010-1.025) Urine Protein Negative 30 H (Neg-Trace) mg/dL Urine Glucose (UA) Normal Normal (Normal) mg/dL Urine Ketones Negative Trace H (Negative) mg/dL Urine Blood Negative Moderate H (Negative) Urine Nitrite Negative Negative (Negative) Urine Bilirubin Negative Small H (Negative) Urine Urobilinogen Normal Normal (Normal) mg/dL Ur Leukocyte Esterase Negative Small H (Negative) Urine Microscopic RBC 50-100 H (0-3) per hpf Urine Microscopic WBC 5-15 H (0-3) per hpf Ur Squamous Epith Cells Many H (None-Few) per lpf Urine Bacteria Few (None-Few) per hpf Hyaline Casts Many H (None-Few) per lpf Urine Mucus Few (Few) Urine Yeast Moderate H (None Seen) per hpf Ur Culture Indicated? NO NO. A Chlamy pneumoniae PCR Not Detected (Not Detect) Adenovirus (PCR) Not Detected (Not Detect) B. pertussis DNA (PCR) Not Detected (Not Detect) B.parapertussis DNA PCR Not Detected (Not Detect) Coronavirus OC43 (PCR) Not Detected (Not Detect) Coronavirus HKU1 (PCR) Not Detected (Not Detect) Coronavirus 229E (PCR) Not Detected (Not Detect) Coronavirus NL63 (PCR) Not Detected (Not Detect) Human Metapneumovir PCR Not Detected (Not Detect) Influenza A (H1) PCR Not Detected (Not Detect) Influ A (H1N1/09) PCR Not Detected (Not Detect) Influenza A (H3) PCR Not Detected (Not Detect) Influenza A Untype (PCR) Not Detected (Not Detect) Influenza Type B (PCR) Not Detected (Not Detect) M.pneumoniae DNA (PCR) Not Detected (Not Detect) Parainfluenza 1 (PCR) Not Detected (Not Detect) Parainfluenza 2 (PCR) Not Detected (Not Detect) Parainfluenza 3 (PCR) Not Detected (Not Detect) Parainfluenza 4 (PCR) Not Detected (Not Detect) RSV (PCR) Not Detected (Not Detect) Entero/Rhino (PCR) Not Detected (Not Detect) 07/14/18 Range/Units 10:17 Urine Color Dark Yellow (Yellow) Urine Clarity Clear (Clear) Urine pH 6.0 (5.0-8.0) pH Units Ur Specific [place] 1.018 (1.010-1.025) Urine Protein 30 H (Neg-Trace) mg/dL Urine Glucose (UA) Normal (Normal) mg/dL Urine Ketones Negative (Negative) mg/dL Urine Blood Small H (Negative) Urine Nitrite Negative (Negative) Urine Bilirubin Negative (Negative) Urine Urobilinogen 2.0 H (Normal) mg/dL Ur Leukocyte Esterase Negative (Negative) Urine Microscopic RBC 5-15 H (0-3) per hpf Urine Microscopic WBC 0-3 (0-3) per hpf Ur Squamous Epith Cells Few (None-Few) per lpf Urine Bacteria Few (None-Few) per hpf Hyaline Casts (None-Few) per lpf Urine Mucus (Few) Urine Yeast (None Seen) per hpf Ur Culture Indicated? Cancelled Chlamy pneumoniae PCR (Not Detect) Adenovirus (PCR) (Not Detect) B. pertussis DNA (PCR) (Not Detect) B.parapertussis DNA PCR (Not Detect) Coronavirus OC43 (PCR) (Not Detect) Coronavirus HKU1 (PCR) (Not Detect) Coronavirus 229E (PCR) (Not Detect) Coronavirus NL63 (PCR) (Not Detect) Human Metapneumovir PCR (Not Detect) Influenza A (H1) PCR (Not Detect) Influ A (H1N1/09) PCR (Not Detect) Influenza A (H3) PCR (Not Detect) Influenza A Untype (PCR) (Not Detect) Influenza Type B (PCR) (Not Detect) M.pneumoniae DNA (PCR) (Not Detect) Parainfluenza 1 (PCR) (Not Detect) Parainfluenza 2 (PCR) (Not Detect) Parainfluenza 3 (PCR) (Not Detect) Parainfluenza 4 (PCR) (Not Detect) RSV (PCR) (Not Detect) Entero/Rhino (PCR) (Not Detect) - Impressions Impressions Abdomen/Pelvis CT 07/21/18 14:30 IMPRESSION: Bilateral pleural effusions with multifocal airspace disease. This may be atelectasis from the effusions however pneumonia or atypical edema would be difficult to exclude Stable lobular soft tissue density in the left chest wall/breast tissue. Small pericardial effusion. Right renal cyst Stable asymmetry of the adrenal glands. Post cholecystectomy. Diverticulosis in the sigmoid colon. Wall thickening in the sigmoid colon and rectum would be difficult to exclude. Correlate clinically and/or direct visualization Multifocal perirectal fat and presacral fat stranding is again noted. There is no new fluid collection. Stable low-density lesion in the left adnexa. Multifocal subcutaneous fat edema is noted, greatest in the pelvis. This may represent third-spacing of fluid. Intermediate lobular density in the subcutaneous tissues lateral to the left hip and proximal femur. This may represent sequela of prior surgery and seroma or old hematoma. Multiple calcified densities again noted in the soft tissues just posterolateral to the left acetabulum. There is no definitive associated soft tissue mass. D/ / Antonio Peraza / Antonoi Peraza Interpreting Provider: Antonio Peraza Chest CT 07/21/18 14:30 IMPRESSION: Bilateral pleural effusions with multifocal airspace disease. This may be atelectasis from the effusions however pneumonia or atypical edema would be difficult to exclude Stable lobular soft tissue density in the left chest wall/breast tissue. Small pericardial effusion. Right renal cyst Stable asymmetry of the adrenal glands. Post cholecystectomy. Diverticulosis in the sigmoid colon. Wall thickening in the sigmoid colon and rectum would be difficult to exclude. Correlate clinically and/or direct visualization Multifocal perirectal fat and presacral fat stranding is again noted. There is no new fluid collection. Stable low-density lesion in the left adnexa. Multifocal subcutaneous fat edema is noted, greatest in the pelvis. This may represent third-spacing of fluid. Intermediate lobular density in the subcutaneous tissues lateral to the left hip and proximal femur. This may represent sequela of prior surgery and seroma or old hematoma. Multiple calcified densities again noted in the soft tissues just posterolateral to the left acetabulum. There is no definitive associated soft tissue mass. D/ / Antonio Peraza / Antonio Peraza Interpreting Provider: Antonio Peraza Shoulder CT 07/21/18 14:30 IMPRESSION: 1. No acute osseous abnormality. No glenohumeral joint effusion identified. 2. Partially visualized soft tissue mass in the left anterolateral chest wall without significant change from 07/15/2018. 3. Moderate left pleural effusion. D/ / Titus Mccann MD / Titus Mccann MD Interpreting Provider: Titus Mccann MD Exam - Constitutional Vitals: Temp Pulse Resp BP Pulse Ox 98 F 121 15 129/81 96 07/22/18 11:36 07/22/18 11:36 07/22/18 11:36 07/22/18 11:36 07/22/18 11:36 General appearance: average body habitus, cooperative, no acute distress - Head Head exam: Present: atraumatic, normal inspection, normocephalic - Eye Eye exam: Present: EOMI, normal appearance, PERRL Pupils: Present: normal accommodation - ENT ENT exam: Present: mucous membranes moist - Neck Neck exam: Present: normal inspection - Respiratory Respiratory exam: Present: CTAB. Absent: rales, respiratory distress, rhonchi, wheezes - Cardiovascular Cardiovascular exam: Present: +S1, +S2, tachycardia. Absent: irregular rhythm - GI/Abdominal GI/Abdominal exam: Present: normal bowel sounds, soft. Absent: distended, tenderness Additional comments: Pereira catheter draining clear yellow urine. - Extremities Exam Extremities exam: Absent: normal inspection (Left hip dressing with small amount of serosanguinous drainage. No surrounding erythema or tenderness. Mild ecchymosis.), pedal edema - Neurological Exam Neurological exam: Present: alert, oriented X3, no focal deficits - Psychiatric Psychiatric exam: Present: normal affect, normal mood - Skin Skin exam: Present: dry, intact, normal color, warm Consult Discharge Plan - Plan Referrals: NONE,PCP [Primary Care Provider] - - Attending Attestation I have personally performed a face to face evaluation on this patient. I have reviewed and agree with the care plan. History and Exam by me shows: Assessment and plan: 1.sepsis 2.leukocytosis with monocytosis 3.metabolic encephalopathy improved 4.intramuscular hematoma 5.left displaced femoral neck fracture status post left hip hemiarthroplasty 6.shoulder painCT shoulder negative Recommendations: Not sure what is causing the fever and leukocytosis. All workup has been negative and she continues to have leukocytosis and fever despite broad-spectrum antibiotics. CT shoulder, chest and abdomen pelvis all reviewed. Repeat blood cultures x 2. Await lipid testing on the urine. Check amylase, lipase, and LFTs. Repeat peripheral smear. Continue Vancomycin IV. Pharmacy to dose. Goal trough ~15. Continue zosyn 3.375 grams IV Q8H. Duration of treatment depends on the clinical picture. Monitor renal function and for drug toxicity and dose-adjust antibiotics.
--- NOTE | 2018-07-22 15:31 | Oncology Inp Progress Note ---
<AnthonyMary L - Last Filed: 07/22/18 16:36> Date of Encounter: 07/22/18 Time of Encounter: 14:00 (1) Anemia Current Visit: Yes Status: Chronic Assessment and plan: Mild chronic anemia noted with acute decrease in post op setting Acute blood loss in setting of post op period with presence of hematoma, vs. sepsis vs. other LDH normal Folate replete S/P B12 injection and venofer IV x1 Plan: No s/s bleeding, stool occult blood ordered, patient has been constipated and not clear for endoscopy today due to poor prep Transfuse hgb <7 Repeat CTA abdomen/pelvis reveals: Postsurgical changes status post recent left total hip arthroplasty. Hematoma decreasing in size. No evidence of bleeding in abdomen. GI was consulted over weekend and planning for EGD/Colonoscopy tomorrow She does not have any blasts noted on peripheral blood or smear. Platelet count is normal. This does not appear to be consistent with an acute leukemic process such as AML but we will send for peripheral blood flow cytometry, bcr abl and PDGFR alpha and beta May consider bone marrow biopsy if patient/family want to pursue to establish CMML diagnosis but given patients overall performance states she would not be a good candidate for treatment for CMML, this is usually a chronic disease not requiring treatment, we would consider supportive medications/transfusions if needed in future Qualifiers: Anemia type: unspecified type Qualified Code(s): D64.9 - Anemia, unspecified (2) Breast cancer Current Visit: Yes Status: Chronic Assessment and plan: Patient reports history of left breast cancer ~20 years ago s/p lumpectomy and radiation She has not had mammogram in several years CT of chest noted left chest wall/breast mass previously noted on imaging on 08/10/2016---describes a lobular lesion of the left breast measuring approximately 5.1 x 3.4 cm in axial plane and 9.4 cm in long axis. Previously this measured 4.0 x 2.5 cm in axial plane and 8.9 cm in long axis as measured in similar fashion Plan: Discuss mammogram with targeted ultrasound as outpatient once clinical condition improves, will continue to monitor hospital course Qualifiers: Breast location: unspecified site of breast Estrogen receptor status: unspecified Patient sex: female Laterality: left Qualified Code(s): C50.912 - Malignant neoplasm of unspecified site of left female breast (3) Leukocytosis Current Visit: Yes Status: Acute Assessment and plan: Chronic leukocytosis with areas of normalization, dating back to April 2016 Acute increase above baseline in postoperative setting, SIRS, ID involved for infectious workup Chronic monocytosis with neutrophilia dating back to 2014, acutely increasing in post operative/sepsis setting No immature forms noted on peripheral smear Spleen noted normal on CT imaging Plan: Suspect underlying infectious/sepsis process contributing to acute leukemoid reaction above baseline, although source has not been identified, Pro-calcitonin was elevated at 4.70, Her WBC count is improving and monocyte count is almost back to baseline 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---see plan above as detailed in anemia section---sending peripheral blood flow cytometry, bcr abl and PDGFR alpha and beta Qualifiers: Leukocytosis type: unspecified Qualified Code(s): D72.829 - Elevated white blood cell count, unspecified (4) DVT prophylaxis Current Visit: No Status: Acute Assessment and plan: Xarelto on hold since admission- Atrial Fibrillation Continue SCD's Given presence of hematoma with worsening anemia today and prolonged PT/INR, risk for bleeding outweighs risk for clotting Will continue to monitor labs and patients response before restarting AC Oncology: Subj Interval history: Ms. Jensen is resting in bed, her and son are at bedside. She is alert and conversant. She has not felt well since having to prep for the colonoscopy. Pain well controlled at rest. She is hungry but had been NPO in prep for scopes. She has not tolerated prep well, planning to continue prep with scopes tomorrow. Denies any s/s bleeding. She has not been OOB. 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 Absent: respiratory distress - Cardiovascular Cardiovascular exam: Present: irregular rhythm, tachycardia - GI/Abdominal GI/Abdominal exam: Present: normal bowel sounds, soft. Absent: tenderness - Extremities Exam Extremities exam: Present: normal inspection. Absent: calf tenderness Additional comments: hip abductor pillow - Neurological Exam Neurological exam: Present: alert, oriented X3, no focal deficits, strengths equal and symetr throughout - Psychiatric Psychiatric exam: Present: normal affect, normal mood - Skin Skin exam: Present: dry, pallor, warm Additional comments: honeycomb dressing to left hip dry and intact, small amount of dried blood underneath dressing Oncology: Obj Data - Labs CBC & Chem 7: 07/22/18 07:52 07/22/18 07:52 Consult Discharge Plan - Plan Referrals: NONE,PCP [Primary Care Provider] - Inpatient Charges Provider: Dr. Lizeth Del Rio <ElianeLa Nena - Last Filed: 07/23/18 17:27> Date of Encounter: 07/23/18 Oncology: Subj Interval history: Additional lab works ordered. She had BM due to bowel prep. Awake and talking more today. Left hip dressing has been changed. Family updated of plan of care. I examined this patient and my medical decision-making was reviewed with the Advanced Practice Nurse, Mary Cruz. I agree with the documented findings, disposition and treatment plan as described except to the extent set forth below. Oncology: Obj Data - Labs CBC & Chem 7: 07/23/18 06:37 07/23/18 06:37 Inpatient Charges Provider: Dr. Lizeth Del Rio Follow up - Inpatient: [id number]
--- NOTE | 2018-07-22 15:44 | Internal Med Progress Note ---
Hospitalist Progress Note - Encounter Date of Encounter: 07/22/18 Time of Encounter: 15:35 - Subjective Interval History: I have seen and evaluated the patient at bedside. patient reports left shoulder pain. denies chest pain, nausea or vomiting - Exam Vitals: Temp Pulse Resp BP Pulse Ox 98 F 121 15 129/81 96 07/22/18 11:36 07/22/18 11:36 07/22/18 11:36 07/22/18 11:36 07/22/18 11:36 Exam: Vitals: Reviewed General: Alert and oriented x3. In mild distress due to left shoulder pain Cardiovascular: Irregularly, irregular, normal S1 & S2, no rubs, murmurs or g allops. Lungs: CTA b/l, no wheezes or crackles. Abdomen: Soft, no rigidity, no tenderness Extremities: 1+ edema in the lower ext b/l Neurological: Normal cognition Rest of the physical exam is non contributory - Assessment and Plan (1) CHF (congestive heart failure) Current Visit: No Status: Chronic (2) Afib Current Visit: No Status: Chronic (3) Left displaced femoral neck fracture Current Visit: Yes Status: Acute (4) Anemia Current Visit: Yes Status: Chronic (5) Breast cancer Current Visit: Yes Status: Chronic (6) Leukocytosis Current Visit: Yes Status: Acute (7) Hypophosphatemia Current Visit: Yes Status: Acute - Summary of Assessment and Plan Summary of Assessment and Plan: Assessment and Plan: 1. Leukocytosis unclear source of infection 2. CHF 3. Anemia 4. Left displaced femoral fracture S/P left hip hemiarthroplasty. 5. A.Fib 6. History of breast cancer 7. VTE prophylaxis 8. Constipation 9. Hypophosphatemia 10. Anxiety Plan Change metoprolol succinate to tartrete as succinate cannot be crushed. on digoxin metoprolol 2.5mg/IV Q6HRs PRN for sustain HR >110 continue to hold anticoagulation due to recent hematoma post op and anemia r equiring blood transfusion On furosemide to 40mg/PO daily strict intake and output fluids restriction to 1.5 litters a day Antibiotics per ID recommendations on vancomycin and piperacillin/tazobactam 3.375mg/IV Q8HRs Discussed with hem&onc regarding the possibility of a bone marrow biopsy for fu rther investigation of the leukocytosis as infectious cause is not clear. trend H&H and will transfuse patient per protocol ferrous sulfate 325mg/PO daily added Scheduled for EGD and colonoscopy Continue miraax and docusat/senna 2tabs BID scheduled clear liquid diet, advanced to soft diet chopped meat per speech evaluation continue Pantoprazole 40mg/IV daily Phosphorous replaced intermittent pneumatic compressions for DVT prophylaxis Continue diazepam 10mg/PO HS Disposition: unclear. - Time Spent with Patient Total time spent is greater than 50% in coordination of care (as documented) at patient's floor/unit and/or counseling patient: Greater than 35 minutes (45) Plan of Care Discussed with: patient (and her son at bedside) Internal Medicine: Result - Labs CBC & Chem 7: 07/22/18 07:52 07/22/18 07:52 Labs: Short CBC 07/22/18 Range/Units 07:52 WBC 27.5 H (4.3-11.1) K/mcL Hgb 8.8 L (11.5-15.4) g/dL Hct 27.4 L (35.3-44.9) % Plt Count 232 (140-400) K/mcL Neutrophils # 10.2 H (1.6-8.9) K/mcL BMP 07/22/18 07:52 Sodium 137 Potassium 4.0 Chloride 101 Carbon Dioxide 29 BUN 13 Creatinine 0.40 L Glucose 113 H Calcium 8.4 L - ABG Interpretation ABG results: ABG ABG pH 7.48 pH Units (7.32-7.45) H 07/14/18 20:53 ABG pCO2 32 mmHg (35-45) L 07/14/18 20:53 ABG pO2 161 mmHg (85-104) H 07/14/18 20:53 ABG O2 Saturation 100 % (95-98) H 07/14/18 20:53 PT/INR, D-dimer PT 22.2 Seconds (9.4-12.1) H 07/17/18 05:20 - Impressions Impressions Abdomen/Pelvis CT 07/21/18 14:30 IMPRESSION: Bilateral pleural effusions with multifocal airspace disease. This may be atelectasis from the effusions however pneumonia or atypical edema would be difficult to exclude Stable lobular soft tissue density in the left chest wall/breast tissue. Small pericardial effusion. Right renal cyst Stable asymmetry of the adrenal glands. Post cholecystectomy. Diverticulosis in the sigmoid colon. Wall thickening in the sigmoid colon and rectum would be difficult to exclude. Correlate clinically and/or direct visualization Multifocal perirectal fat and presacral fat stranding is again noted. There is no new fluid collection. Stable low-density lesion in the left adnexa. Multifocal subcutaneous fat edema is noted, greatest in the pelvis. This may represent third-spacing of fluid. Intermediate lobular density in the subcutaneous tissues lateral to the left hip and proximal femur. This may represent sequela of prior surgery and seroma or old hematoma. Multiple calcified densities again noted in the soft tissues just posterolateral to the left acetabulum. There is no definitive associated soft tissue mass. D/ / Antonio Peraza / Antonio Peraza Interpreting Provider: Antonio Peraza Chest CT 07/21/18 14:30 IMPRESSION: Bilateral pleural effusions with multifocal airspace disease. This may be atelectasis from the effusions however pneumonia or atypical edema would be difficult to exclude Stable lobular soft tissue density in the left chest wall/breast tissue. Small pericardial effusion. Right renal cyst Stable asymmetry of the adrenal glands. Post cholecystectomy. Diverticulosis in the sigmoid colon. Wall thickening in the sigmoid colon and rectum would be difficult to exclude. Correlate clinically and/or direct visualization Multifocal perirectal fat and presacral fat stranding is again noted. There is no new fluid collection. Stable low-density lesion in the left adnexa. Multifocal subcutaneous fat edema is noted, greatest in the pelvis. This may represent third-spacing of fluid. Intermediate lobular density in the subcutaneous tissues lateral to the left hip and proximal femur. This may represent sequela of prior surgery and seroma or old hematoma. Multiple calcified densities again noted in the soft tissues just posterolateral to the left acetabulum. There is no definitive associated soft tissue mass. D/ / Antonio Peraza / Antonio Peraza Interpreting Provider: Antonio Peraza Shoulder CT 07/21/18 14:30 IMPRESSION: 1. No acute osseous abnormality. No glenohumeral joint effusion identified. 2. Partially visualized soft tissue mass in the left anterolateral chest wall without significant change from 07/15/2018. 3. Moderate left pleural effusion. D/ / Titus Mccann MD / Titus Mccann MD Interpreting Provider: Titus Mccann MD Consult Discharge Plan - Plan Referrals: NONE,PCP [Primary Care Provider] - (1) CHF (congestive heart failure) Qualifiers: Heart failure type: systolic Heart failure chronicity: chronic Qualified Code(s): I50.22 - Chronic systolic (congestive) heart failure (2) Afib Qualifiers: Atrial fibrillation type: chronic Qualified Code(s): I48.2 - Chronic atrial fibrillation (4) Anemia Qualifiers: Anemia type: unspecified type Qualified Code(s): D64.9 - Anemia, unspecified (5) Breast cancer Qualifiers: Breast location: unspecified site of breast Estrogen receptor status: unspecified Patient sex: female Laterality: left Qualified Code(s): C50.912 - Malignant neoplasm of unspecified site of left female breast (6) Leukocytosis Qualifiers: Leukocytosis type: unspecified Qualified Code(s): D72.829 - Elevated white blood cell count, unspecified
[2018-07-22] MEDS: OXYCODONE Oral CONC 10 MG/0.5 ML ORAL.SYG SL PRN (18:10)
[2018-07-22] MEDS ORDERED: Methyl Salicylate/Menthol 28 GM TUBE TP PRN (18:19)
[2018-07-22] MEDS: diazePAM 10 MG TABLET PO SCH (20:29)
[2018-07-23] MEDS ORDERED: Acetaminophen IV 1,000 MG/100 ML INFUS..BTL IVPB ONE (00:21)
[2018-07-23] MEDS: Piperacillin/Tazobactam 3.375 GM in 0.9 % Sodium Chloride Mini Bag 100 ML IVPB SCH ×3 (03:15→17:30)
[2018-07-23] MEDS ORDERED: 0.9 % Sodium Chloride 250 ML IVC ONE (03:28)
--- NOTE | 2018-07-23 06:21 | Event Note ---
Date of Encounter: 07/23/18 Time of Encounter: 03:10 Alerted by patient's nurse LOIS Cee that patient was severe sepsis risk due to elevated temperature, elevated respirations, elevated heart rate, and hypotension. Nurse instructed to hold all BP meds and opioid pain medications. I had ordered 1000 mg IVPB Ofirmev for fever of 103F which came down to 98.9F following administration. Lactic 1.2. Patient remained hypotensive with BP 85/50. 250 bolus ordered to run over 30 minutes and nurse instructed to keep me updated. Alerted at 05:57 that patient's BP was now 102/69. No morning labs ordered to nurse instructed to order CBC and BMP. Nurse instructed to continue monitoring patient closely and alert me immediately of any adverse changes.
[2018-07-23 07:40] LABS: Hemoglobin 7.9 g/dL (11.5-15.4)
[2018-07-23 07:42] LABS: Hematocrit 24.7 % (35.3-44.9); Mean Corpuscular Hemoglobin 29.5 pg (28.0-33.3); Mean Corpuscular Volume 92.2 fL (83.0-100.0); Mean Platelet Volume 13.9 fL (9.4-12.4); Platelet Count 211 K/mcL (140-400); Red Blood Count 2.68 M/mcL (3.82-4.97); Red Cell Distribution Width 20.8 % (11.5-14.5)
[2018-07-23 07:50] LABS: Alanine Aminotransferase 9 Units/L (7-52); Albumin 2.6 g/dL (3.5-5.7); Albumin/Globulin Ratio 1.5 (1.1-2.2); Alkaline Phosphatase 56 Units/L (34-104); Aspartate Amino Transferase 14 Units/L (13-39); BUN/Creatinine Ratio 42 (6-26); Bilirubin,Total 2.6 mg/dL (0.3-1.0); Blood Urea Nitrogen 19 mg/dL (8-23); Carbon Dioxide 29 mEq/L (23-29); Chloride 103 mEq/L (98-107); Globulin 1.7 g/dL (2.4-3.5); Glucose 112 mg/dL (70-105); Osmolality,Calculated 289 (280-300); Potassium 3.9 mEq/L (3.5-5.1); Sodium 138 mEq/L (136-145); Total Protein 4.3 g/dL (6.4-8.9); eGFR For Non-African Americans > 60 (> 60)
[2018-07-23] MEDS: Pantoprazole 40 MG VIAL IVP SCH (08:13)
[2018-07-23] MEDS: Furosemide 20 MG TABLET PO SCH (08:15)
[2018-07-23] MEDS: *HR* Digoxin 0.25 MG TABLET PO SCH (08:15)
[2018-07-23] MEDS ORDERED: Metoprolol XL (24 HR) Succ 50 MG TAB.ER.24H PO SCH (09:00)
--- NOTE | 2018-07-23 12:56 | Infectious Disease Progress No ---
Date of Encounter: 07/23/18 Time of Encounter: 12:53 - Assessment and Plan (1) SIRS (systemic inflammatory response syndrome) Current Visit: Yes Status: Acute The patient had four SIRS criteria plus hypotension post-op. No infectious source identified. Consider non-infectious etiologies: fat embolism vs. left hip hematoma vs. anesthesia reaction vs. malignany vs. other. CT chest negative for PNA. CT abdomen and pelvis negative for acute infectious abnormality. CT head negative. Urinalysis was negative. Peripheral smear negative. Blood cultures drawn 07/14/18 are negative x 2 sets. Repeat CTA of the abdomen and pelvis nonrevealing for infectious etiology. Pro-calcitonin was elevated at 4.70. Repeat CT of the chest/abdomen/pelvis 07/21/18 showed bilateral multifocal airspace disease which may be from atelectasis from the effusions however pneumonia or atypical edema would be difficult to exclude. There is diverticulosis in the sigmoid colon, wall thickening of the sigmoid colon and rectum is difficult to exclude. There were no new fluid collections. Not sure if the CT chest findings are PNA or not. Per nursing, concern for aspiration, but previous [employer] evaluation recommended NTL and mechanically altered textrues. Recommendations: Not sure what is causing the fever and leukocytosis. All workup has been negative and she continues to have leukocytosis and fever despite broad-spectrum antibiotics. Repeat blood cultures x 2. check lipase amylase consider CT of the hematoma? get diff with CBC in am non infectious etiology possible but ESR normal and procalcitonin elevated (2) Leukocytosis Current Visit: Yes Status: Acute WBC elevated with monocytosis. Leukemoid reaction with WBC >50,000 with monocytosis. Etiology unclear. Consider non-infectious sources : malignancy vs. other. Leukocytosis and monocytosis persists. Hem/Onc consulted. Qualifiers: Leukocytosis type: unspecified Qualified Code(s): D72.829 - Elevated white blood cell count, unspecified (3) Encephalopathy acute Current Visit: Yes Status: Resolved Etiology unclear: fat embolism vs. anesthesia reaction vs. other. CT head negative. Appears improved. Continue to monitor closely. (4) Benzodiazepine withdrawal Current Visit: Yes Status: Resolved Was off valium x 3 days. Home dose of valium re-started by the primary team. Qualifiers: Complication of substance-induced condition: with unspecified complication Qualified Code(s): F13.239 - Sedative, hypnotic or anxiolytic dependence with withdrawal, unspecified (5) Intramuscular hematoma Current Visit: Yes Status: Acute CT abdomen and pelvis shows a 9cm intra-muscular hematoma in the left hip, retroperitoneum, and pelvis. CTA negative for arterial extravasation. Likely secondary to recent surgery and hypercoagulable state (INR 1.3 on admission, 3.2 post-op) and heparin. Repeat CTA 07/18/18 shows postsurgical changes status post recent left hip total hip arthroplasty with periarticular, intramuscular, and soft tissue edema as well as a new foci of soft tissue air significantly decreased since recent prior examination suggesting resolving postsurgical changes. Subtle foci of arterial enhancement in the left gluteal musculature posterior to the left hip unchanged since prior examination, suggesting postsurgical changes with resolution. No evidence of focal collection. Small subcutaneous hematoma in the area of the incision for the left total hip arthroplasty decreasing in size since prior examination. No evidence of aortic dissection or aneurysm. No active extravasation of contrast in the abdomen or pelvis. No evidence of retroperitoneal hematoma. Repeat CT of the abdomen and pelvis 07/21/18 shows intermediate lobular density in the subcutaneous tissue lateral to the left hip and proximal femur which could be sequelae from prior surgery and seroma or old hematoma. Multiple calcified densities again noted in the soft tissues just posterolateral to the left acetabulum with no definitive associated soft tissue mass. Management per the ortho team. (6) Left displaced femoral neck fracture Current Visit: Yes Status: Acute Status post left hip hemiarthroplasty 07/14/[address] Christy. (7) Thrombocytopenia Current Visit: Yes Status: Acute Resolved. Hem/Onc consulted (8) Elevated troponin Current Visit: Yes Status: Acute (9) Lactic acidosis Current Visit: Yes Status: Acute Etiology unclear. Improved. Continue to trend. (10) Constipation Current Visit: No Status: Resolved No obstruction or fecal impaction noted on CT abdomen/pelvis. Bowel regimen per the primary team. Qualifiers: Constipation type: unspecified constipation type Qualified Code(s): K59.00 - Constipation, unspecified (11) Anemia Current Visit: Yes Status: Chronic Hgb improved after PRBC. GI consulted. Planning C-scope later today if patient can complete bowel prep. Workup and management per the primary and hem/onc teams. Qualifiers: Anemia type: unspecified type Qualified Code(s): D64.9 - Anemia, unspecified (12) LBBB (left bundle branch block) Current Visit: Yes Status: Acute (13) CHF (congestive heart failure) Current Visit: No Status: Chronic Qualifiers: Heart failure type: systolic Heart failure chronicity: chronic Qualified Code(s): I50.22 - Chronic systolic (congestive) heart failure (14) Afib Current Visit: No Status: Chronic Rate controlled at this time. Qualifiers: Atrial fibrillation type: chronic Qualified Code(s): I48.2 - Chronic atrial fibrillation - Subjective Interval history: Patient seen and examined in the last 24 hours: T max 103F tachycardic WBC up to 37.5 55% monocytes bili 2.6 CXR : Moderate bilateral pleural effusions with left basilar and right mid and lower lung airspace disease. Right lung airspace disease has increased since the study performed 07/21/2018 at 1351 hours. Asymmetric edema or aspiration pneumonia could be considered given rapidity of development. Infect Dis PN-Objective Data - Labs CBC & Chem 7: 07/23/18 06:37 07/23/18 06:37 Labs: Laboratory Results - last 24 hr 07/23/18 07/23/18 07/23/18 00:58 06:37 06:37 WBC 37.5 H* RBC 2.68 L Hgb 7.9 L Hct 24.7 L MCV 92.2 MCH 29.5 MCHC 32.0 RDW 20.8 H Plt Count 211 MPV 13.9 H Sodium 138 Potassium 3.9 Chloride 103 Carbon Dioxide 29 BUN 19 Creatinine 0.45 L Est GFR ( Amer) > 60 Est GFR (Non-Af Amer) > 60 BUN/Creatinine Ratio 42 H Glucose 112 H Calculated Osmolality 289 Lactic Acid 1.2 Calcium 8.0 L Total Bilirubin 2.6 H AST 14 ALT 9 Alkaline Phosphatase 56 Serum Total Protein 4.3 L Albumin 2.6 L Globulin 1.7 L Albumin/Globulin Ratio 1.5 Cultures: Cultures 07/14/18 22:28 Blood Culture - Final Peripheral Venipuncture No growth. Final report. 07/14/18 22:21 Blood Culture - Final Peripheral Venipuncture No growth. Final report. 07/15/18 09:29 Legionella Antigen - Final Urine,Clean Catch Streptococcus pneumoniae Antigen (M - Final Serology 07/20/18 07/18/18 07/14/18 Range/Units 11:30 15:53 22:23 Urine Color Yellow [place] A (Yellow) Urine Clarity Clear Clear (Clear) Urine pH 6.0 5.5 (5.0-8.0) pH Units Ur Specific [place] 1.015 1.029 H (1.010-1.025) Urine Protein Negative 30 H (Neg-Trace) mg/dL Urine Glucose (UA) Normal Normal (Normal) mg/dL Urine Ketones Negative Trace H (Negative) mg/dL Urine Blood Negative Moderate H (Negative) Urine Nitrite Negative Negative (Negative) Urine Bilirubin Negative Small H (Negative) Urine Urobilinogen Normal Normal (Normal) mg/dL Ur Leukocyte Esterase Negative Small H (Negative) Urine Microscopic RBC 50-100 H (0-3) per hpf Urine Microscopic WBC 5-15 H (0-3) per hpf Ur Squamous Epith Cells Many H (None-Few) per lpf Urine Bacteria Few (None-Few) per hpf Hyaline Casts Many H (None-Few) per lpf Urine Mucus Few (Few) Urine Yeast Moderate H (None Seen) per hpf Ur Culture Indicated? NO NO. A Chlamy pneumoniae PCR Not Detected (Not Detect) Adenovirus (PCR) Not Detected (Not Detect) B. pertussis DNA (PCR) Not Detected (Not Detect) B.parapertussis DNA PCR Not Detected (Not Detect) Coronavirus OC43 (PCR) Not Detected (Not Detect) Coronavirus HKU1 (PCR) Not Detected (Not Detect) Coronavirus 229E (PCR) Not Detected (Not Detect) Coronavirus NL63 (PCR) Not Detected (Not Detect) Human Metapneumovir PCR Not Detected (Not Detect) Influenza A (H1) PCR Not Detected (Not Detect) Influ A (H1N1/09) PCR Not Detected (Not Detect) Influenza A (H3) PCR Not Detected (Not Detect) Influenza A Untype (PCR) Not Detected (Not Detect) Influenza Type B (PCR) Not Detected (Not Detect) M.pneumoniae DNA (PCR) Not Detected (Not Detect) Parainfluenza 1 (PCR) Not Detected (Not Detect) Parainfluenza 2 (PCR) Not Detected (Not Detect) Parainfluenza 3 (PCR) Not Detected (Not Detect) Parainfluenza 4 (PCR) Not Detected (Not Detect) RSV (PCR) Not Detected (Not Detect) Entero/Rhino (PCR) Not Detected (Not Detect) 07/14/18 Range/Units 10:17 Urine Color Dark Yellow (Yellow) Urine Clarity Clear (Clear) Urine pH 6.0 (5.0-8.0) pH Units Ur Specific [place] 1.018 (1.010-1.025) Urine Protein 30 H (Neg-Trace) mg/dL Urine Glucose (UA) Normal (Normal) mg/dL Urine Ketones Negative (Negative) mg/dL Urine Blood Small H (Negative) Urine Nitrite Negative (Negative) Urine Bilirubin Negative (Negative) Urine Urobilinogen 2.0 H (Normal) mg/dL Ur Leukocyte Esterase Negative (Negative) Urine Microscopic RBC 5-15 H (0-3) per hpf Urine Microscopic WBC 0-3 (0-3) per hpf Ur Squamous Epith Cells Few (None-Few) per lpf Urine Bacteria Few (None-Few) per hpf Hyaline Casts (None-Few) per lpf Urine Mucus (Few) Urine Yeast (None Seen) per hpf Ur Culture Indicated? Cancelled Chlamy pneumoniae PCR (Not Detect) Adenovirus (PCR) (Not Detect) B. pertussis DNA (PCR) (Not Detect) B.parapertussis DNA PCR (Not Detect) Coronavirus OC43 (PCR) (Not Detect) Coronavirus HKU1 (PCR) (Not Detect) Coronavirus 229E (PCR) (Not Detect) Coronavirus NL63 (PCR) (Not Detect) Human Metapneumovir PCR (Not Detect) Influenza A (H1) PCR (Not Detect) Influ A (H1N1/09) PCR (Not Detect) Influenza A (H3) PCR (Not Detect) Influenza A Untype (PCR) (Not Detect) Influenza Type B (PCR) (Not Detect) M.pneumoniae DNA (PCR) (Not Detect) Parainfluenza 1 (PCR) (Not Detect) Parainfluenza 2 (PCR) (Not Detect) Parainfluenza 3 (PCR) (Not Detect) Parainfluenza 4 (PCR) (Not Detect) RSV (PCR) (Not Detect) Entero/Rhino (PCR) (Not Detect) - Impressions Impressions Shoulder CT 07/21/18 14:30 IMPRESSION: 1. No acute osseous abnormality. No glenohumeral joint effusion identified. 2. Partially visualized soft tissue mass in the left anterolateral chest wall without significant change from 07/15/2018. 3. Moderate left pleural effusion. D/ / Titus Mccann MD / Titus Mccann MD Interpreting Provider: Titus Mccnan MD Chest X-Ray 07/23/18 00:25 IMPRESSION: Moderate bilateral pleural effusions with left basilar and right mid and lower lung airspace disease. Right lung airspace disease has increased since the study performed 07/21/2018 at 1351 hours. Asymmetric edema or aspiration pneumonia could be considered given rapidity of development. D/ / Lian Irvin Cha, MD / Lian Irvin Cha, MD Interpreting Provider: Lian Irvin Cha, MD Exam - Constitutional Vitals: Temp Pulse Resp BP Pulse Ox 97.7 F 93 18 115/48 93 07/23/18 12:30 07/23/18 12:30 07/23/18 12:30 07/23/18 12:30 07/23/18 12:30 Consult Discharge Plan - Plan Referrals: NONE,PCP [Primary Care Provider] -
[2018-07-23] MEDS: 0.9 % Sodium Chloride 1,000 ML IVC SCH (13:53)
--- NOTE | 2018-07-23 14:03 | Event Note ---
Date of Encounter: 07/23/18 Time of Encounter: 13:49 SEE ANESTHESIA PRE-OP EVAL 07/21/2018 ANEMIA POST LEFT KATHERINE HIP 07/14 AFIB, NEW ONSET LBBB, MOD MR, AI, NORMAL EF SIRS DEMENTIA JAUNDICE Laboratory Tests 07/23/18 06:37 Hgb 7.9 L Vital Signs/O2 Sat/Glucose, Most Recent Temp Pulse Resp BP Pulse Ox 97.6 F 71 18 112/53 94 07/23/18 13:43 07/23/18 13:43 07/23/18 13:43 07/23/18 13:43 07/23/18 13:43 Blood Glucose* 124 CONSENT OBTAINED FROM SON ([place]).
--- NOTE | 2018-07-23 15:34 | Event Note ---
Date of Encounter: 07/23/18 Time of Encounter: 15:33 Dr. Ambriz spoke with son today regarding EGD and colonoscopy. Due to patient being high risk, the procedures were canceled. Patient's son was agreeable to canceling procedure and is considering transferring patient to hospice care.
[2018-07-23] MEDS: traMADol 50 MG TABLET PO PRN (15:40)
--- NOTE | 2018-07-23 15:41 | Palliative - Consult Note ---
Date of Encounter: 07/23/18 Time of Encounter: 14:30 - Assessment and Plan (1) Goals of care, counseling/discussion Current Visit: Yes Status: Acute Assessment and plan: Conducted lengthy goals of care assessment with patient, patient's , and patient's son regarding plans of care moving forward. Explained goals of hospice and limitations of [facility] in coverage of hospice care, would require care in the home or private pay for facility if in ECF; verbalized understanding. Explained hospice covers DME, Nursing, aides, and medication for symptoms; however, nursing is not present 03/12. Evaluated for patient's goals with current clinical status. Patient's son explained that more has been completed than the patient would have wanted, but reports he wanted to do more to allow for her to live longer. Explains that he understands where her decisions lie, but would like to speak with Dr. Dunbar regarding his options for removing antibiotics monitored as son reports Dr. Dunbar had mentioned in passing. Confirmed no further desire for scope. Son reports based on conversation with ID, if no more can be done will then decide at that point to go home with [facility]; however, wants to complete clinical stay with further infection management at this time. Reviewed CODE STATUS. Desires to remain DNRCCA, ok with short term intubation. Requested Palliative return tomorrow after discussion with Dr. Dunbar. Dr. Dunbar contacted to update on results of conversation and report that son would like to see him. Dr. Dunbar reported that he would see son tomorrow. Gave patient's son update that Dr. Dunbar would be in tomorrow, agreed. (2) Pain Current Visit: Yes Status: Acute Assessment and plan: Patient reports pain not present when lying still; however, excrutiating with movement. Patient has Tylenol, Tramadol, and Oxycodone ordered. Has not utilized any doses today. Recommend pre-medicating prior to movement with Primary RN. (3) Acute on chronic systolic CHF (congestive heart failure) Current Visit: No Status: Resolved (4) Atrial fibrillation with rapid ventricular response Current Visit: No Status: Chronic (5) Total bilirubin, elevated Current Visit: No Status: Acute Assessment and plan: GI Consulted. Patient not having colonoscopy. (6) Valvular heart disease Current Visit: No Status: Acute Assessment and plan: EF 45-55%. (7) Leukocytosis Current Visit: Yes Status: Acute Assessment and plan: WBC 37.5. ID and Hemo/Onco consult recommendations appreciated. Qualifiers: Leukocytosis type: unspecified Qualified Code(s): D72.829 - Elevated white blood cell count, unspecified (8) Anxiety Current Visit: No Status: Chronic Assessment and plan: Patient son expressed concern that patient may not be getting Valium as she t akes at home. Medication order review shows patient has Valium ordered nightly, continue as ordered. (9) Benzodiazepine withdrawal Current Visit: Yes Status: Resolved Qualifiers: Complication of substance-induced condition: with unspecified complication Qualified Code(s): F13.239 - Sedative, hypnotic or anxiolytic dependence with withdrawal, unspecified (10) SIRS (systemic inflammatory response syndrome) Current Visit: Yes Status: Acute (11) Dysphagia Current Visit: Yes Status: Acute Assessment and plan: Patients son signed waiver for thin liquids. Witnessed by this provider. Explained risks being aspiration, pneumonia, and . Qualifiers: Dysphagia type: unspecified Qualified Code(s): R13.10 - Dysphagia, unspecified Palliative-CN HPI - Data of Consult Patient: new to practice Consult date: 07/23/18 Requesting Physician: Jose Carlos Keller Primary Care Provider: PCP NONE - Consult Narrative Palliative Care/Comfort Measures: Palliative care Reason for consult: goals of care, multiple medical problems, poor prognosis, hospice eval. History of present illness: Ms. Jensen is a 88 year old female Arrived to [facility] 07/13/18 s/p fall, diagnosed with left hip fracture. Ortho consult recommended and completed surgical repair. PMH: Afib, breast Ca, Cardiomyopathy, CHF (EF 45-50%), Hyperlipidemia, valvular disease, and anxiety. On 07/14/18, patient found to be positive for 3 SIRS, transferred to ICU. CT abdomen showing intramuscular hematoma. CT chest showing Bilateral pleural effusion with biatrial enlargement. 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 ID consulted for evaluation of leukocytosis and discovery of infectious source; all workup has been negative. Noted concern for aspiration, recommend nectal liquids; however, patient and son desire thin liquids, waiver completed. GI consulted for anemia; decision was made for EGD/Colonoscopy, patient completed prep then was unable to tolerate procedure and was canceled. Anesthesiology then consulted Palliative care for goals of care discussion, hospice evaluation due to overall poor prognosis. Patient resting in bed, awake, alert and oriented times 3 upon arrival for assessment. Patients son and present at bedside. Patient denies pain when lying still, but then describes excruciating pain with movement of any type. Patient has long history of anxiety and reports stable at time of assessment. Patients son requests to schedule patients valium at bedtime, as she routinely takes at home. Patient denies nausea, vomiting, and dyspnea. CC: Jose Carlos Keller - Time Spent with Patient Time: Total time spent is greater than 50% in coordination of care (as documented) at patient's floor/unit and/or counseling patient: Time with patient: 60 minutes Past Med Surg Social Fam HX - Past Medical History Medical history: atrial fibrillation, cancer (Breast cancer 20 years ago status post radiation), cardiomyopathy, CHF, coronary artery disease, hyperlipidemia, valvular heart disease, other Additional medical history: macular degeneration Psychiatric history: anxiety - Past Surgical History Surgical History: breast surgery, cataract, hysterectomy Additional surgical history: eye surgery - Social History Smoking Status: Former smoker Smokeless Tobacco Status: No Alcohol use: none Drug use: none - Family History Father Hx Family Cardiac Disorders: Yes ([place]) Mother Living Status: Medications and Allergies Docusate [Colace] 200 mg PO DAILY PRN 04/29/16 [History] Lutein 6 mg PO DAILY 04/29/16 [History] Metoprolol XL (24 HR) Succ [Toprol Xl] 50 mg PO DAILY 04/29/16 [History] Rivaroxaban [Xarelto] 15 mg PO DAILY 04/29/16 [History] Acetaminophen [Tylenol] 1,000 mg PO BID 08/09/16 [History] Cholecalciferol (D-3) [Vitamin D] 1,000 unit PO DAILY 08/09/16 [History] Digoxin [Lanoxin] 0.25 mg PO DAILY #30 tab 12/17/16 [Rx] diazePAM [Valium] 10 mg PO HS 07/14/18 [History] Allergy/AdvReac Type Severity Reaction Status Date / Time dexamethasone Allergy See Verified 08/10/16 13:43 Comments milk Allergy Congested Verified 07/16/18 12:40 Procaine Allergy See Verified 08/10/16 13:43 Comments - Constitutional Constitutional ROS PAL: decreased appetite, frequent falls, weight loss, no anorexia - EENT Ears: decreased hearing - Cardiovascular Cardiovascular ROS: no chest pain, no dyspnea on exertion - Respiratory Respiratory: no dyspnea - Gastrointestinal Gastrointestinal: no abdominal pain, no nausea, no vomiting - Genitourinary Palliative ROS female: difficulty voiding - Musculoskeletal Musculoskeletal ROS IM: myalgias (left hip/leg), no back pain - Neurological Neurological ROS: confusion (intermittently) - Psychiatric Psychiatric general PM: anxiety Palliative Care-Exam - Constitutional Vitals: Temp Pulse Resp BP Pulse Ox 98.1 F 89 20 136/79 94 07/23/18 15:32 07/23/18 15:32 07/23/18 15:32 07/23/18 15:32 07/23/18 15:32 General appearance: Present: average body habitus, cooperative, no acute distress - Head Head Exam: Present: normal inspection - Expanded Head Exam Head exam expanded IM: Absent: raccoon eyes - Eye Eye exam: Present: normal appearance, PERRL. Absent: periorbital swelling, periorbital tenderness Pupils: Present: PERRL - ENT ENT exam: Present: mucous membranes moist, normal external ear exam. Absent: mucous membranes dry - Expanded ENT Exam Mouth Exam: Absent: drooling - Neck Neck exam: Present: full ROM, normal inspection - Respiratory Respiratory exam: Present: CTAB. Absent: respiratory distress, wheezes - Cardiovascular Cardiovascular exam: Present: +S1, +S2 - Expanded Cardiovascular Exam Peripheral pulses: 2+: Radial (L), Radial (R), Posterior Tibialis (L), Posterior Tibialis (R), Dorsalis Pedis (L) PM, Dorsalis Pedis (R) PM - Rectal Rectal exam: Present: deferred - Catheter Type: Urethral (Pereira) - Extremities Exam Extremities exam: Present: normal inspection, tenderness (left hip). Absent: pedal edema - Back Exam Back exam: Present: normal inspection - Neurological Exam Neurological exam: Present: alert, oriented X3. Absent: altered - Expanded Neurological Exam Patient oriented to: Present: person, place, time Coma Scale Eye Opening: Spontaneous Coma Scale Motor Response: Obeys Commands Coma Scale Verbal Response: Oriented Coma Scale Total: 15 - Psychiatric Psychiatric exam: Present: normal affect, normal mood. Absent: agitated, anxious Internal Medicine - CN: Reslt - Labs CBC & Chem 7: 07/23/18 06:37 07/23/18 06:37 Labs: Short CBC 07/23/18 Range/Units 06:37 WBC 37.5 H* (4.3-11.1) K/mcL Hgb 7.9 L (11.5-15.4) g/dL Hct 24.7 L (35.3-44.9) % Plt Count 211 (140-400) K/mcL BMP 07/23/18 06:37 Sodium 138 Potassium 3.9 Chloride 103 Carbon Dioxide 29 BUN 19 Creatinine 0.45 L Glucose 112 H Calcium 8.0 L Liver Function 07/23/18 Range/Units 06:37 Total Bilirubin 2.6 H (0.3-1.0) mg/dL AST 14 (13-39) Units/L ALT 9 (7-52) Units/L Alkaline Phosphatase 56 (34-104) Units/L Albumin 2.6 L (3.5-5.7) g/dL - ABG Interpretation ABG results: ABG ABG pH 7.48 pH Units (7.32-7.45) H 07/14/18 20:53 ABG pCO2 32 mmHg (35-45) L 07/14/18 20:53 ABG pO2 161 mmHg (85-104) H 07/14/18 20:53 ABG O2 Saturation 100 % (95-98) H 07/14/18 20:53 PT/INR, D-dimer PT 22.2 Seconds (9.4-12.1) H 07/17/18 05:20 - Impressions Impressions Chest X-Ray 07/23/18 00:25 IMPRESSION: Moderate bilateral pleural effusions with left basilar and right mid and lower lung airspace disease. Right lung airspace disease has increased since the study performed 07/21/2018 at 1351 hours. Asymmetric edema or aspiration pneumonia could be considered given rapidity of development. D/ / Lian Irvin Cha, MD / Lian Irvin Cha, MD Interpreting Provider: Lian Irvin Cha, MD Consult Discharge Plan - Plan Referrals: NONE,PCP [Primary Care Provider] - Palliative Quality Palliative Quality: Screen for Code Status: Yes, Screen for Goals of Care: Yes, Screen for Pain: Yes, If Pain Regimen Started, Initiate Bowel Regimen: NA, Scree n for Nausea/Vomitting: Yes Code Status: 07/13/18 11:19 Resuscitation Status: Active [RES] Routine Comment: Resuscitation Status: Full Code 07/14/18 22:20 CODE [Resuscitation Status: Active] [RES] Routine Comment: Resuscitation Status: DNR-Comfort Care-Arrest Palliative Scale - Palliative Performance Scale How ambulatory is this patient?: Mainly in bed What is patient's level of activity and evidence of disease?: Unable to do any work, Extensive disease How much self-care assistance does patient require?: Considerable assistance required How much oral intake does the patient have?: Normal or reduced What is this patient's level of consciousness?: Full or confusion Palliative Performance Score: 60 %
[2018-07-23] MEDS: Sennosides/Docusate Sodium TABLET PO SCH ×2 (15:48→19:59)
[2018-07-23] MEDS: Cholecalciferol (D-3) 1,000 UNIT TABLET PO SCH (15:48)
--- NOTE | 2018-07-23 19:03 | Internal Med Progress Note ---
Hospitalist Progress Note - Encounter Date of Encounter: 07/23/18 Time of Encounter: 11:00 - Subjective Interval History: Patient with no improvement in the fact worsening leukocytosis this morning. No infectious disease etiology to this point and hematology oncology with recommendations for consideration of bone marrow biopsy for etiology. - Exam Vitals: Temp Pulse Resp BP Pulse Ox 98.1 F 89 20 136/79 94 07/23/18 15:32 07/23/18 15:32 07/23/18 15:32 07/23/18 15:32 07/23/18 15:32 Exam: Gen.: Nonacute distress, alert and oriented 3 ENT: Mucosal membranes moist Respiratory: Lungs are clear to auscultation bilaterally without any wheezing rhonchi or rales Cardiovascular: Normal S1 and S2 regular rate rhythm no murmurs rubs or gallops Abdomen: Soft, nontender and nondistended with positive bowel sounds Extremities: No lower extremity edema Skin: Normal color - Assessment and Plan (1) Leukocytosis Current Visit: Yes Status: Acute Assessment and Plan: No improvement in leukocytosis in spite of being on broad-spectrum IV anti biotics. Infectious disease following with no etiology to this point Hematology oncology following with recommendations for consideration of bone marrow biopsy for etiology (2) Left displaced femoral neck fracture Current Visit: Yes Status: Acute Assessment and Plan: Plan of care as per orthopedic team. Continue daily PT/OT. (3) CHF (congestive heart failure) Current Visit: No Status: Chronic Assessment and Plan: patient is euvolemic. Continue on furosemide 20mg/PO daily in addition to metoprolol 50mg/PO daily. Continue fluids restriction to 1.5 litters a day. (4) Afib Current Visit: No Status: Chronic Assessment and Plan: Rate controlled on metoprolol. Not on anticoagulation due to high risk of falls. (5) Anemia Current Visit: Yes Status: Chronic Assessment and Plan: slightly decreased on H&H. patient transfused 1 unit of PRBCs yesterday. Family declined further workup (6) Breast cancer Current Visit: Yes Status: Chronic Assessment and Plan: plan of care as per hem&Onc (7) Hypophosphatemia Current Visit: Yes Status: Acute Assessment and Plan: electrolyte being replaced - Time Spent with Patient Total time spent is greater than 50% in coordination of care (as documented) at patient's floor/unit and/or counseling patient: Internal Medicine: Result - Labs CBC & Chem 7: 07/23/18 06:37 07/23/18 06:37 Labs: Short CBC 07/23/18 Range/Units 06:37 WBC 37.5 H* (4.3-11.1) K/mcL Hgb 7.9 L (11.5-15.4) g/dL Hct 24.7 L (35.3-44.9) % Plt Count 211 (140-400) K/mcL BMP 07/23/18 06:37 Sodium 138 Potassium 3.9 Chloride 103 Carbon Dioxide 29 BUN 19 Creatinine 0.45 L Glucose 112 H Calcium 8.0 L Liver Function 07/23/18 Range/Units 06:37 Total Bilirubin 2.6 H (0.3-1.0) mg/dL AST 14 (13-39) Units/L ALT 9 (7-52) Units/L Alkaline Phosphatase 56 (34-104) Units/L Albumin 2.6 L (3.5-5.7) g/dL - ABG Interpretation ABG results: ABG ABG pH 7.48 pH Units (7.32-7.45) H 07/14/18 20:53 ABG pCO2 32 mmHg (35-45) L 07/14/18 20:53 ABG pO2 161 mmHg (85-104) H 07/14/18 20:53 ABG O2 Saturation 100 % (95-98) H 07/14/18 20:53 PT/INR, D-dimer PT 22.2 Seconds (9.4-12.1) H 07/17/18 05:20 - Impressions Impressions Chest X-Ray 07/23/18 00:25 IMPRESSION: Moderate bilateral pleural effusions with left basilar and right mid and lower lung airspace disease. Right lung airspace disease has increased since the study performed 07/21/2018 at 1351 hours. Asymmetric edema or aspiration pneumonia could be considered given rapidity of development. D/ / Lian Irvin Cha, MD / Lian Irvin Cha, MD Interpreting Provider: Lian Irvin Cha, MD Consult Discharge Plan - Plan Referrals: NONE,PCP [Primary Care Provider] - (1) Leukocytosis Qualifiers: Leukocytosis type: unspecified Qualified Code(s): D72.829 - Elevated white blood cell count, unspecified (3) CHF (congestive heart failure) Qualifiers: Heart failure type: systolic Heart failure chronicity: chronic Qualified Code(s): I50.22 - Chronic systolic (congestive) heart failure (4) Afib Qualifiers: Atrial fibrillation type: chronic Qualified Code(s): I48.2 - Chronic atrial fibrillation (5) Anemia Qualifiers: Anemia type: unspecified type Qualified Code(s): D64.9 - Anemia, unspecified (6) Breast cancer Qualifiers: Breast location: unspecified site of breast Estrogen receptor status: unspecified Patient sex: female Laterality: left Qualified Code(s): C50.912 - Malignant neoplasm of unspecified site of left female breast
[2018-07-23] MEDS: diazePAM 10 MG TABLET PO SCH (19:58)
[2018-07-23] MEDS: OXYCODONE Oral CONC 10 MG/0.5 ML ORAL.SYG SL PRN (20:12)
[2018-07-24] MEDS: Piperacillin/Tazobactam 3.375 GM in 0.9 % Sodium Chloride Mini Bag 100 ML IVPB SCH ×5 (02:29→23:04)
[2018-07-24 04:43] LABS: INR 1.5; Prothrombin Time 16.9 Seconds (9.4-12.1)
[2018-07-24 04:45] LABS: Activated Partial Thrombo Time 25.2 Seconds (26.0-36.0)
[2018-07-24] MEDS: Sennosides/Docusate Sodium TABLET PO SCH ×2 (08:35→20:04)
[2018-07-24] MEDS: Cholecalciferol (D-3) 1,000 UNIT TABLET PO SCH (08:35)
[2018-07-24] MEDS: *HR* Digoxin 0.25 MG TABLET PO SCH (08:35)
[2018-07-24] MEDS: Furosemide 20 MG TABLET PO SCH (08:35)
[2018-07-24] MEDS: Pantoprazole 40 MG VIAL IVP SCH (08:35)
[2018-07-24] MEDS: OXYCODONE Oral CONC 10 MG/0.5 ML ORAL.SYG SL PRN ×2 (08:36→14:27)
--- NOTE | 2018-07-24 09:25 | Infectious Disease Progress No ---
Date of Encounter: 07/24/18 Time of Encounter: 08:40 - Assessment and Plan (1) SIRS (systemic inflammatory response syndrome) Current Visit: Yes Status: Acute The patient had four SIRS criteria plus hypotension post-op. No infectious source identified. Consider non-infectious etiologies: fat embolism vs. left hip hematoma vs. anesthesia reaction vs. malignany vs. other. CT chest negative for PNA. CT abdomen and pelvis negative for acute infectious abnormality. CT head negative. Urinalysis was negative. Peripheral smear negative. Blood cultures drawn 07/14/18 are negative x 2 sets. Repeat CTA of the abdomen and pelvis nonrevealing for infectious etiology. Pro-calcitonin was elevated at 4.70. Repeat CT of the chest/abdomen/pelvis 07/21/18 showed bilateral multifocal airspace disease which may be from atelectasis from the effusions however pneumonia or atypical edema would be difficult to exclude. There is diverticulosis in the sigmoid colon, wall thickening of the sigmoid colon and rectum is difficult to exclude. There were no new fluid collections. Not sure if the CT chest findings are PNA or not. Per nursing, concern for aspiration, but previous CERTIFIED ORTHOTIST PRACTICE MANAGER evaluation recommended NTL and mechanically altered textrues. Patient's son declining bone marrow biopsy. States he is fine with running additional labs if we think the information would be yielding, but any other testing he would like to discuss before it is ordered. Recommendations: Not sure what is causing the fever and leukocytosis. All workup has been negative and she continues to have leukocytosis and fever despite broad-spectrum antibiotics. Await repeat blood cultures. Patient's son hesitant to pursue additional testing and wants to discuss this further with Dr. Dunbar. Continue Vancomycin IV for now. Pharmacy to dose. Goal trough ~15. Continue Zosyn 3.375 grams IV Q8H. Duration of treatment depends on the clinical picture. Monitor renal function and for drug toxicity and dose-adjust antibiotics. (2) Leukocytosis Current Visit: Yes Status: Acute WBC elevated with monocytosis. Leukemoid reaction with WBC >50,000 with monocytosis. Etiology unclear. Consider non-infectious sources : malignancy vs. other. Leukocytosis and monocytosis persists. Hem/Onc consulted. Qualifiers: Leukocytosis type: unspecified Qualified Code(s): D72.829 - Elevated white blood cell count, unspecified (3) Encephalopathy acute Current Visit: Yes Status: Resolved Etiology unclear: fat embolism vs. anesthesia reaction vs. other. CT head negative. Resolved. Continue to monitor closely. (4) Benzodiazepine withdrawal Current Visit: Yes Status: Resolved Was off valium x 3 days. Home dose of valium re-started by the primary team. Qualifiers: Complication of substance-induced condition: with unspecified complication Qualified Code(s): F13.239 - Sedative, hypnotic or anxiolytic dependence with withdrawal, unspecified (5) Intramuscular hematoma Current Visit: Yes Status: Acute CT abdomen and pelvis shows a 9cm intra-muscular hematoma in the left hip, retroperitoneum, and pelvis. CTA negative for arterial extravasation. Likely secondary to recent surgery and hypercoagulable state (INR 1.3 on admission, 3.2 post-op) and heparin. Repeat CTA 07/18/18 shows postsurgical changes status post recent left hip total hip arthroplasty with periarticular, intramuscular, and soft tissue edema as well as a new foci of soft tissue air significantly decreased since recent prior examination suggesting resolving postsurgical changes. Subtle foci of arterial enhancement in the left gluteal musculature posterior to the left hip unchanged since prior examination, suggesting postsurgical changes with resolution. No evidence of focal collection. Small subcutaneous hematoma in the area of the in cision for the left total hip arthroplasty decreasing in size since prior examination. No evidence of aortic dissection or aneurysm. No active extravasation of contrast in the abdomen or pelvis. No evidence of retroperitoneal hematoma. Repeat CT of the abdomen and pelvis 07/21/18 shows intermediate lobular density in the subcutaneous tissue lateral to the left hip and proximal femur which could be sequelae from prior surgery and seroma or old hematoma. Multiple calcified densities again noted in the soft tissues just posterolateral to the left acetabulum with no definitive associated soft tissue mass. Management per the ortho team. (6) Left displaced femoral neck fracture Current Visit: Yes Status: Acute Status post left hip hemiarthroplasty 07/14/[address] Christy. (7) Thrombocytopenia Current Visit: Yes Status: Acute Resolved. Hem/Onc consulted (8) Elevated troponin Current Visit: Yes Status: Acute (9) Lactic acidosis Current Visit: Yes Status: Acute Etiology unclear. Improved. Continue to trend. (10) Constipation Current Visit: No Status: Resolved No obstruction or fecal impaction noted on CT abdomen/pelvis. Bowel regimen per the primary team. Qualifiers: Constipation type: unspecified constipation type Qualified Code(s): K59.00 - Constipation, unspecified (11) Anemia Current Visit: Yes Status: Chronic Hgb improved after PRBC. GI consulted. EGD/C-scope cancelled due to patient's too high risk. Workup and management per the primary and hem/onc teams. Qualifiers: Anemia type: unspecified type Qualified Code(s): D64.9 - Anemia, unspecified (12) LBBB (left bundle branch block) Current Visit: Yes Status: Acute (13) CHF (congestive heart failure) Current Visit: No Status: Chronic Qualifiers: Heart failure type: systolic Heart failure chronicity: chronic Qualified Code(s): I50.22 - Chronic systolic (congestive) heart failure (14) Afib Current Visit: No Status: Chronic Rate controlled at this time. Qualifiers: Atrial fibrillation type: chronic Qualified Code(s): I48.2 - Chronic atrial fibrillation - Subjective Interval history: Patient seen and examined with son at the bedside. Palliative care consult noted. No acute events noted overnight. The patient states overall she feels okay. She denies any fevers or chills or rigors. She denies chest pain, shortness of breath, or cough. She denies nausea, vomiting, diarrhea. She reports pain in her bottom and lower back and left hip with turning. She ate a little breakfast this morning. Denies any specific joint pain. Denies any oral thrush or skin lesions. Infect Dis PN-Objective Data - Labs CBC & Chem 7: 07/25/18 11:10 07/25/18 11:10 Labs: Laboratory Results - last 24 hr 07/24/18 07/24/18 04:08 07:59 PT 16.9 H INR 1.5 APTT 25.2 L Random Vancomycin 16 Cultures: Cultures 07/23/18 15:58 Blood Culture - Preliminary Peripheral Venipuncture Culture is incubating and being continuously monitored for growth. Final report to follow. 07/23/18 15:58 Blood Culture - Preliminary Peripheral Venipuncture Culture is incubating and being continuously monitor ed for growth. Final report to follow. 07/14/18 22:28 Blood Culture - Final Peripheral Venipuncture No growth. Final report. 07/14/18 22:21 Blood Culture - Final Peripheral Venipuncture No growth. Final report. 07/15/18 09:29 Legionella Antigen - Final Urine,Clean Catch Streptococcus pneumoniae Antigen (M - Final Serology 07/20/18 07/18/18 07/14/18 Range/Units 11:30 15:53 22:23 Urine Color Yellow [place] A (Yellow) Urine Clarity Clear Clear (Clear) Urine pH 6.0 5.5 (5.0-8.0) pH Units Ur Specific [place] 1.015 1.029 H (1.010-1.025) Urine Protein Negative 30 H (Neg-Trace) mg/dL Urine Glucose (UA) Normal Normal (Normal) mg/dL Urine Ketones Negative Trace H (Negative) mg/dL Urine Blood Negative Moderate H (Negative) Urine Nitrite Negative Negative (Negative) Urine Bilirubin Negative Small H (Negative) Urine Urobilinogen Normal Normal (Normal) mg/dL Ur Leukocyte Esterase Negative Small H (Negative) Urine Microscopic RBC 50-100 H (0-3) per hpf Urine Microscopic WBC 5-15 H (0-3) per hpf Ur Squamous Epith Cells Many H (None-Few) per lpf Urine Bacteria Few (None-Few) per hpf Hyaline Casts Many H (None-Few) per lpf Urine Mucus Few (Few) Urine Yeast Moderate H (None Seen) per hpf Ur Culture Indicated? NO NO. A Chlamy pneumoniae PCR Not Detected (Not Detect) Adenovirus (PCR) Not Detected (Not Detect) B. pertussis DNA (PCR) Not Detected (Not Detect) B.parapertussis DNA PCR Not Detected (Not Detect) Coronavirus OC43 (PCR) Not Detected (Not Detect) Coronavirus HKU1 (PCR) Not Detected (Not Detect) Coronavirus 229E (PCR) Not Detected (Not Detect) Coronavirus NL63 (PCR) Not Detected (Not Detect) Human Metapneumovir PCR Not Detected (Not Detect) Influenza A (H1) PCR Not Detected (Not Detect) Influ A (H1N1/09) PCR Not Detected (Not Detect) Influenza A (H3) PCR Not Detected (Not Detect) Influenza A Untype (PCR) Not Detected (Not Detect) Influenza Type B (PCR) Not Detected (Not Detect) M.pneumoniae DNA (PCR) Not Detected (Not Detect) Parainfluenza 1 (PCR) Not Detected (Not Detect) Parainfluenza 2 (PCR) Not Detected (Not Detect) Parainfluenza 3 (PCR) Not Detected (Not Detect) Parainfluenza 4 (PCR) Not Detected (Not Detect) RSV (PCR) Not Detected (Not Detect) Entero/Rhino (PCR) Not Detected (Not Detect) 07/14/18 Range/Units 10:17 Urine Color Dark Yellow (Yellow) Urine Clarity Clear (Clear) Urine pH 6.0 (5.0-8.0) pH Units Ur Specific [place] 1.018 (1.010-1.025) Urine Protein 30 H (Neg-Trace) mg/dL Urine Glucose (UA) Normal (Normal) mg/dL Urine Ketones Negative (Negative) mg/dL Urine Blood Small H (Negative) Urine Nitrite Negative (Negative) Urine Bilirubin Negative (Negative) Urine Urobilinogen 2.0 H (Normal) mg/dL Ur Leukocyte Esterase Negative (Negative) Urine Microscopic RBC 5-15 H (0-3) per hpf Urine Microscopic WBC 0-3 (0-3) per hpf Ur Squamous Epith Cells Few (None-Few) per lpf Urine Bacteria Few (None-Few) per hpf Hyaline Casts (None-Few) per lpf Urine Mucus (Few) Urine Yeast (None Seen) per hpf Ur Culture Indicated? Cancelled Chlamy pneumoniae PCR (Not Detect) Adenovirus (PCR) (Not Detect) B. pertussis DNA (PCR) (Not Detect) B.parapertussis DNA PCR (Not Detect) Coronavirus OC43 (PCR) (Not Detect) Coronavirus HKU1 (PCR) (Not Detect) Coronavirus 229E (PCR) (Not Detect) Coronavirus NL63 (PCR) (Not Detect) Human Metapneumovir PCR (Not Detect) Influenza A (H1) PCR (Not Detect) Influ A (H1N1/09) PCR (Not Detect) Influenza A (H3) PCR (Not Detect) Influenza A Untype (PCR) (Not Detect) Influenza Type B (PCR) (Not Detect) M.pneumoniae DNA (PCR) (Not Detect) Parainfluenza 1 (PCR) (Not Detect) Parainfluenza 2 (PCR) (Not Detect) Parainfluenza 3 (PCR) (Not Detect) Parainfluenza 4 (PCR) (Not Detect) RSV (PCR) (Not Detect) Entero/Rhino (PCR) (Not Detect) Exam - Constitutional Vitals: Temp Pulse Resp BP Pulse Ox 99.3 F 102 18 129/51 94 07/24/18 07:27 07/24/18 07:27 07/24/18 07:27 07/24/18 07:27 07/24/18 07:27 General appearance: average body habitus, cooperative, no acute distress - Head Head exam: Present: atraumatic, normal inspection, normocephalic - Eye Eye exam: Present: EOMI, PERRL Pupils: Present: normal accommodation - ENT ENT exam: Present: mucous membranes moist - Neck Neck exam: Present: normal inspection - Respiratory Respiratory exam: Present: CTAB. Absent: rales, respiratory distress, rhonchi, wheezes - Cardiovascular Cardiovascular exam: Present: +S1, +S2, tachycardia. Absent: irregular rhythm - GI/Abdominal GI/Abdominal exam: Present: normal bowel sounds, soft. Absent: distended, tenderness Additional comments: Pereira catheter noted to be draining clear yellow urine. - Extremities Exam Extremities exam: Present: tenderness (Mild, left hip). Absent: joint swelling, normal inspection (Left hip honeycomb dressing with small amount serosanguinous drainage. Mild ecchymosis noted. No erythema ,warmth noted.), pedal edema - Neurological Exam Neurological exam: Present: alert, oriented X3, no focal deficits - Psychiatric Psychiatric exam: Present: normal affect, normal mood - Skin Skin exam: Present: dry, intact, normal color, warm Consult Discharge Plan - Plan Referrals: NONE,PCP [Primary Care Provider] - - Attending Attestation I have personally performed a face to face evaluation on this patient. I have reviewed and agree with the care plan. History and Exam by me shows: A/P: 1. SIRS Leukocytosis itramuscular hematoma left displaced femoral neck fracture I called the son to speak with him regarding what we can do with his mother but I was unsuccessful contacting him. I also spoke with radiology to see if we can see if there is an abscess or hematoma around the fluid collection and they said there is some complex fluid but cannot distinguish hematoma from abscess and they recommended repeat CT pelvis with IV contrast. I will discuss with the son to see please willing to do that.
[2018-07-24 13:23] LABS: Basophils % 0.2 %; Eosinophils # 0.3 K/mcL (0.0-0.6); Eosinophils % 1.3 %; Hematocrit 26.4 % (35.3-44.9); Hemoglobin 8.2 g/dL (11.5-15.4); Immature Granulocytes % 1.4 % (0-4); Lymphocytes % 4.3 %; Mean Corpuscular HGB Conc 31.1 g/dL (31.6-35.5); Mean Corpuscular Hemoglobin 28.9 pg (28.0-33.3); Mean Platelet Volume 13.9 fL (9.4-12.4); Monocytes # 9.9 K/mcL (0.0-1.3); Monocytes % 41.4 %; Neutrophils # 12.3 K/mcL (1.6-8.9); Platelet Count 217 K/mcL (140-400); Red Blood Count 2.84 M/mcL (3.82-4.97); Red Cell Distribution Width 20.2 % (11.5-14.5); Segmented Neutrophils % 51.4 %
[2018-07-24 13:29] LABS: BUN/Creatinine Ratio 39 (6-26); Blood Urea Nitrogen 16 mg/dL (8-23); Calcium 7.7 mg/dL (8.6-10.3); Carbon Dioxide 29 mEq/L (23-29); Chloride 104 mEq/L (98-107); Glucose 105 mg/dL (70-105); Osmolality,Calculated 288 (280-300); Potassium 3.6 mEq/L (3.5-5.1); Sodium 138 mEq/L (136-145); eGFR For Non-African Americans > 60 (> 60)
--- NOTE | 2018-07-24 13:44 | Palliative Progress Note ---
Date of Encounter: 07/24/18 Time of Encounter: 13:00 - Assessment and plan (1) Severe protein-calorie malnutrition Current Visit: Yes Status: Acute Assessment and plan: Current Protein 4.3 and Albumin 2.6 Dietary consult following Patient meals consumed Nector thickend Purred diet. (2) Anemia Current Visit: Yes Status: Chronic Assessment and plan: Onc/Hemo following Qualifiers: Anemia type: unspecified type Qualified Code(s): D64.9 - Anemia, unspecified (3) SIRS (systemic inflammatory response syndrome) Current Visit: Yes Status: Acute Assessment and plan: ID following (4) Pain Current Visit: Yes Status: Acute Assessment and plan: Patient c/o stiffness to left shoulder and left hip. Patient s/p left hip hemiarthroplasty. PT & OT working with patient. Patient with PRN meds. Requested one dose Oxycodone as needed. Positioned left hip for comfort. Abduction pillow in place. (5) Goals of care, counseling/discussion Current Visit: Yes Status: Acute Assessment and plan: at bedside. Reports that son Antonio had Chiropractic appt. this afternoon and will be in later. Son desires to discuss case with ID before further decisions r/t care can be made. Will f/u once that discussion has been had. Patient is DNRCC -A. Appears frail and weak. C/O discomfort with movement. PRN pain medication being taken as needed. Needs assist with meals and care. Patient will need rehab at [facility] if family doesn't desire hospice care. Will follow. (6) Macular degeneration Current Visit: Yes Status: Chronic Assessment and plan: Patient legally blind Qualifiers: Macular degeneration type: unspecified type Eye laterality: bilateral Qualified Code(s): H35.30 - Unspecified macular degeneration - Time Spent With Patient Total time spent is greater than 50% in coordination of care (as documented) at patient's floor/unit and/or counseling patient: 25 - 35 minutes - Subjective Interval history: Patient inn bed eating lunch. Patient being fed by SEWING MACHINE ADJUSTER. Alert, at bedside. Patient states that she "is doing ok". Vitals stable. Chart reviewed, labs and diagnostics reviewed. - Constitutional Vitals: Abnormal lab results WBC 37.5 K/mcL (4.3-11.1) H* 07/23/18 06:37 RBC 2.68 M/mcL (3.82-4.97) L 07/23/18 06:37 Hgb 7.9 g/dL (11.5-15.4) L 07/23/18 06:37 Hct 24.7 % (35.3-44.9) L 07/23/18 06:37 RDW 20.8 % (11.5-14.5) H 07/23/18 06:37 MPV 13.9 fL (9.4-12.4) H 07/23/18 06:37 Neutrophils # 10.2 K/mcL (1.6-8.9) H 07/22/18 07:52 Monocytes # 15.1 K/mcL (0.0-1.3) H 07/22/18 07:52 Nucleated RBCs/100 WBC 0.2 /100 WBC (0) H 07/20/18 05:28 Large Platelets Present (Not Present) A 07/22/18 07:52 Immature Plt Fraction 13.8 % (1.1-6.1) H 07/19/18 06:22 Polychromasia 1+ (Not Present) A 07/19/18 06:22 Poikilocytosis 2+ (Not Present) A 07/19/18 06:22 Anisocytosis 2+ (Not Present) A 07/19/18 06:22 Microcytosis Present (Not Present) A 07/19/18 06:22 Spherocytes 1+ (Not Present) A 07/18/18 14:38 Tear Drop Cells 1+ (Not Present) A 07/13/18 09:41 Ovalocytes 2+ (Not Present) A 07/19/18 06:22 Acanthocytes (Spur) 1+ (Not Present) A 07/14/18 21:05 Schistocytes 1+ (Not Present) A 07/19/18 06:22 PT 16.9 Seconds (9.4-12.1) H 07/24/18 04:08 APTT 25.2 Seconds (26.0-36.0) L 07/24/18 04:08 Fibrinogen 511 mg/dL (169-393) H 07/16/18 03:26 Heparin Anti-Xa, Unfract 0.04 IU/mL (0.30-0.70) L 07/14/18 14:31 ABG pH 7.48 pH Units (7.32-7.45) H 07/14/18 20:53 ABG pCO2 32 mmHg (35-45) L 07/14/18 20:53 ABG pO2 161 mmHg (85-104) H 07/14/18 20:53 ABG O2 Saturation 100 % (95-98) H 07/14/18 20:53 Creatinine 0.41 mg/dL (0.60-1.20) L 07/24/18 12:38 BUN/Creatinine Ratio 39 (6-26) H 07/24/18 12:38 POC Glucose 139 mg/dL (70-99) H 07/14/18 21:37 Calcium 7.7 mg/dL (8.6-10.3) L 07/24/18 12:38 Phosphorus 1.9 mg/dL (2.7-4.5) L 07/22/18 07:52 Iron 15 mcg/dL (50-170) L 07/15/18 16:06 % Saturation 7 % (15-50) L 07/15/18 16:06 Transferrin 163 mg/dL (203-362) L 07/15/18 16:06 Ferritin 284 ng/mL (10-120) H 07/15/18 16:06 Total Bilirubin 2.6 mg/dL (0.3-1.0) H 07/23/18 06:37 Direct Bilirubin 0.4 mg/dL (0.0-0.2) H 07/17/18 05:20 Indirect Bilirubin 1.3 mg/dL (0.0-1.2) H 07/17/18 05:20 Troponin I 0.08 ng/mL (< 0.04) H* 07/15/18 02:29 C-Reactive Protein 55 mg/L (Less than 10) H 07/20/18 05:28 Serum Total Protein 4.3 g/dL (6.4-8.9) L 07/23/18 06:37 Albumin 2.6 g/dL (3.5-5.7) L 07/23/18 06:37 Globulin 1.7 g/dL (2.4-3.5) L 07/23/18 06:37 Lipase < 3 Units/L (11-82) L 07/15/18 00:21 Vitamin B12 241 pg/mL (250-1100) L 07/15/18 16:06 Procalcitonin 4.70 ng/mL (<=0.07) H 07/15/18 15:39 Urine Microscopic RBC 50-100 per hpf (0-3) H 07/14/18 22:23 Urine Microscopic WBC 5-15 per hpf (0-3) H 07/14/18 22:23 Ur Squamous Epith Cells Many per lpf (None-Few) H 07/14/18 22:23 Hyaline Casts Many per lpf (None-Few) H 07/14/18 22:23 Urine Yeast Moderate per hpf (None Seen) H 07/14/18 22:23 Vancomycin Trough 11 mcg/mL (5-10) H 07/21/18 19:17 - Head Head exam: Present: atraumatic, normal inspection - Eye Eye exam: Present: PERRL - ENT ENT exam: Present: mucous membranes moist - Respiratory Respiratory exam: Present: CTAB Additional comments: O2 at 4L NC - Cardiovascular Cardiovascular exam: Present: RRR, +S1, +S2 - GI/Abdominal GI/Abdominal exam: Present: normal bowel sounds, soft Additional comments: + BM today - Extremities Exam Extremities exam: Present: joint swelling, pedal edema Additional comments: Left hip with honey comb dressing. Large purple ecchymotic area to left hip surgical site. - Expanded Lower Extremity Exam Hip exam: Present: swelling, tenderness (Left hip dressing CDI) Palliative Quality Palliative Quality: Screen for Code Status: Yes, Screen for Goals of Care: Yes, Screen for Pain: Yes, If Pain Regimen Started, Initiate Bowel Regimen: NA, Screen for Nausea/Vomitting: Yes Code Status: 07/13/18 11:19 Resuscitation Status: Active [RES] Routine Comment: Resuscitation Status: Full Code 07/14/18 22:20 CODE [Resuscitation Status: Active] [RES] Routine Comment: Resuscitation Status: DNR-Comfort Care-Arrest - Labs CBC & Chem 7: 07/23/18 06:37 07/24/18 12:38 Labs: Laboratory Results - last 24 hr 07/24/18 07/24/18 07/24/18 04:08 07:59 12:38 PT 16.9 H INR 1.5 APTT 25.2 L Sodium 138 Potassium 3.6 Chloride 104 Carbon Dioxide 29 BUN 16 Creatinine 0.41 L Est GFR ( Amer) > 60 Est GFR (Non-Af Amer) > 60 BUN/Creatinine Ratio 39 H Glucose 105 Calculated Osmolality 288 Calcium 7.7 L Random Vancomycin 16 - ABG Interpretation ABG results: ABG ABG pH 7.48 pH Units (7.32-7.45) H 07/14/18 20:53 ABG pCO2 32 mmHg (35-45) L 07/14/18 20:53 ABG pO2 161 mmHg (85-104) H 07/14/18 20:53 ABG O2 Saturation 100 % (95-98) H 07/14/18 20:53 PT/INR, D-dimer PT 16.9 Seconds (9.4-12.1) H 07/24/18 04:08 Palliative Scale - Palliative Performance Scale How ambulatory is this patient?: Mainly in bed What is patient's level of activity and evidence of disease?: Unable to do any work, Extensive disease How much self-care assistance does patient require?: Considerable assistance required How much oral intake does the patient have?: Normal or reduced What is this patient's level of consciousness?: Full or confusion Palliative Performance Score: 60 % Consult Discharge Plan - Plan Referrals: NONE,PCP [Primary Care Provider] -
[2018-07-24 13:55] LABS: Basophils # 0.1 K/mcL (0.0-0.2)
[2018-07-24 16:23] LABS: Platelet Estimate Normal (Normal); Poikilocytosis 1+ (Not Present); Polychromasia 1+ (Not Present)
[2018-07-24 16:24] LABS: Ovalocytes 2+ (Not Present)
[2018-07-24] MEDS: Cefepime HCl 2,000 MG in Water for inj. (sterile) 20 ML 20 ML IVP SCH (19:11)
--- NOTE | 2018-07-24 19:30 | Internal Med Progress Note ---
Hospitalist Progress Note - Encounter Date of Encounter: 07/24/18 Time of Encounter: 11:00 - Subjective Interval History: Family to determine goals of care today whether to pursue etiology leukocytosis or for patient to go home with hospice care Patient with no improvement in leukocytosis and no clear etiology on broad- spectrum IV antibiotics; family is declining bone marrow biopsy Patient also now with acute on chronic anemia without clear etiology; family refusing colonoscopy/EGD in addition to bone marrow biopsy above Palliative care following - Exam Vitals: Temp Pulse Resp BP Pulse Ox 98.4 F 91 16 117/45 92 07/24/18 11:06 07/24/18 15:59 07/24/18 11:06 07/24/18 15:59 07/24/18 15:59 Exam: Gen.: Nonacute distress, alert and oriented 3 ENT: Mucosal membranes moist Respiratory: Lungs are clear to auscultation bilaterally without any wheezing rhonchi or rales Cardiovascular: Normal S1 and S2 regular rate rhythm no murmurs rubs or gallops Abdomen: Soft, nontender and nondistended with positive bowel sounds Extremities: No lower extremity edema Skin: Normal color - Assessment and Plan (1) Leukocytosis Current Visit: Yes Status: Acute Assessment and Plan: No improvement in leukocytosis in spite of being on broad-spectrum IV antibiotics. Infectious disease following with no etiology to this point Hematology oncology following with recommendations for consideration of bone marrow biopsy for etiology (2) Left displaced femoral neck fracture Current Visit: Yes Status: Acute Assessment and Plan: Plan of care as per orthopedic team. Continue daily PT/OT. (3) CHF (congestive heart failure) Current Visit: No Status: Chronic Assessment and Plan: patient is euvolemic. Continue on furosemide 20mg/PO daily in addition to metoprolol 50mg/PO daily. Continue fluids restriction to 1.5 litters a day. (4) Afib Current Visit: No Status: Chronic Assessment and Plan: Rate controlled on metoprolol. Not on anticoagulation due to high risk of falls. (5) Anemia Current Visit: Yes Status: Chronic Assessment and Plan: slightly decreased on H&H. patient transfused 1 unit of PRBCs yesterday. Family declined further workup (6) Breast cancer Current Visit: Yes Status: Chronic Assessment and Plan: plan of care as per hem&Onc (7) Hypophosphatemia Current Visit: Yes Status: Acute Assessment and Plan: electrolyte being replaced DVT Prophylaxis: mechanical dvt prophylaxis no chemical dvt prophylaxis due to recent hematoma - Time Spent with Patient Total time spent is greater than 50% in coordination of care (as documented) at patient's floor/unit and/or counseling patient: Internal Medicine: Result - Labs CBC & Chem 7: 07/24/18 12:38 07/24/18 12:38 Labs: Short CBC 07/24/18 Range/Units 12:38 WBC 24.0 H (4.3-11.1) K/mcL Hgb 8.2 L (11.5-15.4) g/dL Hct 26.4 L (35.3-44.9) % Plt Count 217 (140-400) K/mcL Neutrophils # 12.3 H (1.6-8.9) K/mcL BMP 07/24/18 12:38 Sodium 138 Potassium 3.6 Chloride 104 Carbon Dioxide 29 BUN 16 Creatinine 0.41 L Glucose 105 Calcium 7.7 L - ABG Interpretation ABG results: ABG ABG pH 7.48 pH Units (7.32-7.45) H 07/14/18 20:53 ABG pCO2 32 mmHg (35-45) L 07/14/18 20:53 ABG pO2 161 mmHg (85-104) H 07/14/18 20:53 ABG O2 Saturation 100 % (95-98) H 07/14/18 20:53 PT/INR, D-dimer PT 16.9 Seconds (9.4-12.1) H 07/24/18 04:08 Consult Discharge Plan - Plan Referrals: NONE,PCP [Primary Care Provider] - (1) Leukocytosis Qualifiers: Leukocytosis type: unspecified Qualified Code(s): D72.829 - Elevated white blood cell count, unspecified (3) CHF (congestive heart failure) Qualifiers: Heart failure type: systolic Heart failure chronicity: chronic Qualified Code(s): I50.22 - Chronic systolic (congestive) heart failure (4) Afib Qualifiers: Atrial fibrillation type: chronic Qualified Code(s): I48.2 - Chronic atrial fibrillation (5) Anemia Qualifiers: Anemia type: unspecified type Qualified Code(s): D64.9 - Anemia, unspecified (6) Breast cancer Qualifiers: Breast location: unspecified site of breast Estrogen receptor status: unspecified Patient sex: female Laterality: left Qualified Code(s): C50.912 - Malignant neoplasm of unspecified site of left female breast
[2018-07-24] MEDS: 0.9 % Sodium Chloride 1,000 ML IVC SCH (20:04)
[2018-07-24] MEDS: diazePAM 10 MG TABLET PO SCH (20:04)
[2018-07-25] MEDS: 0.9 % Sodium Chloride 1,000 ML IVC SCH ×2 (02:15→17:38)
[2018-07-25] MEDS: traMADol 50 MG TABLET PO PRN (05:10)
[2018-07-25] MEDS: OXYCODONE Oral CONC 10 MG/0.5 ML ORAL.SYG SL PRN (06:48)
[2018-07-25] MEDS: Piperacillin/Tazobactam 3.375 GM in 0.9 % Sodium Chloride Mini Bag 100 ML IVPB SCH ×2 (06:50→17:28)
--- NOTE | 2018-07-25 09:21 | Palliative Progress Note ---
Date of Encounter: 07/25/18 Time of Encounter: 09:00 - Assessment and plan (1) Goals of care, counseling/discussion Current Visit: Yes Status: Acute Assessment and plan: Patient's son continues to speak with Dr. Dunbar prior to making any types of decisions. Will Follow up this afternoon after ID evaluation. [id number]: Met with patient's son at patient's bedside. Patient's also present. Patient verbalized she is finished having test after test after test, wants to go home with hospice. Patient's son wants patient to stay through the weekend and get further recommendations from Dr. Dunbar prior to making discharge planning decisions. Dr. Keller and myself encouraged patient's family to meet and discuss clinical status and goals of care over the , then follow up Saturday. Palliative care will follow up with patient/family Saturday. (2) Pain Current Visit: Yes Status: Acute Assessment and plan: Patient reports pain has been more controlled. Tramadol X 1 dose and Oxycodone X 3 doses in the last 24 hours. Discussed with son idea of scheduling pain medication for increased control; agreeable. Will schedule Oxycodone BID 5 mg scheduled, then continue current regimen for as needed medication. (3) Atrial fibrillation with rapid ventricular response Current Visit: No Status: Chronic (4) Total bilirubin, elevated Current Visit: No Status: Acute (5) Valvular heart disease Current Visit: No Status: Acute (6) Leukocytosis Current Visit: Yes Status: Acute Assessment and plan: WBC improved to 24 yesterday. ID and Hemat/Onco recommendations appreciated. Qualifiers: Leukocytosis type: unspecified Qualified Code(s): D72.829 - Elevated white blood cell count, unspecified (7) Anxiety Current Visit: No Status: Chronic Assessment and plan: Patient reports Anxiety is controlled with nightly dose of Valium; continue as ordered. (8) Benzodiazepine withdrawal Current Visit: Yes Status: Resolved Qualifiers: Complication of substance-induced condition: with unspecified complication Qualified Code(s): F13.239 - Sedative, hypnotic or anxiolytic dependence with withdrawal, unspecified (9) SIRS (systemic inflammatory response syndrome) Current Visit: Yes Status: Acute Assessment and plan: ID recommendations appreciated. (10) Dysphagia Current Visit: Yes Status: Acute Assessment and plan: Due to concerns for aspiration, patient had been recommended nectar thick liquids. Son has signed dysphagia waiver and patient appears to be tolerating thin liquids at this time. Qualifiers: Dysphagia type: unspecified Qualified Code(s): R13.10 - Dysphagia, unspecified - Time Spent With Patient Total time spent is greater than 50% in coordination of care (as documented) at patient's floor/unit and/or counseling patient: Greater than 35 minutes - Subjective Interval history: Patient lying in bed, awake, alert and oriented upon arrival for assessment. Patient's son present at bedside. Patient reports pain is continued to be controlled, except during movement. Patient reports anxiety is controlled with current dosing. Patient upset regarding hypotension yesterday and patient feeling weak; however, reports pleased with numbers today. Patient's son reports he spoke with Dr. Dunbar's MANAGER [employer] yesterday, but missed Dr. Dunbar. Son desires to meet with Dr. Dunbar today. - Constitutional Vitals: Abnormal lab results WBC 24.0 K/mcL (4.3-11.1) H 07/24/18 12:38 RBC 2.84 M/mcL (3.82-4.97) L 07/24/18 12:38 Hgb 8.2 g/dL (11.5-15.4) L 07/24/18 12:38 Hct 26.4 % (35.3-44.9) L 07/24/18 12:38 MCHC 31.1 g/dL (31.6-35.5) L 07/24/18 12:38 RDW 20.2 % (11.5-14.5) H 07/24/18 12:38 MPV 13.9 fL (9.4-12.4) H 07/24/18 12:38 Neutrophils # 12.3 K/mcL (1.6-8.9) H 07/24/18 12:38 Monocytes # 9.9 K/mcL (0.0-1.3) H 07/24/18 12:38 Nucleated RBCs/100 WBC 0.2 /100 WBC (0) H 07/20/18 05:28 Large Platelets Present (Not Present) A 07/22/18 07:52 Immature Plt Fraction 13.8 % (1.1-6.1) H 07/19/18 06:22 Polychromasia 1+ (Not Present) A 07/24/18 12:38 Poikilocytosis 1+ (Not Present) A 07/24/18 12:38 Anisocytosis 2+ (Not Present) A 07/19/18 06:22 Microcytosis Present (Not Present) A 07/19/18 06:22 Spherocytes 1+ (Not Present) A 07/18/18 14:38 Tear Drop Cells 1+ (Not Present) A 07/13/18 09:41 Ovalocytes 2+ (Not Present) A 07/24/18 12:38 Acanthocytes (Spur) 1+ (Not Present) A 07/14/18 21:05 Schistocytes 1+ (Not Present) A 07/19/18 06:22 PT 16.9 Seconds (9.4-12.1) H 07/24/18 04:08 APTT 25.2 Seconds (26.0-36.0) L 07/24/18 04:08 Fibrinogen 511 mg/dL (169-393) H 07/16/18 03:26 Heparin Anti-Xa, Unfract 0.04 IU/mL (0.30-0.70) L 07/14/18 14:31 ABG pH 7.48 pH Units (7.32-7.45) H 07/14/18 20:53 ABG pCO2 32 mmHg (35-45) L 07/14/18 20:53 ABG pO2 161 mmHg (85-104) H 07/14/18 20:53 ABG O2 Saturation 100 % (95-98) H 07/14/18 20:53 Creatinine 0.41 mg/dL (0.60-1.20) L 07/24/18 12:38 BUN/Creatinine Ratio 39 (6-26) H 07/24/18 12:38 POC Glucose 139 mg/dL (70-99) H 07/14/18 21:37 Calcium 7.7 mg/dL (8.6-10.3) L 07/24/18 12:38 Phosphorus 1.9 mg/dL (2.7-4.5) L 07/22/18 07:52 Iron 15 mcg/dL (50-170) L 07/15/18 16:06 % Saturation 7 % (15-50) L 07/15/18 16:06 Transferrin 163 mg/dL (203-362) L 07/15/18 16:06 Ferritin 284 ng/mL (10-120) H 07/15/18 16:06 Total Bilirubin 2.6 mg/dL (0.3-1.0) H 07/23/18 06:37 Direct Bilirubin 0.4 mg/dL (0.0-0.2) H 07/17/18 05:20 Indirect Bilirubin 1.3 mg/dL (0.0-1.2) H 07/17/18 05:20 Troponin I 0.08 ng/mL (< 0.04) H* 07/15/18 02:29 C-Reactive Protein 55 mg/L (Less than 10) H 07/20/18 05:28 Serum Total Protein 4.3 g/dL (6.4-8.9) L 07/23/18 06:37 Albumin 2.6 g/dL (3.5-5.7) L 07/23/18 06:37 Globulin 1.7 g/dL (2.4-3.5) L 07/23/18 06:37 Lipase < 3 Units/L (11-82) L 07/15/18 00:21 Vitamin B12 241 pg/mL (250-1100) L 07/15/18 16:06 Procalcitonin 4.70 ng/mL (<=0.07) H 07/15/18 15:39 Urine Microscopic RBC 50-100 per hpf (0-3) H 07/14/18 22:23 Urine Microscopic WBC 5-15 per hpf (0-3) H 07/14/18 22:23 Ur Squamous Epith Cells Many per lpf (None-Few) H 07/14/18 22:23 Hyaline Casts Many per lpf (None-Few) H 07/14/18 22:23 Urine Yeast Moderate per hpf (None Seen) H 07/14/18 22:23 Vancomycin Trough 11 mcg/mL (5-10) H 07/21/18 19:17 General appearance: Present: cooperative, no acute distress - Head Head exam: Present: atraumatic, normal inspection - Eye Eye exam: Present: normal appearance, PERRL, conjuntiva pink. Absent: periorbital swelling, periorbital tenderness Pupils: Present: normal accommodation, PERRL - ENT ENT exam: Present: mucous membranes dry, normal external ear exam - Neck Neck exam: Present: full ROM, normal inspection - Respiratory Respiratory exam: Present: CTAB. Absent: accessory muscle use, respiratory distress - Cardiovascular Cardiovascular exam: Present: +S1, +S2 - GI/Abdominal GI/Abdominal exam: Present: normal bowel sounds, soft. Absent: tenderness - Rectal Rectal exam: Present: deferred - Extremities Exam Extremities exam: Present: normal inspection, tenderness (to left.). Absent: full ROM, pedal edema - Back Exam Back exam: Present: normal inspection - Neurological Exam Neurological exam: Present: alert, oriented X3, strengths equal and symetr throughout. Absent: altered - Psychiatric Psychiatric exam: Present: normal affect, normal mood - Skin Skin exam: Present: intact, pallor, warm. Absent: normal color Palliative Quality Palliative Quality: Screen for Code Status: Yes, Screen for Goals of Care: Yes, Screen for Pain: Yes, If Pain Regimen Started, Initiate Bowel Regimen: NA, Screen for Nausea/Vomitting: Yes Code Status: 07/13/18 11:19 Resuscitation Status: Active [RES] Routine Comment: Resuscitation Status: Full Code 07/14/18 22:20 CODE [Resuscitation Status: Active] [RES] Routine Comment: Resuscitation Status: DNR-Comfort Care-Arrest - Labs CBC & Chem 7: 07/25/18 11:10 07/25/18 11:10 Labs: Laboratory Results - last 24 hr 07/24/18 07/24/18 12:38 12:38 WBC 24.0 H RBC 2.84 L Hgb 8.2 L Hct 26.4 L MCV 93.0 MCH 28.9 MCHC 31.1 L RDW 20.2 H Plt Count 217 MPV 13.9 H Immature Gran % 1.4 Seg Neutrophils % 51.4 Lymphocytes % 4.3 Monocytes % 41.4 Eosinophils % 1.3 Basophils % 0.2 Neutrophils # 12.3 H Lymphocytes # 1.0 Monocytes # 9.9 H Eosinophils # 0.3 Basophils # 0.1 Platelet Estimate Normal Polychromasia 1+ A Poikilocytosis 1+ A Ovalocytes 2+ A Sodium 138 Potassium 3.6 Chloride 104 Carbon Dioxide 29 BUN 16 Creatinine 0.41 L Est GFR ( Amer) > 60 Est GFR (Non-Af Amer) > 60 BUN/Creatinine Ratio 39 H Glucose 105 Calculated Osmolality 288 Calcium 7.7 L - ABG Interpretation ABG results: ABG ABG pH 7.48 pH Units (7.32-7.45) H 07/14/18 20:53 ABG pCO2 32 mmHg (35-45) L 07/14/18 20:53 ABG pO2 161 mmHg (85-104) H 07/14/18 20:53 ABG O2 Saturation 100 % (95-98) H 07/14/18 20:53 PT/INR, D-dimer PT 16.9 Seconds (9.4-12.1) H 07/24/18 04:08 Palliative Scale - Palliative Performance Scale How ambulatory is this patient?: Mainly in bed What is patient's level of activity and evidence of disease?: Unable to do any work, Extensive disease How much self-care assistance does patient require?: Considerable assistance required How much oral intake does the patient have?: Normal or reduced What is this patient's level of consciousness?: Full or confusion Palliative Performance Score: 60 % Consult Discharge Plan - Plan Referrals: NONE,PCP [Primary Care Provider] -
[2018-07-25] MEDS: Cholecalciferol (D-3) 1,000 UNIT TABLET PO SCH (09:48)
[2018-07-25] MEDS: *HR* Digoxin 0.25 MG TABLET PO SCH (09:48)
[2018-07-25] MEDS: Furosemide 20 MG TABLET PO SCH (09:49)
[2018-07-25] MEDS: Pantoprazole 40 MG VIAL IVP SCH (09:49)
[2018-07-25] MEDS: Sennosides/Docusate Sodium TABLET PO SCH ×2 (09:49→20:32)
--- NOTE | 2018-07-25 10:12 | Internal Med Progress Note ---
Hospitalist Progress Note - Encounter Date of Encounter: 07/25/18 Time of Encounter: 11:00 - Subjective Interval History: Family to determine goals of care today whether to continue to pursue etiology leukocytosis or for patient to go home with hospice care Patient with no improvement in leukocytosis and no clear etiology on broad- spectrum IV antibiotics; family is declining bone marrow biopsy Patient also now with acute on chronic anemia without clear etiology; family refusing colonoscopy/EGD in addition to bone marrow biopsy above Palliative care following - Exam Vitals: Temp Pulse Resp BP Pulse Ox 99.1 F 108 20 117/69 95 07/25/18 07:22 07/25/18 07:22 07/25/18 07:22 07/25/18 07:22 07/25/18 07:22 Exam: Gen.: Nonacute distress, alert and oriented 3 ENT: Mucosal membranes moist Respiratory: Lungs are clear to auscultation bilaterally without any wheezing rhonchi or rales Cardiovascular: Normal S1 and S2 regular rate rhythm no murmurs rubs or gallops Abdomen: Soft, nontender and nondistended with positive bowel sounds Extremities: No lower extremity edema Skin: Normal color - Assessment and Plan (1) Leukocytosis Current Visit: Yes Status: Acute Assessment and Plan: No improvement in leukocytosis in spite of being on broad-spectrum IV antibiotics. Infectious disease following with no etiology to this point Hematology oncology following with recommendations for consideration of bone marrow biopsy for etiology (2) Left displaced femoral neck fracture Current Visit: Yes Status: Acute Assessment and Plan: Plan of care as per orthopedic team. Continue daily PT/OT. (3) CHF (congestive heart failure) Current Visit: No Status: Chronic Assessment and Plan: patient is euvolemic. Continue on furosemide 20mg/PO daily in addition to metoprolol 50mg/PO daily. Continue fluids restriction to 1.5 litters a day. (4) Afib Current Visit: No Status: Chronic Assessment and Plan: Rate controlled on metoprolol. Not on anticoagulation due to high risk of falls. (5) Anemia Current Visit: Yes Status: Chronic Assessment and Plan: Patient with acute on chronic anemia with no clear etiology Family declined further workup (6) Breast cancer Current Visit: Yes Status: Chronic Assessment and Plan: plan of care as per hem&Onc - Time Spent with Patient Total time spent is greater than 50% in coordination of care (as documented) at patient's floor/unit and/or counseling patient: Internal Medicine: Result - Labs CBC & Chem 7: 07/25/18 11:10 07/25/18 11:10 Labs: Short CBC 07/24/18 Range/Units 12:38 WBC 24.0 H (4.3-11.1) K/mcL Hgb 8.2 L (11.5-15.4) g/dL Hct 26.4 L (35.3-44.9) % Plt Count 217 (140-400) K/mcL Neutrophils # 12.3 H (1.6-8.9) K/mcL BMP 07/24/18 12:38 Sodium 138 Potassium 3.6 Chloride 104 Carbon Dioxide 29 BUN 16 Creatinine 0.41 L Glucose 105 Calcium 7.7 L - ABG Interpretation ABG results: ABG ABG pH 7.48 pH Units (7.32-7.45) H 07/14/18 20:53 ABG pCO2 32 mmHg (35-45) L 07/14/18 20:53 ABG pO2 161 mmHg (85-104) H 07/14/18 20:53 ABG O2 Saturation 100 % (95-98) H 07/14/18 20:53 PT/INR, D-dimer PT 16.9 Seconds (9.4-12.1) H 07/24/18 04:08 Consult Discharge Plan - Plan Referrals: NONE,PCP [Primary Care Provider] - (1) Leukocytosis Qualifiers: Leukocytosis type: unspecified Qualified Code(s): D72.829 - Elevated white blood cell count, unspecified (3) CHF (congestive heart failure) Qualifiers: Heart failure type: systolic Heart failure chronicity: chronic Qualified Code(s): I50.22 - Chronic systolic (congestive) heart failure (4) Afib Qualifiers: Atrial fibrillation type: chronic Qualified Code(s): I48.2 - Chronic atrial fibrillation (5) Anemia Qualifiers: Anemia type: unspecified type Qualified Code(s): D64.9 - Anemia, unspecified (6) Breast cancer Qualifiers: Breast location: unspecified site of breast Estrogen receptor status: unspecified Patient sex: female Laterality: left Qualified Code(s): C50.912 - Malignant neoplasm of unspecified site of left female breast
--- NOTE | 2018-07-25 11:19 | Infectious Disease Progress No ---
Date of Encounter: 07/25/18 Time of Encounter: 09:30 - Assessment and Plan (1) SIRS (systemic inflammatory response syndrome) Current Visit: Yes Status: Acute The patient had four SIRS criteria plus hypotension post-op. No infectious source identified. Consider non-infectious etiologies: fat embolism vs. left hip hematoma vs. anesthesia reaction vs. malignany vs. other. CT chest negative for PNA. CT abdomen and pelvis negative for acute infectious abnormality. CT head negative. Urinalysis was negative. Peripheral smear negative. Blood cultures drawn 07/14/18 are negative x 2 sets. Repeat CTA of the abdomen and pelvis nonrevealing for infectious etiology. Pro-calcitonin was elevated at 4.70. Repeat CT of the chest/abdomen/pelvis 07/21/18 showed bilateral multifocal airspace disease which may be from atelectasis from the effusions however pneumonia or atypical edema would be difficult to exclude. There is diverticulosis in the sigmoid colon, wall thickening of the sigmoid colon and rectum is difficult to exclude. There were no new fluid collections. Not sure if the CT chest findings are PNA or not. Per nursing, concern for aspiration, but previous [employer] evaluation recommended NTL and mechanically altered textrues. Patient's son declining bone marrow biopsy. States he is fine with running additional labs if we think the information would be yielding, but any other testing he would like to discuss before it is ordered. Discussed the plan with the patient's son who is agreeable to have the patient undergo repeat CT scan with IV contrast to see if we can identify a source of the patient's fevers and leukocytosis, however the patient has been afebrile and her WBC has been trending down. Recommendations: Not sure what is causing the fever and leukocytosis. She has been afebrile x 48 hours, but WBC remains elevated. Leukocytosis appears chronic, but fevers are new per patient report. Repeat CBC and BMP. If leukocytosis persists/worse, consider qiu-CT scanning with IV contrast. If stable/improved, will stay the course and monitor closely. Await repeat blood cultures. Continue Vancomycin IV for now. Pharmacy to dose. Goal trough ~15. Continue Zosyn 3.375 grams IV Q8H. Duration of treatment depends on the clinical picture. Monitor renal function and for drug toxicity and dose-adjust antibiotics. (2) Leukocytosis Current Visit: Yes Status: Acute WBC elevated with monocytosis. Leukemoid reaction with WBC >50,000 with monocytosis. Etiology unclear. Consider non-infectious sources : malignancy vs. other. Leukocytosis and monocytosis persists. Hem/Onc consulted. Qualifiers: Leukocytosis type: unspecified Qualified Code(s): D72.829 - Elevated white blood cell count, unspecified (3) Encephalopathy acute Current Visit: Yes Status: Resolved Etiology unclear: fat embolism vs. anesthesia reaction vs. other. CT head negative. Resolved. Continue to monitor closely. (4) Benzodiazepine withdrawal Current Visit: Yes Status: Resolved Was off valium x 3 days. Home dose of valium re-started by the primary team. Qualifiers: Complication of substance-induced condition: with unspecified complication Qualified Code(s): F13.239 - Sedative, hypnotic or anxiolytic dependence with withdrawal, unspecified (5) Intramuscular hematoma Current Visit: Yes Status: Acute CT abdomen and pelvis shows a 9cm intra-muscular hematoma in the left hip, retroperitoneum, and pelvis. CTA negative for arterial extravasation. Likely secondary to recent surgery and hypercoagulable state (INR 1.3 on admission, 3.2 post-op) and heparin. Repeat CTA 07/18/18 shows postsurgical changes status post recent left hip total hip arthroplasty with periarticular, intramuscular, and soft tissue edema as well as a new foci of soft tissue air significantly decreased since recent prior examination suggesting resolving postsurgical changes. Subtle foci of arterial enhancement in the left gluteal musculature posterior to the left hip unchanged since prior examination, suggesting postsurgical changes with resolution. No evidence of focal collection. Small subcutaneous hematoma in the area of the incision for the left total hip arthroplasty decreasing in size since prior examination. No evidence of aortic dissection or aneurysm. No active extravasation of contrast in the abdomen or pelvis. No evidence of retroperitoneal hematoma. Repeat CT of the abdomen and pelvis 07/21/18 shows intermediate lobular density in the subcutaneous tissue lateral to the left hip and proximal femur which could be sequelae from prior surgery and seroma or old hematoma. Multiple calcified densities again noted in the soft tissues just posterolateral to the left acetabulum with no definitive associated soft tissue mass. Management per the ortho team. (6) Left displaced femoral neck fracture Current Visit: Yes Status: Acute Status post left hip hemiarthroplasty 07/14/[address] Christy. (7) Thrombocytopenia Current Visit: Yes Status: Acute Resolved. Hem/Onc consulted (8) Elevated troponin Current Visit: Yes Status: Acute (9) Lactic acidosis Current Visit: Yes Status: Acute Etiology unclear. Improved. Continue to trend. (10) Constipation Current Visit: No Status: Resolved No obstruction or fecal impaction noted on CT abdomen/pelvis. Bowel regimen per the primary team. Qualifiers: Constipation type: unspecified constipation type Qualified Code(s): K59.00 - Constipation, unspecified (11) Anemia Current Visit: Yes Status: Chronic Hgb improved after PRBC. GI consulted. EGD/C-scope cancelled due to patient's too high risk. Workup and management per the primary and hem/onc teams. Qualifiers: Anemia type: unspecified type Qualified Code(s): D64.9 - Anemia, unspecified (12) LBBB (left bundle branch block) Current Visit: Yes Status: Acute (13) CHF (congestive heart failure) Current Visit: No Status: Chronic Qualifiers: Heart failure type: systolic Heart failure chronicity: chronic Qualified Code(s): I50.22 - Chronic systolic (congestive) heart failure (14) Afib Current Visit: No Status: Chronic Rate controlled at this time. Qualifiers: Atrial fibrillation type: chronic Qualified Code(s): I48.2 - Chronic atrial fibrillation - Subjective Interval history: Patient seen and examined sitting up in the chair with son at the bedside. Palliative care consult noted. No acute events noted overnight. The patient states overall she feels okay. She denies any fevers or chills or rigors. She denies chest pain, shortness of breath, or cough. She denies nausea, vomiting, diarrhea. She reports pain "all over" when she moves and chronic pain the BLE. She ate some of her breakfast this morning. Denies any specific joint pain. Denies any oral thrush or skin lesions. Infect Dis PN-Objective Data - Labs CBC & Chem 7: 07/25/18 11:10 07/25/18 11:10 Labs: Laboratory Results - last 24 hr 07/24/18 07/24/18 12:38 12:38 WBC 24.0 H RBC 2.84 L Hgb 8.2 L Hct 26.4 L MCV 93.0 MCH 28.9 MCHC 31.1 L RDW 20.2 H Plt Count 217 MPV 13.9 H Immature Gran % 1.4 Seg Neutrophils % 51.4 Lymphocytes % 4.3 Monocytes % 41.4 Eosinophils % 1.3 Basophils % 0.2 Neutrophils # 12.3 H Lymphocytes # 1.0 Monocytes # 9.9 H Eosinophils # 0.3 Basophils # 0.1 Platelet Estimate Normal Polychromasia 1+ A Poikilocytosis 1+ A Ovalocytes 2+ A Sodium 138 Potassium 3.6 Chloride 104 Carbon Dioxide 29 BUN 16 Creatinine 0.41 L Est GFR ( Amer) > 60 Est GFR (Non-Af Amer) > 60 BUN/Creatinine Ratio 39 H Glucose 105 Calculated Osmolality 288 Calcium 7.7 L Cultures: Cultures 07/23/18 15:58 Blood Culture - Preliminary Peripheral Venipuncture Culture is incubating and being continuously monitored for growth. Final report to follow. 07/23/18 15:58 Blood Culture - Preliminary Peripheral Venipuncture Culture is incubating and being continuously monitored for growth. Final report to follow. 07/14/18 22:28 Blood Culture - Final Peripheral Venipuncture No growth. Final report. 07/14/18 22:21 Blood Culture - Final Peripheral Venipuncture No growth. Final report. 07/15/18 09:29 Legionella Antigen - Final Urine,Clean Catch Streptococcus pneumoniae Antigen (M - Final Serology 07/20/18 07/18/18 07/14/18 Range/Units 11:30 15:53 22:23 Urine Color Yellow [place] A (Yellow) Urine Clarity Clear Clear (Clear) Urine pH 6.0 5.5 (5.0-8.0) pH Units Ur Specific [place] 1.015 1.029 H (1.010-1.025) Urine Protein Negative 30 H (Neg-Trace) mg/dL Urine Glucose (UA) Normal Normal (Normal) mg/dL Urine Ketones Negative Trace H (Negative) mg/dL Urine Blood Negative Moderate H (Negative) Urine Nitrite Negative Negative (Negative) Urine Bilirubin Negative Small H (Negative) Urine Urobilinogen Normal Normal (Normal) mg/dL Ur Leukocyte Esterase Negative Small H (Negative) Urine Microscopic RBC 50-100 H (0-3) per hpf Urine Microscopic WBC 5-15 H (0-3) per hpf Ur Squamous Epith Cells Many H (None-Few) per lpf Urine Bacteria Few (None-Few) per hpf Hyaline Casts Many H (None-Few) per lpf Urine Mucus Few (Few) Urine Yeast Moderate H (None Seen) per hpf Ur Culture Indicated? NO NO. A Chlamy pneumoniae PCR Not Detected (Not Detect) Adenovirus (PCR) Not Detected (Not Detect) B. pertussis DNA (PCR) Not Detected (Not Detect) B.parapertussis DNA PCR Not Detected (Not Detect) Coronavirus OC43 (PCR) Not Detected (Not Detect) Coronavirus HKU1 (PCR) Not Detected (Not Detect) Coronavirus 229E (PCR) Not Detected (Not Detect) Coronavirus NL63 (PCR) Not Detected (Not Detect) Human Metapneumovir PCR Not Detected (Not Detect) Influenza A (H1) PCR Not Detected (Not Detect) Influ A (H1N1/09) PCR Not Detected (Not Detect) Influenza A (H3) PCR Not Detected (Not Detect) Influenza A Untype (PCR) Not Detected (Not Detect) Influenza Type B (PCR) Not Detected (Not Detect) M.pneumoniae DNA (PCR) Not Detected (Not Detect) Parainfluenza 1 (PCR) Not Detected (Not Detect) Parainfluenza 2 (PCR) Not Detected (Not Detect) Parainfluenza 3 (PCR) Not Detected (Not Detect) Parainfluenza 4 (PCR) Not Detected (Not Detect) RSV (PCR) Not Detected (Not Detect) Entero/Rhino (PCR) Not Detected (Not Detect) 07/14/18 Range/Units 10:17 Urine Color Dark Yellow (Yellow) Urine Clarity Clear (Clear) Urine pH 6.0 (5.0-8.0) pH Units Ur Specific [place] 1.018 (1.010-1.025) Urine Protein 30 H (Neg-Trace) mg/dL Urine Glucose (UA) Normal (Normal) mg/dL Urine Ketones Negative (Negative) mg/dL Urine Blood Small H (Negative) Urine Nitrite Negative (Negative) Urine Bilirubin Negative (Negative) Urine Urobilinogen 2.0 H (Normal) mg/dL Ur Leukocyte Esterase Negative (Negative) Urine Microscopic RBC 5-15 H (0-3) per hpf Urine Microscopic WBC 0-3 (0-3) per hpf Ur Squamous Epith Cells Few (None-Few) per lpf Urine Bacteria Few (None-Few) per hpf Hyaline Casts (None-Few) per lpf Urine Mucus (Few) Urine Yeast (None Seen) per hpf Ur Culture Indicated? Cancelled Chlamy pneumoniae PCR (Not Detect) Adenovirus (PCR) (Not Detect) B. pertussis DNA (PCR) (Not Detect) B.parapertussis DNA PCR (Not Detect) Coronavirus OC43 (PCR) (Not Detect) Coronavirus HKU1 (PCR) (Not Detect) Coronavirus 229E (PCR) (Not Detect) Coronavirus NL63 (PCR) (Not Detect) Human Metapneumovir PCR (Not Detect) Influenza A (H1) PCR (Not Detect) Influ A (H1N1/09) PCR (Not Detect) Influenza A (H3) PCR (Not Detect) Influenza A Untype (PCR) (Not Detect) Influenza Type B (PCR) (Not Detect) M.pneumoniae DNA (PCR) (Not Detect) Parainfluenza 1 (PCR) (Not Detect) Parainfluenza 2 (PCR) (Not Detect) Parainfluenza 3 (PCR) (Not Detect) Parainfluenza 4 (PCR) (Not Detect) RSV (PCR) (Not Detect) Entero/Rhino (PCR) (Not Detect) Exam - Constitutional Vitals: Temp Pulse Resp BP Pulse Ox 99.1 F 108 20 117/69 95 07/25/18 07:22 07/25/18 07:22 07/25/18 07:22 07/25/18 07:22 07/25/18 07:22 General appearance: average body habitus, no acute distress - Head Head exam: Present: atraumatic, normal inspection, normocephalic - Eye Eye exam: Present: normal appearance, PERRL Pupils: Present: normal accommodation - ENT ENT exam: Present: mucous membranes moist - Neck Neck exam: Present: normal inspection - Respiratory Respiratory exam: Present: CTAB. Absent: rales, respiratory distress, rhonchi, wheezes - Cardiovascular Cardiovascular exam: Present: RRR, +S1, +S2 - GI/Abdominal GI/Abdominal exam: Present: normal bowel sounds, soft. Absent: distended, tenderness Additional comments: Pereiar catheter noted to be draining clear yellow urine. - Extremities Exam Extremities exam: Present: normal inspection, tenderness (BLE, left hip). Absent: pedal edema Additional comments: Left lateral hip surgical site with honeycomb dressing intact with small amount of serosanguinous drainage. Mild ecchymosis noted. No erythema, warmth noted. - Neurological Exam Neurological exam: Present: alert, oriented X3, no focal deficits - Psychiatric Psychiatric exam: Present: normal affect, normal mood - Skin Skin exam: Present: dry, intact, normal color, warm Consult Discharge Plan - Plan Referrals: NONE,PCP [Primary Care Provider] - - Attending Attestation I have personally performed a face to face evaluation on this patient. I have reviewed and agree with the care plan. History and Exam by me shows: A/P: 1. SIRS Leukocytosis itramuscular hematoma left displaced femoral neck fracture We still do not have an obvious source. The patient has been afebrile for 48 hours if not longer and WBC is improving. I met with the son today again and they just want conservative. They do not want CT scans at this point. Apparently the daughter of the patient is driving up from [place]. They will make decisions with palliative care/hospice versus other the next day or 2. We will continue to observe closely but no CTs at this point
[2018-07-25 11:25] LABS: Basophils % 0.2 %; Immature Granulocytes % 1.2 % (0-4); Mean Corpuscular Hemoglobin 29.5 pg (28.0-33.3); Red Cell Distribution Width 20.7 % (11.5-14.5)
[2018-07-25 11:26] LABS: Eosinophils # 0.2 K/mcL (0.0-0.6); Hematocrit 28.6 % (35.3-44.9); Hemoglobin 8.9 g/dL (11.5-15.4); Immature Platelets 9.4 % (1.1-6.1); Mean Corpuscular HGB Conc 31.1 g/dL (31.6-35.5); Mean Corpuscular Volume 94.7 fL (83.0-100.0); Monocytes # 8.2 K/mcL (0.0-1.3); Monocytes % 42.6 %; Neutrophils # 9.6 K/mcL (1.6-8.9); Platelet Count 167 K/mcL (140-400); Red Blood Count 3.02 M/mcL (3.82-4.97)
[2018-07-25 11:41] LABS: BUN/Creatinine Ratio 31 (6-26); Blood Urea Nitrogen 15 mg/dL (8-23); Carbon Dioxide 27 mEq/L (23-29); Chloride 104 mEq/L (98-107); Glucose 150 mg/dL (70-105); Osmolality,Calculated 290 (280-300); Potassium 3.5 mEq/L (3.5-5.1); Sodium 138 mEq/L (136-145); eGFR For Non-African Americans > 60 (> 60)
[2018-07-25 11:57] LABS: Platelet Estimate Normal (Normal)
[2018-07-25 11:58] LABS: Ovalocytes 2+ (Not Present)
[2018-07-25 11:59] LABS: Anisocytosis 1+ (Not Present); Poikilocytosis 1+ (Not Present)
[2018-07-25] MEDS: OXYCODONE Oral CONC 10 MG/0.5 ML ORAL.SYG SL SCH ×2 (13:39→23:29)
--- NOTE | 2018-07-25 18:23 | Oncology Inp Progress Note ---
Date of Encounter: 07/25/18 Time of Encounter: 18:00 (1) Anemia Current Visit: Yes Status: Chronic Assessment and plan: Mild chronic anemia noted with acute decrease in post op setting Acute blood loss in setting of post op period with presence of hematoma, vs. sepsis vs. other LDH normal Folate replete S/P B12 injection and venofer IV x1 Plan: No s/s bleeding, patient/family decided to not undergo endoscopy Transfuse hgb <7 Repeat CTA abdomen/pelvis reveals: Postsurgical changes status post recent left total hip arthroplasty. Hematoma decreasing in size. No evidence of bleeding in abdomen. She does not have any blasts noted on peripheral blood or smear. Platelet count is normal. This does not appear to be consistent with an acute leukemic process such as AML but we will send for peripheral blood flow cytometry as well as bcr abl and PDGFR alpha and beta Patient and family continue to not wish to undergo bone marrow biopsy, they are continuing to discuss goals of care but are considering hospice due to patients continued decline Qualifiers: Anemia type: unspecified type Qualified Code(s): D64.9 - Anemia, unspecified (2) Breast cancer Current Visit: Yes Status: Chronic Assessment and plan: Patient reports history of left breast cancer ~20 years ago s/p lumpectomy and radiation She has not had mammogram in several years CT of chest noted left chest wall/breast mass previously noted on imaging on 08/10/2016---describes a lobular lesion of the left breast measuring approximately 5.1 x 3.4 cm in axial plane and 9.4 cm in long axis. Previously this measured 4.0 x 2.5 cm in axial plane and 8.9 cm in long axis as measured in similar fashion Plan: Discuss mammogram with targeted ultrasound as outpatient Patient and family are now considering hospice Qualifiers: Breast location: unspecified site of breast Estrogen receptor status: unspecified Patient sex: female Laterality: left Qualified Code(s): C50.912 - Malignant neoplasm of unspecified site of left female breast (3) Leukocytosis Current Visit: Yes Status: Acute Assessment and plan: Chronic leukocytosis with areas of normalization, dating back to April 2016 Acute increase above baseline in postoperative setting, with suspected underlying infectious source although infectious workup has been unrevealing Chronic monocytosis with neutrophilia dating back to 2014, acutely increasing in post operative/sepsis setting No immature forms noted on peripheral smear Spleen noted normal on CT imaging Plan: Suspect underlying infectious/sepsis process contributing to acute leukemoid reaction above baseline, although source has not been identified, Pro-calcitonin was elevated at 4.70, Her WBC has mostly plateaued, monocyte count is almost back to baseline 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 We will plan to otherwise sign off, please feel free to reach out with any further questions or concerns. Qualifiers: Leukocytosis type: unspecified Qualified Code(s): D72.829 - Elevated white blood cell count, unspecified Oncology: Subj Interval history: Patient resting comfortably. Patients at bedside. Pain well controlled. She did get OOB and to chair today. Appetite is decreased. Afebrile overnight. NO acute events noted overnight. - Constitutional General appearance: cooperative, no acute distress, no febrile - Head Head exam: Present: atraumatic - ENT ENT exam: Present: mucous membranes moist, normal oropharynx - Respiratory Respiratory exam: Present: decreased breath sounds, CTAB. Absent: respiratory distress - Cardiovascular Cardiovascular exam: Present: RRR, tachycardia - GI/Abdominal GI/Abdominal exam: Present: normal bowel sounds, soft. Absent: tenderness - Extremities Exam Extremities exam: Absent: calf tenderness Additional comments: mild non pitting edema LLE - Neurological Exam Neurological exam: Present: alert, oriented X3, no focal deficits, strengths equal and symetr throughout - Psychiatric Psychiatric exam: Present: normal affect, normal mood - Skin Skin exam: Present: dry, intact, pallor, warm Additional comments: Honey comb dressing left hip, dry and intact, mild ecchymosis Oncology: Obj Data - Labs CBC & Chem 7: 07/25/18 11:10 07/25/18 11:10 Consult Discharge Plan - Plan Referrals: NONE,PCP [Primary Care Provider] - Inpatient Charges Provider: Mary Cruz CNP Follow up - Inpatient: [id number]
[2018-07-25] MEDS: diazePAM 10 MG TABLET PO SCH (20:33)
[2018-07-26] MEDS: Piperacillin/Tazobactam 3.375 GM in 0.9 % Sodium Chloride Mini Bag 100 ML IVPB SCH ×3 (01:55→16:17)
[2018-07-26] MEDS: traMADol 50 MG TABLET PO PRN (05:18)
[2018-07-26] MEDS: Pantoprazole 40 MG VIAL IVP SCH (09:27)
[2018-07-26] MEDS: Sennosides/Docusate Sodium TABLET PO SCH ×2 (09:31→22:07)
[2018-07-26] MEDS: Cholecalciferol (D-3) 1,000 UNIT TABLET PO SCH (09:31)
[2018-07-26] MEDS: *HR* Digoxin 0.25 MG TABLET PO SCH (09:31)
[2018-07-26] MEDS: Furosemide 20 MG TABLET PO SCH (09:31)
[2018-07-26] MEDS: OXYCODONE Oral CONC 10 MG/0.5 ML ORAL.SYG SL SCH ×2 (09:50→22:07)
--- NOTE | 2018-07-26 10:42 | Internal Med Progress Note ---
Hospitalist Progress Note - Encounter Date of Encounter: 07/26/18 Time of Encounter: 11:00 - Subjective Interval History: Patient's leukocytosis improving but still elevated on broad-spectrum IV antibiotics. Plans for a CT scan with contrast for the day and the source of fevers and leukocytosis Family still considering home with home hospice - Exam Vitals: Temp Pulse Resp BP Pulse Ox 98.6 F 86 18 134/60 96 07/26/18 08:04 07/26/18 08:04 07/26/18 08:04 07/26/18 08:04 07/26/18 08:04 Exam: Gen.: Nonacute distress, alert and oriented 3 ENT: Mucosal membranes moist Respiratory: Lungs are clear to auscultation bilaterally without any wheezing rhonchi or rales Cardiovascular: Normal S1 and S2 regular rate rhythm no murmurs rubs or gallops Abdomen: Soft, nontender and nondistended with positive bowel sounds Extremities: No lower extremity edema Skin: Normal color - Assessment and Plan (1) Goals of care, counseling/discussion Current Visit: Yes Status: Acute Assessment and Plan: Family/patient considering home with home hospice Family to meet again with palliative care on 07/28/18 (2) Leukocytosis Current Visit: Yes Status: Acute Assessment and Plan: Patient's leukocytosis improving but still elevated on broad-spectrum IV antibi otics. Plans for a CT scan with contrast for the day and the source of fevers and leukocytosis Hematology oncology following with recommendations for consideration of bone marrow biopsy for etiology which family declines Infectious disease following and appreciate recommendations (3) Left displaced femoral neck fracture Current Visit: Yes Status: Acute Assessment and Plan: Plan of care as per orthopedic team. Continue daily PT/OT. (4) CHF (congestive heart failure) Current Visit: No Status: Chronic Assessment and Plan: patient is euvolemic. Continue on furosemide 20mg/PO daily in addition to metoprolol 50mg/PO daily. Continue fluids restriction to 1.5 litters a day. (5) Afib Current Visit: No Status: Chronic Assessment and Plan: Rate controlled on metoprolol. Not on anticoagulation due to high risk of falls. (6) Anemia Current Visit: Yes Status: Chronic Assessment and Plan: Patient with acute on chronic anemia with no clear etiology Family declined further workup (7) Breast cancer Current Visit: Yes Status: Chronic Assessment and Plan: CT of chest noted left chest wall/breast mass previously noted on imaging on 08/10/2016---describes a lobular lesion of the left breast measuring approximately 5.1 x 3.4 cm in axial plane and 9.4 cm in long axis. Previously this measured 4.0 x 2.5 cm in axial plane and 8.9 cm in long axis as measured in similar fashion Family/patient declining any further workup - Time Spent with Patient Total time spent is greater than 50% in coordination of care (as documented) at patient's floor/unit and/or counseling patient: Internal Medicine: Result - Labs CBC & Chem 7: 07/26/18 11:23 07/26/18 11:23 Labs: Short CBC 07/25/18 Range/Units 11:10 WBC 19.2 H (4.3-11.1) K/mcL Hgb 8.9 L (11.5-15.4) g/dL Hct 28.6 L (35.3-44.9) % Plt Count 167 (140-400) K/mcL Neutrophils # 9.6 H (1.6-8.9) K/mcL BMP 07/25/18 11:10 Sodium 138 Potassium 3.5 Chloride 104 Carbon Dioxide 27 BUN 15 Creatinine 0.48 L Glucose 150 H Calcium 8.0 L - ABG Interpretation ABG results: ABG ABG pH 7.48 pH Units (7.32-7.45) H 07/14/18 20:53 ABG pCO2 32 mmHg (35-45) L 07/14/18 20:53 ABG pO2 161 mmHg (85-104) H 07/14/18 20:53 ABG O2 Saturation 100 % (95-98) H 07/14/18 20:53 PT/INR, D-dimer PT 16.9 Seconds (9.4-12.1) H 07/24/18 04:08 Consult Discharge Plan - Plan Referrals: NONE,PCP [Primary Care Provider] - (2) Leukocytosis Qualifiers: Leukocytosis type: unspecified Qualified Code(s): D72.829 - Elevated white blood cell count, unspecified (4) CHF (congestive heart failure) Qualifiers: Heart failure type: systolic Heart failure chronicity: chronic Qualified Code(s): I50.22 - Chronic systolic (congestive) heart failure (5) Afib Qualifiers: Atrial fibrillation type: chronic Qualified Code(s): I48.2 - Chronic atrial fibrillation (6) Anemia Qualifiers: Anemia type: unspecified type Qualified Code(s): D64.9 - Anemia, unspecified (7) Breast cancer Qualifiers: Breast location: unspecified site of breast Estrogen receptor status: unspec ified Patient sex: female Laterality: left Qualified Code(s): C50.912 - Malignant neoplasm of unspecified site of left female breast
[2018-07-26 11:38] LABS: Hematocrit 27.1 % (35.3-44.9); Hemoglobin 8.7 g/dL (11.5-15.4); Immature Platelets 9.5 % (1.1-6.1); Mean Corpuscular HGB Conc 32.1 g/dL (31.6-35.5); Mean Corpuscular Hemoglobin 29.6 pg (28.0-33.3); Mean Corpuscular Volume 92.2 fL (83.0-100.0); Platelet Count 162 K/mcL (140-400); Red Blood Count 2.94 M/mcL (3.82-4.97); Red Cell Distribution Width 20.9 % (11.5-14.5)
[2018-07-26 11:53] LABS: BUN/Creatinine Ratio 33 (6-26); Blood Urea Nitrogen 13 mg/dL (8-23); Calcium 7.7 mg/dL (8.6-10.3); Carbon Dioxide 28 mEq/L (23-29); Chloride 105 mEq/L (98-107); Glucose 127 mg/dL (70-105); Osmolality,Calculated 286 (280-300); Potassium 3.4 mEq/L (3.5-5.1); Sodium 137 mEq/L (136-145); eGFR For Non-African Americans > 60 (> 60)
[2018-07-26 12:11] LABS: Eosinophils # 0.4 K/mcL (0.0-0.6); Lymphocytes # 0.4 K/mcL (0.6-4.6); Monocytes # 5.1 K/mcL (0.0-1.3); Neutrophils # 15.3 K/mcL (1.6-8.9)
[2018-07-26 12:12] LABS: Platelet Estimate Normal (Normal)
[2018-07-26] MEDS: 0.9 % Sodium Chloride 1,000 ML IVC SCH (12:48)
[2018-07-26] MEDS: OXYCODONE Oral CONC 10 MG/0.5 ML ORAL.SYG SL PRN (19:35)
[2018-07-26] MEDS: diazePAM 10 MG TABLET PO SCH (23:34)
[2018-07-27] MEDS: Piperacillin/Tazobactam 3.375 GM in 0.9 % Sodium Chloride Mini Bag 100 ML IVPB SCH ×2 (01:05→09:16)
[2018-07-27] MEDS: OXYCODONE Oral CONC 10 MG/0.5 ML ORAL.SYG SL PRN (04:17)
[2018-07-27] MEDS: *HR* Digoxin 0.25 MG TABLET PO SCH (09:17)
[2018-07-27] MEDS: Sennosides/Docusate Sodium TABLET PO SCH (09:17)
[2018-07-27] MEDS: Furosemide 20 MG TABLET PO SCH (09:17)
[2018-07-27] MEDS: Cholecalciferol (D-3) 1,000 UNIT TABLET PO SCH (09:17)
[2018-07-27] MEDS: 0.9 % Sodium Chloride 1,000 ML IVC SCH (09:17)
[2018-07-27] MEDS: OXYCODONE Oral CONC 10 MG/0.5 ML ORAL.SYG SL SCH (09:18)
[2018-07-27] MEDS: Pantoprazole 40 MG VIAL IVP SCH (09:18)
[2018-07-27 11:12] VITALS: BP 132/52
--- NOTE | 2018-07-27 11:27 | Internal Med Progress Note ---
Hospitalist Progress Note - Encounter Date of Encounter: 07/27/18 Time of Encounter: 12:00 - Subjective Interval History: Patient's leukocytosis improving but still elevated on broad-spectrum IV antibiotics. Plans for a CT scan with contrast for the day and the source of fevers and leukocytosis Family still considering home with home hospice - Exam Vitals: Temp Pulse Resp BP Pulse Ox 100.7 F H 70 16 132/52 94 07/27/18 11:11 07/27/18 11:11 07/27/18 11:11 07/27/18 11:11 07/27/18 11:11 Exam: Gen.: Nonacute distress, alert and oriented ENT: Mucosal membranes moist Respiratory: Lungs are clear to auscultation bilaterally without any wheezing rhonchi or rales Cardiovascular: Normal S1 and S2 regular rate rhythm no murmurs rubs or gallops Abdomen: Soft, nontender and nondistended with positive bowel sounds Extremities: No lower extremity edema Skin: Normal color - Assessment and Plan (1) Goals of care, counseling/discussion Current Visit: Yes Status: Acute Assessment and Plan: Family/patient considering home with home hospice Family to meet again with palliative care on 07/28/18 (2) Leukocytosis Current Visit: Yes Status: Acute Assessment and Plan: Patient's leukocytosis improving but still elevated on broad-spectrum IV antibio tics. Plans for a CT scan with contrast for the day and the source of fevers and leukocytosis Hematology oncology following with recommendations for consideration of bone marrow biopsy for etiology which family declines Infectious disease following and appreciate recommendations (3) Left displaced femoral neck fracture Current Visit: Yes Status: Acute Assessment and Plan: Plan of care as per orthopedic team. Continue daily PT/OT. (4) CHF (congestive heart failure) Current Visit: No Status: Chronic Assessment and Plan: patient is euvolemic. Continue on furosemide 20mg/PO daily in addition to metoprolol 50mg/PO daily. Continue fluids restriction to 1.5 litters a day. (5) Afib Current Visit: No Status: Chronic Assessment and Plan: Rate controlled on metoprolol. Not on anticoagulation due to high risk of falls. (6) Anemia Current Visit: Yes Status: Chronic Assessment and Plan: Patient with acute on chronic anemia with no clear etiology Family declined further workup (7) Breast cancer Current Visit: Yes Status: Chronic Assessment and Plan: CT of chest noted left chest wall/breast mass previously noted on imaging on 08/10/2016---describes a lobular lesion of the left breast measuring approximately 5.1 x 3.4 cm in axial plane and 9.4 cm in long axis. Previously this measured 4.0 x 2.5 cm in axial plane and 8.9 cm in long axis as measured in similar fashion Family/patient declining any further workup DVT Prophylaxis: mechanical dvt prophylaxis no chemical dvt prophylaxis due to recent hematoma - Time Spent with Patient Total time spent is greater than 50% in coordination of care (as documented) at patient's floor/unit and/or counseling patient: Internal Medicine: Result - Labs CBC & Chem 7: 07/27/18 11:34 07/27/18 11:34 Labs: Short CBC 07/26/18 Range/Units 11:23 WBC 21.2 H (4.3-11.1) K/mcL Hgb 8.7 L (11.5-15.4) g/dL Hct 27.1 L (35.3-44.9) % Plt Count 162 (140-400) K/mcL Neutrophils # 15.3 H (1.6-8.9) K/mcL BMP 07/26/18 11:23 Sodium 137 Potassium 3.4 L Chloride 105 Carbon Dioxide 28 BUN 13 Creatinine 0.40 L Glucose 127 H Calcium 7.7 L - ABG Interpretation ABG results: ABG ABG pH 7.48 pH Units (7.32-7.45) H 07/14/18 20:53 ABG pCO2 32 mmHg (35-45) L 07/14/18 20:53 ABG pO2 161 mmHg (85-104) H 07/14/18 20:53 ABG O2 Saturation 100 % (95-98) H 07/14/18 20:53 PT/INR, D-dimer PT 16.9 Seconds (9.4-12.1) H 07/24/18 04:08 Consult Discharge Plan - Plan Referrals: NONE,PCP [Primary Care Provider] - ___ (2) Leukocytosis Qualifiers: Leukocytosis type: unspecified Qualified Code(s): D72.829 - Elevated white blood cell count, unspecified (4) CHF (congestive heart failure) Qualifiers: Heart failure type: systolic Heart failure chronicity: chronic Qualified Code(s): I50.22 - Chronic systolic (congestive) heart failure (5) Afib Qualifiers: Atrial fibrillation type: chronic Qualified Code(s): I48.2 - Chronic atrial fibrillation (6) Anemia Qualifiers: Anemia type: unspecified type Qualified Code(s): D64.9 - Anemia, unspecified (7) Breast cancer Qualifiers: Breast location: unspecified site of breast Estrogen receptor status: unspecified Patient sex: female Laterality: left Qualified Code(s): C50.912 - Malignant neoplasm of unspecified site of left female breast
[2018-07-27] MEDS: Acetaminophen 325 MG TABLET PO PRN (11:42)
[2018-07-27 11:46] LABS: Hematocrit 26.9 % (35.3-44.9); Hemoglobin 8.4 g/dL (11.5-15.4); Mean Corpuscular HGB Conc 31.2 g/dL (31.6-35.5); Red Cell Distribution Width 21.2 % (11.5-14.5)
[2018-07-27 11:48] LABS: Immature Platelets 9.6 % (1.1-6.1); Mean Corpuscular Hemoglobin 28.7 pg (28.0-33.3); Mean Corpuscular Volume 91.8 fL (83.0-100.0); Platelet Count 156 K/mcL (140-400); Red Blood Count 2.93 M/mcL (3.82-4.97)
[2018-07-27 11:55] LABS: Eosinophils # 0.2 K/mcL (0.0-0.6)
[2018-07-27 12:06] LABS: BUN/Creatinine Ratio 25 (6-26); Blood Urea Nitrogen 10 mg/dL (8-23); Calcium 7.7 mg/dL (8.6-10.3); Carbon Dioxide 31 mEq/L (23-29); Chloride 103 mEq/L (98-107); Glucose 124 mg/dL (70-105); Osmolality,Calculated 286 (280-300); Potassium 3.5 mEq/L (3.5-5.1); Sodium 138 mEq/L (136-145); eGFR For Non-African Americans > 60 (> 60)
[2018-07-27 12:25] LABS: Lymphocytes # 0.5 K/mcL (0.6-4.6); Monocytes # 8.2 K/mcL (0.0-1.3); Neutrophils # 15.3 K/mcL (1.6-8.9); Platelet Estimate Normal (Normal)
[2018-07-27 12:26] LABS: Anisocytosis 2+ (Not Present); Ovalocytes 1+ (Not Present); Polychromasia 1+ (Not Present)
--- NOTE | 2018-07-27 14:55 | Death Note ---
Pronouncement Note - Date and Time of Date of : 07/27/18 Time of : 14:30 - PCOD Preliminary cause of : Cardiac arrest - Summary Additional details: [facility] GALLEGO was called at 1424. Upon arrival to patients bedside, was informed by staff that patient had a cardiac arrhythmia and went into cardiac arrest. Patient is a DNR CCA so no further intervention was done. Exam at the bedside revealed that patient had . - Additional Data Confirmation of : no pulse, no respirations, no heart sounds, pupils fixed and dilated Family: at bedside Attending physician: Jose Carlos Keller
--- NOTE | 2018-07-27 14:57 | Death Note ---
Discharge Sum: Summary - Date and Time Date of admission: 07/13/18 11:32 Date of : 07/27/18 Time of : 14:30 - Summary Details: Patient was an 87-year-old female with past medical history significant for atrial fibrillation, hypertension and congestive heart failure, who presented to the ER after mechanical fall. In the ER, L hip XR showed subcapital left femoral neck fracture with superior displacement. During patients hospital stay on 07/14/18 orthopedics performed a left hip hemiarthroplasty to repair left displaced femoral neck fracture. Also during patients hospital stay, she was noted to have leukocytosis with a white blood cell count as high as 52.9 with no source of etiology. Infectious disease was consulted with recommendations to continue broad-spectrum IV coverage and for further investigation with a qiu-CT scanning with IV contrast. Hematology oncology was also consulted with recommendation for bone marrow biopsy which family declined after talking with patient as patient did not want to go through any more invasive procedures. Also of note patient was noted to have left chest wall/breast mass on CT of chest that was previously noted on imaging on 08/10/2016---described a lobular lesion of the left breast measuring approximately 5.1 x 3.4 cm in axial plane and 9.4 cm in long axis. Previously this measured 4.0 x 2.5 cm in axial plane and 8.9 cm in long axis as measured in similar fashion. She had declined further workup for breast mass. Palliative care was consulted and goals of care were discussed with family as they were considering home hospice; family decided to change patients CODE STATUS to DNR CCA. Family was to meet again with palliative care for final decision pending outcome of qiu CT scanning. Patient however went into cardiac arrest with cardiac arrhythmia and was pronounced at 1430. - Additional Data Confirmation of as documented by pronouncing clinician: no pulse, no respirations, no heart sounds, pupils fixed and dilated Family: at bedside Attending physician: Jose Carlos Keller Discharge Sum: Diag - PCOD Probable Cause of : Cardiac arrest Discharge Sum: Prov - Provider Primary care physician: PCP NONE Consults: 07/13/18 10:30 Consult to Orthopedic Surgery [CONS] Stat Consulting Provider: [facility] Reason for Consult: Femoral Neck fx Time Notified: 10:31 Call Completed: Yes 07/14/18 14:44 Consult to Occupational Therapy [CONS] Routine Comment: Evaluate, develop and implement POC Reason for Consult: eval and treat Does patient have active BEDREST order?: Yes Is patient medically & hemodynamically stable?: No Patient assessed for mobility or mobilized this visit?: Yes Consult to Physical Therapy [CONS] Routine Comment: Evaluate, develop and implement POC Reason for Consult: eval and treat Does patient have active BEDREST order?: No Is patient medically & hemodynamically stable?: Yes 07/15/18 09:36 Consult to Oncology [CONS] Routine Consulting Provider: [facility] Reason for Consult: acute leukocytosis Call Completed: Yes Consult to Pulmonology [CONS] Routine Consulting Provider: [facility] Reason for Consult: septic shock Call Completed: Yes 07/15/18 10:28 Consult to Infectious Diseases [CONS] Routine Consulting Provider: Infectious Disease [facility] Reason for Consult: severe sepsis Call Completed: No 07/19/18 14:43 Consult to Gastroenterology [CONS] Routine Consulting Provider: [facility]enter[facility] Reason for Consult: anemia work up Call Completed: No 07/21/18 16:33 Consult to Oncology Hematology [CONS] Routine Consulting Provider: Mary Cruz Reason for Consult: lung ca Call Completed: Yes 07/23/18 14:04 Consult to Palliative Care [CONS] Routine Comment: Consulting Provider: Palliative [facility] Reason for Consult: PATIENT WITH MULTIPLE MEDICAL PROBLEMS POOR PROGNOSIS FAMILY WANTS TO DISCUSS PALLIATIVE CARE AND HOSPICE Call Completed: Yes
[2018-07-27] MEDS ORDERED: Aminoglycoside Consult 1 EACH MC ONE (17:01)
[2018-07-29 01:27] LABS: BCR-ABL1 Specimen Source NOT SPECIFIED
== END 2018-07-27 17:02 | disposition expired | DRG 853 ==
LOC: EMEROOARM 09:24 → SUATTDRO 11:32 → 3NENU 11:32 → ICNU 07-14 21:10 → 2NENU 07-17 20:53
PROVIDERS: ADMIT Internal Medicine; ATTEND Hospitalist